=== PATIENT | female | born 1970 | race Caucasian/White ===

== ENCOUNTER → 2017-12-25 | Outpatient (CLI) | payer MEDICARE, OTHER ==
--- NOTE | 2017-12-26 08:34 | XR ---
EXAMINATION TYPE: XR cervical spine comp DATE OF EXAM: 12/25/2017 COMPARISON: 12/15/2009 HISTORY: Pain TECHNIQUE: 3 views are submitted. FINDINGS: The odontoid is intact. There are no compression deformities. The prevertebral soft tissue structur es are within normal limits. Postsurgical changes are noted. Degenerative disc disease at all levels . There is a kyphosis of the cervical spine which may be secondary to surgery. Alignment is demonstra swati inferior margin of C7. IMPRESSION: 1. Postsurgical changes.
--- NOTE | 2017-12-26 09:18 | XR ---
EXAMINATION TYPE: XR shoulder complete LT DATE OF EXAM: 12/25/2017 COMPARISON: NONE HISTORY: Pain TECHNIQUE: Three views are submitted. FINDINGS: The osseous structures are intact. There is no acute fracture or dislocation. Diffuse osteopenia. A rthropathy of the AC joint. IMPRESSION: 1. No acute process.
== END | disposition home or self-care (01) ==
LOC: RADXRMAIN 16:01
PROVIDERS: ATTEND Nurse Practitioner Family
DX: M54.2 Cervicalgia (principal); G82.50 Quadriplegia, unspecified; Z98.890 Other specified postprocedural states
CPT/HCPCS: 72050

== ENCOUNTER 2019-01-13 18:42 | Inpatient (IN) | payer MEDICARE, OTHER ==
[~2019-01-13 18:42] MED LIST: CHLORHEXIDINE GLUCONATE 15 ML CUP MUCOUS MEM ONE; MIDAZOLAM 1 MG/ML 5 ML VIAL ONE; PROPOFOL 10 MG/ML 20 ML VIAL IV ONE; ROCURONIUM BROMIDE 10 MG/ML 10 ML VIAL IV ONE
[2019-01-13] MEDS ORDERED: ACETAMINOPHEN TAB 500 MG TAB PO STA (19:13)
[2019-01-13] MEDS ORDERED: AZITHROMYCIN 500 MG in SODIUM CHLORIDE 0.9% 250 ML IVPB STA (19:15)
[2019-01-13] MEDS ORDERED: VANCOMYCIN IV PER PHARMACY 1 EACH MISC MISCELLANE PRN (19:26)
[2019-01-13] MEDS ORDERED: CEFEPIME 2 GM in SODIUM CHLORIDE 0.9% 100 ML IVPB STA (19:26)
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
[2019-01-13 19:30] LABS: Basophils % (A) 0 %; Eosinophils % (A) 0 %; HCT 30.8 % (34.0-46.0); HGB 10.1 gm/dL (11.4-16.0); Lymphocytes # (A) 0.7 k/uL (1.0-4.8); Lymphocytes % (A) 5 %; MCH 28.2 pg (25.0-35.0); MCHC 32.8 g/dL (31.0-37.0); Mean Platelet Volume 7.4; Monocytes # (A) 0.8 k/uL (0-1.0); Monocytes % (A) 7 %; Neutrophils % (A) 85 %; Platelet Count 458 k/uL (150-450); RBC 3.58 m/uL (3.80-5.40); RDW 14.9 % (11.5-15.5); WBC 12.9 k/uL (3.8-10.6)
[2019-01-13 19:32] LABS: ABG Base Excess 0.5 mmol/L; ABG HCO3 25 mmol/L (21-25); ABG Oxygen Saturation 86.9 % (94-97); ABG PCO2 39 mmHg (35-45); ABG PH 7.42 (7.35-7.45); ABG TCO2 26 mmol/L (19-24); Allen Test Performed? Yes
[2019-01-13] MEDS: SODIUM CHLORIDE 0.9% 500 ML 500 ML IV SCH ×2 (19:36→20:20)
--- NOTE | 2019-01-13 19:38 | XR ---
EXAMINATION TYPE: XR chest 1V portable DATE OF EXAM: 01/13/2019 COMPARISON: 05/21/2013 HISTORY: Fever TECHNIQUE: Single frontal view of the chest is obtained. FINDINGS: There is extensive airspace consolidation in the left mid and lower lung conti. Heart and mediastinum are shifted slightly to the left side. There is some mild atelectasis right lateral lung base. There is no heart failure. There are chest leads. IMPRESSION: New bilateral abnormality as above. Left lower lobe pneumonia and atelectasis is new com pared to old exam. There is new mild atelectasis lateral right lung base compared to old exam. Follow -up recommended. No gross heart failure.
[2019-01-13 19:39] LABS: ALT 14 U/L (9-52); AST 24 U/L (14-36); African American GFR (CKD) >90 (>60 ml/min/1.73 sqM); Albumin 3.4 g/dL (3.5-5.0); Alkaline Phosphatase 133 U/L (38-126); Anion Gap 13 mmol/L; Blood Urea Nitrogen 12 mg/dL (7-17); Calcium 8.6 mg/dL (8.4-10.2); Carbon Dioxide 23 mmol/L (22-30); Chloride 98 mmol/L (98-107); Glucose 120 mg/dL (74-99); Sodium 134 mmol/L (137-145); Total Bilirubin 0.8 mg/dL (0.2-1.3); Total Protein 7.3 g/dL (6.3-8.2)
[2019-01-13] MEDS ORDERED: VANCOMYCIN 1,000 MG in SODIUM CHLORIDE 0.9% 250 ML IVPB STA (19:39)
[2019-01-13 19:40] LABS: Partial Thromboplastin Time 31.7 sec (22.0-30.0); Potassium 3.5 mmol/L (3.5-5.1); Prothrombin Time 10.7 sec (9.0-12.0)
[2019-01-13 20:08] LABS: ABG PO2 52 mmHg (83-108)
[2019-01-13] MEDS ORDERED: RX INFO: IV CONTRAST WAS GIVEN 1 EACH MISC MISCELLANE PRN (20:12)
--- NOTE | 2019-01-13 20:56 | CT ---
EXAMINATION TYPE: CT chest wo/w con DATE OF EXAM: 01/13/2019 COMPARISON: None HISTORY: RACHEL, low 02 stats. Pt Q5 quadraplegic, not able to move arms. CT DLP: 443 mGycm Automated exposure control for dose reduction was used. CONTRAST: CT scan of the chest is performed with IV Contrast, patient injected with 100 mL of Isovue 300. Multiple axial sections were also obtained of the chest without contrast. FINDINGS: There is left lower lobe airspace consolidation. There is also infiltrate extending into the left upp er lobe. There is left pleural effusion. There is airspace infiltrate in the posterior right lower lo be. There is no mediastinal adenopathy. Heart size is normal. There is no pericardial effusion. Thora cic aorta is intact. There is no aneurysm or dissection. The thoracic spine is intact. Sternum appear s normal. There is no evidence of rib fracture. I see no filling defects in the pulmonary arteries. There is multiple areas of cortical thinning in the visualized right kidney. There is 4.5 cm hypodens e area posterior right lobe of the liver consistent with hemangioma unchanged compared to 10/31/2012 CT scan. IMPRESSION: Extensive airspace consolidation in the left lower lobe and to a lesser extent the left upper lobe. Left pleural effusion. There is less severe airspace consolidation and atelectasis medial posterior right lower lobe. No niurka dence of pulmonary embolism. Changes in the right kidney consistent with scarring and chronic pyelonephritis. This appears unchang ed compared to CT scan of 10/31/2012.
[2019-01-13] MEDS ORDERED: NALOXONE 0.4 MG/ML 1 ML VIAL IV PRN (21:47)
[2019-01-13] MEDS ORDERED: ACETAMINOPHEN TAB 325 MG TAB PO PRN (21:47)
--- NOTE | 2019-01-13 22:18 | XR ---
EXAM: XR Abdomen, 2 Views CLINICAL HISTORY: ITS.REASON XR Reason: Pain TECHNIQUE: Frontal view of the abdomen/pelvis with upright view of the abdomen. COMPARISON: No relevant prior studies available. FINDINGS: Intraperitoneal space: Evaluation for free air limited by supine patient positioning. Gastrointestinal tract: Retained stool is seen within the left colon. No dilation. Organs: Contrast material is seen within the bilateral renal collecting systems as well as the urinary bladder. Bones/joints: Unremarkable. IMPRESSION: No definite acute findings.
[2019-01-13 22:51] LABS: Glucose,Whole Blood 116 mg/dL (75-99)
[2019-01-13 23:06] LABS: Mucus,Urine Rare /hpf; RBC,Urine 3 /hpf (0-5); WBC,Urine 32 /hpf (0-5)
[2019-01-13 23:11] LABS: Appearance,Urine Clear (Clear); Bilirubin,Urine Negative (Negative); Blood,Urine Negative (Negative); Color,Urine Colorless; Glucose,Urine (UA) Negative (Negative); Ketones,Urine Negative (Negative); Leukocyte Esterase,Urine Large (Negative); Nitrite,Urine Negative (Negative); PH, Urine 5.5 (5.0-8.0); Protein,Urine Negative (Negative); Specific Gravity,Urine 1.017 (1.001-1.035); Urobilinogen,Urine <2.0 mg/dL (<2.0)
[2019-01-14] MEDS: SODIUM CHLORIDE 0.9% 1,000 ML IV SCH ×3 (00:13→19:06)
[2019-01-14] MEDS ORDERED: VANCOMYCIN IV PER PHARMACY 1 EACH MISC MISCELLANE PRN (01:24)
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
[2019-01-14 05:14] LABS: HCT 28.9 % (34.0-46.0); Hypochromasia Moderate; MCH 27.9 pg (25.0-35.0); MCHC 31.3 g/dL (31.0-37.0); MCV 89.2 fL (80.0-100.0); Mean Platelet Volume 7.2; Platelet Count 349 k/uL (150-450); RBC 3.24 m/uL (3.80-5.40); RDW 14.5 % (11.5-15.5); WBC 13.7 k/uL (3.8-10.6)
[2019-01-14 05:25] LABS: African American GFR (CKD) >90 (>60 ml/min/1.73 sqM); Anion Gap 9 mmol/L; Blood Urea Nitrogen 12 mg/dL (7-17); Calcium 7.8 mg/dL (8.4-10.2); Carbon Dioxide 21 mmol/L (22-30); Chloride 106 mmol/L (98-107); Glucose 109 mg/dL (74-99); Potassium 3.5 mmol/L (3.5-5.1); Sodium 136 mmol/L (137-145)
[2019-01-14] MEDS ORDERED: Potassium Replacement Protocol 1 EACH MISC MISCELLANE PRN (06:43)
[2019-01-14] MEDS ORDERED: HEPARIN SODIUM,PORCINE 5,000 UNIT/ML 1 ML VIAL SQ SCH (08:00)
--- NOTE | 2019-01-14 08:05 | XR ---
EXAMINATION TYPE: XR chest 1V portable DATE OF EXAM: 01/14/2019 COMPARISON: Prior chest x-ray 01/13/2019 HISTORY: Difficulty breathing, pneumonia TECHNIQUE: Single frontal view of the chest is obtained. FINDINGS: There is some interval improvement in visualization of the left heart border. There is obs cured right hemidiaphragm that is developed in the interval. Bibasilar densities present, airspace di sease persists on the left. Heart size likely stable. No pneumothorax. There are overlying cardiac le ads. IMPRESSION: Possible interval right lower lobe atelectasis versus pneumonia. Findings compatible wit h patient's history of pneumonia, there is associated left pleural effusion, additional follow-up rec ommended.
[2019-01-14] MEDS ORDERED: VANCOMYCIN 1,000 MG in SODIUM CHLORIDE 0.9% 250 ML IVPB SCH (09:00)
[2019-01-14] MEDS ORDERED: OXYBUTYNIN 10 MG TAB.ER.24 PO SCH (09:00)
[2019-01-14] MEDS: POTASSIUM CHLORIDE ER 20 MEQ TAB.ER PO SCH ×2 (09:02→11:09)
[2019-01-14] MEDS: BACLOFEN 10 MG TAB PO SCH ×2 (09:03→22:50)
[2019-01-14] MEDS: PANTOPRAZOLE 40 MG/10 ML VIAL IV SCH (09:03)
[2019-01-14] MEDS: CEFEPIME 2 GM in SODIUM CHLORIDE 0.9% 100 ML IVPB SCH ×2 (09:03→15:30)
[2019-01-14] MEDS: ENOXAPARIN 40 MG/0.4 ML SYRINGE SQ SCH (11:09)
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
[2019-01-14] MEDS: VANCOMYCIN 1,000 MG in SODIUM CHLORIDE 0.9% 250 ML IVPB SCH (18:50)
[2019-01-14] MEDS: NORTRIPTYLINE 25 MG CAP PO SCH (22:51)
[2019-01-14] MEDS: DETROL PO SCH (22:51)
[2019-01-14] MEDS: OXYBUTYNIN 10 MG TAB.ER.24 PO SCH (22:56)
[2019-01-15] MEDS: CEFEPIME 2 GM in SODIUM CHLORIDE 0.9% 100 ML IVPB SCH ×3 (00:30→15:34)
[2019-01-15] MEDS: VANCOMYCIN 1,000 MG in SODIUM CHLORIDE 0.9% 250 ML IVPB SCH ×3 (02:10→17:16)
[2019-01-15] MEDS: SODIUM CHLORIDE 0.9% 1,000 ML IV SCH ×2 (04:03→15:34)
[2019-01-15 05:15] LABS: African American GFR (CKD) >90 (>60 ml/min/1.73 sqM)
[2019-01-15 07:06] LABS: HGB 8.2 gm/dL (11.4-16.0); Hypochromasia Marked; MCH 28.5 pg (25.0-35.0); MCHC 31.3 g/dL (31.0-37.0); MCV 90.8 fL (80.0-100.0); Mean Platelet Volume 8.1; Platelet Count 338 k/uL (150-450); RBC 2.87 m/uL (3.80-5.40); RDW 14.7 % (11.5-15.5); WBC 17.4 k/uL (3.8-10.6)
[2019-01-15 07:19] LABS: ALT 24 U/L (9-52); AST 27 U/L (14-36); Albumin 2.5 g/dL (3.5-5.0); Alkaline Phosphatase 106 U/L (38-126); Anion Gap 9 mmol/L; Blood Urea Nitrogen 11 mg/dL (7-17); Calcium 7.3 mg/dL (8.4-10.2); Carbon Dioxide 18 mmol/L (22-30); Chloride 112 mmol/L (98-107); Glucose 96 mg/dL (74-99); Potassium 4.1 mmol/L (3.5-5.1); Sodium 139 mmol/L (137-145); Total Bilirubin 0.3 mg/dL (0.2-1.3); Total Protein 5.5 g/dL (6.3-8.2)
--- NOTE | 2019-01-15 08:16 | XR ---
EXAMINATION TYPE: XR chest 1V portable DATE OF EXAM: 01/15/2019 COMPARISON: Prior chest x-ray 01/14/2019 HISTORY: Shortness of breath and pneumonia TECHNIQUE: Single frontal view of the chest is obtained. FINDINGS: Interval improved visualization of the right hemidiaphragm. Persistent bibasilar increased density is noted. There is no pneumothorax. Heart size is stable. There are overlying cardiac leads, patient is rotated. IMPRESSION: Findings compatible with patient's history of pneumonia.
[2019-01-15] MEDS: ENOXAPARIN 40 MG/0.4 ML SYRINGE SQ SCH (08:48)
[2019-01-15] MEDS: OXYBUTYNIN 10 MG TAB.ER.24 PO SCH ×2 (08:48→21:12)
[2019-01-15] MEDS: BACLOFEN 10 MG TAB PO SCH ×2 (08:48→21:11)
[2019-01-15] MEDS: PANTOPRAZOLE 40 MG/10 ML VIAL IV SCH (08:48)
[2019-01-15] MEDS ORDERED: VANCOMYCIN TROUGH DUE 1 EACH MISC MISCELLANE ONE (09:00)
--- NOTE | 2019-01-15 11:28 | P.PN ---
Subjective Progress Note Date: 01/15/19 Principal diagnosis: SOB and hypoxia According to nursing patient required BiPAP last night. It is currently off, now requiring 10 L of nasal cannula. Patient denying any shortness of breath or chest pain. No fevers or chills. Objective - Vital Signs Vital signs: Vital Signs Temp 97.9 F 01/15/19 08:00 Pulse 101 H 01/15/19 11:00 Resp 19 01/15/19 11:00 BP 121/84 01/15/19 11:00 Pulse Ox 99 01/15/19 10:00 Intake & Output 01/14/19 01/15/19 01/15/19 18:59 06:59 18:59 Intake Total 1650 1300 450 Output Total 365 520 300 Balance 1285 780 150 Weight 59.6 kg 57.7 kg Intake: IV 1200 1300 450 Cefepime 2 gm In Sodium 100 Chloride 0.9% 100 ml @ 200 mls/hr IVPB Q8HR [facility] Rx#:[id number] Sodium Chloride 0.9% 1, 1200 1300 100 000 ml @ 100 mls/hr IV . Q10H [facility] Rx#:[id number] Vancomycin 1,000 mg In 250 Sodium Chloride 0.9% 250 ml @ 125 mls/hr IVPB Q12HR [facility]ITOR Rx#:[id number] Intake, IV Titration 450 Amount Cefepime 2 gm In Sodium 200 Chloride 0.9% 100 ml @ 200 mls/hr IVPB Q8HR [facility]ITOR Rx#:[id number] Vancomycin 1,000 mg In 250 Sodium Chloride 0.9% 250 ml @ 125 mls/hr IVPB Q8H [facility]ITOR Rx#:[id number] Output: Urine 365 520 300 Other: Voiding Method Indwelling Catheter Indwelling Catheter Indwelling Catheter - Exam General: No acute distress, comfortable Derm: Left ankle 2 cm x 2 cm ulcer with dressing, no unusual ecchymoses, warm, dry Head: atraumatic, normocephalic, symmetric Eyes: EOMI, no lid lag, anicteric sclera, pupils equal round reactive to light ENT: Nose and ears atraumatic, no thrush, no pharyngeal erythema Neck: No thyromegaly, no cervical lymphadenopathy, trachea midline, supple Mouth: no lip lesion, mucus membranes moist Cardiovascular: S1S2 reg, no murmur, positive posterior tibial pulse bilateral, no edema, capillary refill less than 2 seconds Lungs: Good lung sounds and scattered rhonchi over left lung conti, no rales , no accessory muscle use Abdominal: soft, nontender to palpation, no guarding, no appreciable organomegaly, normal bowel sounds Ext: Thin extremities, +muscle wasting, muscle strength 2 out of 5 in all 4 extremities grossly, no contractures Neuro: CN II-XI grossly intact Psych: Alert, oriented, appropriate affect - Labs CBC & Chem 7: 01/15/19 04:35 01/15/19 04:35 Labs: Abnormal Lab Results - Last 24 Hours (Table) 01/15/19 01/15/19 Range/Units 04:35 04:35 WBC 17.4 H (3.8-10.6) k/uL RBC 2.87 L (3.80-5.40) m/uL Hgb 8.2 L (11.4-16.0) gm/dL Hct 26.0 L (34.0-46.0) % Chloride 112 H (98-107) mmol/L Carbon Dioxide 18 L (22-30) mmol/L Creatinine 0.39 L (0.52-1.04) mg/dL Calcium 7.3 L (8.4-10.2) mg/dL Total Protein 5.5 L (6.3-8.2) g/dL Albumin 2.5 L (3.5-5.0) g/dL Microbiology - Last 24 Hours (Table) 01/13/19 19:15 Blood Culture - Preliminary Blood No Growth after 24 hours 01/13/19 22:52 Urine Culture - Preliminary Urine,Catheterized Assessment and Plan Plan: Sepsis secondary to multifocal pneumonia -Continue with vancomycin and cefepime -Follow up cultures -Pulmonary to consider bronchoscopy Normocytic anemia -No prior values available -Monitor for now Quadriplegia -Assist with feedings Abnormal UA -Patient w/ history of multiple UTIs and colonization -C/w Cefepime for now DVT prophylaxis -Lovenox Discussed with: Patient, Family Anticipated discharge date: 01/16/[address]: Home
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
--- NOTE | 2019-01-15 19:21 | XR ---
EXAMINATION: XR chest 1V portable DATE AND TIME: 01/15/2019 7:08 PM CLINICAL INDICATION: PHH; Tube placement TECHNIQUE: AP portable supine COMPARISON: AP portable semiupright chest radiograph 01/15/2019 at 5:43 AM FINDINGS: ET tube tip superimposed over the mid trachea. NG tube present, coursing over the expected course of the thoracic esophagus and over the stomach. There is new bilateral moderate-marked silhouetting of the pulmonary vasculature bilaterally by a fin e reticular pattern of increased attenuation, along with areas of coalescent ill-defined added opacit y - and with elevation of the right hemidiaphragm consistent with partial volume loss. These changes are consistent with new pulmonary edema and new right-sided atelectasis. Concurrent bronchopneumonia can be clinically considered. No visualized pneumothorax or other abnormal gas collection. Evidence of bilateral relatively-small pleural effusions. Cardiomediastinal silhouette and bones and soft tissues are unremarkable. Note: Supine radiography cannot exclude abnormal gas collections. IMPRESSION: POST INTUBATION CHEST RADIOGRAPH WITH PROMINENT INTERVAL WORSENING IN THE OVERALL LUNG INFLATION.
[2019-01-15] MEDS: PROPOFOL 1,000 MG in EMPTY BAG 1 BAG IV SCH (19:24)
[2019-01-15 19:28] LABS: ABG Base Excess -7.8 mmol/L; ABG HCO3 19 mmol/L (21-25); ABG Oxygen Saturation 92.5 % (94-97); ABG PCO2 37 mmHg (35-45); ABG PO2 66 mmHg (83-108); ABG TCO2 20 mmol/L (19-24); Allen Test Performed? Yes
[2019-01-15] MEDS: CHLORHEXIDINE GLUCONATE 15 ML CUP MUCOUS MEM SCH (21:11)
[2019-01-15] MEDS: DETROL PO SCH (21:12)
[2019-01-15] MEDS: NORTRIPTYLINE 25 MG CAP PO SCH (21:12)
[2019-01-16] MEDS: CEFEPIME 2 GM in SODIUM CHLORIDE 0.9% 100 ML IVPB SCH (00:48)
[2019-01-16] MEDS: methylPREDNISolone SOD SUCCI 125 MG/2 ML VIAL IV SCH ×5 (00:48→23:59)
[2019-01-16] MEDS: SODIUM CHLORIDE 0.9% 1,000 ML IV SCH ×2 (02:06→08:31)
[2019-01-16] MEDS: VANCOMYCIN 1,000 MG in SODIUM CHLORIDE 0.9% 250 ML IVPB SCH ×3 (02:06→17:11)
[2019-01-16 07:21] LABS: ABG Base Excess -8.9 mmol/L; ABG HCO3 17 mmol/L (21-25); ABG Oxygen Saturation 99.8 % (94-97); ABG PCO2 29 mmHg (35-45); ABG PH 7.36 (7.35-7.45); ABG PO2 227 mmHg (83-108); ABG TCO2 17 mmol/L (19-24)
[2019-01-16 07:23] LABS: Allen Test Performed? no
[2019-01-16 07:35] LABS: HCT 26.6 % (34.0-46.0); HGB 8.2 gm/dL (11.4-16.0); Hypochromasia Moderate; MCHC 30.8 g/dL (31.0-37.0); MCV 90.7 fL (80.0-100.0); Mean Platelet Volume 8.2; Platelet Count 419 k/uL (150-450); RBC 2.93 m/uL (3.80-5.40); RDW 15.1 % (11.5-15.5); WBC 20.2 k/uL (3.8-10.6)
[2019-01-16 07:44] LABS: African American GFR (CKD) >90 (>60 ml/min/1.73 sqM); Anion Gap 11 mmol/L; Blood Urea Nitrogen 7 mg/dL (7-17); Calcium 7.2 mg/dL (8.4-10.2); Carbon Dioxide 18 mmol/L (22-30); Chloride 111 mmol/L (98-107); Glucose 110 mg/dL (74-99); Potassium 3.3 mmol/L (3.5-5.1); Sodium 140 mmol/L (137-145)
[2019-01-16] MEDS: IPRATROPIUM-ALBUTEROL 3 ML NEB INHALATION SCH ×4 (07:56→19:28)
--- NOTE | 2019-01-16 08:16 | XR ---
EXAMINATION TYPE: XR chest 1V portable DATE OF EXAM: 01/16/2019 COMPARISON: Prior chest 01/15/2019 HISTORY: Intubated TECHNIQUE: frontal view of the chest is obtained on 2 images. FINDINGS: Endotracheal tube, NG tube, overlying cardiac leads again noted. Some improvement in aerat ion is present in the right upper lobe. Diffuse airspace disease present on the left and within the r ight lower lobe. There is blunting of the costophrenic angles. Postop change noted in the cervical sp ine. Heart size is stable. IMPRESSION: Findings compatible with pneumonia. Some interval improved aeration. There may be lower lobe atelectasis, associated effusions.
[2019-01-16] MEDS: PIPERACILLIN-TAZOBACTAM 3.375 GM in SODIUM CHLORIDE 0.9% 100 ML IVPB SCH ×3 (08:31→23:59)
[2019-01-16] MEDS: BACLOFEN 10 MG TAB PO SCH ×2 (08:32→19:49)
[2019-01-16] MEDS: ENOXAPARIN 40 MG/0.4 ML SYRINGE SQ SCH (08:32)
[2019-01-16] MEDS: CHLORHEXIDINE GLUCONATE 15 ML CUP MUCOUS MEM SCH ×2 (08:32→19:50)
[2019-01-16] MEDS: PANTOPRAZOLE 40 MG/10 ML VIAL IV SCH (08:33)
[2019-01-16] MEDS: POTASSIUM CHLORIDE 20 MEQ in WATER FOR INJECTION 1 100ML.BAG IVPB SCH ×3 (08:44→13:07)
--- NOTE | 2019-01-16 09:23 | P.PN ---
Subjective Progress Note Date: 01/16/19 Principal diagnosis: SOB and hypoxia Patient was off BiPAP for about 4 hours yesterday on 01/15. After that she started struggling with shortness of breath, she was hypoxic as well. Because of that she was intubated and placed on mechanical ventilation. Currently doing well. Objective - Vital Signs Vital signs: Vital Signs Temp 98.3 F 01/16/19 04:00 Pulse 68 01/16/19 08:13 Resp 20 01/16/19 07:00 BP 155/107 01/16/19 07:00 Pulse Ox 100 01/16/19 07:00 Intake & Output 01/15/19 01/16/19 01/16/19 18:59 06:59 18:59 Intake Total 1250 1123.138 100 Output Total 800 785 75 Balance 450 338.138 25 Weight 58.3 kg Intake: IV 1250 1100 100 Cefepime 2 gm In Sodium 200 100 Chloride 0.9% 100 ml @ 200 mls/hr IVPB Q8HR [facility] Rx#:[id number] Sodium Chloride 0.9% 1, 550 1000 100 000 ml @ 100 mls/hr IV . Q10H [facility] Rx#:[id number] Vancomycin 1,000 mg In 250 Sodium Chloride 0.9% 250 ml @ 125 mls/hr IVPB Q12HR [facility] Rx#:[id number] Vancomycin 1,000 mg In 250 Sodium Chloride 0.9% 250 ml @ 125 mls/hr IVPB Q8H [facility] Rx#:[id number] Intake, IV Titration 23.138 Amount Propofol 1,000 mg In 23.138 Empty Bag 1 bag @ Titrate IV .Q0M [facility] Rx#: [id number] Output: Urine 800 785 75 Other: Voiding Method Indwelling Catheter Indwelling Catheter ABP, PAP, CO, CI - Last Documented Arterial Blood Pressure 171/97 - Exam General: intubated, sedated Derm: Left ankle 2 cm x 2 cm ulcer with dressing, no unusual ecchymoses, warm, dry Head: atraumatic, normocephalic, symmetric Eyes: EOMI, no lid lag, anicteric sclera, pupils equal round reactive to light ENT: Nose and ears atraumatic, no thrush, no pharyngeal erythema Neck: No thyromegaly, no cervical lymphadenopathy, trachea midline, supple Mouth: no lip lesion, mucus membranes moist Cardiovascular: S1S2 reg, no murmur, positive posterior tibial pulse bilateral, no edema, capillary refill less than 2 seconds Lungs: Good lung sounds and scattered rhonchi over left lung conti, no rales , no accessory muscle use Abdominal: soft, nontender to palpation, no guarding, no appreciable organomegaly, normal bowel sounds Ext: Thin extremities, +muscle wasting, no contractures Neuro: Paraplegic - Labs CBC & Chem 7: 01/16/19 07:00 01/16/19 07:00 Labs: Abnormal Lab Results - Last 24 Hours (Table) 01/15/19 01/16/19 01/16/19 Range/Units 19:26 07:00 07:00 WBC 20.2 H (3.8-10.6) k/uL RBC 2.93 L (3.80-5.40) m/uL Hgb 8.2 L (11.4-16.0) gm/dL Hct 26.6 L (34.0-46.0) % MCHC 30.8 L (31.0-37.0) g/dL ABG pH 7.30 L (7.35-7.45) ABG pCO2 (35-45) mmHg ABG pO2 66 L (83-108) mmHg ABG HCO3 19 L (21-25) mmol/L ABG Total CO2 (19-24) mmol/L ABG O2 Saturation 92.5 L (94-97) % Potassium 3.3 L (3.5-5.1) mmol/L Chloride 111 H (98-107) mmol/L Carbon Dioxide 18 L (22-30) mmol/L Creatinine 0.37 L (0.52-1.04) mg/dL Glucose 110 H (74-99) mg/dL Calcium 7.2 L (8.4-10.2) mg/dL 01/16/19 Range/Units 07:18 WBC (3.8-10.6) k/uL RBC (3.80-5.40) m/uL Hgb (11.4-16.0) gm/dL Hct (34.0-46.0) % MCHC (31.0-37.0) g/dL ABG pH (7.35-7.45) ABG pCO2 29 L (35-45) mmHg ABG pO2 227 H (83-108) mmHg ABG HCO3 17 L (21-25) mmol/L ABG Total CO2 17 L (19-24) mmol/L ABG O2 Saturation 99.8 H (94-97) % Potassium (3.5-5.1) mmol/L Chloride (98-107) mmol/L Carbon Dioxide (22-30) mmol/L Creatinine (0.52-1.04) mg/dL Glucose (74-99) mg/dL Calcium (8.4-10.2) mg/dL Microbiology - Last 24 Hours (Table) 01/13/19 19:15 Blood Culture - Preliminary Blood No Growth after 48 hours 01/13/19 22:52 Urine Culture - Final Urine,Catheterized Assessment and Plan Plan: Sepsis secondary to multifocal pneumonia -Continue with vancomycin, d/c cefepime and start zosyn to cover anaerobes -Follow up cultures -Pulmonary to consider bronchoscopy Acute hypoxic respiratory failure: Now requiring mechanical ventilation Management per ICU team On abx as above. Steroids added IV Normocytic anemia -No prior values available -Monitor for now Hypokalemia Replace Quadriplegia -Assist with feedings Abnormal UA -Patient w/ history of multiple UTIs and colonization -On zosyn DVT prophylaxis -Lovenox Discussed with: Patient, Family Anticipated discharge date: 01/19/[address]: Home
[2019-01-16] MEDS: PROPOFOL 1,000 MG in EMPTY BAG 1 BAG IV SCH ×4 (10:53→22:30)
--- NOTE | 2019-01-16 11:47 | P.PN ---
Subjective Progress Note Date: 01/16/19 Principal diagnosis: Acute bilateral pneumonia, could be community-acquired or could be aspiration pneumonia. This is a 48-year-old female, quadriplegia, history of C-spine injury in 1995, patient presented to the ER with shortness of breath, fever, and low O2 saturation. According to her uncle, his symptoms started out yesterday were and the patient was noted to have shortness of breath, and a temp as high as 101. Her condition gradually worsened, and when her O2 saturation was checked, it was noted to be 69% on room air. Upon arrival to the ER, patient was noted to have abnormal chest x-ray with bilateral airspace disease involving most of the left lung, and the right lower lobe. Patient denies any symptoms of aspiration, she has no difficulty swallowing, she was initially placed on a nonrebreather mask, and was later switched to BiPAP. Presently on BiPAP, IPAP is 14 EPAP of 7 and FiO2 is 45%. Chest x-ray and CT of the chest were both reviewed, clearly there is evidence of significant airspace disease involving the left lung and the right lower lobe. Patient was already placed on vancomycin and cefepime. Cultures are pending. Patient is hemodynamically stable, and feeling much better compared to how she felt upon presentation. Chest x-ray is showing slight improvement but that's mostly because she is on BiPAP. And there seems to be better aeration of the left lower lobe and right lower lobe. CBC showed evidence of leukocytosis. Her ABG showed a pO2 of 52 pCO2 of 39 pH of 7.42. Urinalysis is suggestive of urinary tract infection with positive leukocyte esterase, and there is pyuria in the urine. However she had negative nitrites. Reevaluated today on 01/15/2019, patient remains in the ICU, she was switched from BiPAP to a high flow nasal cannula at 10 L. Feeling better compared to yesterday. Patient continues to have a weak cough. Her chest x-ray continues to show significant airspace disease in the left lower lobe, some improvement noted in the right lower lobe. Swallow evaluation is pending, in the meantime the patient is showing clinical improvement and she seems to be oxygenating better compared to yesterday. Chest x-ray again showed slight improvement. CBC continues to show leukocytosis with WBC count of 17.4. Electrodes are normal renal profile is normal. Blood cultures are negative so far. Urine culture is negative so far. No sputum has been sent as the patient is having difficulty coughing and any significant secretions Patient was reevaluated today on 01/16/2019, she was doing well off BiPAP at high flow nasal cannula until late afternoon yesterday, condition deteriorated, patient could not clear any secretions, her O2 saturation To dropping down his bite of going back on BiPAP, hence I recommended intubating the patient. Patient was placed on mechanical ventilation, she is presently on assist control rate of 16 tidal volume of 400, FiO2 45%, PEEP is at 5. Yesterday she was for quite some time on high FiO2 100%, and PEEP of 8. However her oxygenation and ABG seems to be improving today, continues to have significantly abnormal chest x-ray with significant airspace disease involving both lungs especially left lower lobe and right lower lobe. No adequate sputum sample was obtained after intubation, hence I plan to bronchoscope the patient today, and lavage her right lower lobe and possibly lavage the left lower lobe. Patient clearly needed to be intubated because her Restoril status was getting worse by late afternoon. Chest x-ray continues to show significant airspace disease. Her labs were reviewed, ABG this morning showed a pO2 of 227 pCO2 of 29 pH of 7.36. Her bicarb is 18. Profile is normal potassium is 3.3. Electrolytes are otherwise normal. She has clearly leukocytosis with WBC count of 20.2 hemoglobin is 8.2. Antibiotics now are Zosyn and vancomycin. Blood cultures so far are negative. Patient is on propofol at 55 mcg/kg/m, not requiring any pressors. Objective - Vital Signs Vital signs: Vital Signs Temp 97.7 F 01/16/19 08:00 Pulse 89 01/16/19 11:00 Resp 16 01/16/19 11:00 BP 140/97 01/16/19 11:00 Pulse Ox 98 01/16/19 11:00 Intake & Output 01/15/19 01/16/19 01/16/19 18:59 06:59 18:59 Intake Total 1250 1123.138 826.862 Output Total 800 785 650 Balance 450 338.138 176.862 Weight 58.3 kg 58.3 kg Intake: IV 1250 1100 650 Cefepime 2 gm In Sodium 200 100 Chloride 0.9% 100 ml @ 200 mls/hr IVPB Q8HR [facility] Rx#:[id number] Piperacillin-Tazobactam 3 100 .375 gm In Sodium Chloride 0.9% 100 ml @ 25 mls/hr IVPB Q8HR [facility] Rx# :[id number] Potassium Chloride 20 meq 200 In Water For Injection 1 100ml.bag @ 50 mls/hr IVPB Q2H [facility] Rx#: [id number] Sodium Chloride 0.9% 1, 550 1000 100 000 ml @ 100 mls/hr IV . Q10H [facility] Rx#:[id number] Vancomycin 1,000 mg In 250 Sodium Chloride 0.9% 250 ml @ 125 mls/hr IVPB Q12HR [facility] Rx#:[id number] Vancomycin 1,000 mg In 250 250 Sodium Chloride 0.9% 250 ml @ 125 mls/hr IVPB Q8H [facility] Rx#:[id number] Intake, IV Titration 23.138 76.862 Amount Propofol 1,000 mg In 23.138 76.862 Empty Bag 1 bag @ Titrate IV .Q0M [facility] Rx#: [id number] Other 100 Output: Urine 800 785 650 Other: Voiding Method Indwelling Catheter Indwelling Catheter Indwelling Catheter ABP, PAP, CO, CI - Last Documented Arterial Blood Pressure 148/86 - Exam General: Revealed a 48-year-old female, sedated, on mechanical ventilation, on propofol. Head: atraumatic, normocephalic, endotracheal tube and orogastric tube are intact. Eyes: EOMI, PERRLA, EOMI, no icterus. ENT: Nose and ears moist mucous membranes, throat is clear. Neck: No neck masses no JVD. Mouth: Moist mucous membranes otherwise unremarkable. Cardiovascular: Normal S1 and S2, no S3 gallop. Lungs: Diffuse crackles and rhonchi noted bilaterally especially at the bases posteriorly. Symmetrical chest expansion. Abdominal: Soft nontender no megaly no rebound. Ext: Significant contractures noted in the upper extremities. There is flexion contractures noted. And 1+ bipedal edema noted in the lower extremities. Pressure ulcer noted on the left ankle area. Neuro: Paraplegic, sedated, mental status was not assessed. However according to the nurses even on 50 mcg/kg of propofol, she was following instructions earlier.. Psych: Cannot be assessed, sedated. Derm: Left ankle ulcer stage II noted 2.0 cm in size. Seems to be a pressure ulcer. - Labs CBC & Chem 7: 01/16/19 07:00 01/16/19 07:00 Labs: Abnormal Lab Results - Last 24 Hours (Table) 01/15/19 01/16/19 01/16/19 Range/Units 19:26 07:00 07:00 WBC 20.2 H (3.8-10.6) k/uL RBC 2.93 L (3.80-5.40) m/uL Hgb 8.2 L (11.4-16.0) gm/dL Hct 26.6 L (34.0-46.0) % MCHC 30.8 L (31.0-37.0) g/dL ABG pH 7.30 L (7.35-7.45) ABG pCO2 (35-45) mmHg ABG pO2 66 L (83-108) mmHg ABG HCO3 19 L (21-25) mmol/L ABG Total CO2 (19-24) mmol/L ABG O2 Saturation 92.5 L (94-97) % Potassium 3.3 L (3.5-5.1) mmol/L Chloride 111 H (98-107) mmol/L Carbon Dioxide 18 L (22-30) mmol/L Creatinine 0.37 L (0.52-1.04) mg/dL Glucose 110 H (74-99) mg/dL Calcium 7.2 L (8.4-10.2) mg/dL 01/16/19 Range/Units 07:18 WBC (3.8-10.6) k/uL RBC (3.80-5.40) m/uL Hgb (11.4-16.0) gm/dL Hct (34.0-46.0) % MCHC (31.0-37.0) g/dL ABG pH (7.35-7.45) ABG pCO2 29 L (35-45) mmHg ABG pO2 227 H (83-108) mmHg ABG HCO3 17 L (21-25) mmol/L ABG Total CO2 17 L (19-24) mmol/L ABG O2 Saturation 99.8 H (94-97) % Potassium (3.5-5.1) mmol/L Chloride (98-107) mmol/L Carbon Dioxide (22-30) mmol/L Creatinine (0.52-1.04) mg/dL Glucose (74-99) mg/dL Calcium (8.4-10.2) mg/dL Microbiology - Last 24 Hours (Table) 01/16/19 03:23 Gram Stain - Preliminary Sputum Sputum Culture - Preliminary 01/13/19 19:15 Blood Culture - Preliminary Blood No Growth after 48 hours 01/13/19 22:52 Urine Culture - Final Urine,Catheterized Assessment and Plan Assessment: Impression: 1 acute hypoxic respiratory failure secondary to bilateral pneumonia felt to be aspiration related, failed BiPAP, presently on mechanical ventilation. 2 community-acquired pneumonia, is not entirely ruled out. 3 acute sepsis secondary to pneumonia 4 quadriplegia secondary to previous C-spine injury 5 recurrent history of urinary tract infections and colonization 6 previous history of tracheostomy and reversal, Recommendation: Continue ventilatory support. Continue nutritional support patient will be started on enteral feeding. Continue antibiotics.Plan to perform bronchoscopy on this patient and lavage of the right lower lobe and left lower lobe, and antibiotics will be addressed according to the final culture. Continue bronchodilators Continue to monitor in the we will arrange for bronchoscopy today. Continue GI and DVT prophylaxis. Prognosis remains relatively poor and guarded. We'll continue to follow. We will update her family at her condition later today once they are available. Critical care time is 35 minutes, not including time on procedures. Time with Patient: Greater than 30
[2019-01-16] MEDS ORDERED: HYDROmorphone 1 MG/ML 1 ML SYRINGE IVP STA (13:14)
--- NOTE | 2019-01-16 14:23 | XR ---
EXAMINATION TYPE: XR chest 1V portable DATE OF EXAM: 01/16/2019 COMPARISON: Prior chest x-ray same dated earlier time and chest CT 01/13/2019 HISTORY: Status post bronchoscopy TECHNIQUE: Single frontal view of the chest is obtained. FINDINGS: Endotracheal tube, orogastric tube are overlying appropriate positions. There is some impr ovement in aeration at the right lung base. Some flake-like increased attenuation is present at the l sally bases, correlate for possible aspiration. Air bronchograms persist at the left lung base. No evid ent pneumothorax. IMPRESSION: Some interval improvement in aeration as compared to prior exam. Suggestion of metallic foreign bodies within the posterior lung bases, possible calcification
[2019-01-16 15:29] LABS: ABG Base Excess -10.9 mmol/L; ABG HCO3 16 mmol/L (21-25); ABG Oxygen Saturation 97.6 % (94-97); ABG PCO2 34 mmHg (35-45); ABG PH 7.28 (7.35-7.45); ABG PO2 101 mmHg (83-108); ABG TCO2 17 mmol/L (19-24); Allen Test Performed? Yes
[2019-01-16] MEDS: DEXTROSE 5% IN WATER 1,000 ML with SODIUM BICARB (1 MEQ/ML) 150 ML IV SCH (17:11)
--- NOTE | 2019-01-16 18:54 | OP ---
OPERATIVE REPORT OPERATION: Placement of right femoral triple-lumen catheter. PREOPERATIVE DIAGNOSIS: Acute respiratory failure and pneumonia. POSTOPERATIVE DIAGNOSIS: Acute respiratory failure and pneumonia. ANESTHESIA USED: Lidocaine 1%, 2 mL. PROCEDURE DESCRIPTION: The patient was placed in supine position. The area of the right groin was prepared in a sterile fashion and drapes were applied. The right groin was locally anesthetized with lidocaine. Then the right femoral vein was cannulated easily with 1 poke, and a guidewire was placed. The area around the guidewire was dilated with a dilator. Then a triple-lumen catheter was inserted over the guidewire and the guidewire was removed. Good blood flow was noted in the 3 different ports. Line was secured using 3.0 silk sutures. No evidence of any immediate complications. MMODL / IJN: [id number] /
--- NOTE | 2019-01-16 18:54 | OP ---
OPERATIVE REPORT OPERATION: Bronchoscopy and bronchoalveolar lavage of both lungs. The lavage was basically therapeutic. PREOPERATIVE DIAGNOSIS: Acute respiratory failure and bilateral pneumonia, difficulty clearing secretions. POSTOPERATIVE DIAGNOSIS: Respiratory failure, bilateral pneumonia and thick purulent secretions occluding the airways. ANESTHESIA USED: The patient was already on propofol drip. She was given a 50 mg bolus of propofol and 1 mg of Dilaudid IV push prior to the procedure. DESCRIPTION OF THE PROCEDURE: The patient was placed in a supine position. She was already on mechanical ventilation. An adapter was applied to the endotracheal tube and was connected to mechanical ventilation. FiO2 was raised up to 100%. We monitored her oxygen saturation continuously. Blood pressure was continuously monitored via arterial line and cardiac rhythm was continuously monitored. After adequate sedation, the bronchoscope was advanced through the adapter of the endotracheal tube. As we entered the trachea, the distal end of the endotracheal tube showed a significant amount of thick purulent secretions occluding mostly the right mainstem bronchus, also occluding the left mainstem bronchus, and a saddle shape over the ger. Suctioning was done aggressively. I had to go back and forth about 15 times getting the endobronchial mucous plugs, in an almost piecemeal type of fashion. Then I was able to eventually go down and lavage the right lower lobe, which was also completely occluded. The left lower lobe was also occluded. All the thick purulent secretions were suctioned aggressively from the right lower lobe, right middle lobe and right upper lobe. The same was done in the left lower lobe lingula and left upper lobe. We kept clearing secretions until all the airways became completely clear and no further thick secretions were noted. Fluid was sent for different diagnostic studies. Procedure was well tolerated. No evidence of any immediate complications. MMODL / IJN: [id number] /
[2019-01-16] MEDS: NORTRIPTYLINE 25 MG CAP PO SCH (19:48)
[2019-01-16] MEDS: OXYBUTYNIN CHLORIDE 5 MG TAB PO SCH (19:48)
[2019-01-16] MEDS: DETROL PO SCH (19:49)
[2019-01-16 20:42] LABS: Appearance,BF Cloudy; Color,BF Colorless; Nucleated Cells, Body Fluid 15050 /uL; RBC, Body Fluid 600 /uL
[2019-01-16 20:50] LABS: Mononuclear WBC,Body Fluid 2 %; Polynuclear WBC,Body Fluid 98 %; Total Cells Counted,Body Fluid 100
[2019-01-17 00:12] LABS: Glucose,Whole Blood 259 mg/dL (75-99)
[2019-01-17] MEDS: INSULIN ASPART (NovoLOG) 100 UNIT/ML VIAL SQ SCH ×4 (00:32→17:47)
[2019-01-17] MEDS: SODIUM CHLORIDE 0.9% 1,000 ML IV SCH ×3 (00:32→16:09)
[2019-01-17] MEDS: PROPOFOL 1,000 MG in EMPTY BAG 1 BAG IV SCH ×6 (01:15→22:10)
[2019-01-17] MEDS: VANCOMYCIN 1,000 MG in SODIUM CHLORIDE 0.9% 250 ML IVPB SCH (02:01)
[2019-01-17 05:14] LABS: HCT 24.2 % (34.0-46.0); HGB 7.7 gm/dL (11.4-16.0); Hypochromasia Moderate; MCH 28.1 pg (25.0-35.0); MCHC 31.7 g/dL (31.0-37.0); MCV 88.9 fL (80.0-100.0); Mean Platelet Volume 7.8; Platelet Count 390 k/uL (150-450); RBC 2.72 m/uL (3.80-5.40); RDW 14.9 % (11.5-15.5); WBC 11.4 k/uL (3.8-10.6)
[2019-01-17] MEDS: methylPREDNISolone SOD SUCCI 125 MG/2 ML VIAL IV SCH ×4 (05:15→23:19)
[2019-01-17 05:24] LABS: Glucose,Whole Blood 265 mg/dL (75-99)
[2019-01-17 05:48] LABS: African American GFR (CKD) >90 (>60 ml/min/1.73 sqM); Anion Gap 6 mmol/L; Blood Urea Nitrogen 9 mg/dL (7-17); Calcium 6.9 mg/dL (8.4-10.2); Carbon Dioxide 21 mmol/L (22-30); Chloride 110 mmol/L (98-107); Glucose 243 mg/dL (74-99); Magnesium 2.1 mg/dL (1.6-2.3); Potassium 3.1 mmol/L (3.5-5.1); Sodium 137 mmol/L (137-145)
[2019-01-17] MEDS: POTASSIUM BICARBONATE/CIT AC 20 MEQ TABLET.EFF NG-TUBE SCH ×4 (06:27→17:47)
[2019-01-17] MEDS: IPRATROPIUM-ALBUTEROL 3 ML NEB INHALATION SCH ×4 (07:08→19:01)
[2019-01-17 08:05] LABS: ABG Base Excess -1.1 mmol/L; ABG HCO3 23 mmol/L (21-25); ABG Oxygen Saturation 99.2 % (94-97); ABG PCO2 34 mmHg (35-45); ABG PH 7.44 (7.35-7.45); ABG PO2 125 mmHg (83-108); ABG TCO2 24 mmol/L (19-24); Allen Test Performed? Yes
[2019-01-17] MEDS: CHLORHEXIDINE GLUCONATE 15 ML CUP MUCOUS MEM SCH ×2 (08:15→20:44)
[2019-01-17] MEDS: BACLOFEN 10 MG TAB PO SCH ×2 (08:15→20:37)
[2019-01-17] MEDS: PANTOPRAZOLE 40 MG/10 ML VIAL IV SCH (08:16)
[2019-01-17] MEDS: OXYBUTYNIN CHLORIDE 5 MG TAB PO SCH ×2 (08:16→20:38)
[2019-01-17] MEDS: ENOXAPARIN 40 MG/0.4 ML SYRINGE SQ SCH (08:18)
[2019-01-17] MEDS: PIPERACILLIN-TAZOBACTAM 3.375 GM in SODIUM CHLORIDE 0.9% 100 ML IVPB SCH ×3 (08:18→23:19)
--- NOTE | 2019-01-17 08:50 | XR ---
EXAMINATION TYPE: XR chest 1V portable DATE OF EXAM: 01/17/2019 COMPARISON: Prior chest x-ray 01/16/2019 HISTORY: Intubated TECHNIQUE: Single frontal view of the chest is obtained. FINDINGS: Findings are similar to prior exam. The hemidiaphragms are secured, there is bibasilar den sity. Endotracheal tube and orogastric tube are overlying appropriate positions. There is no evident pneumothorax. Heart size is stable. There are overlying cardiac leads. Postop changes in the neck aga in seen. Metallic basilar densities again noted on the right. IMPRESSION: Bilateral pneumonia and associated effusions. Indeterminate increased attenuation at the lung bases.
[2019-01-17] MEDS ORDERED: VANCOMYCIN TROUGH DUE 1 EACH MISC MISCELLANE ONE (09:00)
--- NOTE | 2019-01-17 09:13 | P.PN ---
Subjective Progress Note Date: 01/17/19 Principal diagnosis: SOB and hypoxia Patient had a bronchoscopy yesterday, copious amount of thick secretions were suctioned. Currently doing well; still on mechanical ventilation. Planning to wean off sedation shortly. Objective - Vital Signs Vital signs: Vital Signs Temp 98.5 F 01/17/19 08:00 Pulse 86 01/17/19 08:00 Resp 16 01/17/19 08:00 BP 97/61 01/17/19 08:00 Pulse Ox 98 01/17/19 08:00 Intake & Output 01/16/19 01/17/19 01/17/19 18:59 06:59 18:59 Intake Total 2485.721 3144.201 608 Output Total 1005 890 300 Balance 9950.928 6504.201 308 Weight 58.3 kg 62.1 kg Intake: IV 1875 2200 500 Dextrose 5% in Water 1, 100 600 150 000 ml @ 50 mls/hr IV . Q23H [facility] with Sodium Bicarb (1 Meq/ml) 150 ml Rx#:[id number] Piperacillin-Tazobactam 3 175 150 50 .375 gm In Sodium Chloride 0.9% 100 ml @ 25 mls/hr IVPB Q8HR [facility] Rx# :[id number] Potassium Chloride 20 meq 300 In Water For Injection 1 100ml.bag @ 50 mls/hr IVPB Q2H [facility] Rx#: [id number] Sodium Chloride 0.9% 1, 800 1200 300 000 ml @ 100 mls/hr IV . Q10H [facility] Rx#:[id number] Vancomycin 1,000 mg In 500 250 Sodium Chloride 0.9% 250 ml @ 125 mls/hr IVPB Q8H [facility] Rx#:[id number] Intake, IV Titration 264.721 278.201 Amount Propofol 1,000 mg In 264.721 278.201 Empty Bag 1 bag @ Titrate IV .Q0M [facility] Rx#: [id number] Tube Feeding 216 576 108 Other 130 90 Output: Urine 1005 890 300 Other: Voiding Method Indwelling Catheter Indwelling Catheter Indwelling Catheter ABP, PAP, CO, CI - Last Documented Arterial Blood Pressure 131/69 - Exam General: intubated, sedated Derm: Left ankle 2 cm x 2 cm ulcer with dressing, no unusual ecchymoses, warm, dry Head: atraumatic, normocephalic, symmetric Eyes: EOMI, no lid lag, anicteric sclera, pupils equal round reactive to light ENT: Nose and ears atraumatic, no thrush, no pharyngeal erythema Neck: No thyromegaly, no cervical lymphadenopathy, trachea midline, supple Mouth: no lip lesion, mucus membranes moist Cardiovascular: S1S2 reg, no murmur, positive posterior tibial pulse bilateral, no edema, capillary refill less than 2 seconds Lungs: Good lung sounds and scattered rhonchi over left lung conti, no rales , no accessory muscle use Abdominal: soft, nontender to palpation, no guarding, no appreciable organomegaly, normal bowel sounds Ext: Thin extremities, +muscle wasting, no contractures Neuro: Paraplegic - Labs CBC & Chem 7: 01/17/19 04:25 01/17/19 04:25 Labs: Abnormal Lab Results - Last 24 Hours (Table) 01/16/19 01/17/19 01/17/19 Range/Units 15:25 00:11 04:25 WBC 11.4 H (3.8-10.6) k/uL RBC 2.72 L (3.80-5.40) m/uL Hgb 7.7 L (11.4-16.0) gm/dL Hct 24.2 L (34.0-46.0) % ABG pH 7.28 L (7.35-7.45) ABG pCO2 34 L (35-45) mmHg ABG pO2 (83-108) mmHg ABG HCO3 16 L (21-25) mmol/L ABG Total CO2 17 L (19-24) mmol/L ABG O2 Saturation 97.6 H (94-97) % Potassium (3.5-5.1) mmol/L Chloride (98-107) mmol/L Carbon Dioxide (22-30) mmol/L Creatinine (0.52-1.04) mg/dL Glucose (74-99) mg/dL POC Glucose (mg/dL) 259 H (75-99) mg/dL Calcium (8.4-10.2) mg/dL 01/17/19 01/17/19 01/17/19 Range/Units 04:25 05:21 08:04 WBC (3.8-10.6) k/uL RBC (3.80-5.40) m/uL Hgb (11.4-16.0) gm/dL Hct (34.0-46.0) % ABG pH (7.35-7.45) ABG pCO2 34 L (35-45) mmHg ABG pO2 125 H (83-108) mmHg ABG HCO3 (21-25) mmol/L ABG Total CO2 (19-24) mmol/L ABG O2 Saturation 99.2 H (94-97) % Potassium 3.1 L (3.5-5.1) mmol/L Chloride 110 H (98-107) mmol/L Carbon Dioxide 21 L (22-30) mmol/L Creatinine 0.34 L (0.52-1.04) mg/dL Glucose 243 H (74-99) mg/dL POC Glucose (mg/dL) 265 H (75-99) mg/dL Calcium 6.9 L (8.4-10.2) mg/dL Microbiology - Last 24 Hours (Table) 01/16/19 13:25 Fungal Culture - Preliminary Bronchoalviolar Lavage - Right 01/16/19 13:25 Bronchial Washings Culture - Preliminary Bronchoalviolar Lavage - Right 01/16/19 13:25 Acid Fast Bacilli Culture - Preliminary Bronchoalviolar Lavage - Right 01/13/19 19:15 Blood Culture - Preliminary Blood No Growth after 72 hours 01/16/19 03:23 Gram Stain - Preliminary Sputum Sputum Culture - Preliminary Assessment and Plan Plan: Sepsis secondary to multifocal pneumonia likely sec to recurrent aspiration -Continue with vancomycin, zosyn -Follow up cultures -S/P bronchoscopy 01/16 Acute hypoxic respiratory failure: Management per ICU team On abx as above. Steroids added IV Normocytic anemia -No prior values available -Monitor for now Hypokalemia Replace Quadriplegia -Assist with feedings Abnormal UA -Patient w/ history of multiple UTIs and colonization -On zosyn DVT prophylaxis -Lovenox Discussed with: Patient, Family Anticipated discharge date: 01/19/[address]: Home
[2019-01-17] MEDS ORDERED: HYDROmorphone 1 MG/ML 1 ML SYRINGE IVP STA (09:44)
[2019-01-17 12:30] LABS: Glucose,Whole Blood 202 mg/dL (75-99)
[2019-01-17] MEDS: VANCOMYCIN 750 MG in SODIUM CHLORIDE 0.9% 250 ML IVPB SCH ×2 (12:33→20:35)
--- NOTE | 2019-01-17 13:02 | P.PN ---
Subjective Progress Note Date: 01/17/19 Principal diagnosis: Acute bilateral pneumonia, could be community-acquired or could be aspiration pneumonia. This is a 48-year-old female, quadriplegia, history of C-spine injury in 1995, patient presented to the ER with shortness of breath, fever, and low O2 saturation. According to her uncle, his symptoms started out yesterday were and the patient was noted to have shortness of breath, and a temp as high as 101. Her condition gradually worsened, and when her O2 saturation was checked, it was noted to be 69% on room air. Upon arrival to the ER, patient was noted to have abnormal chest x-ray with bilateral airspace disease involving most of the left lung, and the right lower lobe. Patient denies any symptoms of aspiration, she has no difficulty swallowing, she was initially placed on a nonrebreather mask, and was later switched to BiPAP. Presently on BiPAP, IPAP is 14 EPAP of 7 and FiO2 is 45%. Chest x-ray and CT of the chest were both reviewed, clearly there is evidence of significant airspace disease involving the left lung and the right lower lobe. Patient was already placed on vancomycin and cefepime. Cultures are pending. Patient is hemodynamically stable, and feeling much better compared to how she felt upon presentation. Chest x-ray is showing slight improvement but that's mostly because she is on BiPAP. And there seems to be better aeration of the left lower lobe and right lower lobe. CBC showed evidence of leukocytosis. Her ABG showed a pO2 of 52 pCO2 of 39 pH of 7.42. Urinalysis is suggestive of urinary tract infection with positive leukocyte esterase, and there is pyuria in the urine. However she had negative nitrites. Reevaluated today on 01/15/2019, patient remains in the ICU, she was switched from BiPAP to a high flow nasal cannula at 10 L. Feeling better compared to yesterday. Patient continues to have a weak cough. Her chest x-ray continues to show significant airspace disease in the left lower lobe, some improvement noted in the right lower lobe. Swallow evaluation is pending, in the meantime the patient is showing clinical improvement and she seems to be oxygenating better compared to yesterday. Chest x-ray again showed slight improvement. CBC continues to show leukocytosis with WBC count of 17.4. Electrodes are normal renal profile is normal. Blood cultures are negative so far. Urine culture is negative so far. No sputum has been sent as the patient is having difficulty coughing and any significant secretions Patient was reevaluated today on 01/16/2019, she was doing well off BiPAP at high flow nasal cannula until late afternoon yesterday, condition deteriorated, patient could not clear any secretions, her O2 saturation To dropping down his bite of going back on BiPAP, hence I recommended intubating the patient. Patient was placed on mechanical ventilation, she is presently on assist control rate of 16 tidal volume of 400, FiO2 45%, PEEP is at 5. Yesterday she was for quite some time on high FiO2 100%, and PEEP of 8. However her oxygenation and ABG seems to be improving today, continues to have significantly abnormal chest x-ray with significant airspace disease involving both lungs especially left lower lobe and right lower lobe. No adequate sputum sample was obtained after intubation, hence I plan to bronchoscope the patient today, and lavage her right lower lobe and possibly lavage the left lower lobe. Patient clearly needed to be intubated because her Restoril status was getting worse by late afternoon. Chest x-ray continues to show significant airspace disease. Her labs were reviewed, ABG this morning showed a pO2 of 227 pCO2 of 29 pH of 7.36. Her bicarb is 18. Profile is normal potassium is 3.3. Electrolytes are otherwise normal. She has clearly leukocytosis with WBC count of 20.2 hemoglobin is 8.2. Antibiotics now are Zosyn and vancomycin. Blood cultures so far are negative. Patient is on propofol at 55 mcg/kg/m, not requiring any pressors. Patient was reevaluated today on 01/17/2019, remains on mechanical ventilation, same ventilator settings however her FiO2 is down to 35%. Chest x-ray showing worsening infiltrates compared to yesterday after bronchoscopy, hence I went ahead and recommended bronchoscopy again, more. Secretions were removed mostly from the left side this time. Patient tolerated the procedure well. And so far microbiology is nondiagnostic. Patient remains on broad-spectrum antibiotics, bronchodilators, and steroids. ABG this morning on 45% showed a pO2 of 125 pCO2 of 34 pH of 7.44 hence sodium bicarb was discontinued. Hemoglobin is 7.7 WBC count is 11.4 potassium is a bit low being corrected as per protocol. Renal functioning is normal. Patient remains on nutritional support via enteral feeding, remains on antibiotics and bronchodilators. And clearly she is not ready for any form of weaning at this point. She is not requiring any pressors. She is maintaining mostly on propofol. Objective - Vital Signs Vital signs: Vital Signs Temp 96.8 F L 01/17/19 12:00 Pulse 70 01/17/19 12:00 Resp 16 01/17/19 12:00 BP 97/61 01/17/19 09:00 Pulse Ox 94 L 01/17/19 12:00 Intake & Output 01/16/19 01/17/19 01/17/19 18:59 06:59 18:59 Intake Total 2485.721 3144.201 1087.945 Output Total 1005 890 490 Balance 5476.886 4008.201 597.945 Weight 58.3 kg 62.1 kg Intake: IV 1875 2200 850 Dextrose 5% in Water 1, 100 600 150 000 ml @ 50 mls/hr IV . Q23H [facility] with Sodium Bicarb (1 Meq/ml) 150 ml Rx#:[id number] Piperacillin-Tazobactam 3 175 150 100 .375 gm In Sodium Chloride 0.9% 100 ml @ 25 mls/hr IVPB Q8HR [facility] Rx# :[id number] Potassium Chloride 20 meq 300 In Water For Injection 1 100ml.bag @ 50 mls/hr IVPB Q2H [facility] Rx#: [id number] Sodium Chloride 0.9% 1, 800 1200 600 000 ml @ 100 mls/hr IV . Q10H [facility] Rx#:[id number] Vancomycin 1,000 mg In 500 250 Sodium Chloride 0.9% 250 ml @ 125 mls/hr IVPB Q8H [facility] Rx#:[id number] Intake, IV Titration 264.721 278.201 93.945 Amount Propofol 1,000 mg In 264.721 278.201 93.945 Empty Bag 1 bag @ Titrate IV .Q0M [facility] Rx#: [id number] Tube Feeding 216 576 144 Other 130 90 Output: Urine 1005 890 490 Other: Voiding Method Indwelling Catheter Indwelling Catheter Indwelling Catheter ABP, PAP, CO, CI - Last Documented Arterial Blood Pressure 107/60 - Exam General: Revealed a 48-year-old female, sedated, remains on propofol, mechanically ventilated Head: atraumatic, normocephalic, endotracheal tube and orogastric tube are intact. Eyes: EOMI, PERRLA, EOMI, no icterus. ENT: Nose and ears moist mucous membranes, throat is clear. Neck: No neck masses no JVD. Mouth: Moist mucous membranes otherwise unremarkable. Cardiovascular: Normal S1 and S2, no S3 gallop. Lungs: Diffuse crackles and rhonchi noted bilaterally especially at the bases posteriorly. Symmetrical chest expansion. Abdominal: Soft nontender no megaly no rebound. Ext: Significant contractures noted in the upper extremities. There is flexion contractures noted. And 1+ bipedal edema noted in the lower extremities. Pressure ulcer noted on the left ankle area. Neuro: Paraplegic, sedated, mental status was not assessed. However according to the nurses even on 50 mcg/kg of propofol, she was following instructions earlier.. Psych: Cannot be assessed, sedated. Derm: Left ankle ulcer stage II noted 2.0 cm in size. Seems to be a pressure ulcer. - Labs CBC & Chem 7: 01/17/19 04:25 01/17/19 12:25 Labs: Abnormal Lab Results - Last 24 Hours (Table) 01/16/19 01/17/19 01/17/19 Range/Units 15:25 00:11 04:25 WBC 11.4 H (3.8-10.6) k/uL RBC 2.72 L (3.80-5.40) m/uL Hgb 7.7 L (11.4-16.0) gm/dL Hct 24.2 L (34.0-46.0) % ABG pH 7.28 L (7.35-7.45) ABG pCO2 34 L (35-45) mmHg ABG pO2 (83-108) mmHg ABG HCO3 16 L (21-25) mmol/L ABG Total CO2 17 L (19-24) mmol/L ABG O2 Saturation 97.6 H (94-97) % Potassium (3.5-5.1) mmol/L Chloride (98-107) mmol/L Carbon Dioxide (22-30) mmol/L Creatinine (0.52-1.04) mg/dL Glucose (74-99) mg/dL POC Glucose (mg/dL) 259 H (75-99) mg/dL Calcium (8.4-10.2) mg/dL 01/17/19 01/17/19 01/17/19 Range/Units 04:25 05:21 08:04 WBC (3.8-10.6) k/uL RBC (3.80-5.40) m/uL Hgb (11.4-16.0) gm/dL Hct (34.0-46.0) % ABG pH (7.35-7.45) ABG pCO2 34 L (35-45) mmHg ABG pO2 125 H (83-108) mmHg ABG HCO3 (21-25) mmol/L ABG Total CO2 (19-24) mmol/L ABG O2 Saturation 99.2 H (94-97) % Potassium 3.1 L (3.5-5.1) mmol/L Chloride 110 H (98-107) mmol/L Carbon Dioxide 21 L (22-30) mmol/L Creatinine 0.34 L (0.52-1.04) mg/dL Glucose 243 H (74-99) mg/dL POC Glucose (mg/dL) 265 H (75-99) mg/dL Calcium 6.9 L (8.4-10.2) mg/dL 01/17/19 Range/Units 12:27 WBC (3.8-10.6) k/uL RBC (3.80-5.40) m/uL Hgb (11.4-16.0) gm/dL Hct (34.0-46.0) % ABG pH (7.35-7.45) ABG pCO2 (35-45) mmHg ABG pO2 (83-108) mmHg ABG HCO3 (21-25) mmol/L ABG Total CO2 (19-24) mmol/L ABG O2 Saturation (94-97) % Potassium (3.5-5.1) mmol/L Chloride (98-107) mmol/L Carbon Dioxide (22-30) mmol/L Creatinine (0.52-1.04) mg/dL Glucose (74-99) mg/dL POC Glucose (mg/dL) 202 H (75-99) mg/dL Calcium (8.4-10.2) mg/dL Microbiology - Last 24 Hours (Table) 01/16/19 13:25 Gram Stain - Preliminary Bronchoalviolar Lavage - Right Bronchial Washings Culture - Preliminary 01/16/19 13:25 Fungal Culture - Preliminary Bronchoalviolar Lavage - Right 01/16/19 13:25 Acid Fast Bacilli Culture - Preliminary Bronchoalviolar Lavage - Right 01/13/19 19:15 Blood Culture - Preliminary Blood No Growth after 72 hours 01/16/19 03:23 Gram Stain - Preliminary Sputum Sputum Culture - Preliminary Assessment and Plan Assessment: Impression: 1 acute hypoxic respiratory failure secondary to bilateral pneumonia felt to be aspiration related, failed BiPAP, has been on mechanical ventilation for the last 2 days. 2 community-acquired pneumonia, is not entirely ruled out. 3 acute sepsis secondary to pneumonia 4 quadriplegia secondary to previous C-spine injury 5 recurrent history of urinary tract infections and colonization 6 previous history of tracheostomy and reversal, Recommendation: Continue ventilatory support. Continue nutritional support /enteral feeding Continue antibiotics.status post bronchoscopy 2 yesterday and today. Continue bronchodilators Continue GI and DVT prophylaxis. Prognosis remains relatively poor and guarded. We'll continue to follow. Discu ssed her condition with her family member/uncle today. And updated on her overall status. And yesterday I discussed her condition with her sister. Patient remains quite ill, critical care time is 34 minutes not including the time spent on procedures. Time with Patient: Greater than 30
[2019-01-17] MEDS: DEXTROSE 5% IN WATER 1,000 ML with SODIUM BICARB (1 MEQ/ML) 150 ML IV SCH (16:02)
[2019-01-17 17:45] LABS: Glucose,Whole Blood 176 mg/dL (75-99)
[2019-01-17] MEDS: DETROL PO SCH (20:38)
[2019-01-17] MEDS: NORTRIPTYLINE 25 MG CAP PO SCH (20:38)
--- NOTE | 2019-01-17 23:43 | OP ---
OPERATIVE REPORT OPERATIVE PROCEDURE: Bronchoscopy and bronchoalveolar lavage of the left lower lobe and extraction of mucus plugs. PREOPERATIVE DIAGNOSIS: Recurrent pneumonia and mucus plugs involving lower lobes. POSTOPERATIVE DIAGNOSIS: Mucus plugs in the left mainstem bronchus and left lower lobe. ANESTHESIA USED: Patient was already on propofol drip, and she was given just prior to the procedure 50 mg of propofol bolus and 1 mg of Dilaudid. PROCEDURE DESCRIPTION: Patient was placed in the supine position. Her endotracheal tube was already connected to mechanical ventilation via adapter. We monitored her oxygen saturation continuously via pulse oximetry. We will also monitored her blood pressure continuously. The patient an arterial line already, and we monitored her cardiac rhythm continuously. After adequate sedation, the bronchoscope was advanced through the endotracheal tube down to the area of the ger. Ger was noted to be sharp. Examination of the right upper lobe, right middle lobe, right lower lobe was done; no evidence of any endobronchial tumors or secretions in the right side. However, as I entered the left mainstem bronchus, there were obviously thick mucus plugs noted, and these were suctioned. More plugs were noted in the left lower lobe. These were lavaged and suctioned. Procedure was well tolerated. No evidence of any immediate complications. MMODL / IJN: [id number] /
[2019-01-18 00:13] LABS: Glucose,Whole Blood 181 mg/dL (75-99)
[2019-01-18] MEDS: INSULIN ASPART (NovoLOG) 100 UNIT/ML VIAL SQ SCH ×4 (00:18→17:28)
[2019-01-18] MEDS: PROPOFOL 1,000 MG in EMPTY BAG 1 BAG IV SCH ×5 (01:21→17:10)
[2019-01-18] MEDS: SODIUM CHLORIDE 0.9% 1,000 ML IV SCH ×2 (01:21→12:20)
[2019-01-18] MEDS: VANCOMYCIN 750 MG in SODIUM CHLORIDE 0.9% 250 ML IVPB SCH ×3 (04:56→20:56)
[2019-01-18 05:05] LABS: Glucose,Whole Blood 180 mg/dL (75-99)
[2019-01-18] MEDS: methylPREDNISolone SOD SUCCI 125 MG/2 ML VIAL IV SCH ×3 (05:08→17:00)
[2019-01-18 05:16] LABS: HCT 24.7 % (34.0-46.0); HGB 7.7 gm/dL (11.4-16.0); Hypochromasia Slight; MCH 27.6 pg (25.0-35.0); MCHC 31.2 g/dL (31.0-37.0); MCV 88.4 fL (80.0-100.0); Mean Platelet Volume 8.5; Platelet Count 416 k/uL (150-450); RDW 15.2 % (11.5-15.5); WBC 16.7 k/uL (3.8-10.6)
[2019-01-18 05:25] LABS: African American GFR (CKD) >90 (>60 ml/min/1.73 sqM); Anion Gap 4 mmol/L; Blood Urea Nitrogen 14 mg/dL (7-17); Calcium 7.1 mg/dL (8.4-10.2); Carbon Dioxide 26 mmol/L (22-30); Chloride 110 mmol/L (98-107); Glucose 175 mg/dL (74-99); Potassium 3.9 mmol/L (3.5-5.1); Sodium 140 mmol/L (137-145)
[2019-01-18] MEDS ORDERED: POTASSIUM BICARBONATE/CIT AC 20 MEQ TABLET.EFF NG-TUBE SCH (06:00)
[2019-01-18] MEDS: IPRATROPIUM-ALBUTEROL 3 ML NEB INHALATION SCH ×4 (07:23→19:58)
[2019-01-18] MEDS: PIPERACILLIN-TAZOBACTAM 3.375 GM in SODIUM CHLORIDE 0.9% 100 ML IVPB SCH ×2 (07:40→16:59)
[2019-01-18] MEDS: CHLORHEXIDINE GLUCONATE 15 ML CUP MUCOUS MEM SCH ×2 (07:40→20:57)
[2019-01-18] MEDS: ENOXAPARIN 40 MG/0.4 ML SYRINGE SQ SCH (07:40)
[2019-01-18] MEDS: BACLOFEN 10 MG TAB PO SCH ×2 (07:40→20:56)
[2019-01-18] MEDS: PANTOPRAZOLE 40 MG/10 ML VIAL IV SCH (07:41)
[2019-01-18] MEDS: OXYBUTYNIN CHLORIDE 5 MG TAB PO SCH ×2 (07:41→20:56)
--- NOTE | 2019-01-18 07:51 | XR ---
EXAMINATION TYPE: XR chest 1V portable DATE OF EXAM: 01/18/2019 COMPARISON: Prior chest x-ray 01/17/2019 HISTORY: Intubated TECHNIQUE: Single frontal view of the chest is obtained. FINDINGS: Endotracheal tube, NG tube are overlying appropriate positions. Postop changes again noted in the cervical spine. Bibasilar increased density is thought to have progressed, there is increased blunting of the costophrenic angles. Heart is obscured. No pneumothorax. There are overlying cardiac leads. IMPRESSION: Worsening pleural effusions and associated pneumonia, atelectasis.
[2019-01-18 07:55] LABS: ABG Base Excess 3.1 mmol/L; ABG HCO3 27 mmol/L (21-25); ABG Oxygen Saturation 93.3 % (94-97); ABG PCO2 36 mmHg (35-45); ABG PH 7.48 (7.35-7.45); ABG TCO2 28 mmol/L (19-24); Allen Test Performed? Yes
[2019-01-18 07:59] LABS: ABG PO2 59 mmHg (83-108)
[2019-01-18] MEDS: FUROSEMIDE 10 MG/ML 4 ML VIAL IV SCH ×2 (09:33→17:00)
--- NOTE | 2019-01-18 09:36 | P.PN ---
Subjective Progress Note Date: 01/18/19 Principal diagnosis: SOB and hypoxia Patient has a second bronchoscopy yesterday 01/17. Currently she is on minimal vent settings. Doing well. No significant issues overnight. Objective - Vital Signs Vital signs: Vital Signs Temp 96.8 F L 01/18/19 08:00 Pulse 68 01/18/19 08:00 Resp 16 01/18/19 08:00 BP 138/87 01/18/19 08:00 Pulse Ox 92 L 01/18/19 08:00 Intake & Output 01/17/19 01/18/19 01/18/19 18:59 06:59 18:59 Intake Total 2011.287 2802.336 361.051 Output Total 750 358 73 Balance 5163.162 2835.336 288.051 Weight 63.5 kg Intake: IV 1575 1375 200 Dextrose 5% in Water 1, 150 000 ml @ 50 mls/hr IV . Q23H [facility] with Sodium Bicarb (1 Meq/ml) 150 ml Rx#:[id number] Piperacillin-Tazobactam 3 225 175 .375 gm In Sodium Chloride 0.9% 100 ml @ 25 mls/hr IVPB Q8HR [facility] Rx# :[id number] Sodium Chloride 0.9% 1, 1200 1200 200 000 ml @ 100 mls/hr IV . Q10H [facility] Rx#:[id number] Intake, IV Titration 220.287 761.336 89.051 Amount Propofol 1,000 mg In 220.287 261.336 89.051 Empty Bag 1 bag @ Titrate IV .Q0M [facility] Rx#: [id number] Vancomycin 750 mg In 500 Sodium Chloride 0.9% 250 ml @ 125 mls/hr IVPB Q8H [facility] Rx#:[id number] Tube Feeding 216 576 72 Other 90 Output: Urine 750 358 73 Other: Voiding Method Indwelling Catheter Indwelling Catheter Indwelling Catheter ABP, PAP, CO, CI - Last Documented Arterial Blood Pressure 126/69 - Exam General: intubated, sedated Derm: Left ankle 2 cm x 2 cm ulcer with dressing, no unusual ecchymoses, warm, dry Head: atraumatic, normocephalic, symmetric Eyes: EOMI, no lid lag, anicteric sclera, pupils equal round reactive to light ENT: Nose and ears atraumatic, no thrush, no pharyngeal erythema Neck: No thyromegaly, no cervical lymphadenopathy, trachea midline, supple Mouth: no lip lesion, mucus membranes moist Cardiovascular: S1S2 reg, no murmur, positive posterior tibial pulse bilateral, no edema, capillary refill less than 2 seconds Lungs: Good lung sounds and scattered rhonchi over left lung conti, no rales , no accessory muscle use Abdominal: soft, nontender to palpation, no guarding, no appreciable org anomegaly, normal bowel sounds Ext: Thin extremities, +muscle wasting, no contractures Neuro: Paraplegic - Labs CBC & Chem 7: 01/18/19 05:00 01/18/19 05:00 Labs: Abnormal Lab Results - Last 24 Hours (Table) 01/17/19 01/17/19 01/18/19 Range/Units 12:27 17:43 00:12 WBC (3.8-10.6) k/uL RBC (3.80-5.40) m/uL Hgb (11.4-16.0) gm/dL Hct (34.0-46.0) % ABG pH (7.35-7.45) ABG pO2 (83-108) mmHg ABG HCO3 (21-25) mmol/L ABG Total CO2 (19-24) mmol/L ABG O2 Saturation (94-97) % Chloride (98-107) mmol/L Creatinine (0.52-1.04) mg/dL Glucose (74-99) mg/dL POC Glucose (mg/dL) 202 H 176 H 181 H (75-99) mg/dL Calcium (8.4-10.2) mg/dL 01/18/19 01/18/19 01/18/19 Range/Units 05:00 05:00 05:01 WBC 16.7 H (3.8-10.6) k/uL RBC 2.80 L (3.80-5.40) m/uL Hgb 7.7 L (11.4-16.0) gm/dL Hct 24.7 L (34.0-46.0) % ABG pH (7.35-7.45) ABG pO2 (83-108) mmHg ABG HCO3 (21-25) mmol/L ABG Total CO2 (19-24) mmol/L ABG O2 Saturation (94-97) % Chloride 110 H (98-107) mmol/L Creatinine 0.32 L (0.52-1.04) mg/dL Glucose 175 H (74-99) mg/dL POC Glucose (mg/dL) 180 H (75-99) mg/dL Calcium 7.1 L (8.4-10.2) mg/dL 01/18/19 Range/Units 07:53 WBC (3.8-10.6) k/uL RBC (3.80-5.40) m/uL Hgb (11.4-16.0) gm/dL Hct (34.0-46.0) % ABG pH 7.48 H (7.35-7.45) ABG pO2 59 L* (83-108) mmHg ABG HCO3 27 H (21-25) mmol/L ABG Total CO2 28 H (19-24) mmol/L ABG O2 Saturation 93.3 L (94-97) % Chloride (98-107) mmol/L Creatinine (0.52-1.04) mg/dL Glucose (74-99) mg/dL POC Glucose (mg/dL) (75-99) mg/dL Calcium (8.4-10.2) mg/dL Microbiology - Last 24 Hours (Table) 01/16/19 13:25 Gram Stain - Preliminary Bronchoalviolar Lavage - Right Bronchial Washings Culture - Preliminary Presumptive Staph aureus 01/16/19 03:23 Gram Stain - Final Sputum Sputum Culture - Final Methicillin resist S. aureus 01/13/19 19:15 Blood Culture - Preliminary Blood No Growth after 96 hours 01/16/19 13:25 Acid Fast Bacilli Smear - Final Bronchoalviolar Lavage - Right Acid Fast Bacilli Culture - Preliminary Assessment and Plan Plan: Sepsis secondary to multifocal pneumonia likely sec to recurrent aspiration -Growing MRSA in the sputum -Contact isolation -Continue with vancomycin, zosyn -S/P bronchoscopy 01/16 and on 01/17 Acute hypoxic respiratory failure: Management per ICU team On abx as above. Steroids Normocytic anemia -No prior values available -Monitor for now Hypokalemia Replace Quadriplegia -Assist with feedings Abnormal UA -Patient w/ history of multiple UTIs and colonization -On zosyn DVT prophylaxis -Lovenox Discussed with: Patient, Family Anticipated discharge date: 01/21/[address]: Home
--- NOTE | 2019-01-18 11:12 | P.PN ---
Subjective Progress Note Date: 01/18/19 Principal diagnosis: Acute bilateral pneumonia, could be community-acquired or could be aspiration pneumonia. This is a 48-year-old female, quadriplegia, history of C-spine injury in 1995, patient presented to the ER with shortness of breath, fever, and low O2 saturation. According to her uncle, his symptoms started out yesterday were and the patient was noted to have shortness of breath, and a temp as high as 101. Her condition gradually worsened, and when her O2 saturation was checked, it was noted to be 69% on room air. Upon arrival to the ER, patient was noted to have abnormal chest x-ray with bilateral airspace disease involving most of the left lung, and the right lower lobe. Patient denies any symptoms of aspiration, she has no difficulty swallowing, she was initially placed on a nonrebreather mask, and was later switched to BiPAP. Presently on BiPAP, IPAP is 14 EPAP of 7 and FiO2 is 45%. Chest x-ray and CT of the chest were both reviewed, clearly there is evidence of significant airspace disease involving the left lung and the right lower lobe. Patient was already placed on vancomycin and cefepime. Cultures are pending. Patient is hemodynamically stable, and feeling much better compared to how she felt upon presentation. Chest x-ray is showing slight improvement but that's mostly because she is on BiPAP. And there seems to be better aeration of the left lower lobe and right lower lobe. CBC showed evidence of leukocytosis. Her ABG showed a pO2 of 52 pCO2 of 39 pH of 7.42. Urinalysis is suggestive of urinary tract infection with positive leukocyte esterase, and there is pyuria in the urine. However she had negative nitrites. Reevaluated today on 01/15/2019, patient remains in the ICU, she was switched from BiPAP to a high flow nasal cannula at 10 L. Feeling better compared to yesterday. Patient continues to have a weak cough. Her chest x-ray continues to show significant airspace disease in the left lower lobe, some improvement noted in the right lower lobe. Swallow evaluation is pending, in the meantime the patient is showing clinical improvement and she seems to be oxygenating better compared to yesterday. Chest x-ray again showed slight improvement. CBC continues to show leukocytosis with WBC count of 17.4. Electrodes are normal renal profile is normal. Blood cultures are negative so far. Urine culture is negative so far. No sputum has been sent as the patient is having difficulty coughing and any significant secretions Patient was reevaluated today on 01/16/2019, she was doing well off BiPAP at high flow nasal cannula until late afternoon yesterday, condition deteriorated, patient could not clear any secretions, her O2 saturation To dropping down his bite of going back on BiPAP, hence I recommended intubating the patient. Patient was placed on mechanical ventilation, she is presently on assist control rate of 16 tidal volume of 400, FiO2 45%, PEEP is at 5. Yesterday she was for quite some time on high FiO2 100%, and PEEP of 8. However her oxygenation and ABG seems to be improving today, continues to have significantly abnormal chest x-ray with significant airspace disease involving both lungs especially left lower lobe and right lower lobe. No adequate sputum sample was obtained after intubation, hence I plan to bronchoscope the patient today, and lavage her right lower lobe and possibly lavage the left lower lobe. Patient clearly needed to be intubated because her Restoril status was getting worse by late afternoon. Chest x-ray continues to show significant airspace disease. Her labs were reviewed, ABG this morning showed a pO2 of 227 pCO2 of 29 pH of 7.36. Her bicarb is 18. Profile is normal potassium is 3.3. Electrolytes are otherwise normal. She has clearly leukocytosis with WBC count of 20.2 hemoglobin is 8.2. Antibiotics now are Zosyn and vancomycin. Blood cultures so far are negative. Patient is on propofol at 55 mcg/kg/m, not requiring any pressors. Patient was reevaluated today on 01/17/2019, remains on mechanical ventilation, same ventilator settings however her FiO2 is down to 35%. Chest x-ray showing worsening infiltrates compared to yesterday after bronchoscopy, hence I went ahead and recommended bronchoscopy again, more. Secretions were removed mostly from the left side this time. Patient tolerated the procedure well. And so far microbiology is nondiagnostic. Patient remains on broad-spectrum antibiotics, bronchodilators, and steroids. ABG this morning on 45% showed a pO2 of 125 pCO2 of 34 pH of 7.44 hence sodium bicarb was discontinued. Hemoglobin is 7.7 WBC count is 11.4 potassium is a bit low being corrected as per protocol. Renal functioning is normal. Patient remains on nutritional support via enteral feeding, remains on antibiotics and bronchodilators. And clearly she is not ready for any form of weaning at this point. She is not requiring any pressors. She is maintaining mostly on propofol. Reevaluated today on 01/18/2019, patient remains in the ICU, on mechanical ventilation, same ventilator settings tidal volume of 400 assist control rate of 16 FiO2 is up to 50% this morning, he is 5. Patient is hemodynamically stable, not requiring any pressors, on propofol at 60 mcg/kg/m. ABG seems to be a bit worse today, and her chest x-ray is a bit worse. Her pO2 is 59 pCO2 of 36 pH of 7.48. Chest x-ray showed evidence of significant airspace disease involving lower lobes, and bilateral pleural effusions, I suspect the patient may have some component of fluid overload. Hence I cut down her IV fluids, and I have started the patient on Lasix. Her CBC continues to show leukocytosis with WBC count of 16.7 hemoglobin is 7.7. Her BAL cultures from the bronchoscopy are positive for MRSA. Patient has been all along on vancomycin and Zosyn. And she will remain on both medications for the time being. Her electrolytes are normal renal profile is normal Objective - Vital Signs Vital signs: Vital Signs Temp 96.8 F L 01/18/19 08:00 Pulse 78 01/18/19 10:00 Resp 19 01/18/19 10:00 BP 138/87 01/18/19 08:00 Pulse Ox 90 L 01/18/19 10:00 Intake & Output 01/17/19 01/18/19 01/18/19 18:59 06:59 18:59 Intake Total 2011.287 2802.336 649.051 Output Total 750 358 273 Balance 2532.519 9069.336 376.051 Weight 63.5 kg Intake: IV 1575 1375 350 Dextrose 5% in Water 1, 150 000 ml @ 50 mls/hr IV . Q23H VITOR with Sodium Bicarb (1 Meq/ml) 150 ml Rx#:[id number] Piperacillin-Tazobactam 3 225 175 50 .375 gm In Sodium Chloride 0.9% 100 ml @ 25 mls/hr IVPB Q8HR VITOR Rx# :[id number] Sodium Chloride 0.9% 1, 1200 1200 300 000 ml @ 50 mls/hr IV . Q20H VITOR Rx#:[id number] Intake, IV Titration 220.287 761.336 89.051 Amount Propofol 1,000 mg In 220.287 261.336 89.051 Empty Bag 1 bag @ Titrate IV .Q0M VITOR Rx#: [id number] Vancomycin 750 mg In 500 Sodium Chloride 0.9% 250 ml @ 125 mls/hr IVPB Q8H VITOR Rx#:[id number] Tube Feeding 216 576 180 Other 90 30 Output: Urine 750 358 273 Other: Voiding Method Indwelling Catheter Indwelling Catheter Indwelling Catheter ABP, PAP, CO, CI - Last Documented Arterial Blood Pressure 111/57 - Exam General: Revealed a 48-year-old female, sedated, remains on propofol, mechanically ventilated, intermittently the patient is biting on endotracheal tube Head: atraumatic, normocephalic, endotracheal tube and orogastric tube are intact. Eyes: EOMI, PERRLA, EOMI, no icterus. ENT: Nose and ears moist mucous membranes, throat is clear. Neck: No neck masses no JVD. Mouth: Moist mucous membranes otherwise unremarkable. Cardiovascular: Normal S1 and S2, no S3 gallop. Lungs: Bilateral crackles and rhonchi noted. Symmetrical chest expansion.. Abdominal: Soft nontender no megaly no rebound. Ext: Significant contractures noted in the upper extremities. There is flexion contractures noted. And 1+ bipedal edema noted in the lower extremities. Pressure ulcer noted on the left ankle area. Neuro: Paraplegic, sedated, mental status was not assessed. Psych: Cannot be assessed, sedated. Derm: Left ankle ulcer stage II noted 2.0 cm in size. Seems to be a pressure ulcer. - Labs CBC & Chem 7: 01/18/19 05:00 01/18/19 05:00 Labs: Abnormal Lab Results - Last 24 Hours (Table) 01/17/19 01/17/19 01/18/19 Range/Units 12:27 17:43 00:12 WBC (3.8-10.6) k/uL RBC (3.80-5.40) m/uL Hgb (11.4-16.0) gm/dL Hct (34.0-46.0) % ABG pH (7.35-7.45) ABG pO2 (83-108) mmHg ABG HCO3 (21-25) mmol/L ABG Total CO2 (19-24) mmol/L ABG O2 Saturation (94-97) % Chloride (98-107) mmol/L Creatinine (0.52-1.04) mg/dL Glucose (74-99) mg/dL POC Glucose (mg/dL) 202 H 176 H 181 H (75-99) mg/dL Calcium (8.4-10.2) mg/dL 01/18/19 01/18/19 01/18/19 Range/Units 05:00 05:00 05:01 WBC 16.7 H (3.8-10.6) k/uL RBC 2.80 L (3.80-5.40) m/uL Hgb 7.7 L (11.4-16.0) gm/dL Hct 24.7 L (34.0-46.0) % ABG pH (7.35-7.45) ABG pO2 (83-108) mmHg ABG HCO3 (21-25) mmol/L ABG Total CO2 (19-24) mmol/L ABG O2 Saturation (94-97) % Chloride 110 H (98-107) mmol/L Creatinine 0.32 L (0.52-1.04) mg/dL Glucose 175 H (74-99) mg/dL POC Glucose (mg/dL) 180 H (75-99) mg/dL Calcium 7.1 L (8.4-10.2) mg/dL 01/18/19 Range/Units 07:53 WBC (3.8-10.6) k/uL RBC (3.80-5.40) m/uL Hgb (11.4-16.0) gm/dL Hct (34.0-46.0) % ABG pH 7.48 H (7.35-7.45) ABG pO2 59 L* (83-108) mmHg ABG HCO3 27 H (21-25) mmol/L ABG Total CO2 28 H (19-24) mmol/L ABG O2 Saturation 93.3 L (94-97) % Chloride (98-107) mmol/L Creatinine (0.52-1.04) mg/dL Glucose (74-99) mg/dL POC Glucose (mg/dL) (75-99) mg/dL Calcium (8.4-10.2) mg/dL Microbiology - Last 24 Hours (Table) 01/16/19 13:25 Gram Stain - Preliminary Bronchoalviolar Lavage - Right Bronchial Washings Culture - Preliminary Presumptive Staph aureus 01/16/19 03:23 Gram Stain - Final Sputum Sputum Culture - Final Methicillin resist S. aureus 01/13/19 19:15 Blood Culture - Preliminary Blood No Growth after 96 hours 01/16/19 13:25 Acid Fast Bacilli Smear - Final Bronchoalviolar Lavage - Right Acid Fast Bacilli Culture - Preliminary Assessment and Plan Assessment: Impression: 1 acute hypoxic respiratory failure secondary to bilateral pneumonia secondary to MRSA. 2 acute sepsis secondary to pneumonia 3 quadriplegia secondary to previous C-spine injury 4 recurrent history of urinary tract infections and colonization 5 previous history of tracheostomy and reversal, 6 status post bronchoscopy and bronchoalveolar lavage 2 since admission. Recommendation: Continue ventilatory support. Continue nutritional support /enteral feeding Continue antibiotics.status post bronchoscopy 2 yesterday and today. Continue bronchodilators Continue GI and DVT prophylaxis. Cut down her IV fluids, and start the patient on diuretics. Prognosis remains relatively poor and guarded. Discussed and updated the family on her condition, no plans to wean and extubate at this point, considering the overall picture, I would not be surprised when bitten the patient and said eventually requiring tracheostomy again. This will be decided upon sometime in mid next week. Patient is not ready for any form of weaning at this point. And she remains critically ill. Critical care time is 40 minutes Time with Patient: Greater than 30
[2019-01-18 12:18] LABS: Glucose,Whole Blood 194 mg/dL (75-99)
[2019-01-18] MEDS: fentaNYL (PF) 1,000 MCG in SODIUM CHLORIDE 0.9% 80 ML IV SCH (13:41)
[2019-01-18 17:18] LABS: Glucose,Whole Blood 152 mg/dL (75-99)
[2019-01-18] MEDS: POTASSIUM BICARBONATE/CIT AC 20 MEQ TABLET.EFF NG-TUBE SCH (20:56)
[2019-01-18] MEDS: NORTRIPTYLINE 25 MG CAP PO SCH (20:57)
[2019-01-18] MEDS: DETROL PO SCH (20:57)
[2019-01-18 23:54] LABS: Glucose,Whole Blood 144 mg/dL (75-99)
[2019-01-19] MEDS: INSULIN ASPART (NovoLOG) 100 UNIT/ML VIAL SQ SCH ×5 (00:10→23:51)
[2019-01-19] MEDS: PROPOFOL 1,000 MG in EMPTY BAG 1 BAG IV SCH ×6 (00:30→21:54)
[2019-01-19] MEDS: POTASSIUM BICARBONATE/CIT AC 20 MEQ TABLET.EFF NG-TUBE SCH (00:59)
[2019-01-19] MEDS: methylPREDNISolone SOD SUCCI 125 MG/2 ML VIAL IV SCH ×5 (01:00→23:43)
[2019-01-19] MEDS: FUROSEMIDE 10 MG/ML 4 ML VIAL IV SCH ×2 (01:00→08:33)
[2019-01-19] MEDS: PIPERACILLIN-TAZOBACTAM 3.375 GM in SODIUM CHLORIDE 0.9% 100 ML IVPB SCH ×4 (01:01→23:43)
[2019-01-19] MEDS: VANCOMYCIN 750 MG in SODIUM CHLORIDE 0.9% 250 ML IVPB SCH ×2 (05:03→11:18)
[2019-01-19 05:54] LABS: Basophils # (A) 0.1 k/uL (0-0.2); Basophils % (A) 0 %; Eosinophils % (A) 0 %; HCT 27.3 % (34.0-46.0); HGB 8.6 gm/dL (11.4-16.0); Hypochromasia Slight; Lymphocytes % (A) 5 %; MCH 27.5 pg (25.0-35.0); MCHC 31.5 g/dL (31.0-37.0); MCV 87.3 fL (80.0-100.0); Mean Platelet Volume 7.3; Monocytes % (A) 5 %; Neutrophils % (A) 89 %; Platelet Count 630 k/uL (150-450); RBC 3.13 m/uL (3.80-5.40); RDW 15.3 % (11.5-15.5); WBC 20.4 k/uL (3.8-10.6)
[2019-01-19 06:37] LABS: ALT 31 U/L (9-52); AST 37 U/L (14-36); African American GFR (CKD) >90 (>60 ml/min/1.73 sqM); Albumin 2.4 g/dL (3.5-5.0); Alkaline Phosphatase 123 U/L (38-126); Anion Gap 7 mmol/L; Blood Urea Nitrogen 22 mg/dL (7-17); Calcium 7.2 mg/dL (8.4-10.2); Carbon Dioxide 32 mmol/L (22-30); Chloride 102 mmol/L (98-107); Glucose 140 mg/dL (74-99); Sodium 141 mmol/L (137-145); Total Bilirubin 0.2 mg/dL (0.2-1.3); Total Protein 5.2 g/dL (6.3-8.2)
[2019-01-19 06:59] LABS: Glucose,Whole Blood 158 mg/dL (75-99)
[2019-01-19 07:15] LABS: ABG Base Excess 11.3 mmol/L; ABG HCO3 34 mmol/L (21-25); ABG PCO2 40 mmHg (35-45); ABG PH 7.54 (7.35-7.45); ABG PO2 71 mmHg (83-108); ABG TCO2 35 mmol/L (19-24); Allen Test Performed? Yes
[2019-01-19] MEDS: IPRATROPIUM-ALBUTEROL 3 ML NEB INHALATION SCH ×4 (07:21→19:30)
[2019-01-19] MEDS: SODIUM CHLORIDE 0.9% 1,000 ML IV SCH (08:34)
[2019-01-19] MEDS: BACLOFEN 10 MG TAB PO SCH ×2 (08:36→21:00)
[2019-01-19] MEDS: ENOXAPARIN 40 MG/0.4 ML SYRINGE SQ SCH (08:36)
[2019-01-19] MEDS: PANTOPRAZOLE 40 MG/10 ML VIAL IV SCH (08:36)
[2019-01-19] MEDS: CHLORHEXIDINE GLUCONATE 15 ML CUP MUCOUS MEM SCH ×2 (08:36→20:58)
--- NOTE | 2019-01-19 09:18 | P.PN ---
Subjective Progress Note Date: 01/19/19 Principal diagnosis: SOB and hypoxia Patient is still on mechanical ventilation, FiO2 is currently 60%. No overnight issues. Objective - Vital Signs Vital signs: Vital Signs Temp 99.2 F 01/19/19 08:00 Pulse 84 01/19/19 09:00 Resp 16 01/19/19 09:00 BP 106/66 01/19/19 09:00 Pulse Ox 94 L 01/19/19 09:00 Intake & Output 01/18/19 01/19/19 01/19/19 18:59 06:59 18:59 Intake Total 8396.350 8168.954 372.05 Output Total 3163 2740 285 Balance -1462.917 -1290.046 87.05 Weight 63.5 kg 65 kg Intake: IV 825 750 150 Piperacillin-Tazobactam 3 125 150 .375 gm In Sodium Chloride 0.9% 100 ml @ 25 mls/hr IVPB Q8HR VITOR Rx# :[id number] Sodium Chloride 0.9% 1, 700 600 150 000 ml @ 50 mls/hr IV . Q20H VITOR Rx#:[id number] Intake, IV Titration 281.083 237.954 150.05 Amount Piperacillin-Tazobactam 3 100 .375 gm In Sodium Chloride 0.9% 100 ml @ 25 mls/hr IVPB Q8HR VITOR Rx# :[id number] Propofol 1,000 mg In 281.083 223.603 50.05 Empty Bag 1 bag @ Titrate IV .Q0M VITOR Rx#: [id number] fentaNYL (PF) 1,000 mcg 14.351 In Sodium Chloride 0.9% 80 ml @ 0.4 MCG/KG/HR 2. 54 mls/hr IV .Q24H VITOR Rx #:[id number] Tube Feeding 504 462 72 Other 90 Output: Urine 3163 2740 285 Other: Voiding Method Indwelling Catheter Indwelling Catheter ABP, PAP, CO, CI - Last Documented Arterial Blood Pressure 126/59 - Exam General: intubated, sedated Derm: Left ankle 2 cm x 2 cm ulcer with dressing, no unusual ecchymoses, warm, dry Head: atraumatic, normocephalic, symmetric Eyes: EOMI, no lid lag, anicteric sclera, pupils equal round reactive to light ENT: Nose and ears atraumatic, no thrush, no pharyngeal erythema Neck: No thyromegaly, no cervical lymphadenopathy, trachea midline, supple Mouth: no lip lesion, mucus membranes moist Cardiovascular: S1S2 reg, no murmur, positive posterior tibial pulse bilateral, no edema, capillary refill less than 2 seconds Lungs: Good lung sounds and scattered rhonchi over left lung conti, no rales , no accessory muscle use Abdominal: soft, nontender to palpation, no guarding, no appreciable organomegaly, normal bowel sounds Ext: Thin extremities, +muscle wasting, no contractures Neuro: Paraplegic - Labs CBC & Chem 7: 01/19/19 05:00 01/19/19 05:00 Labs: Abnormal Lab Results - Last 24 Hours (Table) 01/18/19 01/18/19 01/18/19 Range/Units 12:16 17:16 23:51 WBC (3.8-10.6) k/uL RBC (3.80-5.40) m/uL Hgb (11.4-16.0) gm/dL Hct (34.0-46.0) % Plt Count (150-450) k/uL Neutrophils # (1.3-7.7) k/uL ABG pH (7.35-7.45) ABG pO2 (83-108) mmHg ABG HCO3 (21-25) mmol/L ABG Total CO2 (19-24) mmol/L Carbon Dioxide (22-30) mmol/L BUN (7-17) mg/dL Glucose (74-99) mg/dL POC Glucose (mg/dL) 194 H 152 H 144 H (75-99) mg/dL Calcium (8.4-10.2) mg/dL AST (14-36) U/L Total Protein (6.3-8.2) g/dL Albumin (3.5-5.0) g/dL 01/19/19 01/19/19 01/19/19 Range/Units 05:00 05:00 06:58 WBC 20.4 H (3.8-10.6) k/uL RBC 3.13 L (3.80-5.40) m/uL Hgb 8.6 L (11.4-16.0) gm/dL Hct 27.3 L (34.0-46.0) % Plt Count 630 H (150-450) k/uL Neutrophils # 18.0 H (1.3-7.7) k/uL ABG pH (7.35-7.45) ABG pO2 (83-108) mmHg ABG HCO3 (21-25) mmol/L ABG Total CO2 (19-24) mmol/L Carbon Dioxide 32 H (22-30) mmol/L BUN 22 H (7-17) mg/dL Glucose 140 H (74-99) mg/dL POC Glucose (mg/dL) 158 H (75-99) mg/dL Calcium 7.2 L (8.4-10.2) mg/dL AST 37 H (14-36) U/L Total Protein 5.2 L (6.3-8.2) g/dL Albumin 2.4 L (3.5-5.0) g/dL 01/19/19 Range/Units 07:10 WBC (3.8-10.6) k/uL RBC (3.80-5.40) m/uL Hgb (11.4-16.0) gm/dL Hct (34.0-46.0) % Plt Count (150-450) k/uL Neutrophils # (1.3-7.7) k/uL ABG pH 7.54 H (7.35-7.45) ABG pO2 71 L (83-108) mmHg ABG HCO3 34 H (21-25) mmol/L ABG Total CO2 35 H (19-24) mmol/L Carbon Dioxide (22-30) mmol/L BUN (7-17) mg/dL Glucose (74-99) mg/dL POC Glucose (mg/dL) (75-99) mg/dL Calcium (8.4-10.2) mg/dL AST (14-36) U/L Total Protein (6.3-8.2) g/dL Albumin (3.5-5.0) g/dL Microbiology - Last 24 Hours (Table) 01/16/19 13:25 Gram Stain - Preliminary Bronchoalviolar Lavage - Right Bronchial Washings Culture - Preliminary Methicillin resist S. aureus Gram Neg Bacilli 01/13/19 19:15 Blood Culture - Preliminary Blood No Growth after 120 hours 01/16/19 03:23 Gram Stain - Final Sputum Sputum Culture - Final Methicillin resist S. aureus Assessment and Plan Plan: Sepsis secondary to multifocal MRSA pneumonia likely sec to recurrent aspiration -Growing MRSA in the sputum -Contact isolation -Continue with vancomycin, zosyn -S/P bronchoscopy 01/16 and on 01/17 Acute hypoxic respiratory failure: Management per ICU team On abx as above. Lasix, steroids and nebs Normocytic anemia -No prior values available -Monitor for now Quadriplegia -Assist with feedings Abnormal UA -Patient w/ history of multiple UTIs and colonization -On zosyn DVT prophylaxis -Lovenox Discussed with: Patient, Family Anticipated discharge date: 01/23/[address]: Home
--- NOTE | 2019-01-19 10:40 | XR ---
EXAMINATION TYPE: XR chest 1V portable DATE OF EXAM: 01/19/2019 COMPARISON: 01/18/2019 INDICATION: Tube placement TECHNIQUE: Single frontal view of the chest is obtained. FINDINGS: The heart size is normal. The pulmonary vasculature is normal. There is a left lower lobe infiltrate. Mild right lower lobe infiltrate is present. Small right pleur al effusion is present. A small to moderate left pleural effusion is present. Endotracheal tube tip is above the ger. Nasogastric tube transverses the thorax. IMPRESSION: 1. Bibasilar infiltrates with small pleural effusions larger on the left. Findings are stable from co mparison. 2. Lines and catheters discussed above.
[2019-01-19] MEDS ORDERED: CISATRACURIUM 2 MG/ML 5 ML VIAL IV ONE (10:56)
[2019-01-19] MEDS ORDERED: VANCOMYCIN TROUGH DUE 1 EACH MISC MISCELLANE ONE (11:00)
[2019-01-19] MEDS: OXYBUTYNIN CHLORIDE 5 MG TAB PO SCH ×2 (11:11→20:59)
[2019-01-19 11:51] LABS: Glucose,Whole Blood 163 mg/dL (75-99)
--- NOTE | 2019-01-19 12:41 | P.PN ---
Subjective Progress Note Date: 01/19/19 Principal diagnosis: Acute bilateral pneumonia, secondary to MRSA. This is a 48-year-old female, quadriplegia, history of C-spine injury in 1995, patient presented to the ER with shortness of breath, fever, and low O2 saturation. According to her uncle, his symptoms started out yesterday were and the patient was noted to have shortness of breath, and a temp as high as 101. H er condition gradually worsened, and when her O2 saturation was checked, it was noted to be 69% on room air. Upon arrival to the ER, patient was noted to have abnormal chest x-ray with bilateral airspace disease involving most of the left lung, and the right lower lobe. Patient denies any symptoms of aspiration, she has no difficulty swallowing, she was initially placed on a nonrebreather mask, and was later switched to BiPAP. Presently on BiPAP, IPAP is 14 EPAP of 7 and FiO2 is 45%. Chest x-ray and CT of the chest were both reviewed, clearly there is evidence of significant airspace disease involving the left lung and the right lower lobe. Patient was already placed on vancomycin and cefepime. Cultures are pending. Patient is hemodynamically stable, and feeling much better compared to how she felt upon presentation. Chest x-ray is showing slight improvement but that's mostly because she is on BiPAP. And there seems to be better aeration of the left lower lobe and right lower lobe. CBC showed evidence of leukocytosis. Her ABG showed a pO2 of 52 pCO2 of 39 pH of 7.42. Urinalysis is suggestive of urinary tract infection with positive leukocyte esterase, and there is pyuria in the urine. However she had negative nitrites. Reevaluated today on 01/15/2019, patient remains in the ICU, she was switched from BiPAP to a high flow nasal cannula at 10 L. Feeling better compared to yesterday. Patient continues to have a weak cough. Her chest x-ray continues to show significant airspace disease in the left lower lobe, some improvement noted in the right lower lobe. Swallow evaluation is pending, in the meantime the patient is showing clinical improvement and she seems to be oxygenating better compared to yesterday. Chest x-ray again showed slight improvement. CBC continues to show leukocytosis with WBC count of 17.4. Electrodes are normal renal profile is normal. Blood cultures are negative so far. Urine culture is negative so far. No sputum has been sent as the patient is having difficulty coughing and any significant secretions Patient was reevaluated today on 01/16/2019, she was doing well off BiPAP at high flow nasal cannula until late afternoon yesterday, condition deteriorated, patient could not clear any secretions, her O2 saturation To dropping down his bite of going back on BiPAP, hence I recommended intubating the patient. Patient was placed on mechanical ventilation, she is presently on assist control rate of 16 tidal volume of 400, FiO2 45%, PEEP is at 5. Yesterday she was for quite some time on high FiO2 100%, and PEEP of 8. However her oxygenation and ABG seems to be improving today, continues to have significantly abnormal chest x-ray with significant airspace disease involving both lungs especially left lower lobe and right lower lobe. No adequate sputum sample was obtained after intubation, hence I plan to bronchoscope the patient today, and lavage her right lower lobe and possibly lavage the left lower lobe. Patient clearly needed to be intubated because her Restoril status was getting worse by late afternoon. Chest x-ray continues to show significant airspace disease. Her labs were reviewed, ABG this morning showed a pO2 of 227 pCO2 of 29 pH of 7.36. Her bicarb is 18. Profile is normal potassium is 3.3. Electrolytes are otherwise normal. She has clearly leukocytosis with WBC count of 20.2 hemoglobin is 8.2. Antibiotics now are Zosyn and vancomycin. Blood cultures so far are negative. Patient is on propofol at 55 mcg/kg/m, not requiring any pressors. Patient was reevaluated today on 01/17/2019, remains on mechanical ventilation, same ventilator settings however her FiO2 is down to 35%. Chest x-ray showing worsening infiltrates compared to yesterday after bronchoscopy, hence I went ahead and recommended bronchoscopy again, more. Secretions were removed mostly from the left side this time. Patient tolerated the procedure well. And so far microbiology is nondiagnostic. Patient remains on broad-spectrum antibiotics, bronchodilators, and steroids. ABG this morning on 45% showed a pO2 of 125 pCO2 of 34 pH of 7.44 hence sodium bicarb was discontinued. Hemoglobin is 7.7 WBC count is 11.4 potassium is a bit low being corrected as per protocol. Renal functioning is normal. Patient remains on nutritional support via enteral feeding, remains on antibiotics and bronchodilators. And clearly she is not ready for any form of weaning at this point. She is not requiring any pressors. She is maintaining mostly on propofol. Reevaluated today on 01/18/2019, patient remains in the ICU, on mechanical ventilation, same ventilator settings tidal volume of 400 assist control rate of 16 FiO2 is up to 50% this morning, he is 5. Patient is hemodynamically stable, not requiring any pressors, on propofol at 60 mcg/kg/m. ABG seems to be a bit worse today, and her chest x-ray is a bit worse. Her pO2 is 59 pCO2 of 36 pH of 7.48. Chest x-ray showed evidence of significant airspace disease involving lower lobes, and bilateral pleural effusions, I suspect the patient may have some component of fluid overload. Hence I cut down her IV fluids, and I have started the patient on Lasix. Her CBC continues to show leukocytosis with WBC count of 16.7 hemoglobin is 7.7. Her BAL cultures from the bronchoscopy are positive for MRSA. Patient has been all along on vancomycin and Zosyn. And she will remain on both medications for the time being. Her electrolytes are normal renal profile is normal Patient was reevaluated today on 01/15/2019, remains in the ICU, on mechanical ventilation, remains on assist control rate of 16, tidal volume of 400, FiO2 of 60%, and PEEP of 5. Patient is hemodynamically stable, not requiring any pressors or inotropes. Remains on propofol and fentanyl. Chest x-ray showed worsening compared to the last 2 days, hence I went ahead and performed bronc hoscopy and lavage of the left lower lobe. The findings are not as bad as they wear on the previous 2 bronchoscopy. Nonetheless lavage of the left lower lobe was done, and pure it secretions were suctioned. Patient continues to have the pleural effusion on the left side, however in spite of diuresis, not much improvement noted, and now she has what looks like a contraction alkalosis, I will go ahead and cut down on her diuretics. Patient remains on antibiotics, she is clearly not ready for any form of weaning at this point. Her ABG is marginal she is presently on 60% FiO2. All her meds, chest x-ray, all her cultures were reviewed since admission. Objective - Vital Signs Vital signs: Vital Signs Temp 99.2 F 01/19/19 08:00 Pulse 74 01/19/19 11:00 Resp 16 01/19/19 11:00 BP 98/54 01/19/19 11:00 Pulse Ox 94 L 01/19/19 11:00 Intake & Output 01/18/19 01/19/19 01/19/19 18:59 06:59 18:59 Intake Total 7531.535 8005.954 574.05 Output Total 3163 2740 515 Balance -1462.917 -1290.046 59.05 Weight 63.5 kg 65 kg Intake: IV 825 750 250 Piperacillin-Tazobactam 3 125 150 .375 gm In Sodium Chloride 0.9% 100 ml @ 25 mls/hr IVPB Q8HR [facility] Rx# :[id number] Sodium Chloride 0.9% 1, 700 600 250 000 ml @ 50 mls/hr IV . Q20H [facility] Rx#:[id number] Intake, IV Titration 281.083 237.954 150.05 Amount Piperacillin-Tazobactam 3 100 .375 gm In Sodium Chloride 0.9% 100 ml @ 25 mls/hr IVPB Q8HR [facility] Rx# :[id number] Propofol 1,000 mg In 281.083 223.603 50.05 Empty Bag 1 bag @ Titrate IV .Q0M [facility] Rx#: [id number] fentaNYL (PF) 1,000 mcg 14.351 In Sodium Chloride 0.9% 80 ml @ 0.4 MCG/KG/HR 2. 54 mls/hr IV .Q24H [facility] Rx #:[id number] Tube Feeding 504 462 144 Other 90 30 Output: Urine 3163 2740 515 Other: Voiding Method Indwelling Catheter Indwelling Catheter Indwelling Catheter ABP, PAP, CO, CI - Last Documented Arterial Blood Pressure 115/53 - Exam General: Revealed a 48-year-old female, sedated, on fentanyl and Head: atraumatic, normocephalic, endotracheal tube and orogastric tube are intact. Intermittently biting on the endotracheal tube. Eyes: EOMI, PERRLA, EOMI, no icterus. ENT: Nose and ears moist mucous membranes, throat is clear. Neck: No neck masses no JVD. Mouth: Moist mucous membranes otherwise unremarkable. Cardiovascular: Normal S1 and S2, no S3 gallop. Lungs: Bilateral crackles and rhonchi noted. Symmetrical chest expansion.. Abdominal: Soft nontender no megaly no rebound. Ext: Significant contractures noted in the upper extremities. There is flexion contractures noted. And 1+ bipedal edema noted in the lower extremities. Pressure ulcer noted on the left ankle area. Neuro: Paraplegic, sedated, mental status was not assessed. Psych: Cannot be assessed, sedated. Derm: Left ankle ulcer stage II noted 2.0 cm in size. Seems to be a pressure ulcer. - Labs CBC & Chem 7: 01/19/19 05:00 01/19/19 05:00 Labs: Abnormal Lab Results - Last 24 Hours (Table) 01/18/19 01/18/19 01/19/19 Range/Units 17:16 23:51 05:00 WBC 20.4 H (3.8-10.6) k/uL RBC 3.13 L (3.80-5.40) m/uL Hgb 8.6 L (11.4-16.0) gm/dL Hct 27.3 L (34.0-46.0) % Plt Count 630 H (150-450) k/uL Neutrophils # 18.0 H (1.3-7.7) k/uL ABG pH (7.35-7.45) ABG pO2 (83-108) mmHg ABG HCO3 (21-25) mmol/L ABG Total CO2 (19-24) mmol/L Carbon Dioxide (22-30) mmol/L BUN (7-17) mg/dL Glucose (74-99) mg/dL POC Glucose (mg/dL) 152 H 144 H (75-99) mg/dL Calcium (8.4-10.2) mg/dL AST (14-36) U/L Total Protein (6.3-8.2) g/dL Albumin (3.5-5.0) g/dL 01/19/19 01/19/19 01/19/19 Range/Units 05:00 06:58 07:10 WBC (3.8-10.6) k/uL RBC (3.80-5.40) m/uL Hgb (11.4-16.0) gm/dL Hct (34.0-46.0) % Plt Count (150-450) k/uL Neutrophils # (1.3-7.7) k/uL ABG pH 7.54 H (7.35-7.45) ABG pO2 71 L (83-108) mmHg ABG HCO3 34 H (21-25) mmol/L ABG Total CO2 35 H (19-24) mmol/L Carbon Dioxide 32 H (22-30) mmol/L BUN 22 H (7-17) mg/dL Glucose 140 H (74-99) mg/dL POC Glucose (mg/dL) 158 H (75-99) mg/dL Calcium 7.2 L (8.4-10.2) mg/dL AST 37 H (14-36) U/L Total Protein 5.2 L (6.3-8.2) g/dL Albumin 2.4 L (3.5-5.0) g/dL 01/19/19 Range/Units 11:48 WBC (3.8-10.6) k/uL RBC (3.80-5.40) m/uL Hgb (11.4-16.0) gm/dL Hct (34.0-46.0) % Plt Count (150-450) k/uL Neutrophils # (1.3-7.7) k/uL ABG pH (7.35-7.45) ABG pO2 (83-108) mmHg ABG HCO3 (21-25) mmol/L ABG Total CO2 (19-24) mmol/L Carbon Dioxide (22-30) mmol/L BUN (7-17) mg/dL Glucose (74-99) mg/dL POC Glucose (mg/dL) 163 H (75-99) mg/dL Calcium (8.4-10.2) mg/dL AST (14-36) U/L Total Protein (6.3-8.2) g/dL Albumin (3.5-5.0) g/dL Microbiology - Last 24 Hours (Table) 01/16/19 13:25 Gram Stain - Preliminary Bronchoalviolar Lavage - Right Bronchial Washings Culture - Preliminary Methicillin resist S. aureus Gram Neg Bacilli 01/13/19 19:15 Blood Culture - Preliminary Blood No Growth after 120 hours Assessment and Plan Assessment: Impression: 1 acute hypoxic respiratory failure secondary to bilateral pneumonia secondary to MRSA. 2 acute sepsis secondary to pneumonia 3 quadriplegia secondary to previous C-spine injury 4 recurrent history of urinary tract infections and colonization 5 previous history of tracheostomy and reversal, 6 status post bronchoscopy and bronchoalveolar lavage 3 since admission. 7 recurrent development of mucous plugs and. Secretions requiring bronchoscopy, patient has been bronchoscoped 3 times since admission. Recommendation: Continue ventilatory support. Continue nutritional support /enteral feeding Continue antibiotics.status post bronchoscopy 3 Continue bronchodilators Continue GI and DVT prophylaxis. Increase IV fluid and cut down on diuretics. Prognosis remains relatively poor and guarded. Family was updated on her condition, again I still believe that the patient will eventually require tracheostomy. This is yet to be decided upon over the next 5 days. Critical care time is 35 minutes not including the time spent on bronchoscopy. Time with Patient: Greater than 30
[2019-01-19 18:25] LABS: Glucose,Whole Blood 198 mg/dL (75-99)
[2019-01-19] MEDS: DETROL PO SCH (20:58)
[2019-01-19] MEDS: NORTRIPTYLINE 25 MG CAP PO SCH (20:59)
[2019-01-19 23:50] LABS: Glucose,Whole Blood 202 mg/dL (75-99)
--- NOTE | 2019-01-19 23:55 | PCN ---
PROCEDURE NOTE PROCEDURE PERFORMED: Bronchoscopy and bronchoalveolar lavage of the left lower lobe. PREOPERATIVE DIAGNOSIS: Left lower lobe pneumonia and recurrent mucus plugs. POSTOP DIAGNOSIS: Left lower lobe pneumonia and recurrent mucus plugs. ANESTHESIA: Used the patient was already on propofol drip. She was also on fentanyl drip, and she was given 1 dose of Nimbex 10 mg IV push prior to the procedure. DESCRIPTION OF PROCEDURE: Patient was placed in the supine position, her endotracheal tube was connected to an an adapter and in turn was connected to mechanical ventilation. After adequate sedation and after Nimbex was given, we monitored her O2 saturation continuously, blood pressure was continuously monitored, and cardiac rhythm was continuously monitored. Then the bronchoscope was advanced through the adapter, down to the endotracheal tube, and at the distal end of the endotracheal tube, there was some purulent secretions noted and these were suctioned. Thorough examination was done of the ger, right upper lobe, right middle lobe, right lower lobe, and these were noted to be fairly unremarkable. Then as the left upper lobe was noted to be unremarkable, lingula was unremarkable. However, some purulent secretions were noted in the left lower lobe, and these were lavaged and suctioned. The procedure was well tolerated, no evidence of any immediate complications. MMODL / IJN: [id number] /
[2019-01-20] MEDS: PROPOFOL 1,000 MG in EMPTY BAG 1 BAG IV SCH ×5 (02:09→18:42)
[2019-01-20] MEDS: VANCOMYCIN 750 MG in SODIUM CHLORIDE 0.9% 250 ML IVPB SCH ×2 (03:18→14:26)
[2019-01-20] MEDS: SODIUM CHLORIDE 0.9% 1,000 ML IV SCH (04:00)
[2019-01-20 05:39] LABS: Basophils % (A) 0 %; Eosinophils % (A) 0 %; HCT 25.6 % (34.0-46.0); HGB 7.8 gm/dL (11.4-16.0); Lymphocytes # (A) 0.9 k/uL (1.0-4.8); Lymphocytes % (A) 5 %; MCHC 30.5 g/dL (31.0-37.0); MCV 85.2 fL (80.0-100.0); Mean Platelet Volume 7.5; Monocytes # (A) 1.1 k/uL (0-1.0); Monocytes % (A) 6 %; Neutrophils # (A) 15.1 k/uL (1.3-7.7); Neutrophils % (A) 87 %; Platelet Count 461 k/uL (150-450); RBC 3.01 m/uL (3.80-5.40); RDW 15.2 % (11.5-15.5); WBC 17.4 k/uL (3.8-10.6)
[2019-01-20 05:49] LABS: ALT 36 U/L (9-52); AST 28 U/L (14-36); African American GFR (CKD) >90 (>60 ml/min/1.73 sqM); Albumin 2.3 g/dL (3.5-5.0); Alkaline Phosphatase 96 U/L (38-126); Anion Gap 5 mmol/L; Blood Urea Nitrogen 25 mg/dL (7-17); Calcium 7.4 mg/dL (8.4-10.2); Carbon Dioxide 32 mmol/L (22-30); Chloride 101 mmol/L (98-107); Glucose 173 mg/dL (74-99); Potassium 3.5 mmol/L (3.5-5.1); Sodium 138 mmol/L (137-145); Total Bilirubin 0.1 mg/dL (0.2-1.3)
[2019-01-20] MEDS: POTASSIUM CHLORIDE 20 MEQ in WATER FOR INJECTION 1 100ML.BAG IVPB SCH ×2 (06:18→08:37)
[2019-01-20] MEDS: methylPREDNISolone SOD SUCCI 125 MG/2 ML VIAL IV SCH ×4 (06:19→23:45)
[2019-01-20] MEDS: fentaNYL (PF) 1,000 MCG in SODIUM CHLORIDE 0.9% 80 ML IV SCH (06:37)
[2019-01-20 06:49] LABS: Glucose,Whole Blood 195 mg/dL (75-99)
--- NOTE | 2019-01-20 06:49 | XR ---
EXAMINATION TYPE: XR chest 1V portable DATE OF EXAM: 01/20/2019 CLINICAL HISTORY: Difficulty breathing progress study. TECHNIQUE: Single AP portable semi-upright view of the chest is obtained. COMPARISON: Chest x-ray from one day earlier and older studies. FINDINGS: Endotracheal tube and orogastric tube are stable in appearance. There is persistent bibasi lar opacities and mild central vascular congestion. Upper lungs are clear without pneumothorax. Cardi ac silhouette size appears stable and within normal limits. Slight scoliotic curvature to be spine re mike present. IMPRESSION: Overall stable findings, small to moderate size bilateral pleural effusions with associ ated bibasilar atelectasis and/or infiltrate and mild central vascular congestion are all redemonstra swati.
[2019-01-20] MEDS: INSULIN ASPART (NovoLOG) 100 UNIT/ML VIAL SQ SCH ×4 (06:50→23:44)
[2019-01-20 07:50] LABS: ABG Base Excess 9.5 mmol/L; ABG HCO3 33 mmol/L (21-25); ABG Oxygen Saturation 97.8 % (94-97); ABG PCO2 42 mmHg (35-45); ABG PO2 93 mmHg (83-108); ABG TCO2 34 mmol/L (19-24); Allen Test Performed? Yes
[2019-01-20] MEDS: IPRATROPIUM-ALBUTEROL 3 ML NEB INHALATION SCH ×4 (07:58→18:32)
[2019-01-20] MEDS: PIPERACILLIN-TAZOBACTAM 3.375 GM in SODIUM CHLORIDE 0.9% 100 ML IVPB SCH ×3 (08:36→23:44)
[2019-01-20] MEDS: BACLOFEN 10 MG TAB PO SCH ×2 (08:37→21:17)
[2019-01-20] MEDS: ENOXAPARIN 40 MG/0.4 ML SYRINGE SQ SCH (08:37)
[2019-01-20] MEDS: OXYBUTYNIN CHLORIDE 5 MG TAB PO SCH ×2 (08:37→21:17)
[2019-01-20] MEDS: PANTOPRAZOLE 40 MG/10 ML VIAL IV SCH (08:38)
[2019-01-20] MEDS: CHLORHEXIDINE GLUCONATE 15 ML CUP MUCOUS MEM SCH ×2 (08:38→21:18)
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
[2019-01-20 12:30] LABS: Glucose,Whole Blood 153 mg/dL (75-99)
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
[2019-01-20 18:05] LABS: Glucose,Whole Blood 177 mg/dL (75-99)
[2019-01-20] MEDS: NORTRIPTYLINE 25 MG CAP PO SCH (21:17)
[2019-01-20] MEDS: DETROL PO SCH (21:18)
[2019-01-20 23:32] LABS: Glucose,Whole Blood 176 mg/dL (75-99)
[2019-01-21] MEDS ORDERED: VANCOMYCIN TROUGH DUE 1 EACH MISC MISCELLANE ONE (02:00)
[2019-01-21] MEDS: SODIUM CHLORIDE 0.9% 1,000 ML IV SCH ×2 (03:00→21:33)
[2019-01-21 04:17] LABS: ABG Base Excess 6.7 mmol/L; ABG HCO3 30 mmol/L (21-25); ABG Oxygen Saturation 97.2 % (94-97); ABG PCO2 37 mmHg (35-45); ABG PH 7.52 (7.35-7.45); ABG PO2 82 mmHg (83-108); ABG TCO2 31 mmol/L (19-24); Allen Test Performed? Yes
[2019-01-21] MEDS: VANCOMYCIN 750 MG in SODIUM CHLORIDE 0.9% 250 ML IVPB SCH (05:07)
[2019-01-21 06:13] LABS: Basophils % (A) 0 %; Eosinophils % (A) 0 %; HCT 27.9 % (34.0-46.0); HGB 8.9 gm/dL (11.4-16.0); Hypochromasia Slight; Lymphocytes # (A) 0.9 k/uL (1.0-4.8); Lymphocytes % (A) 5 %; MCH 27.9 pg (25.0-35.0); MCV 87.1 fL (80.0-100.0); Mean Platelet Volume 7.2; Monocytes # (A) 0.7 k/uL (0-1.0); Monocytes % (A) 4 %; Neutrophils # (A) 17.6 k/uL (1.3-7.7); Neutrophils % (A) 90 %; Platelet Count 503 k/uL (150-450); RBC 3.21 m/uL (3.80-5.40); RDW 15.6 % (11.5-15.5); WBC 19.5 k/uL (3.8-10.6)
[2019-01-21 06:14] LABS: Glucose,Whole Blood 188 mg/dL (75-99)
[2019-01-21 06:18] LABS: ALT 44 U/L (9-52); AST 26 U/L (14-36); African American GFR (CKD) >90 (>60 ml/min/1.73 sqM); Albumin 2.2 g/dL (3.5-5.0); Alkaline Phosphatase 85 U/L (38-126); Anion Gap 3 mmol/L; Blood Urea Nitrogen 24 mg/dL (7-17); Calcium 7.9 mg/dL (8.4-10.2); Carbon Dioxide 29 mmol/L (22-30); Chloride 105 mmol/L (98-107); Glucose 178 mg/dL (74-99); Sodium 137 mmol/L (137-145); Total Bilirubin <0.1 mg/dL (0.2-1.3); Total Protein 4.9 g/dL (6.3-8.2)
[2019-01-21] MEDS: methylPREDNISolone SOD SUCCI 125 MG/2 ML VIAL IV SCH (06:18)
[2019-01-21] MEDS: INSULIN ASPART (NovoLOG) 100 UNIT/ML VIAL SQ SCH ×3 (06:18→18:03)
[2019-01-21] MEDS: PROPOFOL 1,000 MG in EMPTY BAG 1 BAG IV SCH (06:18)
[2019-01-21] MEDS: IPRATROPIUM-ALBUTEROL 3 ML NEB INHALATION SCH ×4 (07:14→20:08)
[2019-01-21] MEDS ORDERED: FUROSEMIDE 10 MG/ML 10 ML VIAL IV STA (08:09)
--- NOTE | 2019-01-21 08:43 | XR ---
EXAMINATION TYPE: XR chest 1V portable DATE OF EXAM: 01/21/2019 COMPARISON: 01/20/2019 HISTORY: Tube placement TECHNIQUE: Single frontal view of the chest is obtained. FINDINGS: 18 NG tube stable in position. Bilateral infiltrate and pleural effusion. No pneumothorax. Heart size stable. Osseous structures stable. IMPRESSION: Bilateral infiltrate and pleural effusion stable. Underlying venous congestion not exclu ded.
[2019-01-21] MEDS: PANTOPRAZOLE 40 MG/10 ML VIAL IV SCH (09:24)
[2019-01-21] MEDS: PIPERACILLIN-TAZOBACTAM 3.375 GM in SODIUM CHLORIDE 0.9% 100 ML IVPB SCH ×2 (09:26→17:31)
[2019-01-21] MEDS: FUROSEMIDE 10 MG/ML 4 ML VIAL ONE ×2 (09:27)
[2019-01-21] MEDS: CHLORHEXIDINE GLUCONATE 15 ML CUP MUCOUS MEM SCH (09:28)
[2019-01-21] MEDS: fentaNYL (PF) 1,000 MCG in SODIUM CHLORIDE 0.9% 80 ML IV SCH ×2 (09:28→17:25)
[2019-01-21] MEDS: BACLOFEN 10 MG TAB PO SCH ×2 (09:29→21:33)
[2019-01-21] MEDS: ENOXAPARIN 40 MG/0.4 ML SYRINGE SQ SCH (09:29)
[2019-01-21] MEDS: OXYBUTYNIN CHLORIDE 5 MG TAB PO SCH ×2 (09:29→21:33)
[2019-01-21 10:07] LABS: ABG Base Excess 8.5 mmol/L; ABG HCO3 32 mmol/L (21-25); ABG Oxygen Saturation 96.4 % (94-97); ABG PCO2 41 mmHg (35-45); ABG PO2 80 mmHg (83-108); ABG TCO2 33 mmol/L (19-24)
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
[2019-01-21 11:53] LABS: Glucose,Whole Blood 139 mg/dL (75-99)
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
[2019-01-21 18:02] LABS: Glucose,Whole Blood 99 mg/dL (75-99)
[2019-01-21] MEDS: VANCOMYCIN 1,000 MG in SODIUM CHLORIDE 0.9% 250 ML IVPB SCH (19:34)
[2019-01-21] MEDS: NORTRIPTYLINE 25 MG CAP PO SCH (21:33)
[2019-01-21] MEDS: DETROL PO SCH (21:33)
[2019-01-22 00:01] LABS: Glucose,Whole Blood 99 mg/dL (75-99)
[2019-01-22] MEDS: INSULIN ASPART (NovoLOG) 100 UNIT/ML VIAL SQ SCH ×5 (00:15→22:39)
[2019-01-22] MEDS: PIPERACILLIN-TAZOBACTAM 3.375 GM in SODIUM CHLORIDE 0.9% 100 ML IVPB SCH ×3 (00:26→16:11)
[2019-01-22 05:16] LABS: Glucose,Whole Blood 100 mg/dL (75-99)
[2019-01-22 05:35] LABS: ALT 40 U/L (9-52); AST 23 U/L (14-36); African American GFR (CKD) >90 (>60 ml/min/1.73 sqM); Alkaline Phosphatase 67 U/L (38-126); Anion Gap 2 mmol/L; Blood Urea Nitrogen 20 mg/dL (7-17); Calcium 7.5 mg/dL (8.4-10.2); Carbon Dioxide 31 mmol/L (22-30); Chloride 105 mmol/L (98-107); Glucose 90 mg/dL (74-99); Potassium 3.3 mmol/L (3.5-5.1); Sodium 138 mmol/L (137-145); Total Bilirubin <0.1 mg/dL (0.2-1.3); Total Protein 4.5 g/dL (6.3-8.2)
[2019-01-22] MEDS: VANCOMYCIN 1,000 MG in SODIUM CHLORIDE 0.9% 250 ML IVPB SCH ×2 (06:03→18:53)
[2019-01-22 06:04] LABS: HCT 24.8 % (34.0-46.0); HGB 7.9 gm/dL (11.4-16.0); Hypochromasia Slight; MCH 27.8 pg (25.0-35.0); MCHC 31.9 g/dL (31.0-37.0); MCV 87.1 fL (80.0-100.0); Mean Platelet Volume 7.3; Platelet Count 479 k/uL (150-450); RBC 2.84 m/uL (3.80-5.40); RDW 15.8 % (11.5-15.5); WBC 12.8 k/uL (3.8-10.6)
[2019-01-22] MEDS: IPRATROPIUM-ALBUTEROL 3 ML NEB INHALATION SCH ×4 (07:42→19:48)
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
[2019-01-22] MEDS: PANTOPRAZOLE 40 MG/10 ML VIAL IV SCH (08:50)
[2019-01-22] MEDS: ENOXAPARIN 40 MG/0.4 ML SYRINGE SQ SCH (08:51)
[2019-01-22] MEDS: POTASSIUM CHLORIDE ER 20 MEQ TAB.ER PO SCH ×2 (08:51→10:35)
[2019-01-22] MEDS: BACLOFEN 10 MG TAB PO SCH ×2 (08:51→20:09)
[2019-01-22] MEDS: OXYBUTYNIN CHLORIDE 5 MG TAB PO SCH ×2 (08:53→20:10)
[2019-01-22 12:00] LABS: Glucose,Whole Blood 91 mg/dL (75-99)
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
[2019-01-22] MEDS: SODIUM CHLORIDE 0.9% 1,000 ML IV SCH (16:11)
[2019-01-22 16:44] LABS: Glucose,Whole Blood 110 mg/dL (75-99)
[2019-01-22 18:43] LABS: Iron Saturation 13.85 (12.00-45.00)
[2019-01-22] MEDS: NORTRIPTYLINE 25 MG CAP PO SCH (20:10)
[2019-01-22] MEDS: DETROL PO SCH (20:10)
[2019-01-22 22:19] LABS: Glucose,Whole Blood 113 mg/dL (75-99)
[2019-01-23] MEDS ORDERED: VANCOMYCIN TROUGH DUE 1 EACH MISC MISCELLANE ONE (05:00)
[2019-01-23] MEDS: INSULIN ASPART (NovoLOG) 100 UNIT/ML VIAL SQ SCH ×4 (06:34→20:45)
[2019-01-23 06:35] LABS: Glucose,Whole Blood 99 mg/dL (75-99)
[2019-01-23] MEDS: PANTOPRAZOLE 40 MG TABLET PO SCH (06:36)
[2019-01-23] MEDS: VANCOMYCIN 1,000 MG in SODIUM CHLORIDE 0.9% 250 ML IVPB SCH ×2 (06:43→18:58)
[2019-01-23 06:50] LABS: HCT 26.9 % (34.0-46.0); HGB 8.2 gm/dL (11.4-16.0); Hypochromasia Slight; MCH 27.2 pg (25.0-35.0); MCHC 30.3 g/dL (31.0-37.0); MCV 89.7 fL (80.0-100.0); Mean Platelet Volume 7.1; Platelet Count 452 k/uL (150-450); WBC 13.8 k/uL (3.8-10.6)
[2019-01-23 07:00] LABS: ALT 50 U/L (9-52); AST 20 U/L (14-36); African American GFR (CKD) >90 (>60 ml/min/1.73 sqM); Albumin 2.2 g/dL (3.5-5.0); Alkaline Phosphatase 66 U/L (38-126); Anion Gap 3 mmol/L; Blood Urea Nitrogen 12 mg/dL (7-17); Calcium 7.5 mg/dL (8.4-10.2); Carbon Dioxide 29 mmol/L (22-30); Chloride 107 mmol/L (98-107); Glucose 93 mg/dL (74-99); Potassium 3.8 mmol/L (3.5-5.1); Sodium 139 mmol/L (137-145); Total Bilirubin 0.2 mg/dL (0.2-1.3); Total Protein 4.7 g/dL (6.3-8.2)
[2019-01-23] MEDS: IPRATROPIUM-ALBUTEROL 3 ML NEB INHALATION SCH ×4 (07:03→21:00)
--- NOTE | 2019-01-23 07:59 | XR ---
EXAMINATION TYPE: XR chest 1V portable DATE OF EXAM: 01/23/2019 COMPARISON: 01/21/2019 HISTORY: Tube placement TECHNIQUE: Single frontal view of the chest is obtained. FINDINGS: ET and NG tube is been removed. Postsurgical change overlying the cervical spine. Scolioti c curvature noted. Diffuse bilateral infiltrate and pleural effusion suspected. No pneumothorax. IMPRESSION: Diffuse bilateral infiltrate and pleural effusion stable correlate for CHF with pulmonar y edema versus diffuse pneumonia.
[2019-01-23] MEDS ORDERED: POTASSIUM CHLORIDE ER 20 MEQ TAB.ER PO SCH (08:00)
[2019-01-23] MEDS ORDERED: FUROSEMIDE 10 MG/ML 10 ML VIAL IV STA (08:07)
[2019-01-23] MEDS: ENOXAPARIN 40 MG/0.4 ML SYRINGE SQ SCH (08:22)
[2019-01-23] MEDS: BACLOFEN 10 MG TAB PO SCH ×2 (08:22→20:32)
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
[2019-01-23] MEDS: OXYBUTYNIN CHLORIDE 5 MG TAB PO SCH ×2 (10:09→20:33)
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
[2019-01-23 11:49] LABS: Glucose,Whole Blood 102 mg/dL (75-99)
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
[2019-01-23] MEDS: SODIUM CHLORIDE 0.9% 1,000 ML IV SCH (12:42)
[2019-01-23 17:02] LABS: Glucose,Whole Blood 91 mg/dL (75-99)
[2019-01-23] MEDS: NORTRIPTYLINE 25 MG CAP PO SCH (20:32)
[2019-01-23] MEDS: guaiFENesin 600 MG TABLET.ER PO SCH (20:32)
[2019-01-23] MEDS: DETROL PO SCH (20:34)
[2019-01-23 20:45] LABS: Glucose,Whole Blood 96 mg/dL (75-99)
--- NOTE | 2019-01-24 05:40 | PN ---
PROGRESS NOTE DATE OF SERVICE: 01/23/2019 REASON FOR FOLLOWUP: Pseudomonas and MRSA pneumonia. INTERVAL HISTORY: The patient is currently afebrile. The patient is breathing more comfortably. She denies having any chest pain. Occasional cough. No nausea, no vomiting. No abdominal pain, no diarrhea. PHYSICAL EXAMINATION: On examination, blood pressure 116/61 with a pulse of 105, temperature of 98. She is 97% on 2 L nasal cannula. General description is a middle aged female lying in bed in no distress. RESPIRATORY SYSTEM: Unlabored breathing, clear to auscultation anteriorly. HEART: S1, S2. Regular rate and rhythm. ABDOMEN: Soft, no tenderness. LABS: Hemoglobin 8.2, white count 13.8. BUN of 12, creatinine 0.46. DIAGNOSTIC IMPRESSION AND PLAN: Patient with MRSA and Pseudomonas pneumonia in this patient currently on Pamelor that will the use of oral Zyvox. Hence the patient will need the a PICC for outpatient IV antibiotic therapy on discharge. Continue with Fortaz and vancomycin at this point. Duration of antibiotic should be at least 2 weeks. Monitor clinical course closely. Family at the bedside. Questions were answered. MMODL / IJN: [id number] /
[2019-01-24 05:48] LABS: Anisocytosis Slight; HCT 24.2 % (34.0-46.0); HGB 7.7 gm/dL (11.4-16.0); Hypochromasia Slight; MCH 28.3 pg (25.0-35.0); MCHC 31.7 g/dL (31.0-37.0); MCV 89.3 fL (80.0-100.0); Mean Platelet Volume 7.2; Platelet Count 390 k/uL (150-450); RBC 2.71 m/uL (3.80-5.40); RDW 16.3 % (11.5-15.5); WBC 11.7 k/uL (3.8-10.6)
[2019-01-24] MEDS: VANCOMYCIN 1,000 MG in SODIUM CHLORIDE 0.9% 250 ML IVPB SCH ×3 (05:58→17:22)
[2019-01-24 06:06] LABS: ALT 44 U/L (9-52); AST 22 U/L (14-36); African American GFR (CKD) >90 (>60 ml/min/1.73 sqM); Albumin 2.3 g/dL (3.5-5.0); Alkaline Phosphatase 67 U/L (38-126); Anion Gap 2 mmol/L; Blood Urea Nitrogen 9 mg/dL (7-17); Calcium 7.6 mg/dL (8.4-10.2); Carbon Dioxide 28 mmol/L (22-30); Chloride 104 mmol/L (98-107); Glucose 82 mg/dL (74-99); Potassium 4.1 mmol/L (3.5-5.1); Sodium 134 mmol/L (137-145); Total Bilirubin 0.2 mg/dL (0.2-1.3); Total Protein 4.8 g/dL (6.3-8.2)
[2019-01-24] MEDS: OXYBUTYNIN 10 MG TAB.ER.24 PO SCH (07:07)
[2019-01-24 07:14] LABS: Glucose,Whole Blood 81 mg/dL (75-99)
--- NOTE | 2019-01-24 07:18 | XR ---
EXAMINATION TYPE: XR chest 1V portable DATE OF EXAM: 01/24/2019 COMPARISON: 01/23/2018 HISTORY: Shortness of breath TECHNIQUE: Single frontal view of the chest is obtained. FINDINGS: Postsurgical change overlying the cervical spine. Scoliotic curvature noted. Diffuse bilat eral infiltrate and pleural effusion suspected. No pneumothorax. IMPRESSION: Diffuse bilateral infiltrate and pleural effusion stable correlate for CHF with pulmonar y edema versus diffuse pneumonia.
[2019-01-24] MEDS: IPRATROPIUM-ALBUTEROL 3 ML NEB INHALATION SCH ×4 (07:47→20:32)
[2019-01-24] MEDS: OXYBUTYNIN CHLORIDE 5 MG TAB PO SCH ×2 (08:02→20:58)
[2019-01-24] MEDS: BACLOFEN 10 MG TAB PO SCH ×2 (08:02→20:54)
[2019-01-24] MEDS: INSULIN ASPART (NovoLOG) 100 UNIT/ML VIAL SQ SCH ×4 (08:02→20:55)
[2019-01-24] MEDS: PANTOPRAZOLE 40 MG TABLET PO SCH (08:02)
[2019-01-24] MEDS: ENOXAPARIN 40 MG/0.4 ML SYRINGE SQ SCH (08:03)
[2019-01-24] MEDS: guaiFENesin 600 MG TABLET.ER PO SCH ×2 (08:03→20:54)
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
[2019-01-24 12:36] LABS: Glucose,Whole Blood 127 mg/dL (75-99)
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
[2019-01-24 17:08] LABS: Glucose,Whole Blood 147 mg/dL (75-99)
[2019-01-24] MEDS ORDERED: ONDANSETRON 4 MG/2 ML VIAL IVP PRN (17:17)
[2019-01-24 20:48] LABS: Glucose,Whole Blood 156 mg/dL (75-99)
[2019-01-24] MEDS: DETROL PO SCH (21:13)
[2019-01-24] MEDS: NORTRIPTYLINE 25 MG CAP PO SCH (21:13)
[2019-01-25] MEDS: VANCOMYCIN 1,000 MG in SODIUM CHLORIDE 0.9% 250 ML IVPB SCH (05:03)
--- NOTE | 2019-01-25 05:47 | PN ---
PROGRESS NOTE DATE OF SERVICE: 01/24/2019. REASON FOR FOLLOWUP: Pneumonia. INTERVAL HISTORY: The patient is currently afebrile. The patient has been breathing more comfortably. The patient denies having any chest pain. She did have some cough. No nausea, no vomiting. No abdominal pain. No diarrhea. PHYSICAL EXAMINATION: On examination, blood pressure 122/79 with a pulse of 102, temperature 98. She is 95% on 2 L nasal cannula. General description is a middle aged female lying in bed in no distress. RESPIRATORY SYSTEM: Unlabored breathing, decreased breath sounds at the bases. No wheeze. HEART: S1, S2. Regular rate and rhythm. ABDOMEN: Soft, no tenderness. LABS: Hemoglobin 7.7, white count 11.7 with a BUN of 9 creatinine 0.35. DIAGNOSTIC IMPRESSION AND PLAN: Patient with methicillin-resistant Staphylococcus aureus and Pseudomonas aeruginosa pneumonia currently on Fortaz and vancomycin and Zyvox cannot be used because of drug interaction with her tricyclic antidepressant. She will get a PICC line and continue vancomycin pharmacy to dose for another 10 days. Fortaz will be switched to IV cefepime 2 grams q.12 for 10 days as well. Unfortunately, oral Cipro could not be used because of interaction with Pamelor. Continue supportive care. MMODL / IJN: [id number] /
[2019-01-25 07:18] LABS: Glucose,Whole Blood 101 mg/dL (75-99)
[2019-01-25] MEDS: INSULIN ASPART (NovoLOG) 100 UNIT/ML VIAL SQ SCH ×2 (07:21→12:19)
[2019-01-25 07:34] VITALS: BP 133/84; TEMP 98.3
[2019-01-25] MEDS: IPRATROPIUM-ALBUTEROL 3 ML NEB INHALATION SCH ×2 (07:53→11:16)
[2019-01-25 07:58] VITALS: RESP 18
[2019-01-25 08:07] VITALS: PULSE 109
[2019-01-25] MEDS: BACLOFEN 10 MG TAB PO SCH (08:22)
[2019-01-25] MEDS: guaiFENesin 600 MG TABLET.ER PO SCH (08:22)
[2019-01-25] MEDS: OXYBUTYNIN CHLORIDE 5 MG TAB PO SCH (08:22)
[2019-01-25] MEDS: PANTOPRAZOLE 40 MG TABLET PO SCH (08:22)
[2019-01-25] MEDS ORDERED: LIDOCAINE 1% INJ 10MG/ML (20 ML MDV) ONE (09:32)
[2019-01-25] MEDS ORDERED: LIDOCAINE 1% INJ 10MG/ML (20 ML MDV) SQ ONE (09:40)
[2019-01-25 11:08] VITALS: BMI 24.0
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
[2019-01-25 12:01] LABS: Glucose,Whole Blood 93 mg/dL (75-99)
[2019-01-25] MEDS ORDERED: CEFEPIME 2 GM in SODIUM CHLORIDE 0.9% 100 ML IVPB SCH (13:00)
--- NOTE | 2019-01-25 14:05 | PN ---
PROGRESS NOTE DATE OF SERVICE: 01/25/2019 REASON FOR FOLLOWUP: Pneumonia. INTERVAL HISTORY: The patient is currently afebrile. The patient has been breathing more comfortably. The patient did get a PICC line, is currently waiting for IV antibiotic arrangement. Denies having any chest pain. No shortness of breath. No cough. No diarrhea. PHYSICAL EXAMINATION: Blood pressure is 133/84 with a pulse of 100, temperature 98.2, she is 99% on 2 L nasal cannula. General description is a middle aged female, lying in bed in no distress. RESPIRATORY SYSTEM: Unlabored breathing, clear to auscultation anteriorly. HEART: S1, S2. Regular rate and rhythm. ABDOMEN: Soft, no tenderness. LABS: No new labs have been obtained today. DIAGNOSTIC IMPRESSION AND PLAN: Patient admitted to the hospital with sepsis. Source is pneumonia. This patient had both MRSA and Pseudomonas in the cultures with the patient being on interacting both with Cipro and Zyvox. Hence, oral antibiotic options are not available. He did get a PICC line. Will continue the vancomycin, pharmacy to dose, target of 15 along with cefepime 2 g q.12 for 10 days to finish a course of therapy. Family at the bedside, their questions were answered. MMODL / IJN: [id number] /
[2019-01-26] MEDS ORDERED: VANCOMYCIN TROUGH DUE 1 EACH MISC MISCELLANE ONE (05:00)
--- NOTE | 2019-01-29 09:13 | IR ---
PICC LINE PLACEMENT: HISTORY: Infection requiring long-term antibiotic therapy PROCEDURE: Ultrasound and fluoroscopic guidance of PICC line placement. COMPLICATIONS: None ANESTHESIA: 1. 1% Lidocaine locally. FINDINGS/TECHNIQUE: The procedure was explained to the patient. The risks, complications, benefits and alternatives were discussed and any questions were answered. Informed consent was obtained. The patient was placed supine on the fluoroscopic table and prepped and draped in the usual sterile fash ion. Utilizing a 21 gauge needle and sonographic and fluoroscopic guidance, access in the right bas ilic vein was achieved and there is placement of a 0.018 guidewire. The vein is patent. A 4-F sheat h was placed over the guidewire. The guidewire and dilator were removed and a 4-F. PICC line was jose roberto fidel through the sheath with the tip at the level of the SVC. The sheath was removed, the catheter wa s flushed and sutured into position. The patient was stable throughout the procedure and remained st able upon discharge from the Department of Radiology. The vein puncture was patent under ultrasound. A mata scale image was obtained to document patency of the vein punctured. All elements of the maximal barrier technique were utilized. FLUOROSCOPY TIME: 0.1 image and one image submitted IMPRESSION: Successful PICC line placement under ultrasound and fluoroscopic guidance.
== END 2019-01-25 15:36 | disposition home health service (06) | DRG 853 ==
LOC: EC 18:42 → 2SICU 21:49 → 4MS4W 01-24 07:20
PROVIDERS: ADMIT Internal Medicine; ATTEND Internal Medicine
PROC: 5A09457 Assistance with Respiratory Ventilation, 24-96 Consecutive Hours, Continuous Positive Airway Pressure (ICD-10-PCS; 2019-01-13)
PROC: 5A1955Z Respiratory Ventilation, Greater than 96 Consecutive Hours (ICD-10-PCS; 2019-01-15)
PROC: 0BH17EZ Insertion of Endotracheal Airway into Trachea, Via Natural or Artificial Opening (ICD-10-PCS; 2019-01-15)
PROC: 0B9M8ZZ Drainage of Bilateral Lungs, Via Natural or Artificial Opening Endoscopic (ICD-10-PCS; 2019-01-16)
PROC: 06HM33Z Insertion of Infusion Device into Right Femoral Vein, Percutaneous Approach (ICD-10-PCS; 2019-01-17)
PROC: 0BCJ8ZZ Extirpation of Matter from Left Lower Lung Lobe, Via Natural or Artificial Opening Endoscopic (ICD-10-PCS; principal; 2019-01-17 09:42)
PROC: 0B9J8ZX Drainage of Left Lower Lung Lobe, Via Natural or Artificial Opening Endoscopic, Diagnostic (ICD-10-PCS; principal; 2019-01-17 09:42)
PROC: 0BC78ZZ Extirpation of Matter from Left Main Bronchus, Via Natural or Artificial Opening Endoscopic (ICD-10-PCS; principal; 2019-01-17 09:42)
PROC: B5181ZA Fluoroscopy of Superior Vena Cava using Low Osmolar Contrast, Guidance (ICD-10-PCS; 2019-01-25)
PROC: 02HV33Z Insertion of Infusion Device into Superior Vena Cava, Percutaneous Approach (ICD-10-PCS; 2019-01-25)
DX: A41.9 Sepsis, unspecified organism (principal); J96.01 Acute respiratory failure with hypoxia; G82.50 Quadriplegia, unspecified; J15.212 Pneumonia due to Methicillin resistant Staphylococcus aureus; J15.1 Pneumonia due to Pseudomonas; T17.890A Other foreign object in other parts of respiratory tract causing asphyxiation, initial encounter; T17.590A Other foreign object in bronchus causing asphyxiation, initial encounter; J98.11 Atelectasis; E87.3 Alkalosis; J90 Pleural effusion, not elsewhere classified; Z99.11 Dependence on respirator [ventilator] status; R65.20 Severe sepsis without septic shock; E87.6 Hypokalemia; D50.9 Iron deficiency anemia, unspecified; F17.200 Nicotine dependence, unspecified, uncomplicated; F17.210 Nicotine dependence, cigarettes, uncomplicated; Z87.442 Personal history of urinary calculi; Z87.440 Personal history of urinary (tract) infections; Z86.73 Personal history of transient ischemic attack (TIA), and cerebral infarction without residual deficits; V89.2XXS Person injured in unspecified motor-vehicle accident, traffic, sequela; Y92.410 Unspecified street and highway as the place of occurrence of the external cause; Z79.2 Long term (current) use of antibiotics; Z87.01 Personal history of pneumonia (recurrent); Z91.048 Other nonmedicinal substance allergy status; Z91.09 Other allergy status, other than to drugs and biological substances
CPT/HCPCS: 31624; 31645; 36415; 36573; 36600; 51702; 71045; 71270; 74018; 80048; 80053; 80202; 81001; 82728; 82805; 83540; 83550; 83605; 83735; 84132; 85025; 85027; 85610; 85730; 87040; 87070; 87077; 87086; 87102; 87116; 87186; 87205; 87206; 87252; 87496; 87498; 87502; 87529; 87634; 87798; 89050; 93005; 94002; 94003; 94640; 94660; 94664; 94667; 94668; 94760; 96361; 96365; 99291

== ENCOUNTER → 2019-08-12 | Outpatient (CLI) | payer OTHER, MEDICARE | END | disposition home or self-care (01) | CPT/HCPCS: 72141; 72146 ==

== ENCOUNTER 2020-07-21 17:28 | Emergency (ER) | payer OTHER, MEDICARE ==
[2020-07-21 17:34] VITALS: RESP 18
[2020-07-21] MEDS ORDERED: ONDANSETRON 4 MG/2 ML VIAL IVP STA (18:03)
[2020-07-21] MEDS ORDERED: SODIUM CHLORIDE 0.9% 1,000 ML IV STA (18:04)
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
[2020-07-21 18:58] LABS: Basophils % (A) 1 %; Eosinophils # (A) 0.2 k/uL (0-0.7); Eosinophils % (A) 3 %; HCT 38.9 % (34.0-46.0); HGB 12.7 gm/dL (11.4-16.0); Lymphocytes # (A) 1.2 k/uL (1.0-4.8); Lymphocytes % (A) 18 %; MCHC 32.5 g/dL (31.0-37.0); MCV 92.1 fL (80.0-100.0); Mean Platelet Volume 7.4; Monocytes # (A) 0.4 k/uL (0-1.0); Monocytes % (A) 7 %; Neutrophils # (A) 4.6 k/uL (1.3-7.7); Neutrophils % (A) 69 %; Platelet Count 389 k/uL (150-450); RBC 4.23 m/uL (3.80-5.40); RDW 15.5 % (11.5-15.5); WBC 6.7 k/uL (3.8-10.6)
[2020-07-21 19:10] LABS: ALT 18 U/L (4-34); AST 28 U/L (14-36); African American GFR (CKD) >90 (>60 ml/min/1.73 sqM); Albumin 4.1 g/dL (3.5-5.0); Alkaline Phosphatase 69 U/L (38-126); Amylase 72 U/L (30-110); Anion Gap 9 mmol/L; Blood Urea Nitrogen 8 mg/dL (7-17); Calcium 9.1 mg/dL (8.4-10.2); Carbon Dioxide 22 mmol/L (22-30); Chloride 104 mmol/L (98-107); Glucose 91 mg/dL (74-99); Lipase 46 U/L (23-300); Non-African American GFR(CKD) >90 (>60 ml/min/1.73 sqM); Potassium 4.7 mmol/L (3.5-5.1); Sodium 135 mmol/L (137-145); Total Bilirubin 0.4 mg/dL (0.2-1.3); Total Protein 7.4 g/dL (6.3-8.2)
[2020-07-21 19:51] LABS: Appearance,Urine Cloudy (Clear); Bacteria,Urine Many /hpf; Bilirubin,Urine Negative (Negative); Blood,Urine Trace (Negative); Color,Urine Light Yellow; Glucose,Urine (UA) Negative (Negative); Ketones,Urine Negative (Negative); Leukocyte Esterase,Urine Large (Negative); Mucus,Urine Rare /hpf; Nitrite,Urine Positive (Negative); Protein,Urine Negative (Negative); RBC,Urine 14 /hpf (0-5); Specific Gravity,Urine 1.011 (1.001-1.035); Urobilinogen,Urine <2.0 mg/dL (<2.0); WBC,Urine >182 /hpf (0-5)
--- NOTE | 2020-07-21 20:02 | CT ---
EXAMINATION TYPE: CT abdomen pelvis w con DATE OF EXAM: 07/21/2020 COMPARISON: Chest CT 01/13/2019. CT urogram 10/31/2012. HISTORY: Abdominal pain and constipation. CT DLP: 677.7 mGycm Automated exposure control for dose reduction was used. TECHNIQUE: Helical acquisition of images was performed from the lung bases through the pelvis. CONTRAST: Performed without Oral Contrast and with IV Contrast, patient injected with 100ml mL of Isovue 300. FINDINGS: LUNG BASES: Mild left basilar scarring. LIVER/GB: No acute abnormality is appreciated. Decreased 3.6 cm isoattenuating right hepatic lesion w ith discontinuous peripheral enhancement, most consistent with hemangioma (previously measured 6.4 cm ). PANCREAS: No significant abnormality is seen. SPLEEN: No significant abnormality is seen. ADRENALS: No significant abnormality is seen. KIDNEYS: Right renal atrophy with pelvic ectasia and 3 mm lower pole calculus. No left hydronephrosis or nephrolithiasis. FREE AIR: No free air is visualized. RETROPERITONEAL ADENOPATHY: None visualized REPRODUCTIVE ORGANS: No significant abnormality is seen URINARY BLADDER: No significant abnormality is seen. PELVIC ADENOPATHY: 4.2 cm simple appearing left adnexal cyst. OSSEOUS STRUCTURES: No significant abnormality is seen. BOWEL: Borderline to mildly dilated of single distal small bowel loop in the right lower quadrant. R emaining visualized bowel loops are unremarkable. No significant free fluid or air. No acute appendic itis. OTHER: None IMPRESSION: NONSPECIFIC BORDERLINE TO MILDLY DILATED SINGLE DISTAL SMALL BOWEL LOOP, MAY RELATE TO FOCAL ILEUS VE RSUS LESS FAVORED LOW-GRADE PARTIAL BOWEL OBSTRUCTION. Redemonstrated hepatic hemangioma, decreased in size compared to 2013 CT. Redemonstrated right renal atrophy with pelvic ectasia and small nonobstructing calculus. Incidental 4.2 cm left ovarian cyst. Ultrasound correlation may be obtained as clinically indicated.
[2020-07-21] MEDS ORDERED: METOCLOPRAMIDE 5 MG/ML 2 ML VIAL IVP STA (21:02)
[2020-07-21 21:07] VITALS: BP 141/90; PULSE 80
[2020-07-21 22:07] VITALS: TEMP 98.3
== END 2020-07-21 22:06 | disposition home or self-care (01) ==
LOC: EC 17:28
DX: N39.0 Urinary tract infection, site not specified (principal); K56.7 Ileus, unspecified; Z86.14 Personal history of Methicillin resistant Staphylococcus aureus infection; Z91.048 Other nonmedicinal substance allergy status
CPT/HCPCS: 36415; 80053; 82150; 83690; 85025; 81001; 87086; 74177; 99284; 96365; 96375 ×2; 96361 ×2; J2765; J2405; J0696; Q9967

== ENCOUNTER → 2020-11-18 | Outpatient (CLI) | payer OTHER, MEDICARE ==
[2020-11-18 15:18] LABS: HCT 33.4 % (34.0-46.0); HGB 11.3 gm/dL (11.4-16.0); MCH 31.5 pg (25.0-35.0); MCHC 33.9 g/dL (31.0-37.0); MCV 93.1 fL (80.0-100.0); Mean Platelet Volume 7.6; Platelet Count 330 k/uL (150-450); RBC 3.59 m/uL (3.80-5.40); RDW 13.2 % (11.5-15.5); WBC 6.5 k/uL (3.8-10.6)
[2020-11-18 15:26] LABS: ALT 22 U/L (4-34); AST 33 U/L (14-36); African American GFR (CKD) >90 (>60 ml/min/1.73 sqM); Albumin 3.8 g/dL (3.5-5.0); Alkaline Phosphatase 65 U/L (38-126); Anion Gap 7 mmol/L; Blood Urea Nitrogen 9 mg/dL (7-17); Calcium 9.5 mg/dL (8.4-10.2); Carbon Dioxide 25 mmol/L (22-30); Chloride 107 mmol/L (98-107); Glucose 87 mg/dL (74-99); Non-African American GFR(CKD) >90 (>60 ml/min/1.73 sqM); Potassium 4.4 mmol/L (3.5-5.1); Sodium 139 mmol/L (137-145); Total Bilirubin 0.2 mg/dL (0.2-1.3); Total Protein 6.8 g/dL (6.3-8.2)
--- NOTE | 2020-11-19 14:42 | MR ---
EXAMINATION TYPE: MR elvis/suni wo/w con DATE OF EXAM: 11/18/2020 COMPARISON: 08/12/2019 HISTORY: Syringomyelia/tetraplegia CONTRAST: Performed utilizing 5.5 mL intravenous Gadavist gadolinium contrast. TECHNIQUE: Multiplanar multiecho imaging on a 3.0 Shelia magnet is performed through the cervical spin e. FINDINGS: The craniovertebral junction is normal. Vertebral body alignment has slight kyphosis cente red at approximately C5. There is cord expansion with hypointense T1 and hyperintense T2 signal posterior to the C4-C6 levels. This is thickest at the C5 level and is slightly heterogenous and expansile. Very little normal spin al cord tissue is evident. Post contrast imaging there is a 0.4 - 0.6 cm enhancing nodule. Findings were present previously and stable. Motion artifact limits the cervical spine. The C2-3 disc herniation is less well-visualized on the cu rrent exam. In the axial plane there are some sections which are nearly nondiagnostic. Vertebral body heights are preserved. Disc heights appear preserved. Disc desiccation is noted at C2- 3 C5-6 C6-7. No additional abnormal signal is evident. IMPRESSIONS: 1. Abnormal cord signal C4-C7 stable from comparison. The enhancing nodule remains present within the spinal cord posterior to the C5-6 disc level. EXAMINATION TYPE: MR elvis/suni wo/w con DATE OF EXAM: 11/18/2020 COMPARISON: 08/12/2019 HISTORY: Syringomyelia/tetraplegia CONTRAST: Performed utilizing 5.5 mL intravenous Gadavist gadolinium contrast. TECHNIQUE: Multiplanar, multiecho imaging on a 3.0 Shelia magnet is performed through the thoracic spi ne. Spinal cord maintains normal signal through its visualized thoracic course. Vertebral body alignment is normal. Vertebral body heights are preserved. Disc heights are preserved. Disc hydration levels are preserved. No spinal canal stenosis is evident. IMPRESSIONS: 1. Thoracic spine appears unremarkable
== END | disposition home or self-care (01) ==
LOC: RADMRIMAIN 11:59
PROVIDERS: ATTEND Physical Medicine & Rehabilitation Spinal Cord Injury Medicine
DX: G95.0 Syringomyelia and syringobulbia (principal); G82.50 Quadriplegia, unspecified
CPT/HCPCS: 80053; 85027; 82306; 72156; 72157; A9585

== ENCOUNTER 2020-11-30 20:44 | Emergency (ER) | payer OTHER, MEDICARE ==
[2020-11-30 21:01] VITALS: TEMP 98.1
[2020-11-30] MEDS ORDERED: ORPHENADRINE 30 MG/ML 2 ML VIAL IM STA (21:18)
[2020-11-30] MEDS ORDERED: Acetaminophen-Codeine 300-30mg TAB PO STA (21:18)
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
--- NOTE | 2020-11-30 22:01 | XR ---
EXAMINATION TYPE: XR chest 2V DATE OF EXAM: 11/30/2020 COMPARISON: 01/24/2019 HISTORY: Short of breath chest pain TECHNIQUE: 3 views FINDINGS: Heart and mediastinum are normal. There is some linear density behind the heart in the left lower lobe. The other lung conti are clear. There are no hilar masses. IMPRESSION: There is some minimal scarring or atelectasis in the left lower lobe. There is clearing o f the pulmonary edema and pleural fluid compared to old exam. Normal heart.
[2020-11-30] MEDS ORDERED: ACET/COD 300 MG/30 MG STARTER PACK 6 TAB BTL PO STA (22:17)
[2020-11-30 22:29] VITALS: BP 88/62; PULSE 89; RESP 20
== END 2020-11-30 22:29 | disposition home or self-care (01) ==
LOC: EC 20:44
DX: S46.911A Strain of unspecified muscle, fascia and tendon at shoulder and upper arm level, right arm, initial encounter (principal); Z79.899 Other long term (current) drug therapy; X58.XXXA Exposure to other specified factors, initial encounter
CPT/HCPCS: 71046; 96372; 99283; J2360

== ENCOUNTER 2021-09-02 18:11 | Inpatient (IN) | payer MEDICARE, OTHER ==
[2021-09-02] MEDS ORDERED: IBUPROFEN 600 MG TAB PO STA (19:17)
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
[2021-09-02 19:56] LABS: Appearance,Urine Cloudy (Clear); Bacteria,Urine Rare /hpf; Bilirubin,Urine 1+ (Negative); Blood,Urine Negative (Negative); Color,Urine Yellow; Glucose,Urine (UA) Negative (Negative); Hyaline Casts,Urine 20 /lpf (0-2); Ketones,Urine Negative (Negative); Leukocyte Esterase,Urine Trace (Negative); Mucus,Urine Few /hpf; Nitrite,Urine Negative (Negative); PH, Urine 5.5 (5.0-8.0); Protein,Urine Trace (Negative); RBC,Urine 1 /hpf (0-5); Specific Gravity,Urine 1.026 (1.001-1.035); Squamous Epithelial Cell,Urine 2 /hpf (0-4); WBC,Urine 5 /hpf (0-5)
[2021-09-02] MEDS: SODIUM CHLORIDE 0.9% 500 ML 500 ML IV SCH ×2 (20:29→22:03)
[2021-09-02] MEDS: SODIUM CHLORIDE 0.9% 1,000 ML IV SCH (20:29)
[2021-09-02 20:50] LABS: ALT 20 U/L (4-34); AST 63 U/L (14-36); African American GFR (CKD) >90 (>60 ml/min/1.73 sqM); Albumin 3.4 g/dL (3.5-5.0); Alkaline Phosphatase 67 U/L (38-126); Anion Gap 8 mmol/L; Blood Urea Nitrogen 22 mg/dL (7-17); Calcium 7.8 mg/dL (8.4-10.2); Carbon Dioxide 18 mmol/L (22-30); Chloride 97 mmol/L (98-107); Glucose 120 mg/dL (74-99); Non-African American GFR(CKD) >90 (>60 ml/min/1.73 sqM); Sodium 123 mmol/L (137-145); Total Bilirubin 1.6 mg/dL (0.2-1.3)
[2021-09-02 20:52] LABS: Potassium 5.9 mmol/L (3.5-5.1)
[2021-09-02 21:26] LABS: Basophils # (A) 0.1 k/uL (0-0.2); Basophils % (A) 1 %; Eosinophils % (A) 0 %; HGB 13.2 gm/dL (11.4-16.0); Lymphocytes # (A) 1.6 k/uL (1.0-4.8); Lymphocytes % (A) 7 %; MCH 30.5 pg (25.0-35.0); MCV 92.7 fL (80.0-100.0); Mean Platelet Volume 8.3; Monocytes # (A) 4.2 k/uL (0-1.0); Monocytes % (A) 19 %; Neutrophils # (A) 15.1 k/uL (1.3-7.7); Neutrophils % (A) 69 %; Platelet Count 292 k/uL (150-450); RBC 4.32 m/uL (3.80-5.40); RDW 13.4 % (11.5-15.5); WBC 21.9 k/uL (3.8-10.6)
--- NOTE | 2021-09-02 21:49 | XR ---
EXAMINATION: XR chest 2V DATE AND TIME: 09/02/2021 8:52 PM CLINICAL INDICATION: Fever TECHNIQUE: AP and lateral COMPARISON: 12/01/2019 FINDINGS: The left hemidiaphragm is elevated, new since the prior study of 11/30/2020, etiology unclear. The visualized lungs are well-expanded and clear. The pleural spaces are negative. The cardiac silhouette is not enlarged. The remainder of the mediastinal silhouette is unremarkable. The skeletal structures and soft tissues are negative for acute findings. IMPRESSION: New left hemidiaphragm elevation.
[2021-09-02 22:06] LABS: Toxic Granulation Present
[2021-09-02 22:08] LABS: Toxic Vacuolation Present
--- NOTE | 2021-09-02 22:17 | CT ---
EXAMINATION TYPE: CT abdomen pelvis wo con DATE OF EXAM: 09/02/2021 HISTORY: abd distention, vomiting CT DLP: 498.6 mGycm. Automated Exposure Control for Dose Reduction was Utilized. TECHNIQUE: CT scan of the abdomen and pelvis is performed without oral or IV contrast. COMPARISON: 07/21/20 FINDINGS: Within the limitations of a non-contrast study, the following observations are made. LUNG BASES: No significant abnormality is appreciated. LIVER/GB: No significant abnormality is appreciated. Redemonstrated right hepatic cavernous hemangiom a noted. PANCREAS: No significant abnormality is seen. SPLEEN: No significant abnormality is seen. ADRENALS: No significant abnormality is seen. KIDNEYS: No significant abnormality is seen. BOWEL: There is massive volume of stool throughout the colon, distending the entire colon. Small mayda l unremarkable. GENITAL ORGANS: No gross abnormality seen. LYMPH NODES: No greater than 1cm abdominal or pelvic lymph nodes are appreciated. OSSEOUS STRUCTURES: No significant abnormality is seen. OTHER: Small volume of peritoneal fluid noted throughout the pelvis. IMPRESSION: Pancolonic distension consistent with stool-impaction.
[2021-09-02] MEDS ORDERED: PIPERACILLIN-TAZOBACTAM 3.375 GM in SODIUM CHLORIDE 0.9% 100 ML IVPB STA (22:58)
[2021-09-02] MEDS ORDERED: IBUPROFEN 400 MG TAB PO PRN (23:06)
[2021-09-02] MEDS ORDERED: ACETAMINOPHEN TAB 325 MG TAB PO PRN (23:06)
[2021-09-02] MEDS ORDERED: NALOXONE 0.4 MG/ML 1 ML VIAL IV PRN (23:06)
[2021-09-03] MEDS: SODIUM CHLORIDE 0.9% 1,000 ML IV SCH ×3 (00:02→14:47)
[2021-09-03] MEDS ORDERED: bisacodyL 5 MG TABLET.DR PO PRN (02:31)
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
[2021-09-03] MEDS: LORATADINE 10 MG TAB PO SCH (07:21)
[2021-09-03] MEDS: BACLOFEN 10 MG TAB PO SCH ×2 (07:21→20:49)
[2021-09-03] MEDS: HEPARIN SODIUM,PORCINE/PF 5,000 UNIT/0.5 ML SYRINGE SQ SCH ×2 (07:21→15:50)
[2021-09-03] MEDS: OXYBUTYNIN 10 MG TAB.ER.24 PO SCH ×2 (07:22→20:49)
[2021-09-03] MEDS: PSYLLIUM HUSK 100% 6 GM PACKET PO SCH (07:22)
[2021-09-03 07:37] LABS: HCT 31.5 % (34.0-46.0); MCH 29.8 pg (25.0-35.0); MCHC 31.7 g/dL (31.0-37.0); MCV 94.2 fL (80.0-100.0); Platelet Count 267 k/uL (150-450); RBC 3.34 m/uL (3.80-5.40); RDW 13.7 % (11.5-15.5); WBC 12.4 k/uL (3.8-10.6)
[2021-09-03] MEDS ORDERED: PIPERACILLIN-TAZOBACTAM 3.375 GM in SODIUM CHLORIDE 0.9% 100 ML IVPB SCH (08:30)
[2021-09-03 10:05] LABS: Band Neutrophils % 2 %; Eosinophils # (M) 0.25 k/uL (0-0.7); Lymphocytes # (M) 0.74 k/uL (1.0-4.8); Monocytes # (M) 1.74 k/uL (0-1.0); Neutrophils % (M) 76 %; Nucleated Red Blood Cells 0 /100 WBC (0-0); Total Cells Counted 100
[2021-09-03 10:06] LABS: RBC Morphology Normal; Toxic Granulation Present
[2021-09-03 10:31] LABS: African American GFR (CKD) >90 (>60 ml/min/1.73 sqM); Anion Gap 8 mmol/L; Blood Urea Nitrogen 15 mg/dL (7-17); Calcium 6.7 mg/dL (8.4-10.2); Carbon Dioxide 18 mmol/L (22-30); Chloride 107 mmol/L (98-107); Glucose 108 mg/dL (74-99); Non-African American GFR(CKD) >90 (>60 ml/min/1.73 sqM); Potassium 3.3 mmol/L (3.5-5.1); Sodium 133 mmol/L (137-145)
[2021-09-03 10:47] LABS: T4, Free (Free Thyroxine) 1.53 ng/dL (0.78-2.19)
[2021-09-03] MEDS ORDERED: POTASSIUM CHLORIDE ER 20 MEQ TAB.ER PO STA (14:34)
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
[2021-09-03] MEDS: NORTRIPTYLINE 25 MG CAP PO SCH (20:49)
[2021-09-03] MEDS ORDERED: OXYBUTYNIN 10 MG TAB.ER.24 PO SCH (21:00)
[2021-09-04] MEDS: HEPARIN SODIUM,PORCINE/PF 5,000 UNIT/0.5 ML SYRINGE SQ SCH ×3 (01:13→15:42)
[2021-09-04] MEDS: MELATONIN 3 MG TABLET PO PRN (03:58)
[2021-09-04] MEDS ORDERED: diphenhydrAMINE 25 MG CAP PO STA (04:20)
[2021-09-04] MEDS: OXYBUTYNIN 10 MG TAB.ER.24 PO SCH ×2 (07:13→21:33)
[2021-09-04] MEDS: LORATADINE 10 MG TAB PO SCH (07:13)
[2021-09-04] MEDS: BACLOFEN 10 MG TAB PO SCH ×2 (07:14→21:33)
[2021-09-04] MEDS: PSYLLIUM HUSK 100% 6 GM PACKET PO SCH (07:14)
[2021-09-04] MEDS ORDERED: PEG 3350-NA SULF,BICARB,CL/KCL 4,000 ML BOTTLE PO ONE (09:00)
--- NOTE | 2021-09-04 09:08 | P.PN ---
Subjective Progress Note Date: 09/04/21 Principal diagnosis: Constipation Patient says she had a good size bowel movement yesterday. She is now drinking GoLYTELY and tolerating it thus far. No vomiting. Denies pain. T-max 100, mild tachycardia Objective - Vital Signs Vital signs: Vital Signs Temp 99.9 F H 09/04/21 07:33 Pulse 106 H 09/04/21 07:33 Resp 14 09/04/21 07:33 BP 125/84 09/04/21 07:33 Pulse Ox 92 L 09/04/21 07:33 Intake & Output 09/03/21 09/04/21 09/04/21 18:59 06:59 18:59 Output Total 1000 Balance -1000 Output: Urine 1000 - Exam Abdomen: Soft, nontender, nondistended - Labs CBC & Chem 7: 09/03/21 06:34 09/03/21 06:34 Labs: Abnormal Lab Results - Last 24 Hours (Table) 09/03/21 09/03/21 09/03/21 Range/Units 06:34 06:34 06:34 Neutrophils # (Manual) 9.60 H (1.3-7.7) k/uL Lymphocytes # (Manual) 0.74 L (1.0-4.8) k/uL Monocytes # (Manual) 1.74 H (0-1.0) k/uL Sodium 133 L (137-145) mmol/L Potassium 3.3 L (3.5-5.1) mmol/L Carbon Dioxide 18 L (22-30) mmol/L Glucose 108 H (74-99) mg/dL Osmolality (280-301) mosm/kg Calcium 6.7 L (8.4-10.2) mg/dL Procalcitonin 1.48 H (0.02-0.09) ng/mL Ur Random Sodium (40-220) mmol/L 09/03/21 09/03/21 Range/Units 06:34 14:51 Neutrophils # (Manual) (1.3-7.7) k/uL Lymphocytes # (Manual) (1.0-4.8) k/uL Monocytes # (Manual) (0-1.0) k/uL Sodium (137-145) mmol/L Potassium (3.5-5.1) mmol/L Carbon Dioxide (22-30) mmol/L Glucose (74-99) mg/dL Osmolality 277 L (280-301) mosm/kg Calcium (8.4-10.2) mg/dL Procalcitonin (0.02-0.09) ng/mL Ur Random Sodium 26 L (40-220) mmol/L Microbiology - Last 24 Hours (Table) 09/02/21 19:42 Blood Culture - Preliminary Blood No Growth after 24 hours 09/02/21 19:14 Blood Culture - Preliminary Blood No Growth after 24 hours 09/02/21 23:14 Urine Culture - Preliminary Urine,Catheterized Assessment and Plan (1) Constipation Narrative/Plan: Continue stool softeners for now. Colonoscopy tentatively planned for Monday. Continue liquid diet. Current Visit: Yes Status: Acute Code(s): K59.00 - CONSTIPATION, UNSPECIFIED SNOMED Code(s): 30551270
[2021-09-04] MEDS: SODIUM CHLORIDE 0.9% 1,000 ML IV SCH (10:59)
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
[2021-09-04 14:50] LABS: Basophils % (A) 0 %; Eosinophils # (A) 0.2 k/uL (0-0.7); Eosinophils % (A) 3 %; HCT 32.4 % (34.0-46.0); HGB 10.3 gm/dL (11.4-16.0); Lymphocytes # (A) 1.1 k/uL (1.0-4.8); Lymphocytes % (A) 13 %; MCH 29.8 pg (25.0-35.0); MCHC 31.9 g/dL (31.0-37.0); MCV 93.5 fL (80.0-100.0); Monocytes # (A) 0.4 k/uL (0-1.0); Monocytes % (A) 5 %; Neutrophils # (A) 6.7 k/uL (1.3-7.7); Neutrophils % (A) 76 %; Platelet Count 302 k/uL (150-450); RBC 3.46 m/uL (3.80-5.40); RDW 13.5 % (11.5-15.5); WBC 8.8 k/uL (3.8-10.6)
[2021-09-04 15:00] LABS: African American GFR (CKD) >90 (>60 ml/min/1.73 sqM); Anion Gap 4 mmol/L; Blood Urea Nitrogen 5 mg/dL (7-17); Calcium 6.9 mg/dL (8.4-10.2); Carbon Dioxide 23 mmol/L (22-30); Chloride 109 mmol/L (98-107); Glucose 92 mg/dL (74-99); Non-African American GFR(CKD) >90 (>60 ml/min/1.73 sqM); Potassium 3.4 mmol/L (3.5-5.1); Sodium 136 mmol/L (137-145)
[2021-09-04] MEDS: PIPERACILLIN-TAZOBACTAM 3.375 GM in SODIUM CHLORIDE 0.9% 100 ML IVPB SCH (15:42)
[2021-09-04] MEDS: NORTRIPTYLINE 25 MG CAP PO SCH (21:33)
[2021-09-05] MEDS: PIPERACILLIN-TAZOBACTAM 3.375 GM in SODIUM CHLORIDE 0.9% 100 ML IVPB SCH ×3 (00:03→16:51)
[2021-09-05] MEDS: HEPARIN SODIUM,PORCINE/PF 5,000 UNIT/0.5 ML SYRINGE SQ SCH ×3 (00:04→16:51)
[2021-09-05] MEDS: SODIUM CHLORIDE 0.9% 1,000 ML IV SCH ×2 (06:53→11:23)
[2021-09-05] MEDS: BACLOFEN 10 MG TAB PO SCH ×2 (07:21→21:51)
[2021-09-05] MEDS: LORATADINE 10 MG TAB PO SCH (07:21)
[2021-09-05] MEDS: OXYBUTYNIN 10 MG TAB.ER.24 PO SCH ×2 (07:21→21:52)
[2021-09-05] MEDS: PSYLLIUM HUSK 100% 6 GM PACKET PO SCH (07:22)
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
[2021-09-05 09:08] LABS: Basophils # (A) 0.06 X 10*3/uL (0.00-0.10); Basophils % (A) 0.6 %; Eosinophils # (A) 0.17 X 10*3/uL (0.04-0.35); Eosinophils % (A) 1.7 %; HCT 29.6 % (37.2-46.3); HGB 9.5 g/dL (12.0-15.0); Immature Grans, Automated 0.9 %; Lymphocytes # (A) 1.23 X 10*3/uL (0.90-5.00); MCH 29.1 pg (27.0-32.0); MCHC 32.1 g/dL (32.0-37.0); MCV 90.8 fL (80.0-97.0); Mean Platelet Volume 10.9 fL (9.5-12.2); Monocytes # (A) 0.87 X 10*3/uL (0.20-1.00); Monocytes % (A) 8.5 %; NRBC Per 100 WBC 0 /100 WBCS (0.0-0.0); Neutrophils # (A) 7.83 X 10*3/uL (1.80-7.70); Neutrophils % (A) 76.3 %; Platelet Count 351 X 10*3/uL (140-440); RBC 3.26 X 10*6/uL (4.10-5.20); RDW 14.1 % (11.5-14.5); WBC 10.25 X 10*3/uL (4.50-10.00)
--- NOTE | 2021-09-05 09:17 | P.PN ---
Subjective Progress Note Date: 09/05/21 Principal diagnosis: Constipation Patient had multiple loose stools last night. Stools are not clear. In fact patient and family state the stools look black in color at this time. Describes mild bloating. No vomiting. She drank about 90% of her GoLYTELY last night. Objective - Vital Signs Vital signs: Vital Signs Temp 98.4 F 09/05/21 08:00 Pulse 97 09/05/21 08:00 Resp 16 09/05/21 08:00 BP 129/80 09/05/21 08:00 Pulse Ox 95 09/05/21 08:00 Intake & Output 09/04/21 09/05/21 09/05/21 18:59 06:59 18:59 Output Total 2800 600 Balance -2800 -600 Output: Urine 2800 600 Other: Voiding Method Indwelling Catheter # Bowel Movements 2 3 - Exam Abdomen: Soft, nontender, nondistended - Labs CBC & Chem 7: 09/05/21 05:53 09/04/21 14:25 Labs: Abnormal Lab Results - Last 24 Hours (Table) 09/04/21 09/04/21 09/05/21 Range/Units 14:25 14:25 05:53 WBC 10.25 H (4.50-10.00) X 10*3/uL RBC 3.46 L 3.26 L (3.80-5.40) m/uL Hgb 10.3 L 9.5 L (11.4-16.0) gm/dL Hct 32.4 L 29.6 L (34.0-46.0) % Immature Gran # 0.09 H (0.00-0.04) X 10*3/uL Neutrophils # 7.83 H (1.80-7.70) X 10*3/uL Sodium 136 L (137-145) mmol/L Potassium 3.4 L (3.5-5.1) mmol/L Chloride 109 H (98-107) mmol/L BUN 5 L (7-17) mg/dL Creatinine 0.44 L (0.52-1.04) mg/dL Calcium 6.9 L (8.4-10.2) mg/dL Microbiology - Last 24 Hours (Table) 09/02/21 19:42 Blood Culture - Preliminary Blood No Growth after 48 hours 09/02/21 19:14 Blood Culture - Preliminary Blood No Growth after 48 hours 09/02/21 23:14 Urine Culture - Final Urine,Catheterized Assessment and Plan (1) Constipation Narrative/Plan: Patient doing well. Continue bowel prep today for colonoscopy tomorrow. Given the fact the patient is described black colored stools will add EGD to the colonoscopy for tomorrow. Current Visit: Yes Status: Acute Code(s): K59.00 - CONSTIPATION, UNSPECIFIED SNOMED Code(s): 54841552
[2021-09-05 09:39] LABS: African American GFR (CKD) 142.3 (60.0-200.0); Albumin 2.7 g/dL (3.8-4.9); Albumin/Globulin Ratio 1.28 (1.60-3.17); Anion Gap 12.6 mmol/L (10.00-18.00); BUN/Creat Ratio 15.42 Ratio (12.00-20.00); Blood Urea Nitrogen 6.1 mg/dL (9.0-27.0); C Reactive Protein 14.4 mg/dL (0.00-0.80); Calcium 6.9 mg/dL (8.7-10.3); Globulin 2.1 g/dL (1.6-3.3); Magnesium 1.9 mg/dL (1.5-2.4); Non-African American GFR(CKD) 122.8 (60.0-200.0); Potassium 3.2 mmol/L (3.5-5.5); Total Bilirubin 0.2 mg/dL (0.30-1.20); Total Protein 4.7 g/dL (6.2-8.2)
[2021-09-05] MEDS ORDERED: MAGNESIUM CITRATE 296 ML BOTTLE PO ONE ×2 (10:00→16:28)
[2021-09-05] MEDS ORDERED: POTASSIUM CHLORIDE ER 20 MEQ TAB.ER PO STA (11:48)
[2021-09-05] MEDS ORDERED: ADENOSINE 3 MG/ML 2 ML VIAL IVP ONE ×2 (14:09→14:10)
[2021-09-05 14:20] LABS: Glucose,Whole Blood 82 mg/dL (75-99)
[2021-09-05] MEDS ORDERED: SODIUM CHLORIDE 0.9% 500 ML 1,000 ML IV ONE (14:20)
--- NOTE | 2021-09-05 14:39 | P.PCN ---
Date of Procedure: 09/05/21 Preoperative Diagnosis: Failed IV access Postoperative Diagnosis: Failed IV axis Procedure(s) Performed: Central line insertion Anesthesia: local Surgeon: Pipe Thompson Estimated Blood Loss (ml): 0 Condition: critical Disposition: ICU Operative Findings: Central line Indication: Hemodynamic monitoring/Intravenous access. A time-out was completed verifying correct patient, procedure, site, positioning, and implant(s) or special equipment if applicable. The patient was placed in a dependent position appropriate for central line placement based on the vein to be cannulated. The patient right groin was prepped and draped in sterile fashion. 1% Lidocaine was used to anesthetize the surrounding skin area. A triple lumen 9F Cordis catheter was introduced into the right femoral vein using Seldinger technique. The catheter was threaded smoothly over the guide wire and appropriate blood return was obtained. Each lumen of the catheter was evacuated of air and flushed with sterile saline. The catheter was then sutured in place to the skin and a sterile dressing applied. Perfusion to the extremity distal to the point of catheter insertion was checked and found to be adequate. The patient tolerated the procedure well and there were no complications.
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
[2021-09-05 14:55] LABS: Basophils % (A) 0 %; Eosinophils # (A) 0.3 k/uL (0-0.7); Eosinophils % (A) 3 %; HCT 32.5 % (34.0-46.0); HGB 10.5 gm/dL (11.4-16.0); Lymphocytes % (A) 11 %; MCH 29.9 pg (25.0-35.0); MCHC 32.3 g/dL (31.0-37.0); MCV 92.3 fL (80.0-100.0); Mean Platelet Volume 8.1; Monocytes # (A) 0.5 k/uL (0-1.0); Monocytes % (A) 6 %; Neutrophils % (A) 77 %; Platelet Count 305 k/uL (150-450); RBC 3.52 m/uL (3.80-5.40); RDW 13.6 % (11.5-15.5); WBC 9.2 k/uL (3.8-10.6)
[2021-09-05 15:03] LABS: African American GFR (CKD) >90 (>60 ml/min/1.73 sqM); Anion Gap 10 mmol/L; Blood Urea Nitrogen 4 mg/dL (7-17); Carbon Dioxide 20 mmol/L (22-30); Chloride 105 mmol/L (98-107); Glucose 82 mg/dL (74-99); Magnesium 1.8 mg/dL (1.6-2.3); Non-African American GFR(CKD) >90 (>60 ml/min/1.73 sqM); Potassium 3.3 mmol/L (3.5-5.1); Sodium 135 mmol/L (137-145)
[2021-09-05 15:20] LABS: Calcium 6.3 mg/dL (8.4-10.2)
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
[2021-09-05] MEDS: NORTRIPTYLINE 25 MG CAP PO SCH (21:51)
[2021-09-05] MEDS: METOPROLOL TARTRATE 12.5 MG TAB PO SCH (21:51)
[2021-09-05] MEDS: MELATONIN 3 MG TABLET PO PRN (21:59)
--- NOTE | 2021-09-05 22:55 | P.PN ---
Subjective Progress Note Date: 09/05/21 Principal diagnosis: Fever Patient is a 51 year old female with a past medical history significant for C5 quadriplegia presented to the hospital with body aches and constipation did have 2 episodes of vomiting patient did have a CT of abdominal pelvis which did shows and colonic distention with stool impaction. On today's evaluation that is 09/05/2021 the patient overall fever pattern has improved did have a low-grade fever of 99.8 this morning afebrile since then manas benitez is breathing comfortably at home and denies any chest pain shortness of breath or cough and did have multiple bowel movements Objective - Vital Signs Vital signs: Vital Signs Temp 98.4 F 09/05/21 08:00 Pulse 160 H 09/05/21 13:49 Resp 16 09/05/21 08:00 BP 88/60 09/05/21 13:49 Pulse Ox 95 09/05/21 08:00 Intake & Output 09/04/21 09/05/21 09/05/21 18:59 06:59 18:59 Output Total 2800 600 Balance -2800 -600 Output: Urine 2800 600 Other: Voiding Method Indwelling Catheter # Bowel Movements 2 3 - Exam GENERAL DESCRIPTION: Middle-aged female lying in bed in no distress RESPIRATORY SYSTEM: Unlabored breathing , decreased breath sounds at bases HEART: S1 S2 regular rate and rhythm , ABDOMEN: Soft , no tenderness EXTREMITIES: No edema feet - Labs CBC & Chem 7: 09/05/21 14:30 09/05/21 14:30 Labs: Abnormal Lab Results - Last 24 Hours (Table) 09/04/21 09/04/21 09/05/21 Range/Units 14:25 14:25 05:53 WBC 10.25 H (4.50-10.00) X 10*3/uL RBC 3.46 L 3.26 L (3.80-5.40) m/uL Hgb 10.3 L 9.5 L (11.4-16.0) gm/dL Hct 32.4 L 29.6 L (34.0-46.0) % Immature Gran # 0.09 H (0.00-0.04) X 10*3/uL Neutrophils # 7.83 H (1.80-7.70) X 10*3/uL Sodium 136 L (137-145) mmol/L Potassium 3.4 L (3.5-5.1) mmol/L Chloride 109 H (98-107) mmol/L BUN 5 L (7-17) mg/dL Creatinine 0.44 L (0.52-1.04) mg/dL Calcium 6.9 L (8.4-10.2) mg/dL Total Bilirubin (0.30-1.20) mg/dL C-Reactive Protein (0.00-0.80) mg/dL Total Protein (6.2-8.2) g/dL Albumin (3.8-4.9) g/dL Albumin/Globulin Ratio (1.60-3.17) g/dL 09/05/21 Range/Units 05:53 WBC (4.50-10.00) X 10*3/uL RBC (3.80-5.40) m/uL Hgb (11.4-16.0) gm/dL Hct (34.0-46.0) % Immature Gran # (0.00-0.04) X 10*3/uL Neutrophils # (1.80-7.70) X 10*3/uL Sodium (137-145) mmol/L Potassium 3.2 L (3.5-5.1) mmol/L Chloride (98-107) mmol/L BUN 6.1 L (7-17) mg/dL Creatinine 0.4 L (0.52-1.04) mg/dL Calcium 6.9 L (8.4-10.2) mg/dL Total Bilirubin 0.20 L (0.30-1.20) mg/dL C-Reactive Protein 14.40 H (0.00-0.80) mg/dL Total Protein 4.7 L (6.2-8.2) g/dL Albumin 2.7 L (3.8-4.9) g/dL Albumin/Globulin Ratio 1.28 L (1.60-3.17) g/dL Microbiology - Last 24 Hours (Table) 09/02/21 19:42 Blood Culture - Preliminary Blood No Growth after 48 hours 09/02/21 19:14 Blood Culture - Preliminary Blood No Growth after 48 hours 09/02/21 23:14 Urine Culture - Final Urine,Catheterized Assessment and Plan (1) Fever Current Visit: Yes Status: Acute Code(s): R50.9 - FEVER, UNSPECIFIED SNOMED Code(s): 451847547 Plan: 1patient presented to hospital with fever in this patient who did have a C5 quadriplegia and did have a history of stool impaction presented hospital abdominal distention and vomiting more likely abdominal source CT abdominal pelvis unfortunately done without any contrast and discharged and colonic distention with stool burden, currently no other obvious focus of infection chest x-ray reported negative and no respiratory symptoms urine is not significantly positive no evidence of any cellulitis or joint swelling and the patient fever seem to responded to Zosyn. 2patient to continue with Zosyn 3.375 g every 8 hours in view of clinical resolution of the fever and evaluating for the consultation finalized Family the bedside questions were answered. Time with Patient: Less than 30
[2021-09-06] MEDS: HEPARIN SODIUM,PORCINE/PF 5,000 UNIT/0.5 ML SYRINGE SQ SCH ×4 (01:01→21:50)
[2021-09-06] MEDS: PIPERACILLIN-TAZOBACTAM 3.375 GM in SODIUM CHLORIDE 0.9% 100 ML IVPB SCH ×4 (01:01→21:51)
[2021-09-06] MEDS: ONDANSETRON 4 MG/2 ML VIAL IVP PRN (03:12)
[2021-09-06] MEDS: SODIUM CHLORIDE 0.9% 1,000 ML IV SCH ×2 (03:39→21:49)
[2021-09-06 06:47] LABS: Ionized Calcium 4.4 mg/dL (4.5-5.3)
[2021-09-06 07:13] LABS: ALT 23 U/L (4-34); AST 21 U/L (14-36); African American GFR (CKD) >90 (>60 ml/min/1.73 sqM); Albumin 2.2 g/dL (3.5-5.0); Alkaline Phosphatase 78 U/L (38-126); Anion Gap 6 mmol/L; Blood Urea Nitrogen 2 mg/dL (7-17); Carbon Dioxide 21 mmol/L (22-30); Chloride 107 mmol/L (98-107); Glucose 83 mg/dL (74-99); Magnesium 2.3 mg/dL (1.6-2.3); Non-African American GFR(CKD) >90 (>60 ml/min/1.73 sqM); Potassium 3.7 mmol/L (3.5-5.1); Sodium 134 mmol/L (137-145); Total Bilirubin 0.3 mg/dL (0.2-1.3); Total Protein 4.8 g/dL (6.3-8.2)
[2021-09-06 07:26] LABS: C Reactive Protein 13.2 mg/dL (<1.0); Calcium 6.3 mg/dL (8.4-10.2)
[2021-09-06 08:15] LABS: Basophils % (A) 1 %; Eosinophils % (A) 3 %; HCT 29.4 % (34.0-46.0); HGB 9.3 gm/dL (11.4-16.0); Lymphocytes % (A) 10 %; MCH 29.7 pg (25.0-35.0); MCHC 31.7 g/dL (31.0-37.0); MCV 93.5 fL (80.0-100.0); Mean Platelet Volume 8.4; Monocytes % (A) 7 %; Neutrophils # (A) 6.1 k/uL (1.3-7.7); Neutrophils % (A) 76 %; Platelet Count 330 k/uL (150-450); RBC 3.15 m/uL (3.80-5.40); RDW 13.7 % (11.5-15.5)
[2021-09-06 08:16] LABS: Basophils # (A) 0.1 k/uL (0-0.2); Eosinophils # (A) 0.2 k/uL (0-0.7); Lymphocytes # (A) 0.8 k/uL (1.0-4.8); Monocytes # (A) 0.6 k/uL (0-1.0)
[2021-09-06] MEDS ORDERED: CALCIUM GLUCONATE IN NACL 2 GM in SALINE 1 100ML.BAG IVPB ONE (08:30)
[2021-09-06] MEDS: METOPROLOL TARTRATE 12.5 MG TAB PO SCH ×2 (09:42→21:49)
[2021-09-06] MEDS: BACLOFEN 10 MG TAB PO SCH ×2 (09:42→21:49)
[2021-09-06] MEDS: LORATADINE 10 MG TAB PO SCH (09:42)
[2021-09-06] MEDS: PSYLLIUM HUSK 100% 6 GM PACKET PO SCH (09:43)
[2021-09-06] MEDS: OXYBUTYNIN 10 MG TAB.ER.24 PO SCH ×2 (10:09→21:49)
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
--- NOTE | 2021-09-06 11:01 | ECHOF ---
Referral Reason:SVT MEASUREMENTS -------- HEIGHT: 160.0 cm WEIGHT: 54.9 kg BP: 82/61 RVIDd: 2.1 cm (< 3.3) IVSd: 1.0 cm (0.6 - 1.1) LVIDd: 3.7 cm (3.9 - 5.3) LVPWd: 1.0 cm (0.6 - 1.1) IVSs: 1.5 cm LVIDs: 2.2 cm LVPWs: 1.1 cm LA Diam: 2.5 cm (2.7 - 3.8) Ao Diam: 2.7 cm (2.0 - 3.7) AV Cusp: 1.7 cm (1.5 - 2.6) MV EXCURSION: 15.098 mm (> 18.000) MV EF SLOPE: 118 mm/s (70 - 150) EPSS: 0.1 cm MV E [place]: 1.17 m/s MV DecT: 122 ms MV A [place]: 1.30 m/s MV E/A Ratio: 0.90 RAP: 5.00 mmHg RVSP: 36.98 mmHg FINDINGS -------- Sinus rhythm. This was a technically good study. The left ventricular size is normal. Left ventricular wall thickness is normal. The right ventricle is normal in size. The left atrium is normal in size. The right atrium is normal in size. Interatrial and interventricular septum intact. The aortic valve is trileaflet, and appears structurally normal. No aortic stenosis or regurgitation. There is trace to mild mitral regurgitation. Mild tricuspid regurgitation present. There is mild pulmonary hypertension. The right ventricular systolic pressure, as measured by Doppler, is 36.98mmHg. The pulmonic valve is normal. The aortic root size is normal. IVC Not well visulized. There is a trivial pericardial effusion present. CONCLUSIONS -------- 1. The left ventricular size is normal. 2. Left ventricular wall thickness is normal. 3. There is trace to mild mitral regurgitation. 4. Mild tricuspid regurgitation present. 5. There is mild pulmonary hypertension. 6. The right ventricular systolic pressure, as measured by Doppler, is 36.98mmHg. 7. There is a trivial pericardial effusion present. FORESTRY TECHNICAL OFFICER: Liliana Stephenson RDCS
[2021-09-06] MEDS ORDERED: PROPOFOL 10 MG/ML 20 ML VIAL IV ONE (13:24)
[2021-09-06] MEDS ORDERED: MIDAZOLAM 2 MG/2 ML VIAL ONE (13:24)
[2021-09-06] MEDS ORDERED: LIDOCAINE 2% INJ 20 MG/ML (2 ML VIAL) ONE (13:24)
[2021-09-06] MEDS ORDERED: IV FLUID CONTINUATION 1,000 ML IV ONE ×2 (13:28)
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
--- NOTE | 2021-09-06 14:42 | P.OP ---
Date of Procedure: 09/06/21 Preoperative Diagnosis: Colonic obstruction GI bleed Postoperative Diagnosis: Mild antral gastritis No evidence of upper GI bleed Tortuous colon with poor colonic prep Procedure(s) Performed: EGD Colonoscopy Anesthesia: MAC Surgeon: Isael Beverly Pathology: other (Antrum) Condition: stable Disposition: PACU Description of Procedure: The patient's placed on the endoscopy table in the lateral position she received IV sedation. The gastroscope placed oropharynx passed in the esophagus into the stomach. The scope was placed through the pylorus. The first and second portion of the duodenum appeared normal. Scope was then brought back the antrum this appeared inflamed. Biopsies performed. Scope was then retroflexed the remainder stomach appeared normal. The GE junction was at 40 cm. The distal esophagus appeared normal. The proximal esophagus appeared normal. Scope was withdrawn for patient. Next digital rectal exam was performed. The patient had a large amount of external hemorrhoids. The patient's anus was patulous. There is very poor sphincter tone. The flexible colonoscope was then placed patient anus and passed with colon. Scope was placed in the right colon. There was a large amount of liquid brown stool throughout the colon. There was even more liquid brown stool seen in the right colon. At this point scope withdrawn due to the poor prep. The transverse colon and descending and; appeared normal however the bowel was very tortuous. There were no polyps or tumors seen there is no significant source of bleeding seen. The scope brought back the rectum this appeared normal scope withdrawn for patient.
--- NOTE | 2021-09-06 21:26 | P.PN ---
Subjective Progress Note Date: 09/06/21 Principal diagnosis: Fever Patient is a 51 year old female with a past medical history significant for C5 quadriplegia presented to the hospital with body aches and constipation did have 2 episodes of vomiting patient did have a CT of abdominal pelvis which did shows and colonic distention with stool impaction. Patient did have elevations of sinus tachycardia requiring a short trip to the ICU on 09/05/2021 and is back on the floor on 09/06/2021 On today's evaluation that is 09/06/2021 the patient has been afebrile, the patient is breathing comfortably at home and denies any chest pain shortness of breath or cough and did have multiple bowel movements Objective - Vital Signs Vital signs: Vital Signs Temp 98.6 F 09/06/21 08:00 Pulse 94 09/06/21 08:00 Resp 22 09/06/21 01:00 BP 110/73 09/06/21 08:00 Pulse Ox 91 L 09/06/21 08:00 Intake & Output 09/05/21 09/06/21 09/06/21 18:59 06:59 18:59 Intake Total 650 780 Output Total 800 875 Balance -150 -95 Weight 55 kg Intake: IV 150 300 Piperacillin-Tazobactam 3 100 .375 gm In Sodium Chloride 0.9% 100 ml @ 25 mls/hr IVPB Q8HR [facility] Rx# :[id number] Sodium Chloride 0.9% 1, 150 200 000 ml @ 75 mls/hr IV . [id number] [facility] Rx#:[id number] Intake, IV Titration 500 Amount Piperacillin-Tazobactam 3 100 .375 gm In Sodium Chloride 0.9% 100 ml @ 25 mls/hr IVPB Q8HR [facility] Rx# :[id number] Sodium Chloride 0.9% 500 400 ml 1,000 ml @ 999 mls/hr IV .Q1H1M ONE Rx#: [id number] Oral 480 Output: Urine 800 875 Other: Voiding Method Indwelling Catheter Indwelling Catheter # Bowel Movements 2 1 - Exam GENERAL DESCRIPTION: Middle-aged female lying in bed in no distress RESPIRATORY SYSTEM: Unlabored breathing , decreased breath sounds at bases HEART: S1 S2 regular rate and rhythm , ABDOMEN: Soft , no tenderness EXTREMITIES: No edema feet - Labs CBC & Chem 7: 09/06/21 05:37 09/06/21 05:37 Labs: Abnormal Lab Results - Last 24 Hours (Table) 09/05/21 09/05/21 09/05/21 Range/Units 14:30 14:30 18:45 RBC 3.52 L (3.80-5.40) m/uL Hgb 10.5 L (11.4-16.0) gm/dL Hct 32.5 L (34.0-46.0) % Lymphocytes # (1.0-4.8) k/uL Sodium 135 L (137-145) mmol/L Potassium 3.3 L (3.5-5.1) mmol/L Carbon Dioxide 20 L (22-30) mmol/L BUN 4 L (7-17) mg/dL Creatinine 0.42 L (0.52-1.04) mg/dL Calcium 6.3 L* (8.4-10.2) mg/dL Ionized Calcium Devon 4.1 L (4.5-5.3) mg/dL C-Reactive Protein (<1.0) mg/dL Total Protein (6.3-8.2) g/dL Albumin (3.5-5.0) g/dL 09/06/21 09/06/21 Range/Units 05:37 05:37 RBC 3.15 L (3.80-5.40) m/uL Hgb 9.3 L (11.4-16.0) gm/dL Hct 29.4 L (34.0-46.0) % Lymphocytes # 0.8 L (1.0-4.8) k/uL Sodium 134 L (137-145) mmol/L Potassium (3.5-5.1) mmol/L Carbon Dioxide 21 L (22-30) mmol/L BUN 2 L (7-17) mg/dL Creatinine 0.40 L (0.52-1.04) mg/dL Calcium 6.3 L* (8.4-10.2) mg/dL Ionized Calcium Devon 4.4 L (4.5-5.3) mg/dL C-Reactive Protein 13.2 H (<1.0) mg/dL Total Protein 4.8 L (6.3-8.2) g/dL Albumin 2.2 L (3.5-5.0) g/dL Microbiology - Last 24 Hours (Table) 09/02/21 19:42 Blood Culture - Preliminary Blood No Growth after 72 hours 09/02/21 19:14 Blood Culture - Preliminary Blood No Growth after 72 hours Assessment and Plan (1) Fever Current Visit: Yes Status: Acute Code(s): R50.9 - FEVER, UNSPECIFIED SNOMED Code(s): 283601613 Plan: 1patient presented to hospital with fever in this patient who did have a C5 quadriplegia and did have a history of stool impaction presented hospital abdominal distention and vomiting more likely abdominal source CT abdominal pelvis unfortunately done without any contrast and discharged and colonic distention with stool burden, currently no other obvious focus of infection chest x-ray reported negative and no respiratory symptoms urine is not significantly positive no evidence of any cellulitis or joint swelling and the patient fever seem to responded to Zosyn. 2patient currently being treated with Zosyn 3.375 g every 8 hours in view of clinical resolution of the fever and hopefully finished therapy with the short course of oral Augmentin Time with Patient: Less than 30
[2021-09-06] MEDS: NORTRIPTYLINE 25 MG CAP PO SCH (21:49)
[2021-09-07] MEDS: SODIUM CHLORIDE 0.9% 1,000 ML IV SCH ×2 (02:00→15:21)
[2021-09-07] MEDS: ONDANSETRON 4 MG/2 ML VIAL IVP PRN (03:50)
[2021-09-07 09:26] LABS: ALT 23 U/L (8-44); AST 24 U/L (13-35); African American GFR (CKD) 131.7 (60.0-200.0); Albumin 2.8 g/dL (3.8-4.9); Albumin/Globulin Ratio 1.22 (1.60-3.17); Alkaline Phosphatase 80 U/L (41-126); Blood Urea Nitrogen 6.9 mg/dL (9.0-27.0); Calcium 7.3 mg/dL (8.7-10.3); Carbon Dioxide 20.8 mmol/L (20.0-27.5); Chloride 103 mmol/L (96-109); Globulin 2.3 g/dL (1.6-3.3); Glucose 91 mg/dL (70-110); Magnesium 2.1 mg/dL (1.5-2.4); Non-African American GFR(CKD) 113.6 (60.0-200.0); Potassium 4.1 mmol/L (3.5-5.5); Sodium 135 mmol/L (135-145); Total Bilirubin <0.15 mg/dL (0.30-1.20); Total Protein 5.1 g/dL (6.2-8.2)
[2021-09-07] MEDS: METOPROLOL TARTRATE 12.5 MG TAB PO SCH ×2 (09:34→20:27)
[2021-09-07] MEDS: PSYLLIUM HUSK 100% 6 GM PACKET PO SCH (09:34)
[2021-09-07] MEDS: BACLOFEN 10 MG TAB PO SCH ×2 (09:34→20:27)
[2021-09-07] MEDS: PIPERACILLIN-TAZOBACTAM 3.375 GM in SODIUM CHLORIDE 0.9% 100 ML IVPB SCH ×3 (09:34→23:30)
[2021-09-07] MEDS: LORATADINE 10 MG TAB PO SCH (09:34)
[2021-09-07] MEDS: OXYBUTYNIN 10 MG TAB.ER.24 PO SCH ×3 (09:34→20:29)
[2021-09-07] MEDS: HEPARIN SODIUM,PORCINE/PF 5,000 UNIT/0.5 ML SYRINGE SQ SCH ×3 (09:34→23:30)
--- NOTE | 2021-09-07 09:42 | XR ---
EXAMINATION TYPE: XR chest 1V portable DATE OF EXAM: 09/07/2021 COMPARISON: 09/02/2021 HISTORY: Cough TECHNIQUE: Single frontal view of the chest is obtained. FINDINGS: There is complete opacification left hemithorax with abrupt cut off of the left mainstem b ronchus. Right middle and lower lobe infiltrate and small right effusion. Postsurgical change overlyi ng the cervical spine. Scoliosis. No pneumothorax. IMPRESSION: 1. Complete opacification left hemithorax likely representing a combination of consolidation, pneumon ia and pleural effusion. Endobronchial lesion or mucous plug not excluded. Underlying neoplasm not ex cluded. 2. Right lower and middle lobe infiltrate with small right effusion correlate for pneumonia.
[2021-09-07] MEDS: ALBUTEROL NEBULIZED 2.5 MG/3 ML INHALATION SCH ×3 (11:32→19:37)
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
[2021-09-07 14:18] LABS: Glucose,Whole Blood 115 mg/dL (75-99)
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
[2021-09-07] MEDS: NORTRIPTYLINE 25 MG CAP PO SCH ×2 (20:28→20:29)
--- NOTE | 2021-09-07 21:04 | P.PN ---
Subjective Progress Note Date: 09/07/21 Principal diagnosis: Fever Patient is a 51 year old female with a past medical history significant for C5 quadriplegia presented to the hospital with body aches and constipation did have 2 episodes of vomiting patient did have a CT of abdominal pelvis which did shows and colonic distention with stool impaction. Patient did have elevations of sinus tachycardia requiring a short trip to the ICU on 09/05/2021 and is back on the floor on 09/06/2021 On today's evaluation that is 09/07/2021 the patient remains to be afebrile, the patient is complaining of some shortness of breath and has been started on the BiPAP, the patient denies having any chest pain or cough no abdominal pain no vomiting or diarrhea has been reported Objective - Vital Signs Vital signs: Vital Signs Temp 99.2 F 09/07/21 10:15 Pulse 88 09/07/21 11:33 Resp 18 09/07/21 10:15 BP 115/68 09/07/21 10:15 Pulse Ox 84 L 09/07/21 07:30 Intake & Output 09/06/21 09/07/21 09/07/21 18:59 06:59 18:59 Intake Total 700 Output Total 900 725 Balance 700 -900 -725 Intake: IV 700 Piperacillin-Tazobactam 3 100 .375 gm In Sodium Chloride 0.9% 100 ml @ 25 mls/hr IVPB Q8HR VITOR Rx# :[id number] Sodium Chloride 0.9% 1, 300 000 ml @ 75 mls/hr IV . [id number] VITOR Rx#:[id number] Output: Urine 900 725 Other: Voiding Method Indwelling Catheter Indwelling Catheter # Bowel Movements 1 - Exam GENERAL DESCRIPTION: Middle-aged female lying in bed in no distress RESPIRATORY SYSTEM: Unlabored breathing , decreased breath sounds on the right side HEART: S1 S2 regular rate and rhythm , ABDOMEN: Soft , mild distention but no tenderness EXTREMITIES: No edema feet - Labs CBC & Chem 7: 09/06/21 05:37 09/07/21 05:45 Labs: Abnormal Lab Results - Last 24 Hours (Table) 09/06/21 09/07/21 Range/Units 05:34 05:45 BUN 6.9 L (9.0-27.0) mg/dL Creatinine 0.5 L (0.6-1.5) mg/dL Calcium 7.3 L (8.7-10.3) mg/dL Total Bilirubin <0.15 L (0.30-1.20) mg/dL C-Reactive Protein 9.80 H (0.00-0.80) mg/dL Total Protein 5.1 L (6.2-8.2) g/dL Albumin 2.8 L (3.8-4.9) g/dL Albumin/Globulin Ratio 1.22 L (1.60-3.17) g/dL PTH Intact 125.0 H (14.0-72.0) pg/mL Microbiology - Last 24 Hours (Table) 09/02/21 19:14 Blood Culture - Preliminary Blood No Growth after 96 hours 09/02/21 19:42 Blood Culture - Preliminary Blood No Growth after 96 hours 09/05/21 14:59 Blood Culture - Preliminary Blood No Growth after 24 hours 09/05/21 14:30 Blood Culture - Preliminary Blood No Growth after 24 hours Assessment and Plan (1) Fever Current Visit: Yes Status: Acute Code(s): R50.9 - FEVER, UNSPECIFIED SNOMED Code(s): 729339972 Plan: 1patient presented to hospital with fever in this patient who did have a C5 quadriplegia and did have a history of stool impaction presented hospital abdominal distention and vomiting more likely abdominal source CT abdominal pelvis unfortunately done without any contrast and discharged and colonic distention with stool burden, currently no other obvious focus of infection chest x-ray reported negative and no respiratory symptoms urine is not significantly positive no evidence of any cellulitis or joint swelling and the patient fever seem to responded to Zosyn. 2patient did have evidence of complete opacification of the right hemithorax has been started on a BiPAP transferred to ICU with a plan for a bronchoscopy and possible deep culture, patient to continue with Zosyn will monitor clinical course closely Time with Patient: Less than 30
[2021-09-08 06:36] LABS: Basophils # (A) 0.1 k/uL (0-0.2); Basophils % (A) 0 %; Eosinophils % (A) 0 %; HCT 33.6 % (34.0-46.0); HGB 10.1 gm/dL (11.4-16.0); Hypochromasia Marked; Lymphocytes # (A) 0.5 k/uL (1.0-4.8); Lymphocytes % (A) 4 %; MCH 29.1 pg (25.0-35.0); MCHC 30.1 g/dL (31.0-37.0); MCV 96.8 fL (80.0-100.0); Mean Platelet Volume 7.8; Monocytes # (A) 0.8 k/uL (0-1.0); Monocytes % (A) 6 %; Neutrophils # (A) 11.3 k/uL (1.3-7.7); Neutrophils % (A) 86 %; Platelet Count 348 k/uL (150-450); RBC 3.47 m/uL (3.80-5.40); RDW 13.9 % (11.5-15.5); WBC 13.2 k/uL (3.8-10.6)
[2021-09-08 06:47] LABS: ALT 33 U/L (4-34); AST 45 U/L (14-36); African American GFR (CKD) >90 (>60 ml/min/1.73 sqM); Albumin 2.7 g/dL (3.5-5.0); Alkaline Phosphatase 96 U/L (38-126); Anion Gap 11 mmol/L; Blood Urea Nitrogen 2 mg/dL (7-17); Calcium 7.1 mg/dL (8.4-10.2); Carbon Dioxide 22 mmol/L (22-30); Chloride 104 mmol/L (98-107); Glucose 99 mg/dL (74-99); Non-African American GFR(CKD) >90 (>60 ml/min/1.73 sqM); Potassium 3.8 mmol/L (3.5-5.1); Sodium 137 mmol/L (137-145); Total Bilirubin 0.4 mg/dL (0.2-1.3); Total Protein 5.6 g/dL (6.3-8.2)
[2021-09-08] MEDS: ALBUTEROL NEBULIZED 2.5 MG/3 ML INHALATION SCH ×4 (07:33→20:24)
--- NOTE | 2021-09-08 08:32 | XR ---
EXAMINATION TYPE: XR chest 1V portable DATE OF EXAM: 09/08/2021 COMPARISON: NONE HISTORY: Shortness of breath TECHNIQUE: Single frontal view of the chest is obtained. FINDINGS: Bilateral infiltrate and pleural effusion improved the left relative to prior exam. Postsu rgical change of lines spine. No pneumothorax. Heart size stable. Diffuse osteopenia IMPRESSION: Bilateral infiltrate and pleural effusion which is demonstrate improvement on the left r elative to the prior exam.
[2021-09-08] MEDS: PIPERACILLIN-TAZOBACTAM 3.375 GM in SODIUM CHLORIDE 0.9% 100 ML IVPB SCH ×3 (08:33→16:17)
[2021-09-08] MEDS: LORATADINE 10 MG TAB PO SCH (08:33)
[2021-09-08] MEDS: HEPARIN SODIUM,PORCINE/PF 5,000 UNIT/0.5 ML SYRINGE SQ SCH ×2 (08:33→16:18)
[2021-09-08] MEDS: METOPROLOL TARTRATE 25 MG TAB PO SCH ×2 (08:33→20:46)
[2021-09-08] MEDS: BACLOFEN 10 MG TAB PO SCH ×2 (08:33→20:46)
[2021-09-08] MEDS: OXYBUTYNIN 10 MG TAB.ER.24 PO SCH ×2 (08:34→20:46)
[2021-09-08] MEDS ORDERED: POTASSIUM CHLORIDE 20 MEQ in WATER FOR INJECTION 1 100ML.BAG IVPB ONE (09:00)
--- NOTE | 2021-09-08 09:03 | PN ---
PROGRESS NOTE This lady has history of quadriparesis and UTI with sepsis. She also has had some hypoxia and there is a question of mucus plug and pneumonia as well. She had an episode of SVT and so we were involved in her care. Currently on metoprolol 12.5 mg b.i.d. she is doing well. I reviewed the rhythm strips from yesterday and most of the rhythm was sinus tachycardia. She is currently on a BiPAP and Dr. Gaines is planning on doing a bronchoscopy. From a cardiac standpoint, I would increase beta jac to 25 mg b.i.d. of metoprolol tartrate and make sure her electrolytes are in the normal range. No other intervention is necessary at this time. When she is more stable, we will consider how to deal with her PSVT. If there is a recurrent episode, she may be a candidate for EP studies and ablation. For now we will use beta blockers. Discussed my thoughts with the patient and her . Physical examination revealed a blood pressure of 118/70, pulse rate of about 108, irregular. JVD 1 cm. No carotid bruit. S1-S2 heard normally. No significant murmurs. Lungs reveal scattered rhonchi. Abdomen is soft. Rest of physical exam was not performed. We will continue to see the patient as needed. MMODL / IJN: [id number] /
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
[2021-09-08] MEDS ORDERED: PHENYLEPHRINE-0.9% NACL SYG 1,000 MCG/10 ML SYRINGE ONE (12:45)
[2021-09-08] MEDS ORDERED: MIDAZOLAM 2 MG/2 ML VIAL ONE (12:45)
[2021-09-08] MEDS ORDERED: PROPOFOL 10 MG/ML 20 ML VIAL IV ONE (12:45)
[2021-09-08] MEDS ORDERED: LIDOCAINE 2% INJ 20 MG/ML (2 ML VIAL) ONE (12:45)
[2021-09-08] MEDS ORDERED: SUCCINYLCHOLINE CHLORIDE 100 MG/5 ML SYR IV ONE (12:45)
[2021-09-08] MEDS ORDERED: LACTATED RINGERS 1,000 ML IV ONE (12:56)
[2021-09-08] MEDS ORDERED: IV FLUID CONTINUATION 1,000 ML IV ONE (12:56)
[2021-09-08 14:08] LABS: ABG Base Excess -5.6 mmol/L; ABG HCO3 21 mmol/L (21-25); ABG Oxygen Saturation 97.7 % (94-97); ABG PCO2 42 mmHg (35-45); ABG PH 7.31 (7.35-7.45); ABG PO2 103 mmHg (83-108); ABG TCO2 22 mmol/L (19-24); Allen Test Performed? Yes
[2021-09-08] MEDS: polyethylene glycoL 3350 17 GM POWD.PACK PO SCH (14:17)
[2021-09-08] MEDS: SODIUM CHLORIDE 0.9% 1,000 ML IV SCH ×3 (14:26→23:31)
[2021-09-08] MEDS: CHLORHEXIDINE GLUCONATE 15 ML CUP MUCOUS MEM SCH ×2 (14:26→20:52)
--- NOTE | 2021-09-08 14:36 | XR ---
EXAMINATION TYPE: XR chest 1V portable DATE OF EXAM: 09/08/2021 COMPARISON: 09/08/2021 HISTORY: ET tube placement TECHNIQUE: Single frontal view of the chest is obtained. FINDINGS: There continues to be bilateral airspace disease and pleural effusion similar to prior exa m. ET tube is now seen with the tip approximately 4.3 cm above ger. NG tube seen coursing left upp er quadrant appears in good position. Osseous structures stable. Borderline cardiomegaly stable. No s izable pneumothorax. IMPRESSION: 1. ET and NG tube appear in good position. 2. Bilateral infiltrates and pleural effusion are stable.
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
--- NOTE | 2021-09-08 19:53 | PCN ---
PROCEDURE NOTE OPERATIVE REPORT: Bronchoscopy, bronchoalveolar lavage of both lungs, mucus plug extraction from both right mainstem bronchus and left mainstem bronchus. ANESTHESIA: General anesthesia, please refer to WELT TREATER documentation. PROCEDURE DETAILS: The patient was brought into the bronchoscopy suite, she was placed in a supine position, we placed monitors including cardiac rhythm, pulse oximetry, and blood pressure was intermittently monitored. The patient was intubated by the WELT TREATER, and a size 7.0 endotracheal tube was connected to mechanical ventilation. Then an adapter was used, and I was able to go through the adapter down to the distal end of the endotracheal tube, and there was basically a significant amount of mucus plugs at the end of the endotracheal tube. Multiple attempts were made to suction these mucus plugs by lavaging, and using saline. Finally, I was successful to remove the mucus plugs at the distal end of the endotracheal tube. We tried to change to a bigger size bronchoscope, however it was not moving easily into the size 7 endotracheal tube. Then we went back to the smaller size bronchoscope. More lavage was done and as I entered into the right mainstem bronchus, there was a significant amount of mucus plugs, which were suctioned and lavaged. The same thing was done on the left side, then I was able to visualize the right middle lobe, right lower lobe, right upper lobe, and more lavages were done of the whole right lung, right upper lobe, right middle lobe and right lower lobe until completely cleared. Moved to the left side, the same was done, the left upper lobe lingula and left lower lobe were lavaged. Procedure was tolerated, no complications. However, considering the amount of thick purulent serous secretions and mucus plugging noted, I chose to keep the patient on mechanical ventilation today. She may require bronchoscopy again tomorrow. We will keep her on the ventilator tonight, admitted to the ICU, and orders were placed on the chart. In the meantime, we will continue antibiotics. MMODL / IJN: [id number] /
[2021-09-08] MEDS: NORTRIPTYLINE 25 MG CAP PO SCH (20:47)
[2021-09-08] MEDS ORDERED: CHLORHEXIDINE GLUCONATE 15 ML CUP MUCOUS MEM SCH (21:00)
[2021-09-09] MEDS: HEPARIN SODIUM,PORCINE/PF 5,000 UNIT/0.5 ML SYRINGE SQ SCH ×4 (00:02→23:11)
[2021-09-09] MEDS: PIPERACILLIN-TAZOBACTAM 3.375 GM in SODIUM CHLORIDE 0.9% 100 ML IVPB SCH ×4 (00:02→23:10)
[2021-09-09 04:38] LABS: Appearance,BF Cloudy
[2021-09-09 06:08] LABS: ABG Base Excess 2.1 mmol/L; ABG HCO3 26 mmol/L (21-25); ABG Oxygen Saturation 95.7 % (94-97); ABG PCO2 34 mmHg (35-45); ABG PH 7.48 (7.35-7.45); ABG PO2 78 mmHg (83-108); ABG TCO2 27 mmol/L (19-24); Allen Test Performed? Yes
--- NOTE | 2021-09-09 07:54 | XR ---
EXAMINATION TYPE: XR chest 1V portable DATE OF EXAM: 09/09/2021 COMPARISON: 09/08/2021 HISTORY: Placement TECHNIQUE: Single frontal view of the chest is obtained. FINDINGS: There continues to be bilateral airspace disease and pleural effusion similar to prior exa m. ET tube is now seen with the tip approximately 4.3 cm above ger. NG tube seen coursing left upp er quadrant appears in good position. Osseous structures stable. Borderline cardiomegaly stable. No s izable pneumothorax. IMPRESSION: 1. Persistent bilateral infiltrate and pleural effusion stable in appearance.
[2021-09-09 08:00] LABS: HCT 27.4 % (34.0-46.0); HGB 8.9 gm/dL (11.4-16.0); Hypochromasia Slight; MCH 30.5 pg (25.0-35.0); MCHC 32.3 g/dL (31.0-37.0); MCV 94.3 fL (80.0-100.0); Mean Platelet Volume 7.8; Platelet Count 379 k/uL (150-450); RBC 2.91 m/uL (3.80-5.40); RDW 14.4 % (11.5-15.5); WBC 6.3 k/uL (3.8-10.6)
[2021-09-09 08:04] LABS: ALT 30 U/L (4-34); AST 36 U/L (14-36); African American GFR (CKD) >90 (>60 ml/min/1.73 sqM); Albumin 2.1 g/dL (3.5-5.0); Alkaline Phosphatase 80 U/L (38-126); Anion Gap 5 mmol/L; Blood Urea Nitrogen 3 mg/dL (7-17); Calcium 7.5 mg/dL (8.4-10.2); Carbon Dioxide 23 mmol/L (22-30); Chloride 107 mmol/L (98-107); Glucose 91 mg/dL (74-99); Non-African American GFR(CKD) >90 (>60 ml/min/1.73 sqM); Potassium 3.4 mmol/L (3.5-5.1); Sodium 135 mmol/L (137-145); Total Bilirubin 0.2 mg/dL (0.2-1.3); Total Protein 4.5 g/dL (6.3-8.2)
[2021-09-09] MEDS: ALBUTEROL NEBULIZED 2.5 MG/3 ML INHALATION SCH ×4 (08:19→20:13)
[2021-09-09 08:21] LABS: Band Neutrophils % 3 %; Eosinophils # (M) 0.19 k/uL (0-0.7); Metamyelocytes # (M) 0.19 k/uL (0); Metamyelocytes % 3 %; Monocytes # (M) 0.63 k/uL (0-1.0); Myelocytes # (M) 0.06 k/uL (0); Myelocytes % 1 %; Neutrophils % (M) 64 %; Nucleated Red Blood Cells 0 /100 WBC (0-0); Total Cells Counted 200
[2021-09-09] MEDS: BACLOFEN 10 MG TAB PO SCH ×2 (09:00→21:08)
[2021-09-09] MEDS: LORATADINE 10 MG TAB PO SCH (09:00)
[2021-09-09] MEDS: CHLORHEXIDINE GLUCONATE 15 ML CUP MUCOUS MEM SCH ×2 (09:00→21:08)
[2021-09-09] MEDS: OXYBUTYNIN 10 MG TAB.ER.24 PO SCH ×2 (09:01→21:09)
[2021-09-09] MEDS: METOPROLOL TARTRATE 25 MG TAB PO SCH ×2 (09:01→21:08)
[2021-09-09] MEDS: polyethylene glycoL 3350 17 GM POWD.PACK PO SCH ×2 (09:01→11:55)
[2021-09-09] MEDS: SODIUM CHLORIDE 0.9% 1,000 ML IV SCH ×2 (11:41→21:10)
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
--- NOTE | 2021-09-09 17:53 | P.PN ---
Subjective Progress Note Date: 09/08/21 Principal diagnosis: Fever Patient is a 51 year old female with a past medical history significant for C5 quadriplegia presented to the hospital with body aches and constipation did have 2 episodes of vomiting patient did have a CT of abdominal pelvis which did shows and colonic distention with stool impaction. Patient did have elevations of sinus tachycardia requiring a short trip to the ICU on 09/05/2021 and is back on the floor on 09/06/2021 On today's evaluation that is 09/08/2021 the patient did have low-grade fever last night and this morning, the patient did have worsening of respiratory status requiring BiPAP and subsequently the patient has been intubated, the patient has been brought cultures are currently pending, hemodynamically stable and no other changes reported Objective - Vital Signs Vital signs: Vital Signs Temp 99.9 F H 09/08/21 08:00 Pulse 116 H 09/08/21 11:18 Resp 31 H 09/08/21 11:41 BP 129/88 09/08/21 11:00 Pulse Ox 96 09/08/21 11:41 Intake & Output 09/07/21 09/08/21 09/08/21 18:59 06:59 18:59 Intake Total 400 975 575 Output Total 1480 890 340 Balance -1080 85 235 Weight 62.7 kg Intake: IV 400 975 500 Piperacillin-Tazobactam 3 100 100 .375 gm In Sodium Chloride 0.9% 100 ml @ 25 mls/hr IVPB Q8HR [facility] Rx# :[id number] Sodium Chloride 0.9% 1, 300 975 300 000 ml @ 75 mls/hr IV . [id number] [facility] Rx#:[id number] Oral 75 Output: Urine 1480 890 340 Other: Voiding Method Indwelling Catheter Indwelling Catheter Indwelling Catheter - Exam GENERAL DESCRIPTION: Middle-aged female intubated on the vent RESPIRATORY SYSTEM: Unlabored breathing , decreased breath sounds at the bases HEART: S1 S2 regular rate and rhythm , ABDOMEN: Soft , mild distention but no tenderness EXTREMITIES: No edema feet - Labs CBC & Chem 7: 09/09/21 07:26 09/09/21 07:26 Labs: Abnormal Lab Results - Last 24 Hours (Table) 09/07/21 09/08/21 09/08/21 Range/Units 14:16 06:09 06:09 WBC 13.2 H (3.8-10.6) k/uL RBC 3.47 L (3.80-5.40) m/uL Hgb 10.1 L (11.4-16.0) gm/dL Hct 33.6 L (34.0-46.0) % MCHC 30.1 L (31.0-37.0) g/dL Neutrophils # 11.3 H (1.3-7.7) k/uL Lymphocytes # 0.5 L (1.0-4.8) k/uL BUN 2 L (7-17) mg/dL Creatinine 0.40 L (0.52-1.04) mg/dL POC Glucose (mg/dL) 115 H (75-99) mg/dL Calcium 7.1 L (8.4-10.2) mg/dL AST 45 H (14-36) U/L Total Protein 5.6 L (6.3-8.2) g/dL Albumin 2.7 L (3.5-5.0) g/dL Microbiology - Last 24 Hours (Table) 09/02/21 19:42 Blood Culture - Preliminary Blood No Growth after 120 hours 09/02/21 19:14 Blood Culture - Preliminary Blood No Growth after 120 hours 09/05/21 14:59 Blood Culture - Preliminary Blood No Growth after 48 hours 09/05/21 14:30 Blood Culture - Preliminary Blood No Growth after 48 hours Assessment and Plan (1) Fever Current Visit: Yes Status: Acute Code(s): R50.9 - FEVER, UNSPECIFIED SNOMED Code(s): 550966982 Plan: 1patient presented to hospital with fever in this patient who did have a C5 quadriplegia and did have a history of stool impaction presented hospital abdomi nal distention and vomiting more likely abdominal source CT abdominal pelvis unfortunately done without any contrast and discharged and colonic distention with stool burden, patient subsequently did have a stable respiratory status in this patient noticed to have opacification of the lung likely from mucus plugging patient has been intubated and did have bronchoscopy with bronchoalveolar lavage, those cultures are currently pending, patient to continue with the Zosyn and just anybody further on the basis of culture report Time with Patient: Less than 30
--- NOTE | 2021-09-09 17:55 | P.PN ---
Subjective Progress Note Date: 09/09/21 Principal diagnosis: Fever Patient is a 51 year old female with a past medical history significant for C5 quadriplegia presented to the hospital with body aches and constipation did have 2 episodes of vomiting patient did have a CT of abdominal pelvis which did shows and colonic distention with stool impaction. Patient did have elevations of sinus tachycardia requiring a short trip to the ICU on 09/05/2021 and is back on the floor on 09/06/2021 On today's evaluation that is 09/09/2021 the patient is afebrile today, the patient is a intubated on the vent, FiO2 started to 40%, no significant purulent secretions through the ET ,diarrhea or any the changes were reported Objective - Vital Signs Vital signs: Vital Signs Temp 97.4 F L 09/09/21 12:00 Pulse 66 09/09/21 12:36 Resp 20 09/09/21 12:36 BP 96/64 09/09/21 12:00 Pulse Ox 98 09/09/21 12:35 Intake & Output 09/08/21 09/09/21 09/09/21 18:59 06:59 18:59 Intake Total 1348.968 3721.186 425 Output Total 790 930 275 Balance 666.466 220.186 150 Weight 62.7 kg 66 kg 66 kg Intake: IV 1125 925 325 Piperacillin-Tazobactam 3 200 100 100 .375 gm In Sodium Chloride 0.9% 100 ml @ 25 mls/hr IVPB Q8HR VITOR Rx# :[id number] Sodium Chloride 0.9% 1, 525 825 225 000 ml @ 75 mls/hr IV . [id number] VITOR Rx#:[id number] Intake, IV Titration 106.466 225.186 100 Amount propofoL 1,000 mg In 106.466 225.186 100 Empty Bag 1 bag @ 15 MCG/ KG/MIN 5.643 mls/hr IV . [id number] VITOR Rx#:[id number] Oral 75 Other 150 Output: Gastric Drainage 50 Urine 740 930 275 Other: Voiding Method Indwelling Catheter Indwelling Catheter Indwelling Catheter # Voids 1 - Exam GENERAL DESCRIPTION: Middle-aged female intubated on the vent RESPIRATORY SYSTEM: Unlabored breathing , decreased breath sounds at the bases HEART: S1 S2 regular rate and rhythm , ABDOMEN: Soft , mild distention but no tenderness EXTREMITIES: No edema feet - Labs CBC & Chem 7: 09/09/21 07:26 09/09/21 07:26 Labs: Abnormal Lab Results - Last 24 Hours (Table) 09/08/21 09/09/21 09/09/21 Range/Units 14:06 06:05 07:26 RBC 2.91 L (3.80-5.40) m/uL Hgb 8.9 L (11.4-16.0) gm/dL Hct 27.4 L (34.0-46.0) % Metamyelocytes # (Man) 0.19 H (0) k/uL Myelocytes # (Manual) 0.06 H (0) k/uL ABG pH 7.31 L 7.48 H (7.35-7.45) ABG pCO2 34 L (35-45) mmHg ABG pO2 78 L (83-108) mmHg ABG HCO3 26 H (21-25) mmol/L ABG Total CO2 27 H (19-24) mmol/L ABG O2 Saturation 97.7 H (94-97) % Sodium (137-145) mmol/L Potassium (3.5-5.1) mmol/L BUN (7-17) mg/dL Creatinine (0.52-1.04) mg/dL Calcium (8.4-10.2) mg/dL Total Protein (6.3-8.2) g/dL Albumin (3.5-5.0) g/dL 09/09/21 Range/Units 07:26 RBC (3.80-5.40) m/uL Hgb (11.4-16.0) gm/dL Hct (34.0-46.0) % Metamyelocytes # (Man) (0) k/uL Myelocytes # (Manual) (0) k/uL ABG pH (7.35-7.45) ABG pCO2 (35-45) mmHg ABG pO2 (83-108) mmHg ABG HCO3 (21-25) mmol/L ABG Total CO2 (19-24) mmol/L ABG O2 Saturation (94-97) % Sodium 135 L (137-145) mmol/L Potassium 3.4 L (3.5-5.1) mmol/L BUN 3 L (7-17) mg/dL Creatinine 0.30 L (0.52-1.04) mg/dL Calcium 7.5 L (8.4-10.2) mg/dL Total Protein 4.5 L (6.3-8.2) g/dL Albumin 2.1 L (3.5-5.0) g/dL Microbiology - Last 24 Hours (Table) 09/08/21 12:58 Gram Stain - Preliminary Bronchoalviolar Lavage - Left Bronchial Washings Culture - Preliminary 09/08/21 12:58 Acid Fast Bacilli Culture - Preliminary Bronchial Washings - Random 09/08/21 12:58 Fungal Culture - Preliminary Bronchial Washings - Random 09/02/21 19:42 Blood Culture - Final Blood No Growth after 144 hours 09/02/21 19:14 Blood Culture - Final Blood No Growth after 144 hours 09/05/21 14:59 Blood Culture - Preliminary Blood No Growth after 72 hours 09/05/21 14:30 Blood Culture - Preliminary Blood No Growth after 72 hours Assessment and Plan (1) Fever Current Visit: Yes Status: Acute Code(s): R50.9 - FEVER, UNSPECIFIED SNOMED Code(s): 463885789 Plan: 1patient presented to hospital with fever in this patient who did have a C5 quadriplegia and did have a history of stool impaction presented hospital abdominal distention and vomiting more likely abdominal source CT abdominal pelvis unfortunately done without any contrast and discharged and colonic distention with stool burden, patient subsequently did have a stable respiratory status in this patient noticed to have opacification of the lung likely from mucus plugging patient has been intubated and did have bronchoscopy with bronchoalveolar lavage, the patient fever has resolved white count has normalized and cultures so far pending to continue Zosyn and monitor clinical course closely Time with Patient: Less than 30
[2021-09-09] MEDS ORDERED: Potassium Replacement Protocol 1 EACH MISC MISCELLANE PRN (19:37)
[2021-09-09] MEDS: POTASSIUM CHLORIDE 20 MEQ in WATER FOR INJECTION 1 100ML.BAG IVPB SCH ×2 (21:08→23:10)
[2021-09-09] MEDS: NORTRIPTYLINE 25 MG CAP PO SCH (21:09)
[2021-09-10 05:30] LABS: Glucose,Whole Blood 126 mg/dL (75-99)
[2021-09-10 05:43] LABS: ABG Base Excess 1.3 mmol/L; ABG HCO3 25 mmol/L (21-25); ABG Oxygen Saturation 96.6 % (94-97); ABG PCO2 32 mmHg (35-45); ABG PH 7.49 (7.35-7.45); ABG PO2 82 mmHg (83-108); ABG TCO2 26 mmol/L (19-24); Allen Test Performed? Yes
[2021-09-10 07:26] LABS: ALT 28 U/L (4-34); AST 29 U/L (14-36); African American GFR (CKD) >90 (>60 ml/min/1.73 sqM); Alkaline Phosphatase 101 U/L (38-126); Anion Gap 4 mmol/L; Blood Urea Nitrogen 3 mg/dL (7-17); Calcium 7.6 mg/dL (8.4-10.2); Carbon Dioxide 23 mmol/L (22-30); Chloride 111 mmol/L (98-107); Glucose 104 mg/dL (74-99); Non-African American GFR(CKD) >90 (>60 ml/min/1.73 sqM); Potassium 3.9 mmol/L (3.5-5.1); Sodium 138 mmol/L (137-145); Total Bilirubin 0.2 mg/dL (0.2-1.3); Total Protein 4.5 g/dL (6.3-8.2)
[2021-09-10 07:46] LABS: Basophils % (A) 1 %; Eosinophils # (A) 0.2 k/uL (0-0.7); Eosinophils % (A) 3 %; HGB 8.4 gm/dL (11.4-16.0); Hypochromasia Moderate; Lymphocytes # (A) 0.8 k/uL (1.0-4.8); Lymphocytes % (A) 13 %; MCH 29.2 pg (25.0-35.0); MCV 94.2 fL (80.0-100.0); Monocytes # (A) 0.6 k/uL (0-1.0); Monocytes % (A) 10 %; Neutrophils # (A) 4.2 k/uL (1.3-7.7); Neutrophils % (A) 69 %; Platelet Count 382 k/uL (150-450); RBC 2.87 m/uL (3.80-5.40); RDW 14.8 % (11.5-15.5)
--- NOTE | 2021-09-10 08:13 | XR ---
EXAMINATION TYPE: XR chest 1V portable DATE OF EXAM: 09/10/2021 COMPARISON: 09/09/2021 HISTORY: Tube placement TECHNIQUE: Single frontal view of the chest is obtained. FINDINGS: There continues to be bilateral airspace disease and pleural effusion similar to prior exa m. ET tube is now seen with the tip approximately 4.3 cm above ger. NG tube seen coursing left upp er quadrant appears in good position. Osseous structures stable. Borderline cardiomegaly stable. No s izable pneumothorax. IMPRESSION: Persistent bilateral infiltrate and pleural effusion stable in appearance.
[2021-09-10] MEDS: PIPERACILLIN-TAZOBACTAM 3.375 GM in SODIUM CHLORIDE 0.9% 100 ML IVPB SCH ×3 (08:29→23:50)
[2021-09-10] MEDS: polyethylene glycoL 3350 17 GM POWD.PACK PO SCH (08:29)
[2021-09-10] MEDS: CHLORHEXIDINE GLUCONATE 15 ML CUP MUCOUS MEM SCH ×2 (08:30→20:43)
[2021-09-10] MEDS: LORATADINE 10 MG TAB PO SCH (08:30)
[2021-09-10] MEDS: BACLOFEN 10 MG TAB PO SCH ×2 (08:30→20:43)
[2021-09-10] MEDS: METOPROLOL TARTRATE 25 MG TAB PO SCH ×2 (08:30→21:55)
[2021-09-10] MEDS: OXYBUTYNIN 10 MG TAB.ER.24 PO SCH ×2 (08:30→20:38)
[2021-09-10] MEDS: HEPARIN SODIUM,PORCINE/PF 5,000 UNIT/0.5 ML SYRINGE SQ SCH ×3 (08:30→23:50)
[2021-09-10] MEDS: ALBUTEROL NEBULIZED 2.5 MG/3 ML INHALATION SCH ×4 (08:42→20:32)
[2021-09-10] MEDS ORDERED: FUROSEMIDE 10 MG/ML 4 ML VIAL IV STA (10:20)
[2021-09-10] MEDS ORDERED: LIDOCAINE 1% INJ 10MG/ML (20 ML MDV) ONE (10:21)
[2021-09-10] MEDS: SODIUM CHLORIDE 0.9% 1,000 ML IV SCH (10:43)
[2021-09-10] MEDS ORDERED: LIDOCAINE 1% INJ 10MG/ML (20 ML MDV) SQ ONE (10:59)
--- NOTE | 2021-09-10 11:30 | XR ---
EXAMINATION TYPE: XR chest 1V portable DATE OF EXAM: 09/10/2021 COMPARISON: NONE HISTORY: PICC line TECHNIQUE: Single frontal view of the chest is obtained. FINDINGS: ET and NG tube noted. Left-sided PICC line seen. Bilateral infiltrate and pleural effusion . No pneumothorax. Postsurgical change overlying the cervical spine. IMPRESSION: Bilateral infiltrate and pleural effusion stable.
--- NOTE | 2021-09-10 11:36 | IR ---
PICC LINE PLACEMENT: HISTORY: Infection requiring long-term antibiotic therapy PROCEDURE: Ultrasound guidance of PICC line placement. STATUARY PAINTER: COMPLICATIONS: None ANESTHESIA: 1. 1% Lidocaine locally. FINDINGS/TECHNIQUE: The procedure was explained to the patient. The risks, complications, benefits and alternatives were discussed and any questions were answered. Informed consent was obtained. The patient was placed supine on the fluoroscopic table and prepped and draped in the usual sterile fash ion. Utilizing a 21 gauge needle and sonographic guidance, access in the left basilic vein was achi eved and there is placement of a 0.018 guidewire. The vein is patent. A 5-F. sheath was placed over the guidewire. The guidewire and dilator were removed and a 5-F. Double lumen PICC line was placed through the sheath with the chest x-ray confirming the tip at the level of the SVC. The sheath was r emoved, the catheter was flushed and sutured into position. The patient was stable throughout the pr ocedure and remained stable upon discharge from the Department of Radiology. The vein puncture was patent under ultrasound. A mata scale image was obtained to document patency of the vein punctured. All elements of the maximal barrier technique were utilized. IMPRESSION: 1. Successful PICC line placement under ultrasound performed bedside within the ICU.
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
[2021-09-10] MEDS ORDERED: HYDROmorphone 1 MG/ML 1 ML SYRINGE IVP STA (13:43)
[2021-09-10] MEDS ORDERED: MIDAZOLAM 1 MG/ML 5 ML VIAL IV STA (13:43)
--- NOTE | 2021-09-10 16:03 | P.PN ---
Subjective Progress Note Date: 09/10/21 Principal diagnosis: Fever Patient is a 51 year old female with a past medical history significant for C5 quadriplegia presented to the hospital with body aches and constipation did have 2 episodes of vomiting patient did have a CT of abdominal pelvis which did shows and colonic distention with stool impaction. Patient did have respiratory distress and complete white out of The Requiring Admission to the ICU and Getting Intubated and did have bronchoscopy which was repeated on 09/10/2021 On today's evaluation that is 09/10/2021 the patient did spike a fever of 101F this morning however the patient is afebrile since than, the patient FiO2 stable at 40%, no significant purulent secretion through the ET diarrhea or any other changes reported by the nursing staff Objective - Vital Signs Vital signs: Vital Signs Temp 98.7 F 09/10/21 12:00 Pulse 82 09/10/21 13:00 Resp 20 09/10/21 13:00 BP 126/82 09/10/21 13:00 Pulse Ox 96 09/10/21 13:00 Intake & Output 09/09/21 09/10/21 09/10/21 18:59 06:59 18:59 Intake Total 945 2210.00 1007 Output Total 179 575 8321 Balance 80 1745.00 -1343 Weight 66 kg 66.7 kg 66.7 kg Intake: IV 725 1200 405 Piperacillin-Tazobactam 3 200 100 100 .375 gm In Sodium Chloride 0.9% 100 ml @ 25 mls/hr IVPB Q8HR VITOR Rx# :[id number] Sodium Chloride 0.9% 1, 525 1100 305 000 ml @ 20 mls/hr IV . Q24H [facility]ITOR Rx#:[id number] Intake, IV Titration 100 400.00 100 Amount Potassium Chloride 20 meq 200 In Water For Injection 1 100ml.bag @ 50 mls/hr IVPB Q2H VITOR Rx#: [id number] propofoL 1,000 mg In 100 200.00 100 Empty Bag 1 bag @ 15 MCG/ KG/MIN 5.643 mls/hr IV . [id number] VITOR Rx#:[id number] Oral 150 Tube Feeding 120 370 222 Other 90 280 Output: Urine 366 622 7959 Other: Voiding Method Indwelling Catheter Indwelling Catheter Indwelling Catheter # Voids 1 - Exam GENERAL DESCRIPTION: Middle-aged female intubated on the vent RESPIRATORY SYSTEM: Unlabored breathing , decreased breath sounds at the bases HEART: S1 S2 regular rate and rhythm , ABDOMEN: Soft , mild distention but no tenderness EXTREMITIES: No edema feet - Labs CBC & Chem 7: 09/10/21 06:37 09/10/21 06:37 Labs: Abnormal Lab Results - Last 24 Hours (Table) 09/10/21 09/10/21 09/10/21 Range/Units 05:27 05:40 06:37 RBC 2.87 L (3.80-5.40) m/uL Hgb 8.4 L (11.4-16.0) gm/dL Hct 27.0 L (34.0-46.0) % Lymphocytes # 0.8 L (1.0-4.8) k/uL ABG pH 7.49 H (7.35-7.45) ABG pCO2 32 L (35-45) mmHg ABG pO2 82 L (83-108) mmHg ABG Total CO2 26 H (19-24) mmol/L Chloride (98-107) mmol/L BUN (7-17) mg/dL Creatinine (0.52-1.04) mg/dL Glucose (74-99) mg/dL POC Glucose (mg/dL) 126 H (75-99) mg/dL Calcium (8.4-10.2) mg/dL Total Protein (6.3-8.2) g/dL Albumin (3.5-5.0) g/dL 09/10/21 Range/Units 06:37 RBC (3.80-5.40) m/uL Hgb (11.4-16.0) gm/dL Hct (34.0-46.0) % Lymphocytes # (1.0-4.8) k/uL ABG pH (7.35-7.45) ABG pCO2 (35-45) mmHg ABG pO2 (83-108) mmHg ABG Total CO2 (19-24) mmol/L Chloride 111 H (98-107) mmol/L BUN 3 L (7-17) mg/dL Creatinine 0.36 L (0.52-1.04) mg/dL Glucose 104 H (74-99) mg/dL POC Glucose (mg/dL) (75-99) mg/dL Calcium 7.6 L (8.4-10.2) mg/dL Total Protein 4.5 L (6.3-8.2) g/dL Albumin 2.0 L (3.5-5.0) g/dL Microbiology - Last 24 Hours (Table) 09/08/21 12:58 Gram Stain - Preliminary Bronchoalviolar Lavage - Left Bronchial Washings Culture - Preliminary 09/08/21 12:58 Acid Fast Bacilli Smear - Final Bronchial Washings - Random Acid Fast Bacilli Culture - Preliminary 09/05/21 14:59 Blood Culture - Preliminary Blood No Growth after 96 hours 09/05/21 14:30 Blood Culture - Preliminary Blood No Growth after 96 hours Assessment and Plan (1) Fever Current Visit: Yes Status: Acute Code(s): R50.9 - FEVER, UNSPECIFIED SNOMED Code(s): 994267710 Plan: 1patient presented to hospital with fever in this patient who did have a C5 quadriplegia and did have a history of stool impaction presented hospital abdominal distention and vomiting more likely abdominal source CT abdominal pelvis unfortunately done without any contrast and discharged and colonic d istention with stool burden, patient subsequently did have a stable respiratory status in this patient noticed to have opacification of the lung likely from mucus plugging patient has been intubated and did have bronchoscopy with bronchoalveolar lavage which was repeated on 09/11/2019, the patient cultures are currently pending continue with the Zosyn antibiotic will be adjusted further on the basis of culture Time with Patient: Less than 30
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
--- NOTE | 2021-09-10 17:50 | OP ---
OPERATIVE REPORT OPERATIVE REPORT: Bronchoscopy and bronchoalveolar lavage of the right lower lobe and left lower lobe. PREOPERATIVE DIAGNOSIS: Bilateral pneumonia and intermittent mucus plugging involving the left lower lobe. POSTOPERATIVE DIAGNOSIS: Bilateral pneumonia and intermittent mucus plugging involving the left lower lobe. ANESTHESIA USED: Patient was already on propofol at 65 mcg/kg per minute. She received 5 mg of Versed and 1 mg of Dilaudid prior to the procedure. PROCEDURE DESCRIPTION: The patient was placed in supine position. She was already on mechanical ventilation. She was closely monitored with cardiac rhythm continuously monitored, blood pressure monitored, and O2 saturation monitored continuously. Then the endotracheal tube was connected to mechanical ventilation and an adapter. The bronchoscope was advanced through the adapter down to the distal end of the endotracheal tube, and a thorough examination was done of the ger, right upper lobe, right middle lobe, right lower lobe, left upper lobe, lingula and left lower lobe. Examination revealed mostly some whitish purulent secretions, mostly in the left lower lobe and to some extent in the right lower lobe. These were suctioned and lavaged until all the secretions were completely cleared. Procedure was well tolerated. No evidence of any complications. MMODL / IJN: [id number] /
[2021-09-10] MEDS: NORTRIPTYLINE 25 MG CAP PO SCH (20:43)
[2021-09-11] MEDS: SODIUM CHLORIDE 0.9% 1,000 ML IV SCH ×3 (04:00→16:12)
[2021-09-11 05:02] LABS: ABG Base Excess 6.2 mmol/L; ABG HCO3 29 mmol/L (21-25); ABG Oxygen Saturation 97.3 % (94-97); ABG PCO2 37 mmHg (35-45); ABG PH 7.51 (7.35-7.45); ABG PO2 92 mmHg (83-108); ABG TCO2 30 mmol/L (19-24); Allen Test Performed? Yes
[2021-09-11 06:07] LABS: HCT 26.1 % (34.0-46.0); HGB 8.6 gm/dL (11.4-16.0); Hypochromasia Slight; MCH 30.7 pg (25.0-35.0); MCHC 32.9 g/dL (31.0-37.0); MCV 93.3 fL (80.0-100.0); Mean Platelet Volume 7.8; Platelet Count 401 k/uL (150-450); RBC 2.79 m/uL (3.80-5.40); RDW 14.9 % (11.5-15.5); WBC 6.7 k/uL (3.8-10.6)
[2021-09-11 06:40] LABS: African American GFR (CKD) >90 (>60 ml/min/1.73 sqM); Anion Gap 7 mmol/L; Blood Urea Nitrogen 6 mg/dL (7-17); Calcium 7.8 mg/dL (8.4-10.2); Carbon Dioxide 25 mmol/L (22-30); Chloride 109 mmol/L (98-107); Glucose 98 mg/dL (74-99); Non-African American GFR(CKD) >90 (>60 ml/min/1.73 sqM); Potassium 3.3 mmol/L (3.5-5.1); Sodium 141 mmol/L (137-145)
--- NOTE | 2021-09-11 07:22 | XR ---
EXAMINATION TYPE: XR chest 1V portable DATE OF EXAM: 09/11/2021 COMPARISON: 09/10/2021 HISTORY: SOB, Follow Up FINDINGS: Indwelling tubes and catheters are unchanged. Persistent but improving right lower lobe infiltrate with pleural effusion. Left lower lobe infiltrat e and effusion persists slight improvement suggested as well. Stable appearance of the cardio-mediastinal structures at this time. Pleural effusion unchanged. IMPRESSION: 1. Persistent but improving right lower lobe infiltrate with pleural effusion. Left lower lobe infil trate and effusion persists slight improvement suggested as well.
[2021-09-11] MEDS ORDERED: Potassium Replacement Protocol 1 EACH MISC MISCELLANE PRN (07:30)
[2021-09-11] MEDS: ALBUTEROL NEBULIZED 2.5 MG/3 ML INHALATION SCH ×4 (08:01→20:39)
[2021-09-11] MEDS: polyethylene glycoL 3350 17 GM POWD.PACK PO SCH (08:13)
[2021-09-11] MEDS: LORATADINE 10 MG TAB PO SCH (08:13)
[2021-09-11] MEDS: CHLORHEXIDINE GLUCONATE 15 ML CUP MUCOUS MEM SCH (08:13)
[2021-09-11] MEDS: BACLOFEN 10 MG TAB PO SCH ×2 (08:13→23:23)
[2021-09-11] MEDS: OXYBUTYNIN 10 MG TAB.ER.24 PO SCH ×2 (08:13→23:23)
[2021-09-11] MEDS: POTASSIUM BICARBONATE/CIT AC 20 MEQ TABLET.EFF NG-TUBE SCH ×2 (08:13→09:38)
[2021-09-11] MEDS: METOPROLOL TARTRATE 25 MG TAB PO SCH ×2 (08:13→23:23)
[2021-09-11] MEDS: HEPARIN SODIUM,PORCINE/PF 5,000 UNIT/0.5 ML SYRINGE SQ SCH ×3 (08:13→23:24)
[2021-09-11] MEDS: PIPERACILLIN-TAZOBACTAM 3.375 GM in SODIUM CHLORIDE 0.9% 100 ML IVPB SCH ×3 (08:13→23:24)
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
[2021-09-11] MEDS: ONDANSETRON 4 MG/2 ML VIAL IVP PRN (17:18)
--- NOTE | 2021-09-11 17:34 | P.PN ---
Subjective Progress Note Date: 09/11/21 Principal diagnosis: Fever Patient is a 51 year old female with a past medical history significant for C5 quadriplegia presented to the hospital with body aches and constipation did have 2 episodes of vomiting patient did have a CT of abdominal pelvis which did shows and colonic distention with stool impaction. Patient did have respiratory distress and complete white out of The Requiring Admission to the ICU and Getting Intubated and did have bronchoscopy which was repeated on 09/10/2021 On today's evaluation that is 09/11/2021 the patient is afebrile today, the patient has been extubated and is breathing comfortably on nasal cannula oxygen, the patient denies having any chest pain did have some mild cough but not bringing up any sputum no abdominal pain and no vomiting or diarrhea reported Objective - Vital Signs Vital signs: Vital Signs Temp 98.1 F 09/11/21 12:00 Pulse 74 09/11/21 16:03 Resp 26 H 09/11/21 15:00 BP 120/99 09/11/21 15:00 Pulse Ox 96 09/11/21 15:00 Intake & Output 09/10/21 09/11/21 09/11/21 18:59 06:59 18:59 Intake Total 2976.888 4802.338 918.209 Output Total 3285 635 665 Balance -1779.381 465.338 253.209 Weight 66.7 kg 68.3 kg Intake: IV 565 160 100 Piperacillin-Tazobactam 3 200 100 100 .375 gm In Sodium Chloride 0.9% 100 ml @ 25 mls/hr IVPB Q8HR [facility] Rx# :[id number] Sodium Chloride 0.9% 1, 365 60 000 ml @ 20 mls/hr IV . Q24H [facility] Rx#:[id number] Intake, IV Titration 276.619 586.338 785.209 Amount Sodium Chloride 0.9% 1, 400 700 000 ml @ 100 mls/hr IV . Q10H [facility]OR Rx#:[id number] propofoL 1,000 mg In 276.619 186.338 85.209 Empty Bag 1 bag @ 15 MCG/ KG/MIN 5.643 mls/hr IV . [id number] [facility]ITOR Rx#:[id number] Tube Feeding 354 264 33 Other 310 90 Output: Urine 3285 635 665 Other: Voiding Method Indwelling Catheter Indwelling Catheter Indwelling Catheter - Exam GENERAL DESCRIPTION: Middle-aged female lying in bed in no distress RESPIRATORY SYSTEM: Unlabored breathing , decreased breath sounds at the bases HEART: S1 S2 regular rate and rhythm , ABDOMEN: Soft , mild distention but no tenderness EXTREMITIES: No edema feet - Labs CBC & Chem 7: 09/11/21 05:46 09/11/21 16:12 Labs: Abnormal Lab Results - Last 24 Hours (Table) 09/11/21 09/11/21 09/11/21 Range/Units 05:00 05:46 05:46 RBC 2.79 L (3.80-5.40) m/uL Hgb 8.6 L (11.4-16.0) gm/dL Hct 26.1 L (34.0-46.0) % ABG pH 7.51 H (7.35-7.45) ABG HCO3 29 H (21-25) mmol/L ABG Total CO2 30 H (19-24) mmol/L ABG O2 Saturation 97.3 H (94-97) % Potassium 3.3 L (3.5-5.1) mmol/L Chloride 109 H (98-107) mmol/L BUN 6 L (7-17) mg/dL Creatinine 0.36 L (0.52-1.04) mg/dL Calcium 7.8 L (8.4-10.2) mg/dL Microbiology - Last 24 Hours (Table) 09/05/21 14:59 Blood Culture - Final Blood No Growth after 144 hours 09/05/21 14:30 Blood Culture - Final Blood No Growth after 144 hours 09/08/21 12:58 Gram Stain - Final Bronchoalviolar Lavage - Left Bronchial Washings Culture - Final Assessment and Plan (1) Fever Current Visit: Yes Status: Acute Code(s): R50.9 - FEVER, UNSPECIFIED SNOMED Code(s): 784417925 Plan: 1patient presented to hospital with fever in this patient who did have a C5 quadriplegia and did have a history of stool impaction presented hospital abdominal distention and vomiting more likely abdominal source CT abdominal pelvis unfortunately done without any contrast and discharged and colonic distention with stool burden, patient subsequently did have a stable respiratory status in this patient noticed to have opacification of the lung likely from mucus plugging patient did have bronchoscopy with bronchoalveolar lavage which was repeated on 09/11/2019, the patient cultures are currently pending, patient seemed to the clinical improvement and x-ray done this morning did show improvement, patient to continue with the Zosyn antibiotic will be adjusted further on the basis of culture Time with Patient: Less than 30
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
[2021-09-11] MEDS ORDERED: bisacodyL 10 MG SUPP RECTAL PRN (20:52)
[2021-09-11] MEDS: METOPROLOL TARTRATE 5 MG/5 ML VIAL IVP PRN (21:39)
[2021-09-11] MEDS: NORTRIPTYLINE 25 MG CAP PO SCH (23:23)
[2021-09-12] MEDS: METOPROLOL TARTRATE 5 MG/5 ML VIAL IVP PRN ×2 (03:00→19:05)
[2021-09-12 06:06] LABS: Basophils % (A) 0 %; Eosinophils # (A) 0.2 k/uL (0-0.7); Eosinophils % (A) 2 %; HGB 9.9 gm/dL (11.4-16.0); Hypochromasia Slight; Lymphocytes # (A) 1.5 k/uL (1.0-4.8); Lymphocytes % (A) 16 %; MCHC 30.8 g/dL (31.0-37.0); MCV 93.9 fL (80.0-100.0); Mean Platelet Volume 7.5; Monocytes # (A) 0.6 k/uL (0-1.0); Monocytes % (A) 6 %; Neutrophils # (A) 6.9 k/uL (1.3-7.7); Neutrophils % (A) 73 %; Platelet Count 515 k/uL (150-450); RBC 3.41 m/uL (3.80-5.40); RDW 14.9 % (11.5-15.5); WBC 9.5 k/uL (3.8-10.6)
[2021-09-12 06:17] LABS: African American GFR (CKD) >90 (>60 ml/min/1.73 sqM); Anion Gap 8 mmol/L; Blood Urea Nitrogen 5 mg/dL (7-17); Calcium 7.7 mg/dL (8.4-10.2); Carbon Dioxide 26 mmol/L (22-30); Chloride 107 mmol/L (98-107); Glucose 90 mg/dL (74-99); Non-African American GFR(CKD) >90 (>60 ml/min/1.73 sqM); Potassium 3.8 mmol/L (3.5-5.1); Sodium 141 mmol/L (137-145)
--- NOTE | 2021-09-12 07:27 | XR ---
EXAMINATION TYPE: XR chest 1V portable DATE OF EXAM: 09/12/2021 COMPARISON: 09/11/2021 HISTORY: Chest pain TECHNIQUE: Single frontal view of the chest is obtained. FINDINGS: Endotracheal tube and NG tube have been removed. Left-sided PICC line is in place. Persistent basilar infiltrates with pleural effusions. Overall there may be slight improvement in the right perihilar r egion. The cardiac silhouette size is within normal limits. The osseous structures are intact. IMPRESSION: 1. Persistent basilar infiltrates with pleural effusions. Overall there may be slight improvement in the right perihilar region.
[2021-09-12] MEDS: ALBUTEROL NEBULIZED 2.5 MG/3 ML INHALATION SCH ×4 (07:56→20:01)
[2021-09-12] MEDS: PIPERACILLIN-TAZOBACTAM 3.375 GM in SODIUM CHLORIDE 0.9% 100 ML IVPB SCH ×2 (09:01→16:48)
[2021-09-12] MEDS: SODIUM CHLORIDE 0.9% 1,000 ML IV SCH ×3 (09:01→19:51)
[2021-09-12] MEDS: HEPARIN SODIUM,PORCINE/PF 5,000 UNIT/0.5 ML SYRINGE SQ SCH ×2 (09:21→16:48)
[2021-09-12] MEDS: METOPROLOL TARTRATE 25 MG TAB PO SCH ×2 (09:24→19:52)
[2021-09-12] MEDS: OXYBUTYNIN 10 MG TAB.ER.24 PO SCH ×2 (09:24→19:52)
[2021-09-12] MEDS: LORATADINE 10 MG TAB PO SCH (09:24)
[2021-09-12] MEDS: BACLOFEN 10 MG TAB PO SCH ×2 (09:25→19:52)
[2021-09-12] MEDS: polyethylene glycoL 3350 17 GM POWD.PACK PO SCH (09:25)
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
--- NOTE | 2021-09-12 17:28 | P.PN ---
Subjective Progress Note Date: 09/12/21 Principal diagnosis: Fever Patient is a 51 year old female with a past medical history significant for C5 quadriplegia presented to the hospital with body aches and constipation did have 2 episodes of vomiting patient did have a CT of abdominal pelvis which did shows and colonic distention with stool impaction. Patient did have respiratory distress and complete white out of The Requiring Admission to the ICU and Getting Intubated and did have bronchoscopy which was repeated on 09/10/2021 On today's evaluation that is 09/12/2021 the patient remains to be afebrile, the patient is breathing comfortably on nasal cannula oxygen, the patient denies having any chest pain did have some mild cough but not bringing up any sputum no abdominal pain and no vomiting or diarrhea reported Objective - Vital Signs Vital signs: Vital Signs Temp 98.3 F 09/12/21 12:00 Pulse 87 09/12/21 15:31 Resp 28 H 09/12/21 15:00 BP 139/91 09/12/21 15:00 Pulse Ox 95 09/12/21 15:00 Intake & Output 09/11/21 09/12/21 09/12/21 18:59 06:59 18:59 Intake Total 1418.526 605 0619 Output Total 1005 1650 1825 Balance 413.209 750 -825 Weight 68 kg Intake: IV 776 465 5822 Piperacillin-Tazobactam 3 200 100 100 .375 gm In Sodium Chloride 0.9% 100 ml @ 25 mls/hr IVPB Q8HR [facility] Rx# :[id number] Sodium Chloride 0.9% 1, 700 900 000 ml @ 100 mls/hr IV . Q10H [facility]OR Rx#:[id number] Intake, IV Titration 1185.209 100 Amount Sodium Chloride 0.9% 1, 1100 100 000 ml @ 100 mls/hr IV . Q10H VITOR Rx#:[id number] propofoL 1,000 mg In 85.209 Empty Bag 1 bag @ 15 MCG/ KG/MIN 5.643 mls/hr IV . [id number] VITOR Rx#:[id number] Tube Feeding 33 Output: Urine 1005 1650 1825 Other: Voiding Method Indwelling Catheter Indwelling Catheter Indwelling Catheter - Exam GENERAL DESCRIPTION: Middle-aged female lying in bed in no distress RESPIRATORY SYSTEM: Unlabored breathing , decreased breath sounds at the bases HEART: S1 S2 regular rate and rhythm , ABDOMEN: Soft , mild distention but no tenderness EXTREMITIES: No edema feet - Labs CBC & Chem 7: 09/12/21 05:43 09/12/21 05:43 Labs: Abnormal Lab Results - Last 24 Hours (Table) 09/12/21 09/12/21 Range/Units 05:43 05:43 RBC 3.41 L (3.80-5.40) m/uL Hgb 9.9 L (11.4-16.0) gm/dL Hct 32.0 L (34.0-46.0) % MCHC 30.8 L (31.0-37.0) g/dL Plt Count 515 H (150-450) k/uL BUN 5 L (7-17) mg/dL Creatinine 0.41 L (0.52-1.04) mg/dL Calcium 7.7 L (8.4-10.2) mg/dL Microbiology - Last 24 Hours (Table) 09/05/21 14:59 Blood Culture - Final Blood No Growth after 144 hours 09/05/21 14:30 Blood Culture - Final Blood No Growth after 144 hours Assessment and Plan (1) Fever Current Visit: Yes Status: Acute Code(s): R50.9 - FEVER, UNSPECIFIED SNOMED Code(s): 849617426 Plan: 1patient presented to hospital with fever in this patient who did have a C5 q uadriplegia and did have a history of stool impaction presented hospital abdominal distention and vomiting more likely abdominal source CT abdominal pelvis unfortunately done without any contrast and discharged and colonic distention with stool burden, patient subsequently did have a stable respiratory status in this patient noticed to have opacification of the lung likely from mucus plugging patient did have bronchoscopy with bronchoalveolar lavage which was repeated on 09/11/2019, the patient cultures are so far negative, patient did have clinical improvement and x-ray did show improvement, patient is currently being treated with the Zosyn, to continue monitoring her clinical course closely
[2021-09-12] MEDS: NORTRIPTYLINE 25 MG CAP PO SCH (19:52)
--- NOTE | 2021-09-12 21:15 | XR ---
EXAMINATION TYPE: XR chest 1V portable DATE OF EXAM: 09/12/2021 COMPARISON: Today HISTORY: Decreased lung sounds TECHNIQUE: Single view FINDINGS: There is left subclavian catheter with tip in the superior vena cava. There is blunting rig ht costophrenic angle. There is minimal infiltrate left lung base. No heart failure seen. There are c hest leads. IMPRESSION: There is right pleural effusion without change. There is improvement in the infiltrate le ft lung base compared to exam this morning. There is improved aeration right lower lobe compared to r ecent exam.
[2021-09-12] MEDS ORDERED: LORazepam 2 MG/ML INJ IV STA (21:17)
[2021-09-13] MEDS: PIPERACILLIN-TAZOBACTAM 3.375 GM in SODIUM CHLORIDE 0.9% 100 ML IVPB SCH ×3 (00:16→16:54)
[2021-09-13] MEDS: HEPARIN SODIUM,PORCINE/PF 5,000 UNIT/0.5 ML SYRINGE SQ SCH ×3 (00:16→16:54)
[2021-09-13 06:30] LABS: Basophils # (A) 0.1 k/uL (0-0.2); Basophils % (A) 0 %; Eosinophils # (A) 0.1 k/uL (0-0.7); Eosinophils % (A) 1 %; HCT 31.3 % (34.0-46.0); HGB 9.3 gm/dL (11.4-16.0); Hypochromasia Marked; Lymphocytes # (A) 1.2 k/uL (1.0-4.8); Lymphocytes % (A) 11 %; MCH 29.4 pg (25.0-35.0); MCHC 29.7 g/dL (31.0-37.0); Mean Platelet Volume 7.5; Monocytes # (A) 0.5 k/uL (0-1.0); Monocytes % (A) 5 %; Neutrophils # (A) 8.6 k/uL (1.3-7.7); Neutrophils % (A) 80 %; Platelet Count 424 k/uL (150-450); RBC 3.16 m/uL (3.80-5.40); RDW 14.4 % (11.5-15.5); WBC 10.7 k/uL (3.8-10.6)
[2021-09-13] MEDS: SODIUM CHLORIDE 0.9% 1,000 ML IV SCH ×2 (06:30→16:55)
[2021-09-13 06:46] LABS: African American GFR (CKD) >90 (>60 ml/min/1.73 sqM); Anion Gap 8 mmol/L; Blood Urea Nitrogen 6 mg/dL (7-17); Calcium 7.7 mg/dL (8.4-10.2); Carbon Dioxide 24 mmol/L (22-30); Chloride 107 mmol/L (98-107); Glucose 86 mg/dL (74-99); Magnesium 2.2 mg/dL (1.6-2.3); Non-African American GFR(CKD) >90 (>60 ml/min/1.73 sqM); Sodium 139 mmol/L (137-145)
[2021-09-13] MEDS: ALBUTEROL NEBULIZED 2.5 MG/3 ML INHALATION SCH ×4 (08:07→19:55)
[2021-09-13] MEDS: BACLOFEN 10 MG TAB PO SCH ×2 (08:26→19:20)
[2021-09-13] MEDS: METOPROLOL TARTRATE 25 MG TAB PO SCH ×2 (08:26→19:20)
[2021-09-13] MEDS: LORATADINE 10 MG TAB PO SCH (08:26)
[2021-09-13] MEDS: polyethylene glycoL 3350 17 GM POWD.PACK PO SCH (08:27)
[2021-09-13] MEDS: OXYBUTYNIN 10 MG TAB.ER.24 PO SCH ×2 (08:27→19:20)
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
--- NOTE | 2021-09-13 12:21 | XR ---
EXAMINATION TYPE: XR chest 1V portable DATE OF EXAM: 09/13/2021 COMPARISON: Chest x-ray 09/12/2021 HISTORY: Tube placement, abnormal chest x-ray TECHNIQUE: Single frontal view of the chest is obtained. FINDINGS: Left-sided PICC line remains in place. Abnormal attenuation is present at the lung bases, hemidiaphragms are obscured, this blunting of the costophrenic angles. Heart is stable. No evident pn eumothorax. There are overlying artifacts. IMPRESSION: Basilar atelectasis versus pneumonia and associated effusions.
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
[2021-09-13] MEDS: NORTRIPTYLINE 25 MG CAP PO SCH (19:20)
--- NOTE | 2021-09-13 20:53 | P.PN ---
Subjective Progress Note Date: 09/13/21 Principal diagnosis: Fever Patient is a 51 year old female with a past medical history significant for C5 quadriplegia presented to the hospital with body aches and constipation did have 2 episodes of vomiting patient did have a CT of abdominal pelvis which did shows and colonic distention with stool impaction. Patient did have respiratory distress and complete white out of The Requiring Admission to the ICU and Getting Intubated and did have bronchoscopy which was repeated on 09/10/2021 On today's evaluation that is 09/13/2021 the patient is afebrile, the patient is complaining of some shortness of breath and is requiring BiPAP to support her O2 sats, the patient denies having any chest pain did have some mild cough but no sputum no abdominal pain and no vomiting or diarrhea reported by the nursing staff Objective - Vital Signs Vital signs: Vital Signs Temp 97.8 F 09/13/21 12:00 Pulse 100 09/13/21 12:00 Resp 27 H 09/13/21 12:00 BP 125/85 09/13/21 12:00 Pulse Ox 96 09/13/21 12:00 Intake & Output 09/12/21 09/13/21 09/13/21 18:59 06:59 18:59 Intake Total 1500 1100 700 Output Total 2485 1160 465 Balance -985 -60 235 Weight 63 kg Intake: IV 1500 1100 700 Piperacillin-Tazobactam 3 200 100 .375 gm In Sodium Chloride 0.9% 100 ml @ 25 mls/hr IVPB Q8HR VITOR Rx# :[id number] Sodium Chloride 0.9% 1, 1300 1100 600 000 ml @ 100 mls/hr IV . Q10H VITOR Rx#:[id number] Output: Urine 2485 1160 465 Other: Voiding Method Indwelling Catheter Indwelling Catheter Indwelling Catheter # Bowel Movements 1 - Exam GENERAL DESCRIPTION: Middle-aged female lying in bed in no distress RESPIRATORY SYSTEM: Unlabored breathing , decreased breath sounds at the bases HEART: S1 S2 regular rate and rhythm , ABDOMEN: Soft , mild distention but no tenderness EXTREMITIES: No edema feet - Labs CBC & Chem 7: 09/13/21 06:09 09/13/21 06:09 Labs: Abnormal Lab Results - Last 24 Hours (Table) 09/13/21 09/13/21 Range/Units 06:09 06:09 WBC 10.7 H (3.8-10.6) k/uL RBC 3.16 L (3.80-5.40) m/uL Hgb 9.3 L (11.4-16.0) gm/dL Hct 31.3 L (34.0-46.0) % MCHC 29.7 L (31.0-37.0) g/dL Neutrophils # 8.6 H (1.3-7.7) k/uL BUN 6 L (7-17) mg/dL Creatinine 0.37 L (0.52-1.04) mg/dL Calcium 7.7 L (8.4-10.2) mg/dL Assessment and Plan (1) Fever Current Visit: Yes Status: Acute Code(s): R50.9 - FEVER, UNSPECIFIED SNOMED Code(s): 860512052 Plan: 1patient presented to hospital with fever in this patient who did have a C5 quadriplegia and did have a history of stool impaction presented hospital abdominal distention and vomiting more likely abdominal source CT abdominal pelvis unfortunately done without any contrast and discharged and colonic distention with stool burden, patient subsequently did have a stable respiratory status in this patient noticed to have opacification of the lung likely from mucus plugging patient did have bronchoscopy with bronchoalveolar lavage which was repeated on 09/11/2019, the patient cultures are so far negative, patient did have slight worsening of respiratory status today and will be monitored closely continue with the Zosyn while waiting for the cultures to finalize Time with Patient: Less than 30
[2021-09-14] MEDS: PIPERACILLIN-TAZOBACTAM 3.375 GM in SODIUM CHLORIDE 0.9% 100 ML IVPB SCH ×4 (00:05→23:57)
[2021-09-14] MEDS: HEPARIN SODIUM,PORCINE/PF 5,000 UNIT/0.5 ML SYRINGE SQ SCH ×4 (00:05→23:59)
[2021-09-14] MEDS: SODIUM CHLORIDE 0.9% 1,000 ML IV SCH ×3 (00:06→15:36)
[2021-09-14] MEDS: METOPROLOL TARTRATE 5 MG/5 ML VIAL IVP PRN ×3 (02:13→15:37)
[2021-09-14 06:17] LABS: Basophils % (A) 1 %; Eosinophils # (A) 0.2 k/uL (0-0.7); Eosinophils % (A) 2 %; HCT 30.9 % (34.0-46.0); HGB 9.3 gm/dL (11.4-16.0); Hypochromasia Marked; Lymphocytes % (A) 12 %; MCH 29.6 pg (25.0-35.0); MCHC 30.1 g/dL (31.0-37.0); MCV 98.2 fL (80.0-100.0); Mean Platelet Volume 7.8; Monocytes # (A) 0.4 k/uL (0-1.0); Monocytes % (A) 5 %; Neutrophils % (A) 79 %; Platelet Count 478 k/uL (150-450); RBC 3.15 m/uL (3.80-5.40); RDW 14.4 % (11.5-15.5); WBC 8.9 k/uL (3.8-10.6)
[2021-09-14 06:24] LABS: African American GFR (CKD) >90 (>60 ml/min/1.73 sqM); Anion Gap 12 mmol/L; Blood Urea Nitrogen 4 mg/dL (7-17); Calcium 7.7 mg/dL (8.4-10.2); Carbon Dioxide 18 mmol/L (22-30); Chloride 112 mmol/L (98-107); Glucose 70 mg/dL (74-99); Non-African American GFR(CKD) >90 (>60 ml/min/1.73 sqM); Potassium 3.9 mmol/L (3.5-5.1); Sodium 142 mmol/L (137-145)
[2021-09-14] MEDS ORDERED: DEXTROSE 50% SYRINGE 50 ML IVP ONE (06:35)
[2021-09-14] MEDS: ALBUTEROL NEBULIZED 2.5 MG/3 ML INHALATION SCH ×4 (07:45→19:35)
[2021-09-14] MEDS ORDERED: POTASSIUM CHLORIDE 20 MEQ in WATER FOR INJECTION 1 100ML.BAG IVPB ONE (08:00)
--- NOTE | 2021-09-14 08:24 | XR ---
EXAMINATION TYPE: XR chest 1V portable DATE OF EXAM: 09/14/2021 COMPARISON: 09/14/2019 HISTORY: Tube placement TECHNIQUE: Single frontal view of the chest is obtained. FINDINGS: A left-sided PICC line is stable. Heart is enlarged. There is elevation the right hemidiap hragm with bilateral infiltrate and pleural effusion stable. No pneumothorax. Skeletal structures are stable. IMPRESSION: Bilateral infiltrate and pleural effusion stable
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
[2021-09-14] MEDS: METOPROLOL TARTRATE 25 MG TAB PO SCH ×2 (10:11→20:08)
[2021-09-14] MEDS: LORATADINE 10 MG TAB PO SCH (10:11)
[2021-09-14] MEDS: BACLOFEN 10 MG TAB PO SCH ×2 (10:11→20:08)
[2021-09-14] MEDS: OXYBUTYNIN 10 MG TAB.ER.24 PO SCH ×2 (10:11→20:08)
[2021-09-14] MEDS: polyethylene glycoL 3350 17 GM POWD.PACK PO SCH (10:11)
[2021-09-14 12:25] LABS: Glucose,Whole Blood 84 mg/dL (75-99)
--- NOTE | 2021-09-14 13:15 | P.PN ---
Subjective No new events, denies any respiratory or GI complaints. Sister at bedside Objective - Vital Signs Vital signs: Vital Signs Temp 98.2 F 09/14/21 12:00 Pulse 107 H 09/14/21 12:00 Resp 25 H 09/14/21 12:00 BP 125/89 09/14/21 12:00 Pulse Ox 96 09/14/21 12:00 Intake & Output 09/13/21 09/14/21 09/14/21 18:59 06:59 18:59 Intake Total 1400 1300 600 Output Total 890 920 700 Balance 510 380 -100 Weight 63 kg 66 kg Intake: IV 1400 1300 600 Piperacillin-Tazobactam 3 200 100 .375 gm In Sodium Chloride 0.9% 100 ml @ 25 mls/hr IVPB Q8HR [facility] Rx# :[id number] Sodium Chloride 0.9% 1, 1200 1300 500 000 ml @ 100 mls/hr IV . Q10H [facility]OR Rx#:[id number] Output: Urine 890 920 700 Other: Voiding Method Indwelling Catheter Indwelling Catheter Indwelling Catheter # Bowel Movements 1 - Exam General awake and alert following commands participating in conversation appropriately Derm: warm, dry Head: atraumatic, normocephalic, symmetric Eyes: EOMI, no lid lag, anicteric sclera Mouth: no lip lesion, mucus membranes moist Cardiovascular: S1S2 reg, no murmur, positive posterior tibial pulse bilateral, Lungs: course bs bilateral, no rhonchi, no rales , no accessory muscle use, on vent Abdominal: soft, nontender to palpation, no guarding, no appreciable organomegaly Ext: + gross muscle atrophy, trace non pitting edema, + flexion contractures below left and right upper extremities and a flexion contraction of the bilatera l lower extremities - Labs CBC & Chem 7: 09/14/21 05:40 09/14/21 05:40 Labs: Abnormal Lab Results - Last 24 Hours (Table) 09/14/21 09/14/21 Range/Units 05:40 05:40 RBC 3.15 L (3.80-5.40) m/uL Hgb 9.3 L (11.4-16.0) gm/dL Hct 30.9 L (34.0-46.0) % MCHC 30.1 L (31.0-37.0) g/dL Plt Count 478 H (150-450) k/uL Chloride 112 H (98-107) mmol/L Carbon Dioxide 18 L (22-30) mmol/L BUN 4 L (7-17) mg/dL Creatinine 0.36 L (0.52-1.04) mg/dL Glucose 70 L (74-99) mg/dL Calcium 7.7 L (8.4-10.2) mg/dL Assessment and Plan Plan: #Acute hypoxic respiratory failure due to Aspiration pneumonia Complete opacification of the left hemithorax due to obstruction 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 - pulmonary recs. Anemia, likely acute blood loss -Follow CBC -No indication for transfusion at this time Episode of SVT September 05 -Converted to normal sinus rhythm with carotid massage - metoprolol -Cardiology recs appreciated - echo essentially normal - TSH normal Neurogenic bladder -rubin Colonic Obstruction due to fecal impaction - s/p sigmoidoscopy with stool - increaser bowel regiment. C5 quadriplegia -Turn every 2 hours -Provide safe and supportive care and assistance as needed. Hypokalemia, replace and recheck Hyponatremia, improved Stool impaction, resolved CODE STATUS: Full code DVT prophylaxis: Heparin
[2021-09-14] MEDS: NORTRIPTYLINE 25 MG CAP PO SCH (20:08)
--- NOTE | 2021-09-14 20:54 | P.PN ---
Subjective Progress Note Date: 09/14/21 Principal diagnosis: Fever Patient is a 51 year old female with a past medical history significant for C5 quadriplegia presented to the hospital with body aches and constipation did have 2 episodes of vomiting patient did have a CT of abdominal pelvis which did shows and colonic distention with stool impaction. Patient did have respiratory distress and complete white out of The Requiring Admission to the ICU and Getting Intubated and did have bronchoscopy which was repeated on 09/10/2021 On today's evaluation that is 09/14/2021 the patient remains to be afebrile, the patient is breathing comfortably on nasal oxygen, patient denies having any chest pain did have a cough but not begin any sputum no abdominal pain and no diarrhea reported by the nursing staff, patient scheduled for a swallow evaluation Objective - Vital Signs Vital signs: Vital Signs Temp 98.2 F 09/14/21 12:00 Pulse 106 H 09/14/21 13:00 Resp 24 09/14/21 13:00 BP 125/89 09/14/21 13:00 Pulse Ox 96 09/14/21 13:00 Intake & Output 09/13/21 09/14/21 09/14/21 18:59 06:59 18:59 Intake Total 1400 1300 700 Output Total 890 920 875 Balance 510 380 -175 Weight 63 kg 66 kg Intake: IV 1400 1300 700 Piperacillin-Tazobactam 3 200 100 .375 gm In Sodium Chloride 0.9% 100 ml @ 25 mls/hr IVPB Q8HR [facility] Rx# :[id number] Sodium Chloride 0.9% 1, 1200 1300 600 000 ml @ 100 mls/hr IV . Q10H [facility] Rx#:[id number] Output: Urine 890 920 875 Other: Voiding Method Indwelling Catheter Indwelling Catheter Indwelling Catheter # Bowel Movements 1 - Exam GENERAL DESCRIPTION: Middle-aged female lying in bed in no distress RESPIRATORY SYSTEM: Unlabored breathing , decreased breath sounds at the bases HEART: S1 S2 regular rate and rhythm , ABDOMEN: Soft , mild distention but no tenderness EXTREMITIES: No edema feet - Labs CBC & Chem 7: 09/14/21 05:40 09/14/21 05:40 Labs: Abnormal Lab Results - Last 24 Hours (Table) 09/14/21 09/14/21 Range/Units 05:40 05:40 RBC 3.15 L (3.80-5.40) m/uL Hgb 9.3 L (11.4-16.0) gm/dL Hct 30.9 L (34.0-46.0) % MCHC 30.1 L (31.0-37.0) g/dL Plt Count 478 H (150-450) k/uL Chloride 112 H (98-107) mmol/L Carbon Dioxide 18 L (22-30) mmol/L BUN 4 L (7-17) mg/dL Creatinine 0.36 L (0.52-1.04) mg/dL Glucose 70 L (74-99) mg/dL Calcium 7.7 L (8.4-10.2) mg/dL Assessment and Plan (1) Fever Current Visit: Yes Status: Acute Code(s): R50.9 - FEVER, UNSPECIFIED SNOMED Code(s): 565522481 Plan: 1patient presented to hospital with fever in this patient who did have a C5 quadriplegia and did have a history of stool impaction presented hospital [facility] distention and vomiting more likely abdominal source CT abdominal pelvis unfortunately done without any contrast and discharged and colonic distention with stool burden, patient subsequently did have a stable respiratory status in this patient noticed to have opacification of the lung likely from mucus plugging patient did have bronchoscopy with bronchoalveolar lavage which was repeated on 09/11/2019, the patient cultures are so far negative, patient repeat x-ray did not show any worsening, patient to continue Zosyn waiting for swallow evaluation and continue supportive care Time with Patient: Less than 30
[2021-09-14] MEDS: ZOLPIDEM 10 MG TAB PO PRN (20:55)
[2021-09-14 21:01] LABS: Glucose,Whole Blood 110 mg/dL (75-99)
[2021-09-15 00:34] LABS: Glucose,Whole Blood 97 mg/dL (75-99)
[2021-09-15 06:52] LABS: Glucose,Whole Blood 93 mg/dL (75-99)
--- NOTE | 2021-09-15 07:45 | FL ---
EXAMINATION TYPE: FL barium swallow w video DATE OF EXAM: 09/14/2021 COMPARISON: NONE HISTORY: Aspiration pneumonia TECHNIQUE: Fluoroscopy. FINDINGS: Fluoroscopic guidance was provided for the procedure performed in conjunction with the [facility] [place] pathology department. Please see complete report forthcoming from the Speech Pathology departmen t. Various consistencies from thin liquid to solids were administered. Thin, nectar thick, honey thi ck, and pudding consistency was utilized. Fluoroscopy time 1 minute 24 seconds. Number of images: 0. No aspiration or penetration was evident. No significant pooling was observed in the vallecula. There was normal propulsion of the bolus. IMPRESSION: 1. Normal modified barium swallow
[2021-09-15 07:47] LABS: Basophils % (A) 0 %; Eosinophils # (A) 0.2 k/uL (0-0.7); Eosinophils % (A) 2 %; HGB 9.1 gm/dL (11.4-16.0); Hypochromasia Marked; Lymphocytes # (A) 1.1 k/uL (1.0-4.8); Lymphocytes % (A) 13 %; MCH 29.4 pg (25.0-35.0); MCHC 30.3 g/dL (31.0-37.0); MCV 97.3 fL (80.0-100.0); Mean Platelet Volume 7.7; Monocytes # (A) 0.4 k/uL (0-1.0); Monocytes % (A) 5 %; Neutrophils # (A) 6.3 k/uL (1.3-7.7); Neutrophils % (A) 76 %; Platelet Count 499 k/uL (150-450); RBC 3.09 m/uL (3.80-5.40); RDW 14.7 % (11.5-15.5); WBC 8.3 k/uL (3.8-10.6)
[2021-09-15] MEDS ORDERED: FUROSEMIDE 10 MG/ML 2 ML VIAL IV ONE (07:55)
--- NOTE | 2021-09-15 08:16 | XR ---
EXAMINATION TYPE: XR chest 1V portable DATE OF EXAM: 09/15/2021 COMPARISON: Chest x-ray 09/14/2021 HISTORY: Shortness of breath TECHNIQUE: Single frontal view of the chest is obtained. FINDINGS: Left-sided PICC line shows the distal tip near the cavoatrial junction level. No evident p neumothorax. Bibasilar density persists, the hemidiaphragms are obscured. Heart size is stable. Patie nt is rotated, there may be underlying spinal curvature. Cardiac mediastinal silhouette is stable. Th ere are overlying artifacts. IMPRESSION: Basilar atelectasis versus pneumonia and associated effusion.
[2021-09-15 08:18] LABS: African American GFR (CKD) >90 (>60 ml/min/1.73 sqM); Anion Gap 4 mmol/L; Blood Urea Nitrogen <2 mg/dL (7-17); Calcium 7.6 mg/dL (8.4-10.2); Carbon Dioxide 23 mmol/L (22-30); Chloride 113 mmol/L (98-107); Glucose 83 mg/dL (74-99); Non-African American GFR(CKD) >90 (>60 ml/min/1.73 sqM); Potassium 3.2 mmol/L (3.5-5.1); Sodium 140 mmol/L (137-145)
[2021-09-15] MEDS: ALBUTEROL NEBULIZED 2.5 MG/3 ML INHALATION SCH ×4 (08:49→20:59)
[2021-09-15] MEDS: LORATADINE 10 MG TAB PO SCH (09:38)
[2021-09-15] MEDS: polyethylene glycoL 3350 17 GM POWD.PACK PO SCH (09:38)
[2021-09-15] MEDS: PIPERACILLIN-TAZOBACTAM 3.375 GM in SODIUM CHLORIDE 0.9% 100 ML IVPB SCH ×3 (09:38→23:16)
[2021-09-15] MEDS: HEPARIN SODIUM,PORCINE/PF 5,000 UNIT/0.5 ML SYRINGE SQ SCH ×3 (09:38→23:16)
[2021-09-15] MEDS: OXYBUTYNIN 10 MG TAB.ER.24 PO SCH ×2 (09:38→20:06)
[2021-09-15] MEDS: POTASSIUM CHLORIDE 20 MEQ in WATER FOR INJECTION 1 100ML.BAG IVPB SCH ×2 (09:38→12:28)
[2021-09-15] MEDS: BACLOFEN 10 MG TAB PO SCH ×2 (09:38→20:07)
[2021-09-15] MEDS: METOPROLOL TARTRATE 25 MG TAB PO SCH ×2 (09:38→20:07)
[2021-09-15] MEDS: SODIUM CHLORIDE 0.9% 1,000 ML IV SCH ×2 (09:39→17:18)
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
[2021-09-15] MEDS: METOPROLOL TARTRATE 5 MG/5 ML VIAL IVP PRN (12:32)
[2021-09-15] MEDS ORDERED: POTASSIUM CHLORIDE 20 MEQ in WATER FOR INJECTION 1 100ML.BAG IVPB STA (16:24)
--- NOTE | 2021-09-15 17:18 | P.PN ---
Progress Note - Text Patient is a 51-year-old female with C5 quadriplegia, traumatic brain injury, and prior tracheostomy who initially presented with complaints of nausea and vomiting. In the ED she was found to have leukocytosis, hyponatremia, hyperkalemia, and non anion gap metabolic acidosis. COVID, Flu, and RSV were negative. CXR showed left hemidiphragm elevation. Her CT abd and pelvis shoed pancolonic distension with stool impaction. She was ultimately found to have fecal impaction. She was seen by general surgery who recommended a 2 day prep for colonoscopy. She was seen by ID who felt that her fevers and leukocytosis were likely secondary to colonic origin. She had an episode of SVT and was transferred to the ICU. She was seen by cardiology. She converted to sinus mechanism with carotid massage. Echocardiogram was essentially unremarkable with a preserved ejection fraction. She required central line insertion 09/05. Patient underwent EGD and colonoscopy on 09/07 which showed mild antral gastritis with a tortuous colon and poor colonic prep. She subsequently developed worsening hypoxia and cough. Stat chest x-ray was ordered. This was reviewed and showed a complete opacification of the left hemithorax. She was transferred to the ICU for further monitoring. On the morning of 09/08 she was intubated and underwent bronch which showed large amounts of thick secretions. She was successfully extubated on 09/11 however overnight on 09/12-09/13 she again developed respiratory distress and required placement on the BiPap. Interval history: Patient seen and examined at bedside with family present. She is to liters nasal cannula Physical examination: General: non toxic, no distress, appears at stated age Derm: warm, dry Head: atraumatic, normocephalic, symmetric Eyes: EOMI, no lid lag, anicteric sclera Mouth: no lip lesion, mucus membranes moist Cardiovascular: S1S2 reg, no murmur, positive posterior tibial pulse bilateral, Lungs: course bs bilateral, no rhonchi, no rales , no accessory muscle use, on vent Abdominal: soft, nontender to palpation, no guarding, no appreciable organomegaly Ext: + gross muscle atrophy, trace non pitting edema, + flexion contractures below left and right upper extremities and a flexion contraction of the bilateral lower extremities Neuro: CN II-XII grossly intact, no tremor, no fasiculations Psych: lethargic, unable to understand her answer to questions Assessment/plan: Aspiration pneumonia Acute hypoxic respiratory failure Complete opacification of the left hemithorax due to obstruction 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 Infectious disease -ID recs appreciated - s/p bronch 09/08 and 09/10 with mucus plugging - Speech therapy evaluation, NPO until able to obtain. - pulmonary recs. Anemia, likely acute blood loss -Follow CBC -No indication for transfusion at this time Episode of SVT September 05 -Converted to normal sinus rhythm with carotid massage - metoprolol -Cardiology recs appreciated - echo essentially normal - TSH normal Hypocalcemia -Replaced - PTH elevated - possible hypoparathyroidism - outpatient follow-up Neurogenic bladder -rubin Colonic Obstruction due to fecal impaction - s/p sigmoidoscopy with stool - increaser bowel regiment. C5 quadriplegia -Turn every 2 hours -Provide safe and supportive care and assistance as needed. Hypokalemia, replace and recheck Hyponatremia, improved Stool impaction, resolved CODE STATUS: Full code DVT prophylaxis: Heparin Discussed with: Patient, nursing,
[2021-09-15] MEDS: guaiFENesin 600 MG TABLET.ER PO SCH (20:06)
[2021-09-15] MEDS: NORTRIPTYLINE 25 MG CAP PO SCH (20:06)
--- NOTE | 2021-09-15 21:20 | P.PN ---
Subjective Progress Note Date: 09/15/21 Principal diagnosis: Fever Patient is a 51 year old female with a past medical history significant for C5 quadriplegia presented to the hospital with body aches and constipation did have 2 episodes of vomiting patient did have a CT of abdominal pelvis which did shows and colonic distention with stool impaction. Patient did have respiratory distress and complete white out of The Requiring Admission to the ICU and Getting Intubated and did have bronchoscopy which was repeated on 09/10/2021 On today's evaluation that is 09/15/2021 the patient continues to be afebrile, the patient is breathing comfortably on nasal cannula oxygen, patient denies chest pain , the patient did have a cough but not bringing up any sputum no abdominal pain and no diarrhea reported by the nursing staff Objective - Vital Signs Vital signs: Vital Signs Temp 97.8 F 09/15/21 12:00 Pulse 96 09/15/21 12:00 Resp 21 09/15/21 12:00 BP 155/102 09/15/21 12:00 Pulse Ox 96 09/15/21 12:00 Intake & Output 09/14/21 09/15/21 09/15/21 18:59 06:59 18:59 Intake Total 1200 1300 350 Output Total 8452 630 8408 Balance -100 415 -1250 Weight 64.503 kg 64.503 kg Intake: IV 1200 1300 350 Piperacillin-Tazobactam 3 100 .375 gm In Sodium Chloride 0.9% 100 ml @ 25 mls/hr IVPB Q8HR [facility] Rx# :[id number] Sodium Chloride 0.9% 1, 1100 1300 350 000 ml @ 100 mls/hr IV . Q10H [facility] Rx#:[id number] Output: Urine 6340 149 1319 Other: Voiding Method Indwelling Catheter Indwelling Catheter Indwelling Catheter # Bowel Movements 1 1 - Exam GENERAL DESCRIPTION: Middle-aged female lying in bed in no distress RESPIRATORY SYSTEM: Unlabored breathing , decreased breath sounds at the bases HEART: S1 S2 regular rate and rhythm , ABDOMEN: Soft , mild distention but no tenderness EXTREMITIES: No edema feet - Labs CBC & Chem 7: 09/15/21 07:26 09/15/21 15:53 Labs: Abnormal Lab Results - Last 24 Hours (Table) 09/14/21 09/15/21 09/15/21 Range/Units 21:00 07:26 07:26 RBC 3.09 L (3.80-5.40) m/uL Hgb 9.1 L (11.4-16.0) gm/dL Hct 30.0 L (34.0-46.0) % MCHC 30.3 L (31.0-37.0) g/dL Plt Count 499 H (150-450) k/uL Potassium 3.2 L (3.5-5.1) mmol/L Chloride 113 H (98-107) mmol/L BUN <2 L (7-17) mg/dL Creatinine 0.31 L (0.52-1.04) mg/dL POC Glucose (mg/dL) 110 H (75-99) mg/dL Calcium 7.6 L (8.4-10.2) mg/dL Assessment and Plan (1) Fever Current Visit: Yes Status: Acute Code(s): R50.9 - FEVER, UNSPECIFIED SNOME D Code(s): 629285794 Plan: 1patient presented to hospital with fever in this patient who did have a C5 quadriplegia and did have a history of stool impaction presented hospital abdominal distention and vomiting more likely abdominal source CT abdominal pelv is unfortunately done without any contrast and discharged and colonic distention with stool burden, patient subsequently did have a stable respiratory status in this patient noticed to have opacification of the lung likely from mucus plugging patient did have bronchoscopy with bronchoalveolar lavage which was repeated on 09/11/2019, the patient cultures are so far negative, patient denies any did have slow clinical improvement , to continue Zosyn , with cultures negative for any resistant pathogen may transition to oral Augmentin once the oral intake improves Time with Patient: Less than 30
[2021-09-15] MEDS: ZOLPIDEM 10 MG TAB PO PRN (22:46)
[2021-09-16 07:28] LABS: Basophils % (A) 0 %; Eosinophils # (A) 0.3 k/uL (0-0.7); Eosinophils % (A) 3 %; HCT 30.1 % (34.0-46.0); HGB 9.2 gm/dL (11.4-16.0); Hypochromasia Slight; Lymphocytes # (A) 1.4 k/uL (1.0-4.8); Lymphocytes % (A) 14 %; MCHC 30.5 g/dL (31.0-37.0); Monocytes # (A) 0.6 k/uL (0-1.0); Monocytes % (A) 6 %; Neutrophils # (A) 7.3 k/uL (1.3-7.7); Neutrophils % (A) 75 %; Platelet Count 587 k/uL (150-450); RBC 3.17 m/uL (3.80-5.40); RDW 14.8 % (11.5-15.5); WBC 9.8 k/uL (3.8-10.6)
[2021-09-16 07:39] LABS: African American GFR (CKD) >90 (>60 ml/min/1.73 sqM); Anion Gap 4 mmol/L; Blood Urea Nitrogen 3 mg/dL (7-17); Calcium 7.8 mg/dL (8.4-10.2); Carbon Dioxide 27 mmol/L (22-30); Chloride 107 mmol/L (98-107); Glucose 89 mg/dL (74-99); Non-African American GFR(CKD) >90 (>60 ml/min/1.73 sqM); Potassium 3.8 mmol/L (3.5-5.1); Sodium 138 mmol/L (137-145)
[2021-09-16] MEDS: ALBUTEROL NEBULIZED 2.5 MG/3 ML INHALATION SCH ×3 (07:50→15:36)
[2021-09-16] MEDS: guaiFENesin 600 MG TABLET.ER PO SCH ×2 (08:58→21:16)
[2021-09-16] MEDS: LORATADINE 10 MG TAB PO SCH (08:58)
[2021-09-16] MEDS: METOPROLOL TARTRATE 25 MG TAB PO SCH ×2 (08:58→21:16)
[2021-09-16] MEDS: BACLOFEN 10 MG TAB PO SCH ×2 (08:58→21:16)
[2021-09-16] MEDS: PIPERACILLIN-TAZOBACTAM 3.375 GM in SODIUM CHLORIDE 0.9% 100 ML IVPB SCH ×2 (08:58→17:04)
[2021-09-16] MEDS: HEPARIN SODIUM,PORCINE/PF 5,000 UNIT/0.5 ML SYRINGE SQ SCH ×2 (08:59→17:04)
[2021-09-16] MEDS: polyethylene glycoL 3350 17 GM POWD.PACK PO SCH (09:00)
[2021-09-16] MEDS: OXYBUTYNIN 10 MG TAB.ER.24 PO SCH ×2 (09:00→21:17)
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
[2021-09-16] MEDS: SODIUM CHLORIDE 0.9% 1,000 ML IV SCH ×4 (16:58→17:03)
[2021-09-16] MEDS: NORTRIPTYLINE 25 MG CAP PO SCH (21:17)
--- NOTE | 2021-09-16 21:18 | P.PN ---
Subjective Progress Note Date: 09/16/21 Principal diagnosis: Fever Patient is a 51 year old female with a past medical history significant for C5 quadriplegia presented to the hospital with body aches and constipation did have 2 episodes of vomiting patient did have a CT of abdominal pelvis which did shows and colonic distention with stool impaction. Patient did have respiratory distress and complete white out of The Requiring Admission to the ICU and Getting Intubated and did have bronchoscopy which was repeated on 09/10/2021 On today's evaluation that is 09/16/2021 the patient is afebrile, the patient is breathing comfortably on room air, patient denies chest pain , the patient did have mild cough and bring up any sputum, patient denies any abdominal pain no vomiting or diarrhea Objective - Vital Signs Vital signs: Vital Signs Temp 98.0 F 09/16/21 20:41 Pulse 110 H 09/16/21 20:41 Resp 15 09/16/21 20:41 BP 153/95 09/16/21 20:41 Pulse Ox 94 L 09/16/21 20:41 Intake & Output 09/16/21 09/16/21 09/17/21 06:59 18:59 06:59 Intake Total 650 500 Output Total 635 1300 Balance 15 -800 Weight 61 kg Intake: IV 650 450 Piperacillin-Tazobactam 3 100 .375 gm In Sodium Chloride 0.9% 100 ml @ 25 mls/hr IVPB Q8HR VITOR Rx# :[id number] Sodium Chloride 0.9% 1, 550 450 000 ml @ 100 mls/hr IV . Q10H [facility]ITOR Rx#:[id number] Oral 50 Output: Urine 635 1300 Other: Voiding Method Indwelling Catheter Indwelling Catheter # Voids 1 - Exam GENERAL DESCRIPTION: Middle-aged female lying in bed in no distress RESPIRATORY SYSTEM: Unlabored breathing , decreased breath sounds at the bases HEART: S1 S2 regular rate and rhythm , ABDOMEN: Soft , mild distention but no tenderness EXTREMITIES: No edema feet - Labs CBC & Chem 7: 09/16/21 07:04 09/16/21 07:04 Labs: Abnormal Lab Results - Last 24 Hours (Table) 09/16/21 09/16/21 Range/Units 07:04 07:04 RBC 3.17 L (3.80-5.40) m/uL Hgb 9.2 L (11.4-16.0) gm/dL Hct 30.1 L (34.0-46.0) % MCHC 30.5 L (31.0-37.0) g/dL Plt Count 587 H (150-450) k/uL BUN 3 L (7-17) mg/dL Creatinine 0.32 L (0.52-1.04) mg/dL Calcium 7.8 L (8.4-10.2) mg/dL Assessment and Plan (1) Fever Current Visit: Yes Status: Acute Code(s): R50.9 - FEVER, UNSPECIFIED SNOMED Code(s): 376505049 Plan: 1patient presented to hospital with fever in this patient who did have a C5 quadriplegia and did have a history of stool impaction presented hospital abdominal distention and vomiting more likely abdominal source CT abdominal pelvis unfortunately done without any contrast and discharged and colonic distention with stool burden, patient subsequently did have a stable respiratory status in this patient noticed to have opacification of the lung likely from mucus plugging patient did have bronchoscopy with bronchoalveolar lavage which was repeated on 09/11/2019, the patient cultures are so far negative, patient has shown overall clinical improvement white count is normal and the patient is not requiring any supplemental oxygen we will switch her over to short course of oral Augmentin Time with Patient: Less than 30
[2021-09-16] MEDS: ZOLPIDEM 10 MG TAB PO PRN (23:57)
[2021-09-17] MEDS: HEPARIN SODIUM,PORCINE/PF 5,000 UNIT/0.5 ML SYRINGE SQ SCH ×2 (00:06→08:13)
[2021-09-17] MEDS: ALBUTEROL NEBULIZED 2.5 MG/3 ML INHALATION SCH ×3 (01:09→11:55)
[2021-09-17 02:31] VITALS: BP 114/76; RESP 14; TEMP 97.4
[2021-09-17] MEDS: BACLOFEN 10 MG TAB PO SCH (08:12)
[2021-09-17] MEDS: METOPROLOL TARTRATE 25 MG TAB PO SCH (08:12)
[2021-09-17] MEDS: LORATADINE 10 MG TAB PO SCH (08:12)
[2021-09-17] MEDS: guaiFENesin 600 MG TABLET.ER PO SCH (08:12)
[2021-09-17] MEDS: polyethylene glycoL 3350 17 GM POWD.PACK PO SCH (08:13)
[2021-09-17] MEDS: OXYBUTYNIN 10 MG TAB.ER.24 PO SCH (08:14)
[2021-09-17] MEDS ORDERED: AMOXIC-POT CLAV 875-125MG 1 EACH TAB PO SCH (09:00)
[2021-09-17 09:15] LABS: Basophils # (A) 0.08 X 10*3/uL (0.00-0.10); Basophils % (A) 0.8 %; Eosinophils # (A) 0.07 X 10*3/uL (0.04-0.35); Eosinophils % (A) 0.7 %; HCT 27.5 % (37.2-46.3); HGB 8.5 g/dL (12.0-15.0); Immature Grans, Automated 2.2 %; Lymphocytes # (A) 1.58 X 10*3/uL (0.90-5.00); Lymphocytes % (A) 16.3 %; MCH 28.7 pg (27.0-32.0); MCHC 30.9 g/dL (32.0-37.0); MCV 92.9 fL (80.0-97.0); Mean Platelet Volume 10.7 fL (9.5-12.2); Monocytes # (A) 1.04 X 10*3/uL (0.20-1.00); Monocytes % (A) 10.7 %; NRBC Per 100 WBC 0 /100 WBCS (0.0-0.0); Neutrophils # (A) 6.71 X 10*3/uL (1.80-7.70); Neutrophils % (A) 69.3 %; Platelet Count 666 X 10*3/uL (140-440); RBC 2.96 X 10*6/uL (4.10-5.20); RDW 16.1 % (11.5-14.5); WBC 9.69 X 10*3/uL (4.50-10.00)
[2021-09-17 09:25] LABS: African American GFR (CKD) 155.8 (60.0-200.0); Anion Gap 7.1 mmol/L (10.00-18.00); BUN/Creat Ratio 11.67 Ratio (12.00-20.00); Blood Urea Nitrogen 3.5 mg/dL (9.0-27.0); Calcium 8.2 mg/dL (8.7-10.3); Carbon Dioxide 24.9 mmol/L (20.0-27.5); Magnesium 2.2 mg/dL (1.5-2.4); Non-African American GFR(CKD) 134.4 (60.0-200.0); Potassium 3.5 mmol/L (3.5-5.5)
[2021-09-17 11:57] VITALS: BMI 25.0
[2021-09-17 11:58] VITALS: PULSE 92
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
[2021-09-17] MEDS ORDERED: METOPROLOL TARTRATE 25 MG TAB PO SCH (16:00)
--- NOTE | 2021-09-17 21:51 | P.PN ---
Subjective Progress Note Date: 09/17/21 Principal diagnosis: Fever Patient is a 51 year old female with a past medical history significant for C5 quadriplegia presented to the hospital with body aches and constipation did have 2 episodes of vomiting patient did have a CT of abdominal pelvis which did shows and colonic distention with stool impaction. Patient did have respiratory distress and complete white out of The Requiring Admission to the ICU and Getting Intubated and did have bronchoscopy which was repeated on 09/10/2021 On today's evaluation that is 09/17/2021 the patient remains to be afebrile, the patient is breathing comfortably on room air, patient denies chest pain , the patient denies any cough or sputum production, no abdominal pain no diarrhea Objective - Vital Signs Vital signs: Vital Signs Temp 97.4 F L 09/17/21 02:30 Pulse 92 09/17/21 12:05 Resp 14 09/17/21 02:30 BP 114/76 09/17/21 02:30 Pulse Ox 93 L 09/17/21 02:30 Intake & Output 09/16/21 09/17/21 09/17/21 18:59 06:59 18:59 Intake Total 500 Output Total 1300 850 Balance -800 -850 Weight 64 kg 64 kg Intake: IV 450 Sodium Chloride 0.9% 1, 450 000 ml @ 100 mls/hr IV . Q10H [facility] Rx#:[id number] Oral 50 Output: Urine 1300 850 Other: Voiding Method Indwelling Catheter Indwelling Catheter # Voids 1 - Exam GENERAL DESCRIPTION: Middle-aged female lying in bed in no distress RESPIRATORY SYSTEM: Unlabored breathing , decreased breath sounds at the bases HEART: S1 S2 regular rate and rhythm , ABDOMEN: Soft , mild distention but no tenderness EXTREMITIES: No edema feet - Labs CBC & Chem 7: 09/17/21 06:49 09/17/21 06:49 Labs: Abnormal Lab Results - Last 24 Hours (Table) 09/17/21 09/17/21 Range/Units 06:49 06:49 RBC 2.96 L (4.10-5.20) X 10*6/uL Hgb 8.5 L (12.0-15.0) g/dL Hct 27.5 L (37.2-46.3) % MCHC 30.9 L (32.0-37.0) g/dL RDW 16.1 H (11.5-14.5) % Plt Count 666 H (140-440) X 10*3/uL Immature Gran # 0.21 H (0.00-0.04) X 10*3/uL Monocytes # 1.04 H (0.20-1.00) X 10*3/uL Anion Gap 7.10 L (10.00-18.00) mmol/L BUN 3.5 L (9.0-27.0) mg/dL Creatinine 0.3 L (0.6-1.5) mg/dL BUN/Creatinine Ratio 11.67 L (12.00-20.00) Ratio Calcium 8.2 L (8.7-10.3) mg/dL Microbiology - Last 24 Hours (Table) 09/08/21 12:58 Fungal Culture - Preliminary Bronchial Washings - Random Assessment and Plan (1) Fever Status: Acute Code(s): R50.9 - FEVER, UNSPECIFIED SNOMED Code(s): 205589799 Plan: 1patient presented to hospital with fever in this patient who did have a C5 quadriplegia and did have a history of stool impaction presented hospital abdominal distention and vomiting more likely abdominal source CT abdominal pelvis unfortunately done without any contrast and discharged and colonic distention with stool burden, patient subsequently did have a stable respiratory status in this patient noticed to have opacification of the lung likely from mucus plugging patient did have bronchoscopy with bronchoalveolar lavage which was repeated on 09/11/2019, the patient cultures are so far negative, patient has shown overall clinical improvement white count is normal, patient will be able to finish therapy with oral Augmentin 5 days discussed with the admitting physician Time with Patient: Less than 30
== END 2021-09-17 14:37 | disposition home health service (06) | DRG 871 ==
LOC: EC 18:11 → 4SSUR 23:06 → 2SICU 09-05 14:37 → 4SSUR 09-06 02:37 → 2SICU 09-07 14:17 → 4SSUR 09-16 16:57
PROVIDERS: ADMIT Internal Medicine; ATTEND Internal Medicine
PROC: 02HV33Z Insertion of Infusion Device into Superior Vena Cava, Percutaneous Approach (ICD-10-PCS; 2021-09-05)
PROC: 0DJ08ZZ Inspection of Upper Intestinal Tract, Via Natural or Artificial Opening Endoscopic (ICD-10-PCS; 2021-09-06)
PROC: 0DJD8ZZ Inspection of Lower Intestinal Tract, Via Natural or Artificial Opening Endoscopic (ICD-10-PCS; 2021-09-06)
PROC: 5A09457 Assistance with Respiratory Ventilation, 24-96 Consecutive Hours, Continuous Positive Airway Pressure (ICD-10-PCS; 2021-09-07)
PROC: 0B9M8ZX Drainage of Bilateral Lungs, Via Natural or Artificial Opening Endoscopic, Diagnostic (ICD-10-PCS; 2021-09-08)
PROC: 0BC38ZZ Extirpation of Matter from Right Main Bronchus, Via Natural or Artificial Opening Endoscopic (ICD-10-PCS; 2021-09-08)
PROC: 0BD78ZX Extraction of Left Main Bronchus, Via Natural or Artificial Opening Endoscopic, Diagnostic (ICD-10-PCS; 2021-09-08)
PROC: 0BC78ZZ Extirpation of Matter from Left Main Bronchus, Via Natural or Artificial Opening Endoscopic (ICD-10-PCS; 2021-09-08)
PROC: 0BD38ZX Extraction of Right Main Bronchus, Via Natural or Artificial Opening Endoscopic, Diagnostic (ICD-10-PCS; 2021-09-08)
PROC: 0BH17EZ Insertion of Endotracheal Airway into Trachea, Via Natural or Artificial Opening (ICD-10-PCS; principal; 2021-09-08 07:30)
PROC: 5A1945Z Respiratory Ventilation, 24-96 Consecutive Hours (ICD-10-PCS; principal; 2021-09-08 07:30)
PROC: 0B9F8ZX Drainage of Right Lower Lung Lobe, Via Natural or Artificial Opening Endoscopic, Diagnostic (ICD-10-PCS; 2021-09-10)
PROC: 0B9J8ZZ Drainage of Left Lower Lung Lobe, Via Natural or Artificial Opening Endoscopic (ICD-10-PCS; 2021-09-10)
DX: A41.9 Sepsis, unspecified organism (principal); G82.50 Quadriplegia, unspecified; J69.0 Pneumonitis due to inhalation of food and vomit; J96.01 Acute respiratory failure with hypoxia; D62 Acute posthemorrhagic anemia; E87.1 Hypo-osmolality and hyponatremia; E87.2 Acidosis; I47.1 Supraventricular tachycardia; J90 Pleural effusion, not elsewhere classified; J94.2 Hemothorax; J98.11 Atelectasis; T17.590A Other foreign object in bronchus causing asphyxiation, initial encounter; J98.19 Other pulmonary collapse; E83.51 Hypocalcemia; E87.5 Hyperkalemia; E87.6 Hypokalemia; E87.8 Other disorders of electrolyte and fluid balance, not elsewhere classified; L89.529 Pressure ulcer of left ankle, unspecified stage; V49.9XXS Car occupant (driver) (passenger) injured in unspecified traffic accident, sequela; S14.105S Unspecified injury at C5 level of cervical spinal cord, sequela; Z20.822 Contact with and (suspected) exposure to COVID-19; Z28.310 Unvaccinated for COVID-19; J98.6 Disorders of diaphragm; I95.9 Hypotension, unspecified; K29.70 Gastritis, unspecified, without bleeding; K56.41 Fecal impaction; K64.4 Residual hemorrhoidal skin tags; N31.9 Neuromuscular dysfunction of bladder, unspecified; M62.461 Contracture of muscle, right lower leg; M62.422 Contracture of muscle, left upper arm; M62.421 Contracture of muscle, right upper arm; M62.50 Muscle wasting and atrophy, not elsewhere classified, unspecified site; Z87.820 Personal history of traumatic brain injury; Z74.01 Bed confinement status; Z87.01 Personal history of pneumonia (recurrent); Z87.440 Personal history of urinary (tract) infections; Z87.442 Personal history of urinary calculi; Z98.890 Other specified postprocedural states; Z87.828 Personal history of other (healed) physical injury and trauma; Z87.09 Personal history of other diseases of the respiratory system; Z91.048 Other nonmedicinal substance allergy status
CPT/HCPCS: 31624; 31645; 36415; 36573; 36600; 43235; 45378; 71045; 71046; 74176; 74230; 80048; 80053; 81001; 81025; 82306; 82330; 82805; 83605; 83735; 83930; 83935; 83970; 84132; 84145; 84300; 84439; 84443; 84484; 84550; 85025; 85027; 86140; 87040; 87070; 87075; 87086; 87102; 87116; 87205; 87206; 87252; 87496; 87498; 87502; 87529; 87634; 87636; 87798; 88108; 88305; 89050; 93005; 93306; 94002; 94003; 94640; 94660; 94667; 94760

== ENCOUNTER 2021-09-21 14:22 | Inpatient (IN) | payer MEDICARE, OTHER ==
[2021-09-21] MEDS ORDERED: IPRATROPIUM-ALBUTEROL 3 ML NEB INHALATION STA (14:43)
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
--- NOTE | 2021-09-21 15:13 | XR ---
EXAMINATION TYPE: XR chest 2V DATE OF EXAM: 09/21/2021 COMPARISON: Chest x-ray 6 days ago HISTORY: Dyspnea. TECHNIQUE: Frontal and lateral views of the chest are obtained. FINDINGS: Interval removal of left-sided PICC line. The cardiac silhouette size remains within seferino l limits. Persistent bibasilar opacities more prominent on the left on current study. Increasing cent ral markings left lung. Underlying scoliosis redemonstrated. IMPRESSION: Mild central vascular congestion with small to moderate-sized bilateral pleural effusion s on current study. Correlate for fluid overload state. Findings more prominent from prior.
[2021-09-21 16:16] LABS: Basophils # (A) 0.1 k/uL (0-0.2); Basophils % (A) 1 %; Eosinophils # (A) 0.5 k/uL (0-0.7); Eosinophils % (A) 4 %; HCT 35.3 % (34.0-46.0); Hypochromasia Slight; Lymphocytes # (A) 1.2 k/uL (1.0-4.8); Lymphocytes % (A) 10 %; MCH 29.3 pg (25.0-35.0); MCV 94.5 fL (80.0-100.0); Mean Platelet Volume 7.8; Monocytes # (A) 0.8 k/uL (0-1.0); Monocytes % (A) 6 %; Neutrophils # (A) 9.5 k/uL (1.3-7.7); Neutrophils % (A) 77 %; Platelet Count 834 k/uL (150-450); RBC 3.74 m/uL (3.80-5.40); RDW 15.5 % (11.5-15.5); WBC 12.5 k/uL (3.8-10.6)
[2021-09-21 16:19] LABS: ALT 26 U/L (4-34); AST 29 U/L (14-36); African American GFR (CKD) >90 (>60 ml/min/1.73 sqM); Albumin 3.3 g/dL (3.5-5.0); Alkaline Phosphatase 91 U/L (38-126); Anion Gap 7 mmol/L; Blood Urea Nitrogen 6 mg/dL (7-17); Calcium 8.6 mg/dL (8.4-10.2); Carbon Dioxide 28 mmol/L (22-30); Chloride 104 mmol/L (98-107); Glucose 94 mg/dL (74-99); Non-African American GFR(CKD) >90 (>60 ml/min/1.73 sqM); Potassium 3.6 mmol/L (3.5-5.1); Sodium 139 mmol/L (137-145); Total Bilirubin 0.5 mg/dL (0.2-1.3); Total Protein 6.6 g/dL (6.3-8.2)
[2021-09-21 16:26] LABS: INR 1.2 (<1.2); Partial Thromboplastin Time 25.7 sec (22.0-30.0); Prothrombin Time 12.5 sec (9.0-12.0)
[2021-09-21] MEDS ORDERED: ACETAMINOPHEN TAB 325 MG TAB PO PRN (16:46)
[2021-09-21] MEDS ORDERED: NALOXONE 0.4 MG/ML 1 ML VIAL IV PRN (16:46)
--- NOTE | 2021-09-21 17:28 | CT ---
EXAMINATION TYPE: CT chest wo con DATE OF EXAM: 09/21/2021 COMPARISON: 01/13/2019 HISTORY: h/o SOB CT DLP: 241.4 mGycm Automated exposure control for dose reduction was used. Images obtained from the thoracic inlet to the diaphragm with no contrast. There is moderate size bilateral pleural effusions. There is pulmonary calcification at the lung base s. There is consolidation and atelectasis at both lung bases. There is no mediastinal adenopathy. The re are no hilar masses. Heart size is within normal limits. Thoracic vertebra appear intact. No compression fracture. Sternum is intact. The upper abdominal soft tissues are intact. IMPRESSION: Bilateral pleural effusions with lower lobe pulmonary consolidation and calcification and atelectasis which is progressed compared to last exam. Significant progression of disease on the right side and minimal change on the left side.
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
[2021-09-21] MEDS ORDERED: NON FORMULARY DRUG (Tolterodine Er 4 MG Cap.Er.24h) PO SCH (21:00)
[2021-09-21] MEDS: METOPROLOL TARTRATE 25 MG TAB PO SCH (22:13)
[2021-09-21] MEDS: AMOXIC-POT CLAV 875-125MG 1 EACH TAB PO SCH (22:14)
[2021-09-21] MEDS: BACLOFEN 10 MG TAB PO SCH (22:14)
[2021-09-21] MEDS: NORTRIPTYLINE 25 MG CAP PO SCH (22:14)
[2021-09-21] MEDS: OXYBUTYNIN 10 MG TAB.ER.24 PO SCH (22:14)
[2021-09-21] MEDS: MELATONIN 3 MG TABLET PO PRN (22:48)
[2021-09-22] MEDS ORDERED: HEPARIN SODIUM,PORCINE/PF 5,000 UNIT/0.5 ML SYRINGE SQ SCH
[2021-09-22 07:31] LABS: African American GFR (CKD) >90 (>60 ml/min/1.73 sqM); Anion Gap 5 mmol/L; Blood Urea Nitrogen 9 mg/dL (7-17); Calcium 8.5 mg/dL (8.4-10.2); Carbon Dioxide 28 mmol/L (22-30); Chloride 107 mmol/L (98-107); Glucose 86 mg/dL (74-99); Magnesium 2.1 mg/dL (1.6-2.3); Non-African American GFR(CKD) >90 (>60 ml/min/1.73 sqM); Potassium 3.7 mmol/L (3.5-5.1); Sodium 140 mmol/L (137-145)
[2021-09-22 07:32] LABS: Basophils # (A) 0.1 k/uL (0-0.2); Basophils % (A) 1 %; Eosinophils # (A) 0.5 k/uL (0-0.7); Eosinophils % (A) 6 %; HCT 33.5 % (34.0-46.0); HGB 10.7 gm/dL (11.4-16.0); Hypochromasia Slight; Lymphocytes % (A) 22 %; MCH 30.1 pg (25.0-35.0); MCHC 31.9 g/dL (31.0-37.0); MCV 94.4 fL (80.0-100.0); Mean Platelet Volume 8.5; Monocytes # (A) 0.9 k/uL (0-1.0); Monocytes % (A) 10 %; Neutrophils # (A) 5.1 k/uL (1.3-7.7); Neutrophils % (A) 58 %; Platelet Count 759 k/uL (150-450); RBC 3.55 m/uL (3.80-5.40); RDW 15.6 % (11.5-15.5); WBC 8.8 k/uL (3.8-10.6)
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
[2021-09-22] MEDS: polyethylene glycoL 3350 17 GM POWD.PACK PO SCH (09:43)
[2021-09-22] MEDS: OXYBUTYNIN 10 MG TAB.ER.24 PO SCH ×2 (09:44→21:38)
[2021-09-22] MEDS: BACLOFEN 10 MG TAB PO SCH ×2 (09:44→21:39)
[2021-09-22] MEDS: LORATADINE 10 MG TAB PO SCH (09:44)
[2021-09-22] MEDS: AMOXIC-POT CLAV 875-125MG 1 EACH TAB PO SCH ×2 (09:44→21:39)
[2021-09-22] MEDS: METOPROLOL TARTRATE 25 MG TAB PO SCH ×2 (09:44→21:39)
--- NOTE | 2021-09-22 11:31 | XR ---
EXAMINATION TYPE: XR chest 1V DATE OF EXAM: 09/22/2021 COMPARISON: Chest x-ray 09/21/2021 HISTORY: Status post thoracentesis TECHNIQUE: Single frontal view of the chest is obtained. FINDINGS: There is no evident pneumothorax. Abnormal attenuation present at the lung bases, there is improved visualization of the right hemidiaphragm as compared to prior exam. Heart is obscured. IMPRESSION: No evident complication status post right thoracentesis
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
--- NOTE | 2021-09-22 14:12 | P.PN ---
Subjective Progress Note Date: 09/22/21 Pt is doing well today s/p thoracentesis in which 650cc of cloudy yellow fluid was removed. Gen: awake, alert HEENT: normocephalic, atraumatic, good hearing acuity, moist mucous membranes Resp: good air exchange, breathing comfortably with no accessory muscle use CVS: good distal perfusion x 4, GI: soft, NTTP, ND : no SPT, no CVAT, rubin catheter Not present MSK: no pitting edema, no clubbing Neuro: quadriplegia, at baseline Psych: cooperative, euthymic mood Labs and imaging were reviewed as above Assessment/plan: Acute Hypoxemic Respiratory Failure Bilateral Pleural Effusions Leukocytosis Thrombocytosis -Admit to observation, telemetry -Pulmonary consult -oxygen PRN -hold off on lasix since CBC looks hemoconcentrated, and pt appears euvolemic on exam -encourage IS -CM to help set up home oxygen and BIPAP machine -continue augmentin for 2 more days Quadriplegia HTN Urinary Retention -Home medications reviewed and reconciled Pt is a Full Code DVT PPx with enoxaparin Objective - Vital Signs Vital signs: Vital Signs Temp 97.6 F 09/22/21 06:55 Pulse 75 09/22/21 11:15 Resp 20 09/22/21 11:15 BP 132/85 09/22/21 11:15 Pulse Ox 93 L 09/22/21 11:15 Intake & Output 09/21/21 09/22/21 09/22/21 18:59 06:59 18:59 Output Total 325 Balance -325 Weight 58.967 kg 58.967 kg Output: Urine 325 Other: Voiding Method Indwelling Catheter Indwelling Catheter - Labs CBC & Chem 7: 09/22/21 06:44 09/22/21 06:44 Labs: Abnormal Lab Results - Last 24 Hours (Table) 09/21/21 09/21/21 09/21/21 Range/Units 15:19 15:19 15:19 WBC 12.5 H (3.8-10.6) k/uL RBC 3.74 L (3.80-5.40) m/uL Hgb 11.0 L (11.4-16.0) gm/dL Hct (34.0-46.0) % RDW (11.5-15.5) % Plt Count 834 H (150-450) k/uL Neutrophils # 9.5 H (1.3-7.7) k/uL PT 12.5 H (9.0-12.0) sec INR 1.2 H (<1.2) BUN 6 L (7-17) mg/dL Creatinine 0.40 L (0.52-1.04) mg/dL Albumin 3.3 L (3.5-5.0) g/dL 09/22/21 09/22/21 Range/Units 06:44 06:44 WBC (3.8-10.6) k/uL RBC 3.55 L (3.80-5.40) m/uL Hgb 10.7 L (11.4-16.0) gm/dL Hct 33.5 L (34.0-46.0) % RDW 15.6 H (11.5-15.5) % Plt Count 759 H (150-450) k/uL Neutrophils # (1.3-7.7) k/uL PT (9.0-12.0) sec INR (<1.2) BUN (7-17) mg/dL Creatinine 0.40 L (0.52-1.04) mg/dL Albumin (3.5-5.0) g/dL
--- NOTE | 2021-09-22 14:56 | P.PCN ---
Date of Procedure: 09/22/21 Operative Findings: Date of Procedure: 09/22/21 Preoperative Diagnosis: Right-sided pleural effusion Postoperative Diagnosis: Right-sided pleural effusion Procedure(s) Performed: Right-sided thoracentesis Anesthesia: local Surgeon: Pipe Thompson Estimated Blood Loss (ml): 0 Pathology: other Condition: stable Disposition: floor Operative Findings: A time out was performed and the chest x-ray was reviewed, the appropriate side was confirmed and marked. My hands were washed immediately prior to the procedure. I wore a surgical cap, mask with protective eyewear, sterile gown and sterile gloves throughout the procedure. The patient was prepped and draped in a sterile manner using chlorhexidine scrub after the appropriate level was percussed and confirmed by ultrasound. 1% lidocaine was used to anesthesize the skin, subcutaneous tissue, superior aspect of the rib periosteum and parietal pleura. A finder needle was then introduced over the superior aspect of the rib to locate the pleural fluid; 2colored fluid was aspirated at a depth of approximately 2 cm. A 10-blade scalpel was used to jordan the skin at the insertion site. The Fhoe-s-Nebhuxvs needle was then introduced through the skin incision into the pleural space using negative aspiration pressure and the red colometric indicator to confirm appropriate positioning of the needle. The thoracentesis catheter was then threaded without difficulty. 650 ml of turbid colored fluid was removed without difficulty. The catheter was then removed. No immediate complications were noted during the procedure. A post-procedure chest x-ray is pending at the time of this note. The fluid will be sent for studies. Estimated blood loss is 0cc
[2021-09-22] MEDS: LACTATED RINGERS 500 ML IV SCH ×2 (15:09→15:45)
[2021-09-22 19:36] LABS: Appearance,BF Clear
[2021-09-22] MEDS: NORTRIPTYLINE 25 MG CAP PO SCH (21:39)
[2021-09-22] MEDS: MELATONIN 3 MG TABLET PO PRN (22:03)
[2021-09-23] MEDS: IPRATROPIUM-ALBUTEROL 3 ML NEB INHALATION PRN ×3 (00:07→20:26)
[2021-09-23 00:55] LABS: ABG Base Excess 5.6 mmol/L; ABG HCO3 29 mmol/L (21-25); ABG Oxygen Saturation 96.1 % (94-97); ABG PCO2 40 mmHg (35-45); ABG PH 7.47 (7.35-7.45); ABG PO2 78 mmHg (83-108); ABG TCO2 30 mmol/L (19-24); Allen Test Performed? Yes
[2021-09-23 01:07] LABS: Cholesterol,BF Source Pleural Fluid; Cholesterol,Body Fluid 38 mg/dL; Glucose, BF Source Pleural Fluid; Glucose, Body Fluid 93 mg/dL; LDH, Body Fluid Source Pleural Fluid
--- NOTE | 2021-09-23 01:46 | XR ---
EXAMINATION TYPE: XR chest 1V portable DATE OF EXAM: 09/23/2021 COMPARISON: 09/22/2021 HISTORY: Short of breath TECHNIQUE: Single view FINDINGS: Heart and mediastinum are shifted to the left side. There is almost complete opacification left hemithorax. There is no heart failure. There is evidence of right pleural effusion. IMPRESSION: Left pleural effusion and left pulmonary atelectasis. Atelectasis has significantly progr essed compared to yesterday. Heart shifted to the left side. There are smaller right pleural effusion .
[2021-09-23 09:06] LABS: Glucose,Whole Blood 87 mg/dL (75-99)
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
[2021-09-23] MEDS: polyethylene glycoL 3350 17 GM POWD.PACK PO SCH (09:22)
[2021-09-23] MEDS ORDERED: propofoL 100 ML IV ONE (09:55)
[2021-09-23] MEDS ORDERED: PROPOFOL 10 MG/ML 20 ML VIAL IV ONE (10:00)
[2021-09-23 10:02] LABS: HCT 35.2 % (34.0-46.0); HGB 10.5 gm/dL (11.4-16.0); Hypochromasia Moderate; MCH 28.8 pg (25.0-35.0); MCHC 29.8 g/dL (31.0-37.0); MCV 96.6 fL (80.0-100.0); Mean Platelet Volume 7.7; Platelet Count 789 k/uL (150-450); RBC 3.65 m/uL (3.80-5.40); RDW 15.4 % (11.5-15.5)
[2021-09-23] MEDS ORDERED: SUCCINYLCHOLINE CHLORIDE VIAL 200 MG/10 ML VIAL IV ONE (10:03)
[2021-09-23 10:10] LABS: ALT 18 U/L (4-34); AST 24 U/L (14-36); African American GFR (CKD) >90 (>60 ml/min/1.73 sqM); Albumin 2.8 g/dL (3.5-5.0); Alkaline Phosphatase 74 U/L (38-126); Anion Gap 3 mmol/L; Blood Urea Nitrogen 7 mg/dL (7-17); Calcium 8.4 mg/dL (8.4-10.2); Carbon Dioxide 29 mmol/L (22-30); Chloride 106 mmol/L (98-107); Glucose 92 mg/dL (74-99); Non-African American GFR(CKD) >90 (>60 ml/min/1.73 sqM); Potassium 3.8 mmol/L (3.5-5.1); Sodium 138 mmol/L (137-145); Total Bilirubin 0.5 mg/dL (0.2-1.3); Total Protein 5.9 g/dL (6.3-8.2)
[2021-09-23] MEDS ORDERED: CISATRACURIUM 2 MG/ML 5 ML VIAL IV ONE (10:15)
[2021-09-23 11:37] LABS: Glucose,Whole Blood 91 mg/dL (75-99)
--- NOTE | 2021-09-23 12:01 | XR ---
EXAMINATION TYPE: XR chest 1V portable DATE OF EXAM: 09/23/2021 CLINICAL HISTORY: Difficulty breathing had to be intubated. TECHNIQUE: Single AP portable semiupright view of the chest is obtained. COMPARISON: Chest x-ray from earlier today and older studies FINDINGS: New Orogastric tube projects below diaphragm. There is new endotracheal tube terminating j ust above ger advise retracting 4 cm to be in more ideal position. Bibasilar opacities on current study with marked improvement in the left lung. Cardiac silhouette siz e within normal limits. Surgical change to the cervical spine is noted. IMPRESSION: 1. Low-lying endotracheal tube advise pulling back 4 cm. Satisfactory positioning of new orogastric t ube. 2. Bibasilar acute infiltrate and/or atelectasis and likely small bilateral pleural effusions. Marked improvement in the left lung suggests resolved mucous plugging.
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
[2021-09-23] MEDS: METOPROLOL TARTRATE 25 MG TAB PO SCH (12:08)
[2021-09-23] MEDS: OXYBUTYNIN 10 MG TAB.ER.24 PO SCH ×2 (12:08→21:16)
[2021-09-23] MEDS: BACLOFEN 10 MG TAB PO SCH ×2 (12:08→21:16)
[2021-09-23] MEDS: LORATADINE 10 MG TAB PO SCH (12:08)
--- NOTE | 2021-09-23 12:09 | P.PCN ---
Date of Procedure: 09/23/21 Preoperative Diagnosis: Acute hypoxic respiratory failure Postoperative Diagnosis: Complete left lung collapse secondary to copious mucous plugs, acute hypoxic respiratory failure Procedure(s) Performed: Flexible bronchoscopy, therapeutic airway suctioning and removal of mucous plugs, bronchioloalveolar lavage of the left upper lobe Intubation Central line insertion, femoral Anesthesia: local Surgeon: Pipe Thompson Estimated Blood Loss (ml): 0 Pathology: other (On 1111) Condition: critical Disposition: ICU Operative Findings: Intubation Indication: Respiratory compromise. Left lung collapse, acute hypoxic respiratory failure A time-out was completed verifying correct patient, procedure, site, positioning, and implant(s) or special equipment if applicable. The patient was positioned appropriately and a #8 endotracheal tube was placed under direct laryngoscopy. The tube was anchored at 22 cm at the teeth. Correct placement was confirmed by presence of bilateral breath sounds without air sounds in the abdomen on auscultation. An end-tidal CO2 monitor was also used to confirm tracheal placement of the ET tube. A chest x-ray was ordered to assess for pneumothorax and verify endotracheal tube placement. The patient tolerated the procedure well and there were no complications. Central line insertion Indication: Hemodynamic monitoring/Intravenous access. A time-out was completed verifying correct patient, procedure, site, positioning, and implant(s) or special equipment if applicable. The patient was placed in a dependent position appropriate for central line placement based on the vein to be cannulated. The patients right groin was prepped and draped in sterile fashion. 1% Lidocaine was used to anesthetize the surrounding skin area. A triple lumen 9F Cordis catheter was introduced into the right common femoral vein using Seldinger technique. The catheter was threaded smoothly over the guide wire and appropriate blood return was obtained. Each lumen of the catheter was evacuated of air and flushed with sterile saline. The catheter was then sutured in place to the skin and a sterile dressing applied. Perfusion to the extremity distal to the point of catheter insertion was checked and found to be adequate. The patient tolerated the procedure well and there were no complications. Bronchoscopy, bronchial lavage of the lingula, therapeutic airway suctioning This procedure was done in the intensive care unit. The patient's was first intubated and placed on mechanical ventilator. Following that, adequate sedation was achieved and the procedure was done while the patient was sedated on propofol, intubated on a mechanical ventilator where adequate oxidation ventilation was being performed. An adapter was attached with orotracheal tube and following that the flexible bronchoscope was easily passed through the orotracheal tube and was advanced into the lower trachea. The tip of the ET tube was around 2 cm of water ger. Distal trachea and the main ger were within normal limits. A large mucous plug completely obstructing the right mainstem bronchus was identified and this was suctioned out. Examination of the right-sided included the right mainstem bronchus, right upper lobe bronchus, bronchus intermedius, right middle lobe and right lower lobe bronchus and the various 10 segments on the right side of the lung were patent after therapeutic airway suctioning. Following that, bronchoscope was moved to the left and a large mucous plug was seen completed occluding left mainstem bronchus extending to the left lower lobe bronchus. Therapeutic airway suctioning was done. The mucous plug was removed. Airway patency was achieved. Subsequent examination revealed the left main stem bronchus, left upper lobe bronchus, lingular bronchus, and left lower lobe bronchus and the various 8 segments of the left all being patent and within normal limits At that point, the bronchoscope was moved to the lingular segment, superior segment and the bronchioloalveolar lavage was done. A total of 60 mL of saline was infused and 20 mL was aspirated without any major difficulties. The procedure was completed and the bronchoscope was removed. The samples will be sent for microbial analysis. The patient will be kept on a mechanical ventilator for the next few hours. A repeat chest x-ray showed significant reexpansion of the left lung. The patient On IV Rocephin for now.
[2021-09-23 17:52] LABS: Glucose,Whole Blood 74 mg/dL (75-99)
--- NOTE | 2021-09-23 20:03 | XR ---
EXAMINATION: XR chest 1V portable DATE AND TIME: 09/23/2021 7:35 PM CLINICAL INDICATION: short of breath TECHNIQUE: AP portable upright COMPARISON: AP semierect upright portable radiograph 09/15/2021 at 11:25 AM FINDINGS: The left pleural effusion appears to have increased since the prior study earlier today. There is res ultant less inflation of the left lung parenchyma, with only the upper third of the left lung parench yma inflated at this time. Some of this change may be secondary to the semiupright patient positionin g earlier today. On the right, the lung appears two thirds inflated, with airlessness at the right lung base redemonst rated, similar to the prior study. No pneumothorax or other abnormal gas collection. The skeletal structures and soft tissues are negative for acute findings. IMPRESSION: Interval worsening in the overall lung inflation pattern on the left.
[2021-09-23] MEDS: CHLORHEXIDINE GLUCONATE 15 ML CUP MUCOUS MEM SCH (20:23)
[2021-09-23 21:07] LABS: Glucose,Whole Blood 75 mg/dL (75-99)
[2021-09-23] MEDS: NORTRIPTYLINE 25 MG CAP PO SCH (21:16)
[2021-09-23] MEDS: MELATONIN 3 MG TABLET PO PRN (21:16)
[2021-09-24 00:10] LABS: Glucose,Whole Blood 75 mg/dL (75-99)
[2021-09-24] MEDS: IPRATROPIUM-ALBUTEROL 3 ML NEB INHALATION PRN ×3 (02:35→11:13)
[2021-09-24] MEDS: METOPROLOL TARTRATE 25 MG TAB PO SCH ×3 (02:39→22:21)
[2021-09-24 04:56] LABS: Glucose,Whole Blood 92 mg/dL (75-99)
[2021-09-24 05:05] LABS: HCT 32.8 % (34.0-46.0); Hypochromasia Marked; MCH 29.4 pg (25.0-35.0); MCHC 30.6 g/dL (31.0-37.0); MCV 96.2 fL (80.0-100.0); Mean Platelet Volume 7.6; Platelet Count 794 k/uL (150-450); RBC 3.41 m/uL (3.80-5.40); RDW 15.5 % (11.5-15.5); WBC 18.7 k/uL (3.8-10.6)
[2021-09-24 05:18] LABS: ALT 16 U/L (4-34); AST 20 U/L (14-36); African American GFR (CKD) >90 (>60 ml/min/1.73 sqM); Albumin 2.7 g/dL (3.5-5.0); Alkaline Phosphatase 81 U/L (38-126); Anion Gap 3 mmol/L; Blood Urea Nitrogen 5 mg/dL (7-17); Calcium 8.1 mg/dL (8.4-10.2); Carbon Dioxide 28 mmol/L (22-30); Chloride 110 mmol/L (98-107); Glucose 96 mg/dL (74-99); Non-African American GFR(CKD) >90 (>60 ml/min/1.73 sqM); Potassium 3.1 mmol/L (3.5-5.1); Sodium 141 mmol/L (137-145); Total Bilirubin 0.5 mg/dL (0.2-1.3); Total Protein 5.7 g/dL (6.3-8.2)
[2021-09-24] MEDS ORDERED: propofoL 100 ML IV ONE (05:22)
[2021-09-24] MEDS ORDERED: FUROSEMIDE 10 MG/ML 4 ML VIAL IV STA (05:22)
[2021-09-24] MEDS ORDERED: Potassium Replacement Protocol 1 EACH MISC MISCELLANE PRN (05:29)
[2021-09-24] MEDS ORDERED: NOREPINEPHRIN 4 MG-0.9% NS PMX 4 MG/250 ML ML IV ONE (05:47)
[2021-09-24] MEDS: POTASSIUM BICARBONATE/CIT AC 20 MEQ TABLET.EFF NG-TUBE SCH ×2 (06:18→06:56)
[2021-09-24] MEDS: NOREPINEPHRINE 8 MG in SODIUM CHLORIDE 0.9% 250 ML IV SCH (06:20)
[2021-09-24 06:29] LABS: ABG Base Excess -0.5 mmol/L; ABG HCO3 25 mmol/L (21-25); ABG Oxygen Saturation 98.5 % (94-97); ABG PCO2 46 mmHg (35-45); ABG PH 7.35 (7.35-7.45); ABG PO2 217 mmHg (83-108); ABG TCO2 27 mmol/L (19-24); Allen Test Performed? Yes
--- NOTE | 2021-09-24 07:36 | XR ---
EXAMINATION TYPE: XR chest 1V portable DATE OF EXAM: 09/24/2021 COMPARISON: NONE HISTORY: Abnormal chest x-ray, shortness of breath TECHNIQUE: Single frontal view of the chest is obtained. FINDINGS: There is been interval development of apical increased density in the right. Postop change s in the cervical spine. There is airspace disease in the right lower lobe, retrocardiac density pers ists, there is improvement in aeration at the left lung base. No evident pneumothorax. Cardiac silhou ette likely stable. There are overlying leads. IMPRESSION: Indeterminate abnormal density over the right lung apex. Correlate for pneumonia, diffic ult to exclude effusion.
[2021-09-24] MEDS ORDERED: FUROSEMIDE 10 MG/ML 2 ML VIAL IV ONE (09:00)
[2021-09-24] MEDS: LORATADINE 10 MG TAB PO SCH (09:05)
[2021-09-24] MEDS: BACLOFEN 10 MG TAB PO SCH ×2 (09:05→20:29)
[2021-09-24] MEDS: CHLORHEXIDINE GLUCONATE 15 ML CUP MUCOUS MEM SCH ×2 (09:05→20:29)
[2021-09-24] MEDS: OXYBUTYNIN 10 MG TAB.ER.24 PO SCH ×2 (09:13→20:37)
[2021-09-24] MEDS: polyethylene glycoL 3350 17 GM POWD.PACK PO SCH (09:13)
[2021-09-24] MEDS ORDERED: METOPROLOL TARTRATE 25 MG TAB PO STA (09:35)
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
--- NOTE | 2021-09-24 12:27 | P.PCN ---
Date of Procedure: 09/24/21 Preoperative Diagnosis: Bilateral mucous plugs, hypoxic respiratory failure, recurrent Postoperative Diagnosis: Same Procedure(s) Performed: Bronchoscopy, , therapeutic airway suctioning Anesthesia: GEORGESA Surgeon: Pipe Thompson Estimated Blood Loss (ml): 0 Pathology: none sent Condition: critical Disposition: ICU Operative Findings: This procedure was done in the intensive care unit. The patient's was first intubated and placed on mechanical ventilator. Following that, adequate sedation was achieved and the procedure was done while the patient was sedated on propofol, intubated on a mechanical ventilator where adequate oxidation ventilation was being performed. An adapter was attached with orotracheal tube and following that the flexible bronchoscope was easily passed through the orotracheal tube and was advanced into the lower trachea. The tip of the ET tube was around 2 cm of water ger. Airway inspection was done and there was some looseness of the secretions in the bilateral mainstem bronchi and in the distal trachea. This was easily suctioned out with other major difficulties. The airway in general was patent and the patient a patent distal trachea, bilateral mainstem bronchi, right upper right middle right lower lobe, left upper and left lower lobe bronchi and the various segments were also patent. As such, no other interventions were done. The residual mucous plugs identified in the bilateral mainstem bronchi were easily suctioned out. The procedure was terminated. Bronchoscope was removed. The patient will likely get extubated again today she is able to demonstrate adequate weaning parameters.
--- NOTE | 2021-09-24 14:41 | XR ---
EXAMINATION TYPE: XR chest 1V portable DATE OF EXAM: 09/24/2021 CLINICAL HISTORY: Difficulty breathing catheter to be intubated. TECHNIQUE: Single AP portable semiupright view of the chest is obtained. COMPARISON: Chest x-ray from earlier today and older studies FINDINGS: New Endotracheal tube terminates at mid clavicular level approximately 4 cm above the jenae na. There is new orogastric tube projecting below diaphragm. New left upper half airspace opacity. Consider large mucous plug of the left upper lung bronchus. New left-sided volume loss with juxtaphrenic peaking of the left hemidiaphragm. Peripheral increased [place] right lower lung redemonstrated. Cardiac silhouette size remains normal limits. Surgical change to the cervical spine is redemonstrated. Marked improvement in the right apical curvilinear pleural d ensity. New increased interstitial markings in the left hilar region. IMPRESSION: 1. New endotracheal and orogastric tubes satisfactory in position. 2. Probable large left upper lung mucous plug new from most recent prior. New central left hilar nellie a and/or developing infiltrates. Stable peripheral right lower lung atypical infiltrates.
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
[2021-09-24 17:55] LABS: Glucose,Whole Blood 91 mg/dL (75-99)
[2021-09-24] MEDS ORDERED: SODIUM CHLORIDE 0.9% 500 ML 500 ML IV ONE (19:12)
[2021-09-24] MEDS: NORTRIPTYLINE 25 MG CAP PO SCH (20:37)
[2021-09-24] MEDS: MELATONIN 3 MG TABLET PO PRN (22:21)
[2021-09-25 02:36] LABS: Glucose,Whole Blood 89 mg/dL (75-99)
[2021-09-25 05:06] LABS: Glucose,Whole Blood 89 mg/dL (75-99)
[2021-09-25] MEDS: IPRATROPIUM-ALBUTEROL 3 ML NEB INHALATION PRN ×2 (07:38→15:10)
[2021-09-25 08:07] LABS: HGB 9.3 gm/dL (11.4-16.0); Hypochromasia Marked; MCHC 29.8 g/dL (31.0-37.0); MCV 97.3 fL (80.0-100.0); Mean Platelet Volume 7.6; Platelet Count 557 k/uL (150-450); RBC 3.19 m/uL (3.80-5.40); RDW 15.6 % (11.5-15.5); WBC 11.8 k/uL (3.8-10.6)
[2021-09-25 08:25] LABS: African American GFR (CKD) >90 (>60 ml/min/1.73 sqM); Anion Gap 5 mmol/L; Blood Urea Nitrogen 10 mg/dL (7-17); Carbon Dioxide 27 mmol/L (22-30); Chloride 107 mmol/L (98-107); Glucose 114 mg/dL (74-99); Non-African American GFR(CKD) >90 (>60 ml/min/1.73 sqM); Potassium 3.3 mmol/L (3.5-5.1); Sodium 139 mmol/L (137-145)
[2021-09-25] MEDS: OXYBUTYNIN 10 MG TAB.ER.24 PO SCH (08:34)
[2021-09-25] MEDS: BACLOFEN 10 MG TAB PO SCH ×2 (08:34→20:27)
[2021-09-25] MEDS: LORATADINE 10 MG TAB PO SCH (08:34)
[2021-09-25] MEDS: polyethylene glycoL 3350 17 GM POWD.PACK PO SCH (08:34)
[2021-09-25] MEDS: POTASSIUM CHLORIDE ER 20 MEQ TAB.ER PO SCH ×2 (08:36→10:36)
[2021-09-25] MEDS: METOPROLOL TARTRATE 25 MG TAB PO SCH ×2 (09:14→20:27)
--- NOTE | 2021-09-25 09:29 | XR ---
EXAMINATION TYPE: XR chest 1V portable DATE OF EXAM: 09/25/2021 COMPARISON: 09/24/2021 INDICATION: Difficulty breathing TECHNIQUE: Single frontal view of the chest is obtained. FINDINGS: The heart size is normal. The pulmonary vasculature is normal. Bibasilar infiltrates are present. Endotracheal tube and nasogastric tube is been removed. IMPRESSION: 1. Bibasilar infiltrates. Continued follow-up is recommended.
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
--- NOTE | 2021-09-25 10:48 | US ---
EXAMINATION TYPE: US chest DATE OF EXAM: 09/25/2021 COMPARISON: NONE CLINICAL HISTORY: Markings for thoracentesis by pulmonary staff. TECHNIQUE: Targeted ultrasound of the posterior lower bilateral hemithoraces EXAM MEASUREMENTS: Left Pleural Effusion pocket size: 5.4 cm Debris within fluid. Left skin surface to fluid distance: 1.2 cm Left side marked for possible thoracentesis outside the dept. Pulmonologists are able to review the images in the patient?s EMR. IMPRESSIONS: 1. Left complex pleural effusion
[2021-09-25 11:24] LABS: Glucose,Whole Blood 89 mg/dL (75-99)
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
[2021-09-25] MEDS: NOREPINEPHRINE 8 MG in SODIUM CHLORIDE 0.9% 250 ML IV SCH (14:25)
[2021-09-25] MEDS ORDERED: ZYRTEC 10 MG PO SCH (15:00)
[2021-09-25 16:43] LABS: Glucose,Whole Blood 116 mg/dL (75-99)
[2021-09-25] MEDS ORDERED: POTASSIUM CHLORIDE ER 20 MEQ TAB.ER PO SCH (17:00)
[2021-09-25] MEDS ORDERED: bisacodyL 10 MG SUPP RECTAL STA (20:09)
[2021-09-25] MEDS ORDERED: diphenhydrAMINE 50 MG CAP PO PRN (20:10)
[2021-09-25] MEDS: MELATONIN 3 MG TABLET PO PRN (20:27)
[2021-09-25] MEDS: NORTRIPTYLINE 25 MG CAP PO SCH (20:30)
[2021-09-26 04:23] LABS: Basophils % (A) 0 %; Eosinophils # (A) 0.5 k/uL (0-0.7); Eosinophils % (A) 5 %; HCT 29.8 % (34.0-46.0); HGB 8.9 gm/dL (11.4-16.0); Hypochromasia Marked; Lymphocytes # (A) 1.9 k/uL (1.0-4.8); Lymphocytes % (A) 19 %; MCHC 29.8 g/dL (31.0-37.0); MCV 97.2 fL (80.0-100.0); Mean Platelet Volume 7.7; Monocytes # (A) 0.6 k/uL (0-1.0); Monocytes % (A) 6 %; Neutrophils # (A) 6.8 k/uL (1.3-7.7); Neutrophils % (A) 67 %; Platelet Count 618 k/uL (150-450); RBC 3.07 m/uL (3.80-5.40); RDW 15.5 % (11.5-15.5); WBC 10.1 k/uL (3.8-10.6)
[2021-09-26 04:31] LABS: African American GFR (CKD) >90 (>60 ml/min/1.73 sqM); Anion Gap 5 mmol/L; Blood Urea Nitrogen 9 mg/dL (7-17); Calcium 8.3 mg/dL (8.4-10.2); Carbon Dioxide 26 mmol/L (22-30); Chloride 108 mmol/L (98-107); Glucose 84 mg/dL (74-99); Non-African American GFR(CKD) >90 (>60 ml/min/1.73 sqM); Potassium 4.1 mmol/L (3.5-5.1); Sodium 139 mmol/L (137-145)
--- NOTE | 2021-09-26 08:19 | XR ---
EXAMINATION TYPE: XR chest 1V portable DATE OF EXAM: 09/26/2021 COMPARISON: 09/25/2021 INDICATION: Tube placement, previous abnormal chest TECHNIQUE: Single frontal view of the chest is obtained. FINDINGS: The heart size is mildly prominent. The pulmonary vasculature is normal. Lateral lung base infiltrates are present may be increased. Small effusions are not excluded. IMPRESSION: 1. Bibasilar infiltrates and/or pleural effusions. Findings appear progressive from comparison.
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
[2021-09-26 09:45] LABS: % Iron Saturation 28.23 (12.00-45.00); Iron 42 ug/dL (50-170); Total Iron Binding Capacity 148 ug/dL (228-460)
[2021-09-26] MEDS: NOREPINEPHRINE 8 MG in SODIUM CHLORIDE 0.9% 250 ML IV SCH (09:51)
[2021-09-26] MEDS: METOPROLOL TARTRATE 25 MG TAB PO SCH ×2 (09:52→20:39)
[2021-09-26] MEDS: BACLOFEN 10 MG TAB PO SCH ×2 (09:52→20:39)
[2021-09-26] MEDS: ZYRTEC 10 MG PO SCH (09:52)
[2021-09-26] MEDS: polyethylene glycoL 3350 17 GM POWD.PACK PO SCH (09:55)
[2021-09-26] MEDS: IPRATROPIUM-ALBUTEROL 3 ML NEB INHALATION PRN ×3 (10:35→19:48)
--- NOTE | 2021-09-26 11:39 | XR ---
EXAMINATION TYPE: XR chest 1V portable DATE OF EXAM: 09/26/2021 COMPARISON: 09/26/2021 earlier exam INDICATION: Worsening shortness of breath TECHNIQUE: Single frontal view of the chest is obtained. FINDINGS: The heart size is normal. The pulmonary vasculature is normal. There is increased right pleural fluid and/or atelectasis. Left lower lung field appears somewhat imp roved from comparison. IMPRESSION: 1. Increasing right subpulmonic effusion and/or atelectasis. 2. There may be some improvement of the left lower lobe infiltrate.
[2021-09-26] MEDS ORDERED: COSYNTROPIN 0.25 MG VIAL IVP ONE (17:15)
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
[2021-09-26] MEDS: NORTRIPTYLINE 25 MG CAP PO SCH (20:39)
[2021-09-26] MEDS: MELATONIN 3 MG TABLET PO PRN (22:06)
[2021-09-26] MEDS ORDERED: VANCOMYCIN IV PER PHARMACY 1 EACH MISC MISCELLANE PRN (23:28)
[2021-09-27] MEDS ORDERED: VANCOMYCIN 1,250 MG in SODIUM CHLORIDE 0.9% 250 ML IVPB ONE (01:00)
[2021-09-27 04:58] LABS: HCT 31.3 % (34.0-46.0); HGB 9.5 gm/dL (11.4-16.0); Hypochromasia Marked; MCH 29.6 pg (25.0-35.0); MCHC 30.4 g/dL (31.0-37.0); MCV 97.2 fL (80.0-100.0); Mean Platelet Volume 7.8; Platelet Count 589 k/uL (150-450); RBC 3.22 m/uL (3.80-5.40); RDW 15.4 % (11.5-15.5)
[2021-09-27 05:15] LABS: Anion Gap 6 mmol/L; Blood Urea Nitrogen 8 mg/dL (7-17); Carbon Dioxide 26 mmol/L (22-30); Chloride 106 mmol/L (98-107); Glucose 90 mg/dL (74-99); Potassium 4.2 mmol/L (3.5-5.1); Sodium 138 mmol/L (137-145)
[2021-09-27 05:16] LABS: ALT 12 U/L (4-34); AST 18 U/L (14-36); African American GFR (CKD) >90 (>60 ml/min/1.73 sqM); Albumin 2.7 g/dL (3.5-5.0); Alkaline Phosphatase 75 U/L (38-126); Calcium 8.5 mg/dL (8.4-10.2); Magnesium 1.9 mg/dL (1.6-2.3); Non-African American GFR(CKD) >90 (>60 ml/min/1.73 sqM); Total Bilirubin 0.4 mg/dL (0.2-1.3); Total Protein 5.6 g/dL (6.3-8.2)
[2021-09-27] MEDS: NOREPINEPHRINE 8 MG in SODIUM CHLORIDE 0.9% 250 ML IV SCH (06:35)
[2021-09-27] MEDS: IPRATROPIUM-ALBUTEROL 3 ML NEB INHALATION PRN ×5 (07:23→23:04)
--- NOTE | 2021-09-27 07:38 | XR ---
EXAMINATION TYPE: XR chest 1V portable DATE OF EXAM: 09/27/2021 COMPARISON: Of 09/26/2021 HISTORY: Shortness of breath TECHNIQUE: Single frontal view of the chest is obtained. FINDINGS: Heart size stable with persistent bilateral lower lobe infiltrate and small effusion. No s izable pneumothorax. No overt failure. IMPRESSION: Stable bilateral lower lobe infiltrate and pleural effusion.
[2021-09-27] MEDS: VANCOMYCIN 1,000 MG in SODIUM CHLORIDE 0.9% 250 ML IVPB SCH ×2 (07:47→16:13)
[2021-09-27] MEDS: PIPERACILLIN-TAZOBACTAM 3.375 GM in SODIUM CHLORIDE 0.9% 100 ML IVPB SCH ×2 (08:35→16:13)
--- NOTE | 2021-09-27 08:56 | XR ---
EXAMINATION TYPE: XR chest 1V portable DATE OF EXAM: 09/27/2021 COMPARISON: Chest x-ray 09/27/2021 at earlier time HISTORY: Oxygen desaturation, abnormal chest x-ray TECHNIQUE: Single frontal view of the chest is obtained. FINDINGS: Abnormal density consistent with effusion present in the right hemithorax, there is likely associated atelectasis versus edema or pneumonia. Left pleural effusion with blunting the costophren ic angles also again noted. Heart is likely stable, patient is rotated. Postop changes are noted to t he cervical spine. IMPRESSION: Rotated exam, bilateral pleural effusions, correlate for pneumonia versus atelectasis.
[2021-09-27] MEDS: METOPROLOL TARTRATE 25 MG TAB PO SCH ×2 (09:09→21:30)
[2021-09-27] MEDS ORDERED: SODIUM CHLORIDE 0.9% 500 ML 500 ML IV ONE (09:18)
--- NOTE | 2021-09-27 09:48 | US ---
EXAMINATION TYPE: US chest DATE OF EXAM: 09/27/2021 COMPARISON: NONE CLINICAL HISTORY: bilat pleural effusion. bilateral pleural effusion TECHNIQUE: Targeted ultrasound of the posterior lower bilateral hemithoraces EXAM MEASUREMENTS: Right Pleural Effusion pocket size: 4.0 cm Right skin surface to fluid distance: 2.0 cm Left Pleural Effusion pocket size: 7.3 cm Left skin surface to fluid distance: 1.9 cm Right side marked for possible thoracentesis outside the dept. Left side marked for possible thoracentesis outside the dept. Pulmonologists are able to review the images in the patient?s EMR. IMPRESSIONS: Limited scan.Bilateral pleural effusions
[2021-09-27] MEDS: BACLOFEN 10 MG TAB PO SCH ×2 (10:09→21:30)
[2021-09-27] MEDS: polyethylene glycoL 3350 17 GM POWD.PACK PO SCH (10:09)
[2021-09-27] MEDS: ZYRTEC 10 MG PO SCH (10:10)
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
[2021-09-27] MEDS ORDERED: ENOXAPARIN 40 MG/0.4 ML SYRINGE SQ SCH (12:15)
[2021-09-27] MEDS: PANTOPRAZOLE 40 MG/10 ML VIAL IVP SCH (14:39)
[2021-09-27] MEDS: ENOXAPARIN 40 MG/0.4 ML SYRINGE SQ SCH (14:39)
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
[2021-09-27] MEDS: NORTRIPTYLINE 25 MG CAP PO SCH (21:30)
[2021-09-27] MEDS: MELATONIN 3 MG TABLET PO PRN (21:30)
[2021-09-27] MEDS ORDERED: LORazepam 2 MG/ML INJ IV STA (22:39)
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
--- NOTE | 2021-09-27 23:44 | XR ---
EXAMINATION TYPE: XR chest 1V portable DATE OF EXAM: 09/27/2021 COMPARISON: Today HISTORY: Short of breath TECHNIQUE: 2 views AP FINDINGS: There is a moderate right pleural effusion. There is small left pleural effusion. No heart failure seen. There are chest leads. Heart size is fairly normal. There is infiltrate in both lower l obes. IMPRESSION: Bilateral pleural effusions and lower lobe infiltrates which appear improved on the right side and unchanged on the left side compared to exam earlier today.
[2021-09-28] MEDS: VANCOMYCIN 1,000 MG in SODIUM CHLORIDE 0.9% 250 ML IVPB SCH ×3 (00:03→23:04)
[2021-09-28] MEDS: PIPERACILLIN-TAZOBACTAM 3.375 GM in SODIUM CHLORIDE 0.9% 100 ML IVPB SCH ×2 (00:04→08:06)
[2021-09-28] MEDS: DEXMEDETOMIDINE/0.9% NACL(PMX) 400 MCG in EMPTY BAG 1 BAG IV SCH ×2 (02:00→09:00)
[2021-09-28 06:48] LABS: Basophils % (A) 0 %; Eosinophils % (A) 0 %; HCT 32.1 % (34.0-46.0); HGB 9.3 gm/dL (11.4-16.0); Hypochromasia Marked; Lymphocytes # (A) 0.4 k/uL (1.0-4.8); Lymphocytes % (A) 4 %; MCH 29.1 pg (25.0-35.0); MCHC 29.1 g/dL (31.0-37.0); MCV 100.1 fL (80.0-100.0); Macrocytosis Slight; Mean Platelet Volume 8.1; Monocytes # (A) 0.3 k/uL (0-1.0); Monocytes % (A) 3 %; Neutrophils # (A) 11.8 k/uL (1.3-7.7); Neutrophils % (A) 92 %; Platelet Count 448 k/uL (150-450); RDW 14.8 % (11.5-15.5); WBC 12.7 k/uL (3.8-10.6)
[2021-09-28] MEDS: NOREPINEPHRINE 8 MG in SODIUM CHLORIDE 0.9% 250 ML IV SCH (06:48)
[2021-09-28 07:09] LABS: African American GFR (CKD) >90 (>60 ml/min/1.73 sqM); Anion Gap 9 mmol/L; Blood Urea Nitrogen 11 mg/dL (7-17); Calcium 8.8 mg/dL (8.4-10.2); Carbon Dioxide 22 mmol/L (22-30); Chloride 109 mmol/L (98-107); Glucose 153 mg/dL (74-99); Non-African American GFR(CKD) >90 (>60 ml/min/1.73 sqM); Potassium 4.8 mmol/L (3.5-5.1); Sodium 140 mmol/L (137-145)
[2021-09-28] MEDS: IPRATROPIUM-ALBUTEROL 3 ML NEB INHALATION PRN ×2 (08:09→10:54)
--- NOTE | 2021-09-28 08:09 | XR ---
EXAMINATION TYPE: XR chest 1V portable DATE OF EXAM: 09/28/2021 COMPARISON: Chest x-ray 09/27/2021 HISTORY: Abnormal chest x-ray, tube placement TECHNIQUE: Single frontal view of the chest is obtained. FINDINGS: There are overlying artifacts. Patchy basilar density persists, the hemidiaphragms are lar antoine obscured. No evident pneumothorax. Cardiac mediastinal sweat is stable, patient is rotated. IMPRESSION: Probable basilar atelectasis versus pneumonia and associated effusions, correlate to exc lude edema
[2021-09-28] MEDS: ENOXAPARIN 40 MG/0.4 ML SYRINGE SQ SCH (09:29)
[2021-09-28] MEDS: PANTOPRAZOLE 40 MG/10 ML VIAL IVP SCH (09:29)
[2021-09-28] MEDS: polyethylene glycoL 3350 17 GM POWD.PACK PO SCH (10:45)
[2021-09-28] MEDS: METOPROLOL TARTRATE 25 MG TAB PO SCH ×2 (10:45→20:00)
[2021-09-28] MEDS: BACLOFEN 10 MG TAB PO SCH ×2 (10:45→20:00)
[2021-09-28] MEDS: ZYRTEC 10 MG PO SCH (10:45)
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
[2021-09-28] MEDS: MELATONIN 3 MG TABLET PO PRN (20:00)
[2021-09-28] MEDS: NORTRIPTYLINE 25 MG CAP PO SCH (20:00)
[2021-09-29] MEDS: NOREPINEPHRINE 8 MG in SODIUM CHLORIDE 0.9% 250 ML IV SCH ×2 (06:15→21:03)
[2021-09-29] MEDS: PANTOPRAZOLE 40 MG TABLET PO SCH ×2 (06:15→08:48)
[2021-09-29 06:48] LABS: HCT 29.7 % (34.0-46.0); HGB 8.9 gm/dL (11.4-16.0); Hypochromasia Marked; MCH 29.6 pg (25.0-35.0); MCHC 29.9 g/dL (31.0-37.0); Macrocytosis Slight; Mean Platelet Volume 7.6; Platelet Count 393 k/uL (150-450); RDW 14.9 % (11.5-15.5); WBC 11.4 k/uL (3.8-10.6)
[2021-09-29 07:09] LABS: Calcium 9.2 mg/dL (8.4-10.2); Potassium 4.1 mmol/L (3.5-5.1)
[2021-09-29] MEDS: IPRATROPIUM-ALBUTEROL 3 ML NEB INHALATION PRN ×4 (07:26→19:26)
[2021-09-29] MEDS: ENOXAPARIN 40 MG/0.4 ML SYRINGE SQ SCH (08:46)
[2021-09-29] MEDS: polyethylene glycoL 3350 17 GM POWD.PACK PO SCH (08:46)
[2021-09-29] MEDS: ZYRTEC 10 MG PO SCH (08:48)
[2021-09-29] MEDS: BACLOFEN 10 MG TAB PO SCH ×2 (08:48→20:01)
[2021-09-29] MEDS: METOPROLOL TARTRATE 25 MG TAB PO SCH ×2 (08:48→20:01)
--- NOTE | 2021-09-29 08:58 | XR ---
EXAMINATION TYPE: XR chest 1V portable DATE OF EXAM: 09/29/2021 COMPARISON: 09/28/2021 HISTORY: Tube placement TECHNIQUE: Single frontal view of the chest is obtained. FINDINGS: Bilateral lower lobe infiltrate and small effusion. Heart size prominent. No pneumothorax. No interstitial edema. IMPRESSION: Bilateral lower lobe infiltrate and small pleural effusion.
[2021-09-29] MEDS: SODIUM CHLORIDE 0.9% 1,000 ML IV SCH (09:37)
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
[2021-09-29] MEDS: DEXMEDETOMIDINE/0.9% NACL(PMX) 400 MCG in EMPTY BAG 1 BAG IV SCH (13:00)
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
[2021-09-29] MEDS: VANCOMYCIN 1,000 MG in SODIUM CHLORIDE 0.9% 250 ML IVPB SCH (17:43)
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
[2021-09-29] MEDS: NORTRIPTYLINE 25 MG CAP PO SCH (20:01)
[2021-09-29] MEDS ORDERED: propofoL 100 ML IV ONE (20:21)
--- NOTE | 2021-09-29 20:44 | XR ---
EXAMINATION TYPE: XR chest 1V portable DATE OF EXAM: 09/29/2021 COMPARISON: 09/29/2021 INDICATION: Difficulty breathing, line placement TECHNIQUE: Single frontal view of the chest is obtained. FINDINGS: The heart size is normal. The pulmonary vasculature is somewhat prominent. There is diffuse increased lung markings through the right lower lobe. Correlate for pleural effusion or atelectasis The endotracheal tube tip appears to be 2.1 cm above the ger. Nasogastric tube transverses the tho rax. IMPRESSION: 1. Worsening right lower lobe infiltrate or pleural effusion. 2. Placement of endotracheal tube and nasogastric tube discussed above
[2021-09-29] MEDS ORDERED: CISATRACURIUM 2 MG/ML 5 ML VIAL IV ONE (20:59)
[2021-09-29 21:11] LABS: ABG Base Excess -1.3 mmol/L; ABG HCO3 23 mmol/L (21-25); ABG Oxygen Saturation 99.5 % (94-97); ABG PCO2 38 mmHg (35-45); ABG PO2 192 mmHg (83-108); ABG TCO2 25 mmol/L (19-24); Allen Test Performed? Yes
[2021-09-30] MEDS: SODIUM CHLORIDE 0.9% 1,000 ML IV SCH ×3 (01:19→17:53)
[2021-09-30] MEDS: CHLORHEXIDINE GLUCONATE 15 ML CUP MUCOUS MEM SCH ×3 (01:21→21:02)
[2021-09-30 05:55] LABS: ABG Base Excess -0.5 mmol/L; ABG HCO3 22 mmol/L (21-25); ABG Oxygen Saturation 97.7 % (94-97); ABG PCO2 25 mmHg (35-45); ABG PH 7.55 (7.35-7.45); ABG PO2 101 mmHg (83-108); ABG TCO2 23 mmol/L (19-24); Allen Test Performed? Yes
[2021-09-30] MEDS: NOREPINEPHRINE 8 MG in SODIUM CHLORIDE 0.9% 250 ML IV SCH (06:57)
[2021-09-30] MEDS: IPRATROPIUM-ALBUTEROL 3 ML NEB INHALATION PRN ×3 (07:48→19:01)
[2021-09-30 08:14] LABS: Basophils % (A) 0 %; Eosinophils # (A) 0.3 k/uL (0-0.7); Eosinophils % (A) 3 %; HCT 27.4 % (34.0-46.0); HGB 8.4 gm/dL (11.4-16.0); Hypochromasia Marked; Lymphocytes # (A) 0.8 k/uL (1.0-4.8); Lymphocytes % (A) 8 %; MCH 30.1 pg (25.0-35.0); MCHC 30.7 g/dL (31.0-37.0); Mean Platelet Volume 8.3; Monocytes # (A) 0.6 k/uL (0-1.0); Monocytes % (A) 7 %; Neutrophils # (A) 7.6 k/uL (1.3-7.7); Neutrophils % (A) 80 %; Platelet Count 365 k/uL (150-450); RDW 15.1 % (11.5-15.5); WBC 9.6 k/uL (3.8-10.6)
[2021-09-30 08:32] LABS: Calcium 8.8 mg/dL (8.4-10.2)
[2021-09-30] MEDS: ENOXAPARIN 40 MG/0.4 ML SYRINGE SQ SCH (08:51)
[2021-09-30] MEDS: PANTOPRAZOLE 40 MG/10 ML VIAL IVP SCH (08:51)
[2021-09-30] MEDS: BACLOFEN 10 MG TAB PO SCH ×2 (08:51→21:02)
[2021-09-30] MEDS: polyethylene glycoL 3350 17 GM POWD.PACK PO SCH (08:52)
[2021-09-30] MEDS: ZYRTEC 10 MG PO SCH (08:52)
[2021-09-30] MEDS ORDERED: SODIUM CHLORIDE 0.9% 1,000 ML IV ONE (09:08)
[2021-09-30] MEDS: POTASSIUM CHLORIDE 20 MEQ in WATER FOR INJECTION 1 100ML.BAG IVPB SCH ×2 (09:10→11:56)
[2021-09-30] MEDS: METOPROLOL TARTRATE 25 MG TAB PO SCH ×2 (09:10→21:02)
--- NOTE | 2021-09-30 09:22 | XR ---
EXAMINATION TYPE: XR chest 1V portable DATE OF EXAM: 09/30/2021 COMPARISON: 09/29/2021 HISTORY: SOB, Follow Up FINDINGS: Indwelling tubes and catheters are unchanged. Improvement in right upper lobe and right basilar infiltrates. Persistent basilar infiltrates noted. Stable appearance of the cardio-mediastinal structures at this time. Pleural effusion unchanged. IMPRESSION: 1. Interval improvement. Clinical correlation and follow up until resolution is recommended.
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
[2021-09-30] MEDS ORDERED: VANCOMYCIN TROUGH DUE 1 EACH MISC MISCELLANE ONE (11:00)
[2021-09-30] MEDS: VANCOMYCIN 1,000 MG in SODIUM CHLORIDE 0.9% 250 ML IVPB SCH (12:22)
[2021-09-30] MEDS ORDERED: VANCOMYCIN IV PER PHARMACY 1 EACH MISC MISCELLANE PRN (12:24)
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
[2021-09-30] MEDS: HYDROmorphone 1 MG/ML 1 ML SYRINGE IVP PRN (17:10)
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
--- NOTE | 2021-09-30 18:16 | OP ---
OPERATIVE REPORT OPERATIVE REPORT: Placement of right femoral arterial line. PREOPERATIVE DIAGNOSIS: Acute hypoxic respiratory failure. POSTOPERATIVE DIAGNOSIS: Acute hypoxic respiratory failure. ANESTHESIA USED: Two mL of 1% lidocaine. PROCEDURE DESCRIPTION: The patient was placed in supine position. The area of the right groin was prepared in a sterile fashion and drapes were applied. The left femoral artery was palpated and localized by Doppler. Then the artery was cannulated easily, and a guidewire was placed. A femoral arterial catheter was placed over the guidewire, and the guidewire was removed. Good blood flow, good waveform noted. No complications. Line was secured using 3.0 silk sutures. MMODL / IJN: [id number] /
[2021-09-30] MEDS: NORTRIPTYLINE 25 MG CAP PO SCH (21:03)
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
[2021-10-01] MEDS: SODIUM CHLORIDE 0.9% 1,000 ML IV SCH ×3 (02:38→20:41)
[2021-10-01 05:31] LABS: Glucose,Whole Blood 93 mg/dL (75-99)
[2021-10-01 05:50] LABS: ABG Base Excess -4.6 mmol/L; ABG HCO3 20 mmol/L (21-25); ABG Oxygen Saturation 98.8 % (94-97); ABG PCO2 29 mmHg (35-45); ABG PH 7.43 (7.35-7.45); ABG PO2 110 mmHg (83-108); ABG TCO2 21 mmol/L (19-24)
[2021-10-01 05:58] LABS: Allen Test Performed? No
[2021-10-01 06:04] LABS: Anisocytosis Slight; Basophils % (A) 0 %; Eosinophils # (A) 0.5 k/uL (0-0.7); Eosinophils % (A) 6 %; HCT 26.4 % (34.0-46.0); HGB 8.1 gm/dL (11.4-16.0); Hypochromasia Marked; Lymphocytes % (A) 12 %; MCH 29.1 pg (25.0-35.0); MCHC 30.6 g/dL (31.0-37.0); MCV 94.9 fL (80.0-100.0); Mean Platelet Volume 8.6; Monocytes # (A) 0.4 k/uL (0-1.0); Monocytes % (A) 5 %; Neutrophils # (A) 6.7 k/uL (1.3-7.7); Neutrophils % (A) 75 %; Platelet Count 370 k/uL (150-450); RBC 2.78 m/uL (3.80-5.40); WBC 8.9 k/uL (3.8-10.6)
[2021-10-01 06:19] LABS: Potassium 3.1 mmol/L (3.5-5.1)
[2021-10-01] MEDS: IPRATROPIUM-ALBUTEROL 3 ML NEB INHALATION PRN ×3 (07:29→15:11)
[2021-10-01] MEDS: ENOXAPARIN 40 MG/0.4 ML SYRINGE SQ SCH (07:31)
[2021-10-01] MEDS: NOREPINEPHRINE 8 MG in SODIUM CHLORIDE 0.9% 250 ML IV SCH (07:33)
[2021-10-01] MEDS ORDERED: POTASSIUM BICARBONATE/CIT AC 20 MEQ TABLET.EFF PO ONE (08:00)
--- NOTE | 2021-10-01 08:01 | XR ---
EXAMINATION TYPE: XR chest 1V portable DATE OF EXAM: 10/01/2021 COMPARISON: Prior chest x-ray dated 09/30/2021 HISTORY: Intubated TECHNIQUE: Single frontal view of the chest is obtained. FINDINGS: Endotracheal tube and NG tube are overlying appropriate positions. Patient is rotated, the re are overlying artifacts. No evident pneumothorax. Interval improved visualization of left hemidiap hragm, bibasilar density persists. Cardiac mediastinal silhouette is likely stable. IMPRESSION: Possible basilar atelectasis versus pneumonia and associated effusion.
[2021-10-01] MEDS: POTASSIUM BICARBONATE/CIT AC 20 MEQ TABLET.EFF NG-TUBE SCH ×2 (08:20→09:26)
[2021-10-01] MEDS: BACLOFEN 10 MG TAB PO SCH ×2 (08:20→20:40)
[2021-10-01] MEDS: CHLORHEXIDINE GLUCONATE 15 ML CUP MUCOUS MEM SCH ×2 (08:20→20:40)
[2021-10-01] MEDS: PANTOPRAZOLE 40 MG/10 ML VIAL IVP SCH (08:21)
[2021-10-01] MEDS: ZYRTEC 10 MG PO SCH (08:21)
[2021-10-01] MEDS: polyethylene glycoL 3350 17 GM POWD.PACK PO SCH (08:21)
[2021-10-01] MEDS ORDERED: Magnesium Replacement Protocol 1 EACH MISC MISCELLANE PRN (09:12)
[2021-10-01] MEDS ORDERED: SODIUM CHLORIDE 0.9% 1,000 ML IV ONE (09:25)
[2021-10-01] MEDS: MAGNESIUM SULFATE-D5W PMX 1 GM in DEXTROSE/WATER 1 100ML.BAG IVPB SCH ×2 (09:26→12:01)
[2021-10-01] MEDS: METOPROLOL TARTRATE 25 MG TAB PO SCH ×3 (09:40→20:40)
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
[2021-10-01] MEDS ORDERED: CISATRACURIUM 2 MG/ML 5 ML VIAL IV ONE (11:44)
[2021-10-01] MEDS ORDERED: LIDOCAINE 1% PF 10 MG/ML (5 ML AMP) SQ ONE (13:32)
[2021-10-01] MEDS ORDERED: PROPOFOL 10 MG/ML 20 ML VIAL IV ONE (14:00)
[2021-10-01] MEDS ORDERED: fentaNYL (PF) 50 MCG/ML 2 ML AMP ONE (14:00)
[2021-10-01] MEDS ORDERED: LACTATED RINGERS 1,000 ML IV ONE (14:00)
[2021-10-01] MEDS ORDERED: MIDAZOLAM 2 MG/2 ML VIAL ONE (14:00)
[2021-10-01] MEDS ORDERED: ROCURONIUM 10 MG/ML (5 ML VIAL) IV ONE (14:00)
--- NOTE | 2021-10-01 14:52 | XR ---
EXAMINATION TYPE: XR chest 1V portable DATE OF EXAM: 10/01/2021 COMPARISON: Chest x-ray same dated earlier time HISTORY: PICC line placement TECHNIQUE: Single frontal view of the chest is obtained. FINDINGS: There is been interval placement of a right-sided PICC line, distal tip is overlying the r egion of the cavoatrial junction. No other interval change. IMPRESSION: No evident complication status post PICC line placement.
--- NOTE | 2021-10-01 15:18 | XR ---
EXAMINATION TYPE: XR chest 1V portable DATE OF EXAM: 10/01/2021 COMPARISON: Chest x-ray same dated earlier time HISTORY: Status post tracheostomy tube placement TECHNIQUE: Single frontal view of the chest is obtained. FINDINGS: Tracheostomy tube is approximately 1 cm from the level of the ger. Right-sided PICC marysol e shows the distal tip overlying superior vena cava. Bibasilar increased density is present obscuring the hemidiaphragms, there may be posterior layering of a right pleural effusion, increased opacity i s present on the right as compared to left. NG tube is in place. No evident pneumothorax. IMPRESSION: Tube as described in proximity to the ger, bilateral pleural effusions and associated atelectasis versus edema, correlate to exclude pneumonia.
--- NOTE | 2021-10-01 15:20 | IR ---
EXAMINATION TYPE: IR cvc insert >=5 years DATE OF EXAM: 10/01/2021 COMPARISON: NONE HISTORY: Pneumonia FINDINGS: Maximal barrier technique was utilized. Hand hygiene obtained with soap and water and alco hol-based hand rub. The skin overlying the right basilic vein was localized with ultrasound and noted to be compressible and patent by ultrasound. An ultrasound image was obtained and submitted on antonio ent's chart. Sterile technique utilized with the ultrasound machine. The skin overlying was prepped a nd draped and Lidocaine used for local anesthesia. A skin jordan was made with a scalpel. Access was gained to the vein under direct ultrasound guidance with a 21-gauge needle and a 0.018 inch wire was advanced. Access site was dilated with a peel-away sheath and the catheter tailored to length. Cath eter advanced centrally and a post procedure chest x-ray verified placement with tip at the superior vena cava. Catheter was fixed to the skin and a sterile dressing placed. Hemostasis achieved and th e catheter was aspirated and flushed with sterile saline. The patient remained in stable condition. IMPRESSION: STATUS POST ULTRASOUND GUIDED PICC LINE PLACEMENT, READY FOR USE. THIS PROCEDURE WAS PER FORMED BY THE UNDERSIGNED.
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
[2021-10-01] MEDS: LACTATED RINGERS 1,000 ML IV SCH (15:39)
[2021-10-01] MEDS: HYDROmorphone 1 MG/ML 1 ML SYRINGE IVP PRN (15:44)
[2021-10-01] MEDS: NORTRIPTYLINE 25 MG CAP PO SCH (20:40)
[2021-10-02 05:53] LABS: Glucose,Whole Blood 103 mg/dL (75-99)
[2021-10-02] MEDS: HYDROmorphone 1 MG/ML 1 ML SYRINGE IVP PRN (05:56)
[2021-10-02 06:03] LABS: ABG Base Excess -6.4 mmol/L; ABG HCO3 19 mmol/L (21-25); ABG Oxygen Saturation 98.2 % (94-97); ABG PCO2 32 mmHg (35-45); ABG PH 7.38 (7.35-7.45); ABG PO2 105 mmHg (83-108); ABG TCO2 20 mmol/L (19-24); Allen Test Performed? Yes
[2021-10-02 06:16] LABS: HCT 29.6 % (34.0-46.0); HGB 8.6 gm/dL (11.4-16.0); Hypochromasia Marked; MCH 27.8 pg (25.0-35.0); MCHC 29.1 g/dL (31.0-37.0); MCV 95.6 fL (80.0-100.0); Mean Platelet Volume 8.4; Platelet Count 438 k/uL (150-450); RDW 15.5 % (11.5-15.5); WBC 14.1 k/uL (3.8-10.6)
[2021-10-02 06:21] LABS: Calcium 8.1 mg/dL (8.4-10.2); Magnesium 2.3 mg/dL (1.6-2.3); Potassium 3.7 mmol/L (3.5-5.1)
[2021-10-02] MEDS: NOREPINEPHRINE 8 MG in SODIUM CHLORIDE 0.9% 250 ML IV SCH (06:28)
[2021-10-02] MEDS: SODIUM CHLORIDE 0.9% 1,000 ML IV SCH ×2 (06:30→10:38)
--- NOTE | 2021-10-02 06:42 | XR ---
EXAMINATION TYPE: XR chest 1V portable DATE OF EXAM: 10/02/2021 COMPARISON: 10/01/2021 HISTORY: Tube placement TECHNIQUE: Single frontal view of the chest is obtained. FINDINGS: Tracheostomy tube 11.7 cm above the ger. NG tube with stomach. There is a PICC line on the right terminating in the SVC/RA junction. There is hazy opacification of the lung bases most likely layering pleural fluid has been significant decrease compared to the prior study. The upper lung conti are clear. The pulmonary vasculature is not congested. The heart is normal in size. IMPRESSION: 1.Tracheostomy tube 11.7 cm unchanged in position. 2. Decreasing pleural effusions compared to the prior study
[2021-10-02] MEDS: IPRATROPIUM-ALBUTEROL 3 ML NEB INHALATION PRN ×3 (07:20→19:31)
[2021-10-02 08:26] LABS: Vancomycin,Random 28.4 ug/mL
--- NOTE | 2021-10-02 09:28 | P.PN ---
Subjective Progress Note Date: 10/02/21 Principal diagnosis: Respiratory failure Patient remains on the ventilator. Tracheostomy without evidence of bleeding or leak. Patient appears comfortable. Objective - Vital Signs Vital signs: Vital Signs Temp 98.2 F 10/02/21 04:00 Pulse 65 10/02/21 08:00 Resp 16 10/02/21 08:00 BP 97/56 10/01/21 12:00 Pulse Ox 99 10/02/21 08:00 Intake & Output 10/01/21 10/02/21 10/02/21 18:59 06:59 18:59 Intake Total 3065.241 1747.686 Output Total 545 1285 145 Balance 2520.241 462.686 -145 Weight 64.7 kg Intake: IV 503 1236 NS pressure bag 53 36 Sodium Chloride 0.9% 1, 1100 000 ml @ 100 mls/hr IV . Q10H [facility] Rx#:[id number] cefTAZidime 2 gm In 50 100 Sodium Chloride 0.9% 100 ml @ 25 mls/hr IVPB Q12HR [facility] Rx#:[id number] Intake, IV Titration 2432.241 411.686 Amount Magnesium Sulfate-D5w Pmx 200 1 gm In Dextrose/Water 1 100ml.bag @ 100 mls/hr IVPB Q1H [facility] Rx#: [id number] Norepinephrine 8 mg In 12.243 25.311 Sodium Chloride 0.9% 250 ml @ 0.05 MCG/KG/MIN 5. 437 mls/hr IV .Q24H [facility] Rx#:[id number] Sodium Chloride 0.9% 1, 1030 100 000 ml @ 100 mls/hr IV . Q10H [facility] Rx#:[id number] Sodium Chloride 0.9% 1, 1000 000 ml @ 999 mls/hr IV . Q1H1M [facility] Rx#:[id number] propofoL 1,000 mg In 189.998 286.375 Empty Bag 1 bag @ 5 MCG/ KG/MIN 1.941 mls/hr IV . Q24H [facility] Rx#:[id number] Tube Feeding 40 40 Other 90 60 Output: Urine 540 1285 145 Estimated Blood Loss 5 Other: Voiding Method Indwelling Catheter Indwelling Catheter ABP, PAP, CO, CI - Last Documented Arterial Blood Pressure 131/60 - Exam Trach site clean without any bleeding or hematoma formation - Labs CBC & Chem 7: 10/02/21 06:00 10/02/21 06:00 Labs: Abnormal Lab Results - Last 24 Hours (Table) 10/02/21 10/02/21 10/02/21 Range/Units 05:50 05:58 06:00 WBC 14.1 H (3.8-10.6) k/uL RBC 3.10 L (3.80-5.40) m/uL Hgb 8.6 L (11.4-16.0) gm/dL Hct 29.6 L (34.0-46.0) % MCHC 29.1 L (31.0-37.0) g/dL ABG pCO2 32 L (35-45) mmHg ABG HCO3 19 L (21-25) mmol/L ABG O2 Saturation 98.2 H (94-97) % Chloride (98-107) mmol/L Carbon Dioxide (22-30) mmol/L Creatinine (0.52-1.04) mg/dL POC Glucose (mg/dL) 103 H (75-99) mg/dL Calcium (8.4-10.2) mg/dL 10/02/21 Range/Units 06:00 WBC (3.8-10.6) k/uL RBC (3.80-5.40) m/uL Hgb (11.4-16.0) gm/dL Hct (34.0-46.0) % MCHC (31.0-37.0) g/dL ABG pCO2 (35-45) mmHg ABG HCO3 (21-25) mmol/L ABG O2 Saturation (94-97) % Chloride 120 H (98-107) mmol/L Carbon Dioxide 16 L (22-30) mmol/L Creatinine 1.49 H (0.52-1.04) mg/dL POC Glucose (mg/dL) (75-99) mg/dL Calcium 8.1 L (8.4-10.2) mg/dL Microbiology - Last 24 Hours (Table) 09/24/21 09:20 Fungal Culture - Preliminary Bronchial Washings - Random Yeast species Assessment and Plan (1) Respiratory failure with hypoxia Narrative/Plan: Continue ventilatory weaning per pulmonary. Monitor tracheostomy. May need to pull the tracheostomy back slightly. Tip is apparently 1-2 cm above the ger. Current Visit: No Status: Acute Code(s): J96.91 - RESPIRATORY FAILURE, UNSPECIFIED WITH HYPOXIA SNOMED Code(s): [id number]
[2021-10-02] MEDS: CHLORHEXIDINE GLUCONATE 15 ML CUP MUCOUS MEM SCH ×2 (10:35→20:41)
[2021-10-02] MEDS: ENOXAPARIN 40 MG/0.4 ML SYRINGE SQ SCH (10:35)
[2021-10-02] MEDS: BACLOFEN 10 MG TAB PO SCH ×2 (10:36→20:41)
[2021-10-02] MEDS: METOPROLOL TARTRATE 25 MG TAB PO SCH ×2 (10:36→23:06)
[2021-10-02] MEDS: PANTOPRAZOLE 40 MG/10 ML VIAL IVP SCH (10:36)
[2021-10-02] MEDS: polyethylene glycoL 3350 17 GM POWD.PACK PO SCH (10:36)
[2021-10-02] MEDS: ZYRTEC 10 MG PO SCH (10:37)
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
[2021-10-02] MEDS: FLUCONAZOLE IN NACL,ISO-OSM 200 MG in SALINE 1 100ML.BAG IVPB SCH (17:03)
[2021-10-02] MEDS: LACTATED RINGERS 1,000 ML IV SCH (17:03)
[2021-10-02] MEDS: NORTRIPTYLINE 25 MG CAP PO SCH (20:41)
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
[2021-10-03 04:10] LABS: HCT 28.7 % (34.0-46.0); HGB 8.7 gm/dL (11.4-16.0); Hypochromasia Marked; MCH 28.8 pg (25.0-35.0); MCHC 30.1 g/dL (31.0-37.0); MCV 95.5 fL (80.0-100.0); Mean Platelet Volume 9.2; Platelet Count 414 k/uL (150-450); RBC 3.01 m/uL (3.80-5.40); RDW 15.7 % (11.5-15.5); WBC 14.2 k/uL (3.8-10.6)
[2021-10-03 04:20] LABS: Calcium 7.7 mg/dL (8.4-10.2); Potassium 3.4 mmol/L (3.5-5.1)
[2021-10-03 04:25] LABS: Vancomycin,Random 23.7 ug/mL
[2021-10-03] MEDS: SODIUM CHLORIDE 0.9% 1,000 ML IV SCH ×2 (04:26→13:38)
[2021-10-03] MEDS: POTASSIUM BICARBONATE/CIT AC 20 MEQ TABLET.EFF NG-TUBE SCH ×2 (04:54→06:02)
[2021-10-03 05:51] LABS: ABG Base Excess -7.3 mmol/L; ABG HCO3 18 mmol/L (21-25); ABG Oxygen Saturation 98.8 % (94-97); ABG PCO2 31 mmHg (35-45); ABG PH 7.37 (7.35-7.45); ABG PO2 127 mmHg (83-108); ABG TCO2 19 mmol/L (19-24); Allen Test Performed? Yes
--- NOTE | 2021-10-03 06:54 | XR ---
EXAMINATION TYPE: XR chest 1V portable DATE OF EXAM: 10/03/2021 COMPARISON: 10/02/2021 HISTORY: Tube placement TECHNIQUE: Single frontal view of the chest is obtained. FINDINGS: There is a tracheostomy tube approximately 10.5 cm above the ger. There is an NG tube s tomach. There is a right sided PICC line which is in the SVC/R junction. Allowing for differences in technique, there is likely no interval change in the bilateral pleural e ffusions There is no pneumothorax. IMPRESSION: 1. No change in the acute cardiopulmonary disease as described. 2. Tracheostomy tube 10.5 cm above the ger.
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
[2021-10-03] MEDS ORDERED: LACTULOSE 20 GM/30 ML CUP PO ONE (08:43)
[2021-10-03] MEDS ORDERED: bisacodyL 10 MG SUPP RECTAL STA (08:43)
[2021-10-03] MEDS: BACLOFEN 10 MG TAB PO SCH ×2 (09:07→21:40)
[2021-10-03] MEDS: PANTOPRAZOLE 40 MG/10 ML VIAL IVP SCH (09:07)
[2021-10-03] MEDS: ENOXAPARIN 40 MG/0.4 ML SYRINGE SQ SCH (09:07)
[2021-10-03] MEDS: CHLORHEXIDINE GLUCONATE 15 ML CUP MUCOUS MEM SCH ×2 (09:07→21:40)
[2021-10-03] MEDS: polyethylene glycoL 3350 17 GM POWD.PACK PO SCH (09:08)
[2021-10-03] MEDS: ZYRTEC 10 MG PO SCH (09:08)
[2021-10-03] MEDS: METOPROLOL TARTRATE 25 MG TAB PO SCH ×2 (09:08→20:35)
[2021-10-03] MEDS: SODIUM BICARBONATE TAB 650 MG TAB PO SCH ×4 (09:13→21:40)
[2021-10-03] MEDS ORDERED: bisacodyL 10 MG SUPP RECTAL PRN (09:56)
--- NOTE | 2021-10-03 10:10 | P.PN ---
Subjective Progress Note Date: 10/03/21 Principal diagnosis: Respiratory failure Patient doing well today. Tolerating tube feeds at 10 mL per hour. No issues with the tracheostomy. Objective - Vital Signs Vital signs: Vital Signs Temp 95.0 F L 10/03/21 08:00 Pulse 75 10/03/21 09:00 Resp 16 10/03/21 09:00 BP 96/58 10/03/21 07:00 Pulse Ox 96 10/03/21 09:00 Intake & Output 10/02/21 10/03/21 10/03/21 18:59 06:59 18:59 Intake Total 398.954 9091.228 569.245 Output Total 535 985 400 Balance 364.945 591.228 169.245 Weight 72.8 kg Intake: IV 718 1336 409 NS pressure bag 18 36 9 Sodium Chloride 0.9% 1, 600 1200 300 000 ml @ 100 mls/hr IV . Q10H [facility] Rx#:[id number] cefTAZidime 2 gm In 100 100 100 Sodium Chloride 0.9% 100 ml @ 25 mls/hr IVPB Q12HR [facility] Rx#:[id number] Intake, IV Titration 181.945 80.228 100.245 Amount Norepinephrine 8 mg In 1.07 25.84 Sodium Chloride 0.9% 250 ml @ 0.05 MCG/KG/MIN 5. 437 mls/hr IV .Q24H [facility] Rx#:[id number] propofoL 1,000 mg In 180.875 80.228 74.405 Empty Bag 1 bag @ 5 MCG/ KG/MIN 1.941 mls/hr IV . Q24H [facility] Rx#:[id number] Tube Feeding 110 30 Other 50 30 Output: Urine 535 985 400 Other: Voiding Method Indwelling Catheter Indwelling Catheter Indwelling Catheter ABP, PAP, CO, CI - Last Documented Arterial Blood Pressure 181/89 - Exam Trach site clean - Labs CBC & Chem 7: 10/03/21 03:53 10/03/21 03:53 Labs: Abnormal Lab Results - Last 24 Hours (Table) 10/03/21 10/03/21 10/03/21 Range/Units 03:53 03:53 05:47 WBC 14.2 H (3.8-10.6) k/uL RBC 3.01 L (3.80-5.40) m/uL Hgb 8.7 L (11.4-16.0) gm/dL Hct 28.7 L (34.0-46.0) % MCHC 30.1 L (31.0-37.0) g/dL RDW 15.7 H (11.5-15.5) % ABG pCO2 31 L (35-45) mmHg ABG pO2 127 H (83-108) mmHg ABG HCO3 18 L (21-25) mmol/L ABG O2 Saturation 98.8 H (94-97) % Potassium 3.4 L (3.5-5.1) mmol/L Chloride 120 H (98-107) mmol/L Carbon Dioxide 17 L (22-30) mmol/L Creatinine 1.48 H (0.52-1.04) mg/dL Calcium 7.7 L (8.4-10.2) mg/dL Microbiology - Last 24 Hours (Table) 09/29/21 21:15 Gram Stain - Final Sputum Sputum Culture - Final Assessment and Plan (1) Respiratory failure with hypoxia Narrative/Plan: Patient doing well at this time. Scheduled for EGD with PEG tube placement tomorrow. Current Visit: No Status: Acute Code(s): J96.91 - RESPIRATORY FAILURE, UNSPECIFIED WITH HYPOXIA SNOMED Code(s): 52499384458681353
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
[2021-10-03] MEDS: NOREPINEPHRINE 8 MG in SODIUM CHLORIDE 0.9% 250 ML IV SCH (13:38)
[2021-10-03] MEDS: LACTATED RINGERS 1,000 ML IV SCH (13:38)
[2021-10-03] MEDS: FLUCONAZOLE IN NACL,ISO-OSM 200 MG in SALINE 1 100ML.BAG IVPB SCH (16:21)
[2021-10-03] MEDS: NORTRIPTYLINE 25 MG CAP PO SCH (21:40)
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
[2021-10-04] MEDS: NOREPINEPHRINE 8 MG in SODIUM CHLORIDE 0.9% 250 ML IV SCH (01:04)
[2021-10-04] MEDS: SODIUM CHLORIDE 0.9% 1,000 ML IV SCH ×2 (01:05→08:50)
[2021-10-04 05:15] LABS: Anisocytosis Slight; Basophils % (A) 0 %; Eosinophils # (A) 0.5 k/uL (0-0.7); Eosinophils % (A) 4 %; HCT 25.5 % (34.0-46.0); HGB 7.6 gm/dL (11.4-16.0); Hypochromasia Marked; Lymphocytes # (A) 0.9 k/uL (1.0-4.8); Lymphocytes % (A) 7 %; MCH 28.7 pg (25.0-35.0); MCHC 29.8 g/dL (31.0-37.0); MCV 96.3 fL (80.0-100.0); Mean Platelet Volume 9.1; Monocytes # (A) 0.6 k/uL (0-1.0); Monocytes % (A) 5 %; Neutrophils # (A) 10.9 k/uL (1.3-7.7); Neutrophils % (A) 83 %; Platelet Count 348 k/uL (150-450); RBC 2.65 m/uL (3.80-5.40); RDW 16.1 % (11.5-15.5); WBC 13.1 k/uL (3.8-10.6)
[2021-10-04 05:31] LABS: Calcium 7.4 mg/dL (8.4-10.2); Potassium 3.5 mmol/L (3.5-5.1)
[2021-10-04 06:01] LABS: ABG Base Excess -9.7 mmol/L; ABG HCO3 16 mmol/L (21-25); ABG PCO2 28 mmHg (35-45); ABG PH 7.36 (7.35-7.45); ABG PO2 127 mmHg (83-108); ABG TCO2 17 mmol/L (19-24); Allen Test Performed? Yes
[2021-10-04] MEDS: POTASSIUM CHLORIDE 20 MEQ in WATER FOR INJECTION 1 100ML.BAG IVPB SCH ×2 (06:26→08:17)
[2021-10-04] MEDS: IPRATROPIUM-ALBUTEROL 3 ML NEB INHALATION PRN (08:04)
[2021-10-04] MEDS: CHLORHEXIDINE GLUCONATE 15 ML CUP MUCOUS MEM SCH ×2 (08:16→20:33)
[2021-10-04] MEDS: ENOXAPARIN 40 MG/0.4 ML SYRINGE SQ SCH (08:17)
[2021-10-04] MEDS: BACLOFEN 10 MG TAB PO SCH ×2 (08:17→20:33)
[2021-10-04] MEDS: ZYRTEC 10 MG PO SCH (08:17)
[2021-10-04] MEDS: PANTOPRAZOLE 40 MG/10 ML VIAL IVP SCH (08:17)
[2021-10-04] MEDS: SODIUM BICARBONATE TAB 650 MG TAB PO SCH ×4 (08:17→20:33)
[2021-10-04] MEDS: polyethylene glycoL 3350 17 GM POWD.PACK PO SCH (08:17)
--- NOTE | 2021-10-04 08:41 | P.PN ---
Subjective Progress Note Date: 10/04/21 Pt had a hospital course complicated by worsening respiratory failure, septic shock secondary to polymicrobial growth including MRSA, Pseudomonas, Acinetobacter Xylosoxicans, and E coli; she is now s/p tracheostomy with plans for PEG tube today. Remains mechanically ventilated on low dose of pressors. Gen: asleep, ventilated Resp: vent, trach, peg CVS: good distal perfusion x 4, GI: soft, NTTP, ND : no SPT, no CVAT, rubin catheter is present MSK: no pitting edema, no clubbing Neuro: quadriplegia, at baseline Labs and imaging were reviewed as above Assessment/plan: Acute Hypoxic Respiratory Failure Septic Shock Healthcare Associated Pneumonia, polymicrobial Bilateral Pleural Effusions, parapneumonic -status post intubation mechanical ventilation, no s/p tracheostomy, pending PEG tube -multifactorial but mostly secondary to recurrent pneumonia secondary to MRSA and pseudomonas involving both lungs. -Also secondary to bilateral pleural effusions and recurrent collapse of her left lung requiring bronchoscopy and BAL. -Vancomycin and Fortaz per infectious disease -Fluconazole per ID - Pulmonary recs appreciated: pleural effusion b/l being monitored -started solu-cortef 50mg IV TID - s/p trach, pending PEG - ID recs appreciated - on propofol, levophed Acute kidney injury -Likely from Hypotensive Episode with the CPR for a few seconds approximately 15 seconds, as well as high vancomycin levels. -She is nonoliguric. -On IV fluids per nephrology -On Bicarb Quadriplegia C5, Autonomic dysreflexia - air mattress - turn q 2 - supportive care - may need BiPap/ vest for home - continue baclofen Hx of HTN - continuing metoprolol - follow BP Urinary Retention due to neurogenic bladder - rubin - hold ditropan and detrol Anemia, stable Thrombocytosis, resolved - follow CBC - Iron studies normal DVT prophylaxis: SCDs Anticipated discharge: undetermined Anticipated discharge place: Pts family's preference is home Objective - Vital Signs Vital signs: Vital Signs Temp 95.9 F L 10/04/21 08:00 Pulse 78 10/04/21 08:08 Resp 16 10/04/21 08:00 BP 96/58 10/04/21 07:00 Pulse Ox 100 10/04/21 08:00 Intake & Output 10/03/21 10/04/21 10/04/21 18:59 06:59 18:59 Intake Total 9105.313 3381.994 206 Output Total 1095 398 55 Balance 743.711 0031.994 151 Weight 72 kg Intake: IV 1439 1336 206 Fluconazole in NaCl,Iso- 100 Osm 200 mg In Saline 1 100ml.bag @ 100 mls/hr IVPB Q24H [facility] Rx#: [id number] NS pressure bag 39 36 6 Sodium Chloride 0.9% 1, 1200 1200 200 000 ml @ 100 mls/hr IV . Q10H [facility] Rx#:[id number] cefTAZidime 2 gm In 100 100 Sodium Chloride 0.9% 100 ml @ 25 mls/hr IVPB Q12HR [facility] Rx#:[id number] Intake, IV Titration 192.321 2.994 Amount Norepinephrine 8 mg In 26.948 2.994 Sodium Chloride 0.9% 250 ml @ 0.05 MCG/KG/MIN 5. 437 mls/hr IV .Q24H [facility] Rx#:[id number] propofoL 1,000 mg In 165.373 Empty Bag 1 bag @ 5 MCG/ KG/MIN 1.941 mls/hr IV . Q24H [facility] Rx#:[id number] Tube Feeding 120 60 Other 60 Output: Urine 1095 398 55 Other: Voiding Method Indwelling Catheter Indwelling Catheter # Bowel Movements 1 ABP, PAP, CO, CI - Last Documented Arterial Blood Pressure 110/40 - Labs CBC & Chem 7: 10/04/21 04:55 10/04/21 04:55 Labs: Abnormal Lab Results - Last 24 Hours (Table) 10/04/21 10/04/21 10/04/21 Range/Units 04:55 04:55 06:00 WBC 13.1 H (3.8-10.6) k/uL RBC 2.65 L (3.80-5.40) m/uL Hgb 7.6 L (11.4-16.0) gm/dL Hct 25.5 L (34.0-46.0) % MCHC 29.8 L (31.0-37.0) g/dL RDW 16.1 H (11.5-15.5) % Neutrophils # 10.9 H (1.3-7.7) k/uL Lymphocytes # 0.9 L (1.0-4.8) k/uL ABG pCO2 28 L (35-45) mmHg ABG pO2 127 H (83-108) mmHg ABG HCO3 16 L (21-25) mmol/L ABG Total CO2 17 L (19-24) mmol/L ABG O2 Saturation 99.0 H (94-97) % Chloride 123 H (98-107) mmol/L Carbon Dioxide 16 L (22-30) mmol/L Creatinine 1.58 H (0.52-1.04) mg/dL Calcium 7.4 L (8.4-10.2) mg/dL Microbiology - Last 24 Hours (Table) 09/24/21 09:20 Fungal Culture - Preliminary Bronchial Washings - Random Yakelin albicans
[2021-10-04] MEDS: METOPROLOL TARTRATE 25 MG TAB PO SCH ×2 (08:48→20:15)
[2021-10-04] MEDS: HYDROCORTISONE SUCCINATE 100 MG/2 ML VIAL IV SCH ×3 (08:50→23:35)
--- NOTE | 2021-10-04 09:41 | P.PN ---
Subjective Patient is seen in follow-up for acute kidney injury. Creatinine fairly stable at 1.58 today. Urine output 25-30 mL an hour. Receiving IV fluids. Scheduled to undergo PEG tube placement today. On 30% FiO2. On low-dose Levophed. Vital signs are stable. On low-dose Levophed. HEENT: NG tube and tracheostomy noted. LUNGS: Breath sounds decreased. HEART: Rate and Rhythm are regular. ABDOMEN: Soft, no distention. EXTREMITITES: No edema. Objective - Vital Signs Vital signs: Vital Signs Temp 95.9 F L 10/04/21 08:00 Pulse 81 10/04/21 09:00 Resp 16 10/04/21 09:00 BP 96/58 10/04/21 07:00 Pulse Ox 100 10/04/21 09:00 Intake & Output 10/03/21 10/04/21 10/04/21 18:59 06:59 18:59 Intake Total 4925.209 3938.994 379 Output Total 1095 398 75 Balance 203.638 0511.994 304 Weight 72 kg Intake: IV 1439 1336 379 Fluconazole in NaCl,Iso- 100 Osm 200 mg In Saline 1 100ml.bag @ 100 mls/hr IVPB Q24H [facility] Rx#: [id number] NS pressure bag 39 36 9 Sodium Chloride 0.9% 1, 1200 1200 270 000 ml @ 100 mls/hr IV . Q10H [facility] Rx#:[id number] cefTAZidime 2 gm In 100 100 100 Sodium Chloride 0.9% 100 ml @ 25 mls/hr IVPB Q12HR [facility] Rx#:[id number] Intake, IV Titration 192.321 2.994 Amount Norepinephrine 8 mg In 26.948 2.994 Sodium Chloride 0.9% 250 ml @ 0.05 MCG/KG/MIN 5. 437 mls/hr IV .Q24H [facility] Rx#:[id number] propofoL 1,000 mg In 165.373 Empty Bag 1 bag @ 5 MCG/ KG/MIN 1.941 mls/hr IV . Q24H [facility] Rx#:[id number] Tube Feeding 120 60 Other 60 Output: Urine 1095 398 75 Other: Voiding Method Indwelling Catheter Indwelling Catheter Indwelling Catheter # Bowel Movements 1 ABP, PAP, CO, CI - Last Documented Arterial Blood Pressure 101/35 - Labs CBC & Chem 7: 10/04/21 04:55 10/04/21 04:55 Labs: Abnormal Lab Results - Last 24 Hours (Table) 10/04/21 10/04/21 10/04/21 Range/Units 04:55 04:55 06:00 WBC 13.1 H (3.8-10.6) k/uL RBC 2.65 L (3.80-5.40) m/uL Hgb 7.6 L (11.4-16.0) gm/dL Hct 25.5 L (34.0-46.0) % MCHC 29.8 L (31.0-37.0) g/dL RDW 16.1 H (11.5-15.5) % Neutrophils # 10.9 H (1.3-7.7) k/uL Lymphocytes # 0.9 L (1.0-4.8) k/uL ABG pCO2 28 L (35-45) mmHg ABG pO2 127 H (83-108) mmHg ABG HCO3 16 L (21-25) mmol/L ABG Total CO2 17 L (19-24) mmol/L ABG O2 Saturation 99.0 H (94-97) % Chloride 123 H (98-107) mmol/L Carbon Dioxide 16 L (22-30) mmol/L Creatinine 1.58 H (0.52-1.04) mg/dL Calcium 7.4 L (8.4-10.2) mg/dL Microbiology - Last 24 Hours (Table) 09/24/21 09:20 Fungal Culture - Preliminary Bronchial Washings - Random Yakelin albicans Assessment and Plan Plan: Assessment: 1. Acute kidney injury secondary to ATN secondary to septic shock and cardiac arrest. Also component of vancomycin toxicity. Vancomycin level 44 on 09/30/2021. Creatinine 1.58 today. Urine output 20-30 mL an hour. 2. Metabolic acidosis secondary to acute kidney injury and IV fluids. On oral bicarbonate. 3. Status post brief cardiac arrest on 09/29/2021. 4. Septic shock secondary to pneumonia on antibiotics. Infectious disease following. 5. Hypokalemia from poor intake. Being replaced. 6. Acute hypoxia respiratory failure status post tracheostomy this admission. Plan: Change normal saline to bicarb drip at 75 mL an hour. Scheduled for PEG tube placement today. Wean FiO2 and vasopressors. Continue to monitor renal function and urine output. Avoid nephrotoxins. Potassium being replaced.
[2021-10-04] MEDS ORDERED: VANCOMYCIN 1,000 MG in SODIUM CHLORIDE 0.9% 250 ML IVPB ONE (10:00)
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
[2021-10-04] MEDS: DEXTROSE 5% IN WATER 1,000 ML with SODIUM BICARB (1 MEQ/ML) 150 ML IV SCH (10:33)
[2021-10-04] MEDS: IPRATROPIUM-ALBUTEROL 3 ML NEB INHALATION SCH ×4 (11:32→23:12)
[2021-10-04] MEDS: LACTATED RINGERS 1,000 ML IV SCH (12:34)
[2021-10-04] MEDS: FLUCONAZOLE IN NACL,ISO-OSM 200 MG in SALINE 1 100ML.BAG IVPB SCH (17:40)
[2021-10-04] MEDS: NORTRIPTYLINE 25 MG CAP PO SCH (20:34)
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
[2021-10-04] MEDS ORDERED: FUROSEMIDE 10 MG/ML 4 ML VIAL IV STA (23:07)
[2021-10-05] MEDS: DEXTROSE 5% IN WATER 1,000 ML with SODIUM BICARB (1 MEQ/ML) 150 ML IV SCH (02:03)
[2021-10-05] MEDS: IPRATROPIUM-ALBUTEROL 3 ML NEB INHALATION SCH ×5 (03:18→20:38)
[2021-10-05 05:49] LABS: ABG Base Excess -2.9 mmol/L; ABG HCO3 21 mmol/L (21-25); ABG Oxygen Saturation 96.5 % (94-97); ABG PCO2 30 mmHg (35-45); ABG PH 7.45 (7.35-7.45); ABG PO2 77 mmHg (83-108); ABG TCO2 22 mmol/L (19-24); Allen Test Performed? Yes
[2021-10-05 05:59] LABS: Anisocytosis Slight; Basophils % (A) 0 %; Eosinophils % (A) 0 %; HCT 28.8 % (34.0-46.0); HGB 8.5 gm/dL (11.4-16.0); Hypochromasia Marked; Lymphocytes # (A) 0.8 k/uL (1.0-4.8); Lymphocytes % (A) 6 %; MCH 27.8 pg (25.0-35.0); MCHC 29.5 g/dL (31.0-37.0); MCV 94.3 fL (80.0-100.0); Mean Platelet Volume 8.8; Monocytes # (A) 0.5 k/uL (0-1.0); Monocytes % (A) 3 %; Neutrophils # (A) 13.5 k/uL (1.3-7.7); Neutrophils % (A) 90 %; Platelet Count 389 k/uL (150-450); RBC 3.06 m/uL (3.80-5.40)
[2021-10-05 06:34] LABS: Potassium 3.9 mmol/L (3.5-5.1)
[2021-10-05 06:35] LABS: Calcium 7.4 mg/dL (8.4-10.2)
[2021-10-05] MEDS: NOREPINEPHRINE 8 MG in SODIUM CHLORIDE 0.9% 250 ML IV SCH (06:43)
[2021-10-05] MEDS ORDERED: POTASSIUM BICARBONATE/CIT AC 20 MEQ TABLET.EFF NG-TUBE SCH (07:00)
[2021-10-05] MEDS: HYDROCORTISONE SUCCINATE 100 MG/2 ML VIAL IV SCH ×2 (08:30→15:54)
[2021-10-05] MEDS: PANTOPRAZOLE 40 MG/10 ML VIAL IVP SCH (08:30)
[2021-10-05] MEDS: CHLORHEXIDINE GLUCONATE 15 ML CUP MUCOUS MEM SCH ×2 (08:31→21:35)
[2021-10-05] MEDS: ZYRTEC 10 MG PO SCH (08:31)
[2021-10-05] MEDS: METOPROLOL TARTRATE 25 MG TAB PO SCH ×2 (08:31→21:35)
[2021-10-05] MEDS: BACLOFEN 10 MG TAB PO SCH ×2 (08:31→21:35)
[2021-10-05] MEDS: SODIUM BICARBONATE TAB 650 MG TAB PO SCH ×4 (08:31→21:35)
[2021-10-05] MEDS: polyethylene glycoL 3350 17 GM POWD.PACK PO SCH (08:32)
--- NOTE | 2021-10-05 08:37 | XR ---
EXAMINATION TYPE: XR chest 1V portable DATE OF EXAM: 10/05/2021 COMPARISON: 10/04/2021 HISTORY: Tube placement TECHNIQUE: Single frontal view of the chest is obtained. FINDINGS: Tracheostomy tube stable. NG tube is been removed. Right-sided central line is stable. Pos tsurgical change overlying the cervical spine is bilateral lower lobe infiltrate and pleural effusion . No sizable pneumothorax. IMPRESSION: Bilateral lower lobe infiltrate and pleural effusion stable.
[2021-10-05] MEDS: MIDODRINE 5 MG TAB PO SCH ×3 (08:59→17:51)
[2021-10-05] MEDS: SODIUM CHLORIDE 0.9% 1,000 ML IV SCH (09:16)
--- NOTE | 2021-10-05 09:28 | P.PN ---
Subjective Patient is seen in follow-up for acute kidney injury. Creatinine fairly stable at 1.65 today. Urine output 25-30 mL an hour. She did make more urine after IV Lasix was given last night. On bicarb drip. PEG tube placed 10/04/2021. On 30% FiO2. Levophed discontinued this morning. Midodrine added. Vital signs are stable. HEENT: NG tube and tracheostomy noted. LUNGS: Breath sounds decreased. HEART: Rate and Rhythm are regular. ABDOMEN: Soft, no distention. EXTREMITITES: 1+ edema. Objective - Vital Signs Vital signs: Vital Signs Temp 97.5 F L 10/05/21 08:00 Pulse 96 10/05/21 09:00 Resp 16 10/05/21 09:00 BP 96/58 10/04/21 07:00 Pulse Ox 95 10/05/21 09:00 Intake & Output 10/04/21 10/05/21 10/05/21 18:59 06:59 18:59 Intake Total 1016.127 0012.325 309.527 Output Total 375 735 50 Balance 1158.888 382.325 259.527 Weight 72 kg 73.5 kg Intake: IV 1526 1014 206 Dextrose 5% in Water 1, 600 975 150 000 ml @ 75 mls/hr IV . [id number] VITOR with Sodium Bicarb (1 Meq/ml) 150 ml Rx#:[id number] Fluconazole in NaCl,Iso- 100 Osm 200 mg In Saline 1 100ml.bag @ 100 mls/hr IVPB Q24H [facility] Rx#: [id number] NS pressure bag 36 39 6 Potassium Chloride 20 meq 100 In Water For Injection 1 100ml.bag @ 50 mls/hr IVPB Q2H [facility] Rx#: [id number] Sodium Chloride 0.9% 1, 340 000 ml @ 100 mls/hr IV . Q10H [facility] Rx#:[id number] Vancomycin 1,000 mg In 250 Sodium Chloride 0.9% 250 ml @ 125 mls/hr IVPB ONCE ONE Rx#:[id number] cefTAZidime 2 gm In 100 50 Sodium Chloride 0.9% 100 ml @ 25 mls/hr IVPB Q12HR [facility] Rx#:[id number] Intake, IV Titration 7.888 103.325 103.527 Amount Norepinephrine 8 mg In 7.888 6.437 3.527 Sodium Chloride 0.9% 250 ml @ 0.05 MCG/KG/MIN 5. 437 mls/hr IV .Q24H [facility] Rx#:[id number] propofoL 1,000 mg In 96.888 100 Empty Bag 1 bag @ 5 MCG/ KG/MIN 1.941 mls/hr IV . Q24H [facility] Rx#:[id number] Output: Urine 375 735 50 Other: Voiding Method Indwelling Catheter Indwelling Catheter Indwelling Catheter # Bowel Movements 1 ABP, PAP, CO, CI - Last Documented Arterial Blood Pressure 124/52 - Labs CBC & Chem 7: 10/05/21 05:30 10/05/21 05:30 Labs: Abnormal Lab Results - Last 24 Hours (Table) 10/05/21 10/05/21 10/05/21 Range/Units 05:30 05:30 05:45 WBC 15.0 H (3.8-10.6) k/uL RBC 3.06 L (3.80-5.40) m/uL Hgb 8.5 L (11.4-16.0) gm/dL Hct 28.8 L (34.0-46.0) % MCHC 29.5 L (31.0-37.0) g/dL RDW 16.0 H (11.5-15.5) % Neutrophils # 13.5 H (1.3-7.7) k/uL Lymphocytes # 0.8 L (1.0-4.8) k/uL ABG pCO2 30 L (35-45) mmHg ABG pO2 77 L (83-108) mmHg Chloride 117 H (98-107) mmol/L Carbon Dioxide 19 L (22-30) mmol/L Creatinine 1.65 H (0.52-1.04) mg/dL Glucose 181 H (74-99) mg/dL Calcium 7.4 L (8.4-10.2) mg/dL Microbiology - Last 24 Hours (Table) 09/24/21 09:20 Acid Fast Bacilli Smear - Final Bronchial Washings - Random Acid Fast Bacilli Culture - Preliminary Assessment and Plan Plan: Assessment: 1. Acute kidney injury secondary to ATN secondary to septic shock and cardiac arrest. Also component of vancomycin toxicity. Vancomycin level 44 on 09/30/2021. Creatinine 1.65 today. Urine output 20-30 mL an hour. 2. Metabolic acidosis secondary to acute kidney injury and IV fluids. On bicarb drip. Better. 3. Status post brief cardiac arrest on 09/29/2021. 4. Septic shock secondary to pneumonia on antibiotics. Infectious disease following. 5. Hypokalemia from poor intake. Replace. Better. 6. Acute hypoxic respiratory failure status post tracheostomy this admission. PEG tube placed 10/04/2021. Plan: Stop bicarb drip. Start normal saline at 60 mL an hour. Continue to monitor renal function and urine output. Avoid nephrotoxins. Repeat IV Lasix this afternoon if no improvement urine output. Check urinalysis.
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
--- NOTE | 2021-10-05 10:15 | P.PN ---
Subjective Progress Note Date: 10/05/21 Pt had PEG tube placed yesterday, tube feeds on hold. On minimal sedation, with plans for weaning trial to trach collar today. Resting comfortably, not in distress. Midodrine started, levophed on hold. Pressures borderline, but MAPs adequate. Gen: asleep, ventilated Resp: vent, trach, CVS: good distal perfusion x 4, GI: soft, NTTP, ND, +PEG : no SPT, no CVAT, rubin catheter is present MSK: no pitting edema, no clubbing Neuro: quadriplegia, at baseline Labs and imaging were reviewed as above Assessment/plan: Acute Hypoxic Respiratory Failure Septic Shock [facility] Associated Pneumonia, polymicrobial Bilateral Pleural Effusions, parapneumonic -status post intubation mechanical ventilation, no s/p tracheostomy, pending PEG tube -multifactorial but mostly secondary to recurrent pneumonia secondary to MRSA and pseudomonas involving both lungs. -Also secondary to bilateral pleural effusions and recurrent collapse of her le ft lung requiring bronchoscopy and BAL. -Vancomycin and Fortaz per infectious disease -Fluconazole per ID - Pulmonary recs appreciated: pleural effusion b/l being monitored -started solu-cortef 50mg IV TID - s/p trach, s/p PEG - ID recs appreciated - on propofol, midodrine Acute kidney injury -Likely from Hypotensive Episode with the CPR for a few seconds approximately 15 seconds, as well as high vancomycin levels. -She is nonoliguric. -On IV fluids per nephrology -On Bicarb Quadriplegia C5, Autonomic dysreflexia - air mattress - turn q 2 - supportive care - may need BiPAP/ vest for home - continue baclofen Hx of HTN - continuing metoprolol - follow BP Urinary Retention due to neurogenic bladder - rubin - hold ditropan and detrol Anemia, stable Thrombocytosis, resolved - follow CBC - Iron studies normal DVT prophylaxis: SCDs Anticipated discharge: undetermined Anticipated discharge place: Pts family's preference is home Objective - Vital Signs Vital signs: Vital Signs Temp 97.5 F L 10/05/21 08:00 Pulse 96 10/05/21 09:00 Resp 16 10/05/21 09:00 BP 96/58 10/04/21 07:00 Pulse Ox 95 10/05/21 09:00 Intake & Output 10/04/21 10/05/21 10/05/21 18:59 06:59 18:59 Intake Total 7164.723 2866.325 309.527 Output Total 375 735 50 Balance 1158.888 382.325 259.527 Weight 72 kg 73.5 kg Intake: IV 1526 1014 206 Dextrose 5% in Water 1, 600 975 150 000 ml @ 75 mls/hr IV . [id number] VITOR with Sodium Bicarb (1 Meq/ml) 150 ml Rx#:[id number] Fluconazole in NaCl,Iso- 100 Osm 200 mg In Saline 1 100ml.bag @ 100 mls/hr IVPB Q24H [facility] Rx#: [id number] NS pressure bag 36 39 6 Potassium Chloride 20 meq 100 In Water For Injection 1 100ml.bag @ 50 mls/hr IVPB Q2H [facility] Rx#: [id number] Sodium Chloride 0.9% 1, 340 000 ml @ 100 mls/hr IV . Q10H [facility] Rx#:[id number] Vancomycin 1,000 mg In 250 Sodium Chloride 0.9% 250 ml @ 125 mls/hr IVPB ONCE ONE Rx#:[id number] cefTAZidime 2 gm In 100 50 Sodium Chloride 0.9% 100 ml @ 25 mls/hr IVPB Q12HR [facility] Rx#:[id number] Intake, IV Titration 7.888 103.325 103.527 Amount Norepinephrine 8 mg In 7.888 6.437 3.527 Sodium Chloride 0.9% 250 ml @ 0.05 MCG/KG/MIN 5. 437 mls/hr IV .Q24H [facility] Rx#:[id number] propofoL 1,000 mg In 96.888 100 Empty Bag 1 bag @ 5 MCG/ KG/MIN 1.941 mls/hr IV . Q24H [facility] Rx#:[id number] Output: Urine 375 735 50 Other: Voiding Method Indwelling Catheter Indwelling Catheter Indwelling Catheter # Bowel Movements 1 ABP, PAP, CO, CI - Last Documented Arterial Blood Pressure 124/52 - Labs CBC & Chem 7: 10/05/21 05:30 10/05/21 05:30 Labs: Abnormal Lab Results - Last 24 Hours (Table) 10/05/21 10/05/21 10/05/21 Range/Units 05:30 05:30 05:45 WBC 15.0 H (3.8-10.6) k/uL RBC 3.06 L (3.80-5.40) m/uL Hgb 8.5 L (11.4-16.0) gm/dL Hct 28.8 L (34.0-46.0) % MCHC 29.5 L (31.0-37.0) g/dL RDW 16.0 H (11.5-15.5) % Neutrophils # 13.5 H (1.3-7.7) k/uL Lymphocytes # 0.8 L (1.0-4.8) k/uL ABG pCO2 30 L (35-45) mmHg ABG pO2 77 L (83-108) mmHg Chloride 117 H (98-107) mmol/L Carbon Dioxide 19 L (22-30) mmol/L Creatinine 1.65 H (0.52-1.04) mg/dL Glucose 181 H (74-99) mg/dL Calcium 7.4 L (8.4-10.2) mg/dL Microbiology - Last 24 Hours (Table) 09/24/21 09:20 Acid Fast Bacilli Smear - Final Bronchial Washings - Random Acid Fast Bacilli Culture - Preliminary
[2021-10-05] MEDS: LACTATED RINGERS 1,000 ML IV SCH (11:37)
[2021-10-05] MEDS: ENOXAPARIN 40 MG/0.4 ML SYRINGE SQ SCH (12:15)
--- NOTE | 2021-10-05 12:49 | P.OP ---
Date of Procedure: 10/01/21 Preoperative Diagnosis: Respiratory failure Postoperative Diagnosis: Respiratory failure Procedure(s) Performed: Tracheostomy Anesthesia: ANNIE Surgeon: Isael Beverly Estimated Blood Loss (ml): 5 Pathology: none sent Condition: stable Disposition: PACU Description of Procedure: The patient's placed on the bed in the supine position. The patient received general anesthesia. The neck was prepped and draped in usual sterile fashion. A standard transverse skin incision was made approximately 2 cm above the sternal notch. Using electrocautery the subcutaneous tissues were divided. The platysma was divided. A Wheatlander retractor was placed in the wound. Next the strap muscles were divided in the midline. Another weatlander retractor was placed the wound. The pretracheal fat was then divided with left cautery. The trachea was exposed. At this point the DONOR PROCESSOR advance the and the tracheal tube into the right mainstem bronchus. The balloon was inflated. A tracheotomy was then performed between the second and third tracheal rings. The perivascular tissues a gracilis the trachea. The endotracheal tube was brought back under direct vision. And then the #8 Portex tracheostomy tube was placed into the trachea. End-tidal CO2 was confirmed. The patient had been connected to the ventilator. The patient was ventilated satisfactory. The skin incision site was then closed with 3-0 nylon after the retractors were withdrawn. An umbilical tie was used to secure the tracheostomy tube.
--- NOTE | 2021-10-05 12:53 | P.OP ---
Date of Procedure: 10/04/21 Preoperative Diagnosis: Malnutrition Postoperative Diagnosis: Malnutrition Procedure(s) Performed: EGD with PEG tube placement Anesthesia: ANNIE Surgeon: Isael Beverly Estimated Blood Loss (ml): 3 Pathology: none sent Condition: stable Disposition: PACU Description of Procedure: The patient received IV sedation. Next the gastroscope placed oropharynx passed in the esophagus and stomach. There is no evidence of any outlet obstruction. Stomach was insufflated with air. The light reflux seen the anterior abdominal wall. The abdomen was prepped and draped usual fashion. The skin was incised. And the needles placed and stomach under direct visualization. The needle was snared. And the wires placed through the needle and the wire was snared and brought the oropharynx. The PEG tube was placed over top the wire brought down to the stomach. The PEG tube was secured. At the 3 cm vladislav. The one-piece bolster was used. Patient tolerated procedure well.
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
[2021-10-05] MEDS ORDERED: FUROSEMIDE 10 MG/ML 4 ML VIAL IV STA (13:02)
--- NOTE | 2021-10-05 14:15 | XR ---
EXAMINATION TYPE: XR chest 1V portable DATE OF EXAM: 10/04/2021 COMPARISON: 10/04/2015 HISTORY: Tube placement TECHNIQUE: Single frontal view of the chest is obtained. FINDINGS: Tracheostomy tube stable. NG tube is been removed. Right-sided central line is stable. Pos tsurgical change overlying the cervical spine is bilateral lower lobe infiltrate and pleural effusion . No sizable pneumothorax. IMPRESSION: Stable bilateral lower lobe infiltrate and pleural effusion.
[2021-10-05] MEDS: FLUCONAZOLE IN NACL,ISO-OSM 200 MG in SALINE 1 100ML.BAG IVPB SCH (15:54)
[2021-10-05 17:26] LABS: Amorphous Sediment,Urine Rare /hpf; Appearance,Urine Cloudy (Clear); Bacteria,Urine Rare /hpf; Bilirubin,Urine Negative (Negative); Blood,Urine Negative (Negative); Color,Urine Light Yellow; Glucose,Urine (UA) Negative (Negative); Ketones,Urine Trace (Negative); Leukocyte Esterase,Urine Trace (Negative); Mucus,Urine Rare /hpf; Nitrite,Urine Negative (Negative); PH, Urine 5.5 (5.0-8.0); Protein,Urine 1+ (Negative); RBC,Urine 1 /hpf (0-5); Specific Gravity,Urine 1.012 (1.001-1.035); Squamous Epithelial Cell,Urine 1 /hpf (0-4); Urobilinogen,Urine <2.0 mg/dL (<2.0); WBC,Urine 4 /hpf (0-5)
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
[2021-10-05] MEDS: NORTRIPTYLINE 25 MG CAP PO SCH (21:35)
[2021-10-06] MEDS: IPRATROPIUM-ALBUTEROL 3 ML NEB INHALATION SCH ×7 (00:09→23:41)
[2021-10-06] MEDS: HYDROCORTISONE SUCCINATE 100 MG/2 ML VIAL IV SCH ×3 (00:30→16:23)
[2021-10-06] MEDS: SODIUM CHLORIDE 0.9% 1,000 ML IV SCH (01:00)
[2021-10-06 06:09] LABS: ABG HCO3 22 mmol/L (21-25); ABG PCO2 30 mmHg (35-45); ABG PH 7.47 (7.35-7.45); ABG PO2 85 mmHg (83-108); ABG TCO2 23 mmol/L (19-24); Allen Test Performed? Yes
[2021-10-06] MEDS: NOREPINEPHRINE 8 MG in SODIUM CHLORIDE 0.9% 250 ML IV SCH (08:25)
--- NOTE | 2021-10-06 08:37 | P.PN ---
Subjective Patient is seen in follow-up for acute kidney injury. Creatinine fairly stable at 1.65 yesterday. Urine output improves with IV Lasix but then tapered back down. Receiving normal saline. Tube feeds also started. On 30% FiO2. Off vasopressors. Vital signs are stable. HEENT: Tracheostomy noted. LUNGS: Breath sounds decreased. HEART: Rate and Rhythm are regular. ABDOMEN: Soft, no distention. EXTREMITITES: 1+ edema. Objective - Vital Signs Vital signs: Vital Signs Temp 97.7 F 10/06/21 04:00 Pulse 87 10/06/21 08:15 Resp 17 10/06/21 06:00 BP 113/81 10/06/21 01:00 Pulse Ox 96 10/06/21 06:00 Intake & Output 10/05/21 10/06/21 10/06/21 18:59 06:59 18:59 Intake Total 1025.867 993 73 Output Total 565 300 10 Balance 460.867 693 63 Weight 74 kg Intake: IV 886 793 63 Dextrose 5% in Water 1, 150 000 ml @ 75 mls/hr IV . [id number] [facility] with Sodium Bicarb (1 Meq/ml) 150 ml Rx#:[id number] NS pressure bag 36 33 3 Sodium Chloride 0.9% 1, 600 660 60 000 ml @ 60 mls/hr IV . [id number] [facility] Rx#:[id number] cefTAZidime 2 gm In 100 100 Sodium Chloride 0.9% 100 ml @ 25 mls/hr IVPB Q12HR [facility] Rx#:[id number] Intake, IV Titration 109.867 Amount Norepinephrine 8 mg In 3.527 Sodium Chloride 0.9% 250 ml @ 0.05 MCG/KG/MIN 5. 437 mls/hr IV .Q24H [facility] Rx#:[id number] propofoL 1,000 mg In 106.340 Empty Bag 1 bag @ 5 MCG/ KG/MIN 1.941 mls/hr IV . Q24H [facility] Rx#:[id number] Tube Feeding 30 110 10 Other 90 Output: Urine 565 300 10 Other: Voiding Method Indwelling Catheter Indwelling Catheter ABP, PAP, CO, CI - Last Documented Arterial Blood Pressure 123/55 - Labs CBC & Chem 7: 10/05/21 05:30 10/05/21 05:30 Labs: Abnormal Lab Results - Last 24 Hours (Table) 10/05/21 10/06/21 Range/Units 15:52 06:02 ABG pH 7.47 H (7.35-7.45) ABG pCO2 30 L (35-45) mmHg Urine Appearance Cloudy H (Clear) Urine Protein 1+ H (Negative) Urine Ketones Trace H (Negative) Ur Leukocyte Esterase Trace H (Negative) Amorphous Sediment Rare H (None) /hpf Urine Bacteria Rare H (None) /hpf Urine Mucus Rare H (None) /hpf Assessment and Plan Plan: Assessment: 1. Acute kidney injury secondary to ATN secondary to septic shock and cardiac arrest. Also component of vancomycin toxicity. Vancomycin level 44 on 09/30/2021. Creatinine 1.65 yesterday. Urine output improves with IV Lasix but then tapers down. 2. Metabolic acidosis secondary to acute kidney injury and IV fluids. s/p bicarb drip. Now on oral bicarb. 3. Status post brief cardiac arrest on 09/29/2021. 4. Septic shock secondary to pneumonia on antibiotics. Infectious disease following. 5. Hypokalemia from poor intake. Replaced. 6. Acute hypoxic respiratory failure status post tracheostomy this admission. PEG tube placed 10/04/2021. Plan: Hep-Lock IV fluids. Maintain tube feeds. Add IV Lasix 40 mg once daily. Continue to monitor renal function and urine output. Avoid nephrotoxins.
--- NOTE | 2021-10-06 08:44 | P.PN ---
Subjective Progress Note Date: 10/06/21 Pt had PEG tube placed yesterday, tube feeds started. Off sedation since yesterday, but no improvement in mentation, not following commands, does not wake to voice, does not track. On midodrine, off pressors, BPs stable. Labs today pending. Gen: asleep, ventilated Resp: vent, trach, CVS: good distal perfusion x 4, GI: soft, NTTP, ND, +PEG : no SPT, no CVAT, rubin catheter is present MSK: no pitting edema, no clubbing Neuro: quadriplegia, at baseline Assessment/plan: Acute Hypoxic Respiratory Failure Septic Shock [facility] Associated Pneumonia, polymicrobial Bilateral Pleural Effusions, parapneumonic -status post intubation mechanical ventilation, no s/p tracheostomy, pending PEG tube -multifactorial but mostly secondary to recurrent pneumonia secondary to MRSA and pseudomonas involving both lungs. -Also secondary to bilateral pleural effusions and recurrent collapse of her left lung requiring bronchoscopy and BAL. -Vancomycin and Fortaz per infectious disease -Fluconazole per ID - Pulmonary recs appreciated: pleural effusion b/l being monitored -started solu-cortef 50mg IV TID - s/p trach, s/p PEG - ID recs appreciated - on midodrine Acute kidney injury -Likely from Hypotensive Episode with the CPR for a few seconds approximately 15 seconds, as well as high vancomycin levels. -She is nonoliguric. -On IV fluids per nephrology -On Bicarb Quadriplegia C5, Autonomic dysreflexia - air mattress - turn q 2 - supportive care - may need BiPAP/ vest for home - continue baclofen Hx of HTN - continuing metoprolol - follow BP Urinary Retention due to neurogenic bladder - rubin - hold ditropan and detrol Anemia, stable Thrombocytosis, resolved - follow CBC - Iron studies normal DVT prophylaxis: SCDs Anticipated discharge: undetermined Anticipated discharge place: Pts family's preference is home Objective - Vital Signs Vital signs: Vital Signs Temp 97.7 F 10/06/21 04:00 Pulse 87 10/06/21 08:15 Resp 17 10/06/21 06:00 BP 113/81 10/06/21 01:00 Pulse Ox 96 10/06/21 06:00 Intake & Output 05/10/22 05/11/22 05/11/22 18:59 06:59 18:59 Intake Total 1025.867 993 73 Output Total 565 300 10 Balance 460.867 693 63 Weight 74 kg Intake: IV 886 793 63 Dextrose 5% in Water 1, 150 000 ml @ 75 mls/hr IV . [id number] [facility] with Sodium Bicarb (1 Meq/ml) 150 ml Rx#:[id number] NS pressure bag 36 33 3 Sodium Chloride 0.9% 1, 600 660 60 000 ml @ 60 mls/hr IV . [id number] [facility] Rx#:[id number] cefTAZidime 2 gm In 100 100 Sodium Chloride 0.9% 100 ml @ 25 mls/hr IVPB Q12HR [facility] Rx#:[id number] Intake, IV Titration 109.867 Amount Norepinephrine 8 mg In 3.527 Sodium Chloride 0.9% 250 ml @ 0.05 MCG/KG/MIN 5. 437 mls/hr IV .Q24H [facility] Rx#:[id number] propofoL 1,000 mg In 106.340 Empty Bag 1 bag @ 5 MCG/ KG/MIN 1.941 mls/hr IV . Q24H [facility] Rx#:[id number] Tube Feeding 30 110 10 Other 90 Output: Urine 565 300 10 Other: Voiding Method Indwelling Catheter Indwelling Catheter ABP, PAP, CO, CI - Last Documented Arterial Blood Pressure 123/55 - Labs CBC & Chem 7: 10/05/21 05:30 10/05/21 05:30 Labs: Abnormal Lab Results - Last 24 Hours (Table) 10/05/21 10/06/21 Range/Units 15:52 06:02 ABG pH 7.47 H (7.35-7.45) ABG pCO2 30 L (35-45) mmHg Urine Appearance Cloudy H (Clear) Urine Protein 1+ H (Negative) Urine Ketones Trace H (Negative) Ur Leukocyte Esterase Trace H (Negative) Amorphous Sediment Rare H (None) /hpf Urine Bacteria Rare H (None) /hpf Urine Mucus Rare H (None) /hpf
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
[2021-10-06 08:52] LABS: Calcium 7.6 mg/dL (8.4-10.2); Potassium 3.5 mmol/L (3.5-5.1)
[2021-10-06 09:07] LABS: Basophils % (A) 0 %; Eosinophils % (A) 0 %; HCT 28.1 % (34.0-46.0); HGB 8.5 gm/dL (11.4-16.0); Hypochromasia Marked; Lymphocytes % (A) 8 %; MCH 28.5 pg (25.0-35.0); MCHC 30.2 g/dL (31.0-37.0); MCV 94.1 fL (80.0-100.0); Mean Platelet Volume 9.2; Monocytes # (A) 0.7 k/uL (0-1.0); Monocytes % (A) 5 %; Neutrophils # (A) 10.4 k/uL (1.3-7.7); Neutrophils % (A) 84 %; Platelet Count 393 k/uL (150-450); RBC 2.99 m/uL (3.80-5.40); RDW 15.9 % (11.5-15.5); WBC 12.3 k/uL (3.8-10.6)
[2021-10-06] MEDS: polyethylene glycoL 3350 17 GM POWD.PACK PO SCH (09:40)
[2021-10-06] MEDS: MIDODRINE 5 MG TAB PO SCH ×3 (09:40→17:10)
[2021-10-06] MEDS: CHLORHEXIDINE GLUCONATE 15 ML CUP MUCOUS MEM SCH ×2 (09:40→22:43)
[2021-10-06] MEDS: ENOXAPARIN 40 MG/0.4 ML SYRINGE SQ SCH (09:40)
[2021-10-06] MEDS: METOPROLOL TARTRATE 25 MG TAB PO SCH ×2 (09:40→22:43)
[2021-10-06] MEDS: ZYRTEC 10 MG PO SCH (09:40)
[2021-10-06] MEDS: PANTOPRAZOLE 40 MG/10 ML VIAL IVP SCH (09:41)
[2021-10-06] MEDS: BACLOFEN 10 MG TAB PO SCH ×2 (09:41→22:43)
[2021-10-06] MEDS: FUROSEMIDE 10 MG/ML 4 ML VIAL IV SCH (09:41)
[2021-10-06] MEDS: SODIUM BICARBONATE TAB 650 MG TAB PO SCH ×4 (09:41→22:43)
[2021-10-06] MEDS ORDERED: POTASSIUM BICARBONATE/CIT AC 20 MEQ TABLET.EFF PO ONE (09:42)
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
[2021-10-06] MEDS: LACTATED RINGERS 1,000 ML IV SCH (13:21)
--- NOTE | 2021-10-06 13:38 | P.PN ---
Progress Note - Text Progress Note Date: 10/06/21 Advance Care Planning Note I spent 16 minutes of [id number] time discussing advance care planning with patient's DURABLE POWER OF GUIDE RAIL CLEANER, Scot, who was her uncle, in light of her serious medical conditions of: ventilator dependent respiratory failure, oliguric kidney failure, and toxic encephalopathy secondary to sepsis. Based on her discussion, Scot is in understanding that the patient is not doing very well at this time, and would likely have a very poor outcome if she were to be coded. Scot understands that this is outside of the goals of patient's care, and does not want her to suffer unnecessarily, and expresses wish to have patient become DO NOT RESUSCITATE status for now. We did discuss that should patient's clinical situation improved in the next 48 hours, it's entirely reasonable to reverse his CODE STATUS depending on her situation. However, vice versa, if her clinical status does not improve in the next 48-72 hours, it's reasonable to proceed with palliative care. She denied come to an understanding that we will discuss her case day by day, and make the appropriate medical decision to minimize patient suffering while maximizing opportunity for patient to recover to her baseline.
[2021-10-06] MEDS: METOCLOPRAMIDE 5 MG/ML 2 ML VIAL IVP SCH ×2 (14:22→17:10)
[2021-10-06] MEDS: FLUCONAZOLE IN NACL,ISO-OSM 200 MG in SALINE 1 100ML.BAG IVPB SCH (16:24)
[2021-10-06] MEDS: NORTRIPTYLINE 25 MG CAP PO SCH (22:52)
[2021-10-07] MEDS: HYDROCORTISONE SUCCINATE 100 MG/2 ML VIAL IV SCH ×3 (01:09→19:58)
[2021-10-07] MEDS: METOCLOPRAMIDE 5 MG/ML 2 ML VIAL IVP SCH ×4 (01:10→17:03)
[2021-10-07] MEDS: IPRATROPIUM-ALBUTEROL 3 ML NEB INHALATION SCH ×5 (03:22→20:59)
[2021-10-07 05:49] LABS: ABG Base Excess -3.1 mmol/L; ABG HCO3 21 mmol/L (21-25); ABG Oxygen Saturation 98.2 % (94-97); ABG PCO2 31 mmHg (35-45); ABG PH 7.44 (7.35-7.45); ABG PO2 112 mmHg (83-108); ABG TCO2 22 mmol/L (19-24); Allen Test Performed? Yes
[2021-10-07 06:16] LABS: Calcium 7.8 mg/dL (8.4-10.2); Potassium 3.3 mmol/L (3.5-5.1)
[2021-10-07 06:21] LABS: Vancomycin,Random 21.1 ug/mL
[2021-10-07] MEDS: MIDODRINE 5 MG TAB PO SCH ×3 (06:51→17:03)
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
[2021-10-07] MEDS: PANTOPRAZOLE 40 MG/10 ML VIAL IVP SCH (08:41)
[2021-10-07] MEDS: CHLORHEXIDINE GLUCONATE 15 ML CUP MUCOUS MEM SCH ×2 (08:42→19:59)
[2021-10-07] MEDS: METOPROLOL TARTRATE 25 MG TAB PO SCH ×2 (08:43→19:58)
[2021-10-07] MEDS: SODIUM BICARBONATE TAB 650 MG TAB PO SCH ×4 (08:43→19:57)
[2021-10-07] MEDS: BACLOFEN 10 MG TAB PO SCH ×2 (08:43→19:57)
[2021-10-07] MEDS: POTASSIUM BICARBONATE/CIT AC 20 MEQ TABLET.EFF NG-TUBE SCH ×2 (08:43→09:51)
[2021-10-07] MEDS: NOREPINEPHRINE 8 MG in SODIUM CHLORIDE 0.9% 250 ML IV SCH (08:44)
[2021-10-07] MEDS: ENOXAPARIN 40 MG/0.4 ML SYRINGE SQ SCH (08:44)
[2021-10-07] MEDS: polyethylene glycoL 3350 17 GM POWD.PACK PO SCH (08:55)
[2021-10-07] MEDS: ZYRTEC 10 MG PO SCH (08:55)
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
[2021-10-07] MEDS: FUROSEMIDE 10 MG/ML 4 ML VIAL IV SCH (09:51)
--- NOTE | 2021-10-07 10:02 | XR ---
EXAMINATION TYPE: XR abdomen 1V DATE OF EXAM: 10/07/2021 COMPARISON: NONE HISTORY: Possible ileus TECHNIQUE: One view abdominal series FINDINGS: The osseous structures are intact. The bowel gas pattern is nonspecific. Tube overlying the left upp er quadrant could relate to a jejunal tube or gastrostomy tube correlate clinically. There is bilater al infiltrate and pleural effusion greater on the right. Hypertrophic and degenerative change of the spine. Catheter overlying the pelvis with little to no air in the pelvis. Right femoral catheter note d. IMPRESSION: 1. Soft tissue density in the pelvis could represent a urine filled bladder. Other etiologies not exc luded including mass. 2. Air-filled bowel loops in nonspecific pattern. Ileus in the differential diagnosis. 3. Bilateral lower lobe infiltrate and pleural effusion
[2021-10-07 12:36] LABS: Anisocytosis Slight; Basophils % (A) 0 %; Eosinophils % (A) 0 %; HCT 29.6 % (34.0-46.0); HGB 8.9 gm/dL (11.4-16.0); Hypochromasia Marked; Lymphocytes # (A) 0.9 k/uL (1.0-4.8); Lymphocytes % (A) 7 %; MCH 28.5 pg (25.0-35.0); MCHC 30.2 g/dL (31.0-37.0); MCV 94.3 fL (80.0-100.0); Mean Platelet Volume 9.7; Monocytes # (A) 0.7 k/uL (0-1.0); Monocytes % (A) 5 %; Neutrophils # (A) 11.8 k/uL (1.3-7.7); Neutrophils % (A) 86 %; Platelet Count 385 k/uL (150-450); RBC 3.14 m/uL (3.80-5.40); RDW 16.1 % (11.5-15.5); WBC 13.6 k/uL (3.8-10.6)
--- NOTE | 2021-10-07 13:03 | P.PN ---
Subjective Progress Note Date: 10/07/21 Tube feedings on hold due to Ileus. Abd XR with distended bowel, urine filled bladder Gen: asleep, ventilated Resp: vent, trach, CVS: good distal perfusion x 4, GI: soft, NTTP, ND, +PEG : no SPT, no CVAT, rubin catheter is present MSK: no pitting edema, no clubbing Neuro: quadriplegia, at baseline Assessment/plan: Acute Hypoxic Respiratory Failure Septic Shock [facility] Associated Pneumonia, polymicrobial Bilateral Pleural Effusions, parapneumonic -status post intubation mechanical ventilation, no s/p tracheostomy, pending PEG tube -multifactorial but mostly secondary to recurrent pneumonia secondary to MRSA and pseudomonas involving both lungs. -Also secondary to bilateral pleural effusions and recurrent collapse of her l eft lung requiring bronchoscopy and BAL. -Vancomycin and Fortaz per infectious disease -Fluconazole per ID - Pulmonary recs appreciated: pleural effusion b/l being monitored -started solu-cortef 50mg IV TID - s/p trach, s/p PEG - ID recs appreciated - on midodrine Acute kidney injury -Likely from Hypotensive Episode with the CPR for a few seconds approximately 15 seconds, as well as high vancomycin levels. -She is nonoliguric. -On IV fluids per nephrology -On Bicarb Quadriplegia C5, Autonomic dysreflexia - air mattress - turn q 2 - supportive care - may need BiPAP/ vest for home - continue baclofen Hx of HTN - continuing metoprolol - follow BP Urinary Retention due to neurogenic bladder - rubin - hold ditropan and detrol Anemia, stable Thrombocytosis, resolved - follow CBC - Iron studies normal DVT prophylaxis: SCDs Anticipated discharge: undetermined Anticipated discharge place: Pts family's preference is home Objective - Vital Signs Vital signs: Vital Signs Temp 97.7 F 10/07/21 09:00 Pulse 85 10/07/21 12:00 Resp 20 10/07/21 12:00 BP 127/82 10/07/21 05:00 Pulse Ox 92 L 10/07/21 12:00 Intake & Output 10/06/21 10/07/21 10/07/21 18:59 06:59 18:59 Intake Total 596 216 133 Output Total 416 389 305 Balance -119 -9 -172 Weight 74 kg 75 kg Intake: IV 516 216 133 Fluconazole in NaCl,Iso- 100 100 Osm 200 mg In Saline 1 100ml.bag @ 100 mls/hr IVPB Q24H [facility] Rx#: [id number] NS pressure bag 36 36 18 Sodium Chloride 0.9% 1, 280 180 15 000 ml @ 60 mls/hr IV . [id number] [facility] Rx#:[id number] cefTAZidime 2 gm In 100 Sodium Chloride 0.9% 100 ml @ 25 mls/hr IVPB Q12HR [facility] Rx#:[id number] Tube Feeding 50 Other 30 Output: Urine 715 225 305 Other: Voiding Method Indwelling Catheter Indwelling Catheter Indwelling Catheter # Bowel Movements 1 ABP, PAP, CO, CI - Last Documented Arterial Blood Pressure 111/55 - Labs CBC & Chem 7: 10/07/21 12:26 10/07/21 11:53 Labs: Abnormal Lab Results - Last 24 Hours (Table) 10/07/21 10/07/21 10/07/21 Range/Units 05:44 05:45 12:26 WBC 13.6 H (3.8-10.6) k/uL RBC 3.14 L (3.80-5.40) m/uL Hgb 8.9 L (11.4-16.0) gm/dL Hct 29.6 L (34.0-46.0) % MCHC 30.2 L (31.0-37.0) g/dL RDW 16.1 H (11.5-15.5) % Neutrophils # 11.8 H (1.3-7.7) k/uL Lymphocytes # 0.9 L (1.0-4.8) k/uL ABG pCO2 31 L (35-45) mmHg ABG pO2 112 H (83-108) mmHg ABG O2 Saturation 98.2 H (94-97) % Potassium 3.3 L (3.5-5.1) mmol/L Chloride 115 H (98-107) mmol/L Carbon Dioxide 20 L (22-30) mmol/L BUN 26 H (7-17) mg/dL Creatinine 2.11 H (0.52-1.04) mg/dL Glucose 110 H (74-99) mg/dL Calcium 7.8 L (8.4-10.2) mg/dL
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
--- NOTE | 2021-10-07 14:03 | P.PN ---
Subjective Patient is seen for follow-up for acute kidney injury, ATN. She is currently maintained on IV Lasix. Serum creatinine staying at about 1.9-2 mg/dL. Urine output improves with IV Lasix and then tapers back down. Currently stable on the vent. Maintained on FiO2 at 40%. Off of vasopressors Urine output this morning about 100 mL for the last couple of hours Objective - Vital Signs Vital signs: Vital Signs Temp 96.1 F L 10/07/21 13:00 Pulse 82 10/07/21 13:00 Resp 18 10/07/21 13:00 BP 127/82 10/07/21 05:00 Pulse Ox 97 10/07/21 13:00 Intake & Output 10/06/21 10/07/21 10/07/21 18:59 06:59 18:59 Intake Total 596 216 136 Output Total 715 225 405 Balance -119 -9 -269 Weight 74 kg 75 kg Intake: IV 516 216 136 Fluconazole in NaCl,Iso- 100 100 Osm 200 mg In Saline 1 100ml.bag @ 100 mls/hr IVPB Q24H [facility] Rx#: [id number] NS pressure bag 36 36 21 Sodium Chloride 0.9% 1, 280 180 15 000 ml @ 60 mls/hr IV . [id number] [facility] Rx#:[id number] cefTAZidime 2 gm In 100 Sodium Chloride 0.9% 100 ml @ 25 mls/hr IVPB Q12HR [facility] Rx#:[id number] Tube Feeding 50 Other 30 Output: Urine 715 225 405 Other: Voiding Method Indwelling Catheter Indwelling Catheter Indwelling Catheter # Bowel Movements 1 ABP, PAP, CO, CI - Last Documented Arterial Blood Pressure 132/68 - Exam Patient is awake. She is on the vent Examination of the heart S1 and S2 Examination lungs bilateral breath sounds are heard Abdomen is soft Examination lower extremities shows 1+ edema. Significant vulvar edema noted - Labs CBC & Chem 7: 10/07/21 12:26 10/07/21 11:53 Labs: Abnormal Lab Results - Last 24 Hours (Table) 10/07/21 10/07/21 10/07/21 Range/Units 05:44 05:45 12:26 WBC 13.6 H (3.8-10.6) k/uL RBC 3.14 L (3.80-5.40) m/uL Hgb 8.9 L (11.4-16.0) gm/dL Hct 29.6 L (34.0-46.0) % MCHC 30.2 L (31.0-37.0) g/dL RDW 16.1 H (11.5-15.5) % Neutrophils # 11.8 H (1.3-7.7) k/uL Lymphocytes # 0.9 L (1.0-4.8) k/uL ABG pCO2 31 L (35-45) mmHg ABG pO2 112 H (83-108) mmHg ABG O2 Saturation 98.2 H (94-97) % Potassium 3.3 L (3.5-5.1) mmol/L Chloride 115 H (98-107) mmol/L Carbon Dioxide 20 L (22-30) mmol/L BUN 26 H (7-17) mg/dL Creatinine 2.11 H (0.52-1.04) mg/dL Glucose 110 H (74-99) mg/dL Calcium 7.8 L (8.4-10.2) mg/dL Assessment and Plan Assessment: 1. Acute kidney injury secondary to septic shock and cardiac arrest and component of vancomycin toxicity. Vancomycin level was 44 on 09/30/2021. Serum creatinine staying at about 1.9-2 mg/dL. Currently nonoliguric. Maintained on IV Lasix which helps with the urine output 2. Metabolic acidosis associated with acute kidney injury and IV fluids. Status post bicarb drip currently maintained on oral sodium bicarb 3. Status post cardiac arrest on 09/29/2021 4. Septic shock secondary to pneumonia maintained on antibiotics. Being followed by ID Hypokalemia from decrease intake, status post replacement 6. Acute hypoxic respiratory failure status post tracheostomy and PEG tube placement Plan: Continue with IV Lasix Repeat labs in a.m. Continue with tube feedings Avoid nephrotoxic agents.
[2021-10-07] MEDS: FLUCONAZOLE IN NACL,ISO-OSM 200 MG in SALINE 1 100ML.BAG IVPB SCH (16:45)
[2021-10-07] MEDS: LACTATED RINGERS 1,000 ML IV SCH (17:04)
[2021-10-07] MEDS: NORTRIPTYLINE 25 MG CAP PO SCH (20:36)
[2021-10-07] MEDS ORDERED: VANCOMYCIN 1,000 MG in SODIUM CHLORIDE 0.9% 250 ML IVPB ONE (21:00)
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
[2021-10-07] MEDS ORDERED: SODIUM CHLORIDE 0.9% IVPB SCH (23:00)
[2021-10-07] MEDS ORDERED: CEFTAROLINE FOSAMIL IVPB SCH (23:00)
[2021-10-08] MEDS ORDERED: METOCLOPRAMIDE 5 MG/ML 2 ML VIAL ONE
[2021-10-08] MEDS ORDERED: IPRATROPIUM-ALBUTEROL 3 ML NEB ONE
[2021-10-08] MEDS: IPRATROPIUM-ALBUTEROL 3 ML NEB INHALATION SCH ×6 (05:47→22:26)
[2021-10-08] MEDS: SODIUM CHLORIDE 0.9% IVPB SCH ×2 (06:15→17:07)
[2021-10-08] MEDS: CEFTAROLINE FOSAMIL IVPB SCH ×2 (06:15→17:07)
[2021-10-08] MEDS: NOREPINEPHRINE 8 MG in SODIUM CHLORIDE 0.9% 250 ML IV SCH (06:36)
[2021-10-08 06:56] LABS: HCT 27.7 % (34.0-46.0); HGB 8.2 gm/dL (11.4-16.0); Hypochromasia Marked; MCH 28.4 pg (25.0-35.0); MCHC 29.8 g/dL (31.0-37.0); MCV 95.2 fL (80.0-100.0); Mean Platelet Volume 9.5; Platelet Count 370 k/uL (150-450); RBC 2.91 m/uL (3.80-5.40); RDW 15.6 % (11.5-15.5)
[2021-10-08] MEDS: METOCLOPRAMIDE 5 MG/ML 2 ML VIAL IVP SCH ×4 (06:56→23:40)
[2021-10-08 07:13] LABS: Potassium 3.5 mmol/L (3.5-5.1)
[2021-10-08] MEDS ORDERED: Potassium Replacement Protocol 1 EACH MISC MISCELLANE PRN (07:14)
--- NOTE | 2021-10-08 07:48 | XR ---
EXAMINATION TYPE: XR chest 1V portable DATE OF EXAM: 10/08/2021 COMPARISON: 10/05/2021 HISTORY: Shortness of breath TECHNIQUE: Single frontal view of the chest is obtained. FINDINGS: Tracheostomy tube is seen to tip only 7 mm above the ger. Bilateral infiltrate and pleu ral effusion noted PICC line seen. Postsurgical change overlying the cervical spine. No pneumothorax. Scoliotic curvature of the spine. IMPRESSION: 1. Tracheostomy tube somewhat low in position on today's exam only 7 mm above the ger. Correlate c linically. 2. Stable bilateral pleural-parenchymal disease correlate for pneumonia versus CHF.
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
--- NOTE | 2021-10-08 10:13 | P.PN ---
Subjective Patient is seen for follow-up for acute kidney injury, ATN. She is currently maintained on IV Lasix. Serum creatinine staying at about 1.9-2 mg/dL. increased to 2.4 mg today Urine output improves with IV Lasix and then tapers back down. Currently stable on the vent. Maintained on FiO2 at 40%. Off of vasopressors Blood pressure was low yesterday with systolic at 95. Patient has been started on Cortef. Objective - Vital Signs Vital signs: Vital Signs Temp 97.8 F 10/08/21 08:00 Pulse 95 10/08/21 10:00 Resp 18 10/08/21 10:00 BP 108/69 10/08/21 10:00 Pulse Ox 98 10/08/21 10:00 Intake & Output 10/07/21 10/08/21 10/08/21 18:59 06:59 18:59 Intake Total 211 499 49 Output Total 545 380 100 Balance -334 119 -51 Weight 75 kg 75 kg Intake: IV 151 89 19 0.9 NACL 10 Fluconazole in NaCl,Iso- 100 Osm 200 mg In Saline 1 100ml.bag @ 100 mls/hr IVPB Q24H [facility] Rx#: [id number] NS pressure bag 36 39 9 Sodium Chloride 0.9% 1, 15 000 ml @ 60 mls/hr IV . [id number] [facility] Rx#:[id number] cefTAZidime 2 gm In 50 Sodium Chloride 0.9% 100 ml @ 25 mls/hr IVPB Q12HR [facility] Rx#:[id number] Intake, IV Titration 290 Amount Ceftaroline Fosamil 300 40 mg In Sodium Chloride 0.9 % 40 ml @ 50 mls/hr IVPB Q12H [facility] Rx#:[id number] Vancomycin 1,000 mg In 250 Sodium Chloride 0.9% 250 ml @ 125 mls/hr IVPB ONCE ONE Rx#:[id number] Oral 90 Tube Feeding 30 30 30 Other 30 Output: Urine 545 280 100 Oral Regurgitation 100 Other: Voiding Method Indwelling Catheter Indwelling Catheter # Bowel Movements 1 ABP, PAP, CO, CI - Last Documented Arterial Blood Pressure 130/61 - Exam Patient is awake. She is on the vent Examination of the heart S1 and S2 Examination lungs bilateral breath sounds are heard Abdomen is soft Examination lower extremities shows 1+ edema. Significant vulvar edema noted - Labs CBC & Chem 7: 10/08/21 06:20 10/08/21 06:20 Labs: Abnormal Lab Results - Last 24 Hours (Table) 10/07/21 10/08/21 10/08/21 Range/Units 12:26 06:20 06:20 WBC 13.6 H 13.0 H (3.8-10.6) k/uL RBC 3.14 L 2.91 L (3.80-5.40) m/uL Hgb 8.9 L 8.2 L (11.4-16.0) gm/dL Hct 29.6 L 27.7 L (34.0-46.0) % MCHC 30.2 L 29.8 L (31.0-37.0) g/dL RDW 16.1 H 15.6 H (11.5-15.5) % Neutrophils # 11.8 H (1.3-7.7) k/uL Lymphocytes # 0.9 L (1.0-4.8) k/uL Chloride 114 H (98-107) mmol/L Carbon Dioxide 18 L (22-30) mmol/L BUN 30 H (7-17) mg/dL Creatinine 2.40 H (0.52-1.04) mg/dL Glucose 116 H (74-99) mg/dL Calcium 8.0 L (8.4-10.2) mg/dL Assessment and Plan Assessment: 1. Acute kidney injury secondary to septic shock and cardiac arrest and component of vancomycin toxicity. Vancomycin level was 44 on 09/30/2021. Serum creatinine staying at about 1.9-2 mg/dL. increased to 2.4 mg/dL today. Currently nonoliguric. Maintained on IV Lasix which helps with the urine output 2. Metabolic acidosis associated with acute kidney injury and IV fluids. Status post bicarb drip currently maintained on oral sodium bicarb 3. Status post cardiac arrest on 09/29/2021 4. Septic shock secondary to pneumonia maintained on antibiotics. Being followed by ID 5. Hypokalemia from decrease intake, status post replacement 6. Acute hypoxic respiratory failure status post tracheostomy and PEG tube placement 7. Volume overload with significant vulvar edema, maintained on IV Lasix. Katz catheter was also changed to nonlatex. Plan: Continue with IV Lasix Repeat labs in a.m. Continue with tube feedings Avoid nephrotoxic agents.
[2021-10-08] MEDS: ENOXAPARIN 30 MG/0.3 ML SYRINGE SQ SCH (10:25)
[2021-10-08] MEDS: POTASSIUM BICARBONATE/CIT AC 20 MEQ TABLET.EFF NG-TUBE SCH ×2 (10:25→11:55)
[2021-10-08] MEDS: HYDROCORTISONE SUCCINATE 100 MG/2 ML VIAL IV SCH ×2 (10:25→20:26)
[2021-10-08] MEDS: CHLORHEXIDINE GLUCONATE 15 ML CUP MUCOUS MEM SCH ×2 (10:26→20:26)
[2021-10-08] MEDS: polyethylene glycoL 3350 17 GM POWD.PACK PO SCH (10:26)
[2021-10-08] MEDS: PANTOPRAZOLE 40 MG/10 ML VIAL IVP SCH (10:26)
[2021-10-08] MEDS: BACLOFEN 10 MG TAB PO SCH ×2 (10:27→20:26)
[2021-10-08] MEDS: MIDODRINE 5 MG TAB PO SCH ×3 (10:27→17:07)
[2021-10-08] MEDS: METOPROLOL TARTRATE 25 MG TAB PO SCH ×2 (10:27→20:26)
[2021-10-08] MEDS: SODIUM BICARBONATE TAB 650 MG TAB PO SCH ×4 (10:27→20:26)
[2021-10-08] MEDS: FUROSEMIDE 10 MG/ML 4 ML VIAL IV SCH (10:27)
[2021-10-08] MEDS: ZYRTEC 10 MG PO SCH (10:28)
[2021-10-08] MEDS: DEXTROSE 5% IN WATER 1,000 ML IV SCH (10:48)
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
--- NOTE | 2021-10-08 15:05 | P.PN ---
Subjective Progress Note Date: 10/08/21 Tube feeds as tolerated. Still does not follow commands. Gen: asleep, ventilated Resp: vent, trach, CVS: good distal perfusion x 4, GI: soft, NTTP, ND, +PEG : no SPT, no CVAT, rubin catheter is present MSK: no pitting edema, no clubbing Neuro: quadriplegia, at baseline Assessment/plan: Acute Hypoxic Respiratory Failure Septic Shock [facility] Associated Pneumonia, polymicrobial Bilateral Pleural Effusions, parapneumonic -status post intubation mechanical ventilation, no s/p tracheostomy, pending PEG tube -multifactorial but mostly secondary to recurrent pneumonia secondary to MRSA and pseudomonas involving both lungs. -Also secondary to bilateral pleural effusions and recurrent collapse of her left lung requiring bronchoscopy and BAL. -Vancomycin and Fortaz per infectious disease -Fluconazole per ID - Pulmonary recs appreciated: pleural effusion b/l being monitored -started solu-cortef 50mg IV TID - s/p trach, s/p PEG - ID recs appreciated - on midodrine Acute kidney injury -Likely from Hypotensive Episode with the CPR for a few seconds approximately 15 seconds, as well as high vancomycin levels. -She is nonoliguric. -On IV fluids per nephrology -On Bicarb Quadriplegia C5, Autonomic dysreflexia - air mattress - turn q 2 - supportive care - may need BiPAP/ vest for home - continue baclofen Hx of HTN - continuing metoprolol - follow BP Urinary Retention due to neurogenic bladder - rubin - hold ditropan and detrol Anemia, stable Thrombocytosis, resolved - follow CBC - Iron studies normal DVT prophylaxis: SCDs Anticipated discharge: undetermined Anticipated discharge place: Pts family's preference is home Objective - Vital Signs Vital signs: Vital Signs Temp 97.8 F 10/08/21 12:00 Pulse 85 10/08/21 14:00 Resp 20 10/08/21 14:00 BP 138/85 10/08/21 14:00 Pulse Ox 96 10/08/21 14:00 Intake & Output 10/07/21 10/08/21 10/08/21 18:59 06:59 18:59 Intake Total 211 499 241 Output Total 548 380 390 Balance -334 119 -149 Weight 75 kg 75 kg Intake: IV 151 89 171 0.9 NACL 50 D5W 100 Fluconazole in NaCl,Iso- 100 Osm 200 mg In Saline 1 100ml.bag @ 100 mls/hr IVPB Q24H [facility] Rx#: [id number] NS pressure bag 36 39 21 Sodium Chloride 0.9% 1, 15 000 ml @ 60 mls/hr IV . [id number] [facility] Rx#:[id number] cefTAZidime 2 gm In 50 Sodium Chloride 0.9% 100 ml @ 25 mls/hr IVPB Q12HR [facility] Rx#:[id number] Intake, IV Titration 290 Amount Ceftaroline Fosamil 300 40 mg In Sodium Chloride 0.9 % 40 ml @ 50 mls/hr IVPB Q12H [facility] Rx#:[id number] Vancomycin 1,000 mg In 250 Sodium Chloride 0.9% 250 ml @ 125 mls/hr IVPB ONCE ONE Rx#:[id number] Oral 90 Tube Feeding 30 30 70 Other 30 Output: Urine 545 280 390 Oral Regurgitation 100 Other: Voiding Method Indwelling Catheter Indwelling Catheter Indwelling Catheter # Bowel Movements 1 ABP, PAP, CO, CI - Last Documented Arterial Blood Pressure 125/58 - Labs CBC & Chem 7: 10/08/21 06:20 10/08/21 06:20 Labs: Abnormal Lab Results - Last 24 Hours (Table) 10/08/21 10/08/21 Range/Units 06:20 06:20 WBC 13.0 H (3.8-10.6) k/uL RBC 2.91 L (3.80-5.40) m/uL Hgb 8.2 L (11.4-16.0) gm/dL Hct 27.7 L (34.0-46.0) % MCHC 29.8 L (31.0-37.0) g/dL RDW 15.6 H (11.5-15.5) % Chloride 114 H (98-107) mmol/L Carbon Dioxide 18 L (22-30) mmol/L BUN 30 H (7-17) mg/dL Creatinine 2.40 H (0.52-1.04) mg/dL Glucose 116 H (74-99) mg/dL Calcium 8.0 L (8.4-10.2) mg/dL
[2021-10-08] MEDS: FLUCONAZOLE IN NACL,ISO-OSM 200 MG in SALINE 1 100ML.BAG IVPB SCH (17:24)
[2021-10-08] MEDS: NORTRIPTYLINE 25 MG CAP PO SCH (20:26)
[2021-10-09] MEDS: IPRATROPIUM-ALBUTEROL 3 ML NEB INHALATION SCH ×5 (03:45→19:10)
[2021-10-09] MEDS: NOREPINEPHRINE 8 MG in SODIUM CHLORIDE 0.9% 250 ML IV SCH (06:09)
[2021-10-09] MEDS: METOCLOPRAMIDE 5 MG/ML 2 ML VIAL IVP SCH ×4 (06:24→23:36)
[2021-10-09] MEDS: SODIUM CHLORIDE 0.9% IVPB SCH ×2 (06:31→17:34)
[2021-10-09] MEDS: CEFTAROLINE FOSAMIL IVPB SCH ×2 (06:31→17:34)
[2021-10-09] MEDS: MIDODRINE 5 MG TAB PO SCH ×3 (07:36→17:23)
[2021-10-09] MEDS: polyethylene glycoL 3350 17 GM POWD.PACK PO SCH (08:06)
[2021-10-09] MEDS: HYDROCORTISONE SUCCINATE 100 MG/2 ML VIAL IV SCH (08:06)
[2021-10-09] MEDS: PANTOPRAZOLE 40 MG/10 ML VIAL IVP SCH (08:06)
[2021-10-09] MEDS: FUROSEMIDE 10 MG/ML 4 ML VIAL IV SCH (08:06)
[2021-10-09] MEDS: CHLORHEXIDINE GLUCONATE 15 ML CUP MUCOUS MEM SCH ×2 (08:06→19:41)
[2021-10-09] MEDS: METOPROLOL TARTRATE 25 MG TAB PO SCH ×2 (08:07→19:41)
[2021-10-09] MEDS: ENOXAPARIN 30 MG/0.3 ML SYRINGE SQ SCH (08:07)
[2021-10-09] MEDS: BACLOFEN 10 MG TAB PO SCH ×2 (08:07→19:41)
[2021-10-09] MEDS: ZYRTEC 10 MG PO SCH (08:07)
[2021-10-09] MEDS: SODIUM BICARBONATE TAB 650 MG TAB PO SCH ×4 (08:07→19:41)
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
[2021-10-09 10:50] LABS: Calcium 8.2 mg/dL (8.4-10.2); Potassium 4.2 mmol/L (3.5-5.1)
--- NOTE | 2021-10-09 11:11 | P.PN ---
Subjective Patient is seen for follow-up for acute kidney injury, ATN. She is currently maintained on IV Lasix. Serum creatinine staying at about 1.9-2 mg/dL. increased to 2.4 mg , down to 2.3 today. Urine output improves with IV Lasix and then tapers back down. Currently stable, off of the vent and on trach collar is morning. Off of vasopressors Abdomen appears to be distended. Patient did have a soft bowel movement this morning.. Vancomycin level 25 Objective - Vital Signs Vital signs: Vital Signs Temp 97.6 F 10/09/21 08:00 Pulse 68 10/09/21 11:00 Resp 21 10/09/21 08:00 BP 128/84 10/09/21 08:00 Pulse Ox 98 10/09/21 08:00 Intake & Output 10/08/21 10/09/21 10/09/21 18:59 06:59 18:59 Intake Total 473 913 220 Output Total 560 270 150 Balance -87 643 70 Weight 75 kg 76 kg Intake: IV 323 523 140 0.9 NACL 90 120 40 D5W 200 300 100 Fluconazole in NaCl,Iso- 100 Osm 200 mg In Saline 1 100ml.bag @ 100 mls/hr IVPB Q24H [facility] Rx#: [id number] NS pressure bag 33 3 Tube Feeding 150 240 80 Other 150 Output: Urine 560 270 150 Other: Voiding Method Indwelling Catheter Indwelling Catheter Indwelling Catheter # Bowel Movements 1 ABP, PAP, CO, CI - Last Documented Arterial Blood Pressure 125/58 - Exam Patient is awake. She is on the vent Examination of the heart S1 and S2 Examination lungs bilateral breath sounds are heard Abdomen is soft Examination lower extremities shows 1+ edema. Significant vulvar edema noted - Labs CBC & Chem 7: 10/08/21 06:20 10/09/21 07:25 Labs: Abnormal Lab Results - Last 24 Hours (Table) 10/09/21 Range/Units 07:25 Chloride 113 H (98-107) mmol/L Carbon Dioxide 18 L (22-30) mmol/L BUN 40 H (7-17) mg/dL Creatinine 2.33 H (0.52-1.04) mg/dL Glucose 154 H (74-99) mg/dL Calcium 8.2 L (8.4-10.2) mg/dL Assessment and Plan Assessment: 1. Acute kidney injury secondary to septic shock and cardiac arrest and component of vancomycin toxicity. Vancomycin level was 44 on 09/30/2021. Serum creatinine staying at about 1.9-2 mg/dL. increased to 2.4 mg/dL, down to 2.3 today. Currently nonoliguric. Maintained on IV Lasix which helps with the ur ine output 2. Metabolic acidosis associated with acute kidney injury and IV fluids. Status post bicarb drip currently maintained on oral sodium bicarb 3. Status post cardiac arrest on 09/29/2021 4. Septic shock secondary to pneumonia maintained on antibiotics. Being followed by ID 5. Hypokalemia from decrease intake, status post replacement 6. Acute hypoxic respiratory failure status post tracheostomy and PEG tube placement 7. Volume overload with significant vulvar edema, maintained on IV Lasix. Katz catheter was also changed to nonlatex. 8. MRSA pneumonia maintained on vancomycin. Sputum culture also grew Pseudomonas. Plan: Continue with IV Lasix Repeat labs in a.m. Continue with tube feedings Avoid nephrotoxic agents.
[2021-10-09] MEDS: DEXTROSE 5% IN WATER 1,000 ML IV SCH (11:15)
--- NOTE | 2021-10-09 12:13 | P.PN ---
Progress Note - Text Progress Note Date: 10/09/21 The patient remained stable in the ICU. She is currently on trach mask. She is on 30 mL of tube feed. On exam abdomen soft nontender. Trach site is clean.. Patient will continue supportive care.
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
--- NOTE | 2021-10-09 13:47 | P.PN ---
Subjective Progress Note Date: 10/09/21 Tube feeds as tolerated. She is following commands now. Gen: asleep, trach shield Resp: vent, trach, CVS: good distal perfusion x 4, GI: soft, NTTP, ND, +PEG : no SPT, no CVAT, rubin catheter is present MSK: no pitting edema, no clubbing Neuro: quadriplegia, at baseline Assessment/plan: Acute Hypoxic Respiratory Failure Septic Shock Healthcare Associated Pneumonia, polymicrobial Bilateral Pleural Effusions, parapneumonic -status post intubation mechanical ventilation, no s/p tracheostomy, pending PEG tube -multifactorial but mostly secondary to recurrent pneumonia secondary to MRSA and pseudomonas involving both lungs. -Also secondary to bilateral pleural effusions and recurrent collapse of her left lung requiring bronchoscopy and BAL. -Vancomycin and Fortaz per infectious disease -Fluconazole per ID - Pulmonary recs appreciated: pleural effusion b/l being monitored -started solu-cortef 50mg IV TID - s/p trach, s/p PEG - ID recs appreciated - on midodrine Acute kidney injury -Likely from Hypotensive Episode with the CPR for a few seconds approximately 15 seconds, as well as high vancomycin levels. -She is nonoliguric. -On IV fluids per nephrology -On Bicarb Quadriplegia C5, Autonomic dysreflexia - air mattress - turn q 2 - supportive care - may need BiPAP/ vest for home - continue baclofen Hx of HTN - continuing metoprolol - follow BP Urinary Retention due to neurogenic bladder - rubin - hold ditropan and detrol Anemia, stable Thrombocytosis, resolved - follow CBC - Iron studies normal DVT prophylaxis: SCDs Anticipated discharge: undetermined Anticipated discharge place: Pts family's preference is home Objective - Vital Signs Vital signs: Vital Signs Temp 97.5 F L 10/09/21 12:00 Pulse 71 10/09/21 12:00 Resp 14 10/09/21 12:00 BP 133/87 10/09/21 12:00 Pulse Ox 93 L 10/09/21 12:00 Intake & Output 10/08/21 10/09/21 10/09/21 18:59 06:59 18:59 Intake Total 473 913 330 Output Total 560 270 225 Balance -87 643 105 Weight 75 kg 76 kg Intake: IV 323 523 210 0.9 NACL 90 120 60 D5W 200 300 150 Fluconazole in NaCl,Iso- 100 Osm 200 mg In Saline 1 100ml.bag @ 100 mls/hr IVPB Q24H [facility] Rx#: [id number] NS pressure bag 33 3 Tube Feeding 150 240 120 Other 150 Output: Urine 560 270 225 Other: Voiding Method Indwelling Catheter Indwelling Catheter Indwelling Catheter # Bowel Movements 1 ABP, PAP, CO, CI - Last Documented Arterial Blood Pressure 125/58 - Labs CBC & Chem 7: 10/08/21 06:20 10/09/21 07:25 Labs: Abnormal Lab Results - Last 24 Hours (Table) 10/09/21 Range/Units 07:25 Chloride 113 H (98-107) mmol/L Carbon Dioxide 18 L (22-30) mmol/L BUN 40 H (7-17) mg/dL Creatinine 2.33 H (0.52-1.04) mg/dL Glucose 154 H (74-99) mg/dL Calcium 8.2 L (8.4-10.2) mg/dL
[2021-10-09] MEDS: FLUCONAZOLE IN NACL,ISO-OSM 200 MG in SALINE 1 100ML.BAG IVPB SCH (17:24)
[2021-10-09] MEDS: NORTRIPTYLINE 25 MG CAP PO SCH (19:41)
[2021-10-09] MEDS ORDERED: FUROSEMIDE 10 MG/ML 4 ML VIAL IV STA (20:29)
[2021-10-10] MEDS: IPRATROPIUM-ALBUTEROL 3 ML NEB INHALATION SCH ×7 (00:03→23:04)
[2021-10-10] MEDS: SODIUM CHLORIDE 0.9% IVPB SCH ×2 (06:17→17:01)
[2021-10-10] MEDS: CEFTAROLINE FOSAMIL IVPB SCH ×2 (06:17→17:01)
[2021-10-10] MEDS: METOCLOPRAMIDE 5 MG/ML 2 ML VIAL IVP SCH ×3 (06:18→17:01)
[2021-10-10 07:37] LABS: HCT 24.8 % (34.0-46.0); HGB 7.5 gm/dL (11.4-16.0); Hypochromasia Marked; MCH 29.4 pg (25.0-35.0); MCHC 30.4 g/dL (31.0-37.0); MCV 96.6 fL (80.0-100.0); Mean Platelet Volume 8.9; Platelet Count 239 k/uL (150-450); RBC 2.56 m/uL (3.80-5.40); RDW 15.8 % (11.5-15.5); WBC 11.2 k/uL (3.8-10.6)
[2021-10-10 07:39] LABS: Calcium 8.1 mg/dL (8.4-10.2); Potassium 3.3 mmol/L (3.5-5.1)
--- NOTE | 2021-10-10 07:49 | XR ---
EXAMINATION TYPE: XR chest 1V portable DATE OF EXAM: 10/10/2021 Comparison: 10/08/2021 Clinical History: 51-year-old female pneumonia Findings: Inferior heart margin is obscured by adjacent pleural parenchymal opacity. This seems to be some unde rlying hyperinflation, cardiomegaly, and moderate bilateral pleural effusions, similar to prior. Righ t PICC tip at the mid SVC. The tip of the tracheostomy cannula is located 2.1 cm from the ger. Impression: 1. Improved positioning of the tracheostomy now 2.1 cm from the ger. It could be pulled back 2 add itional centimeters. 2. Continued moderate pleural effusions with adjacent atelectasis and/or consolidation.
[2021-10-10] MEDS: NOREPINEPHRINE 8 MG in SODIUM CHLORIDE 0.9% 250 ML IV SCH (08:12)
[2021-10-10] MEDS: PANTOPRAZOLE 40 MG/10 ML VIAL IVP SCH (08:24)
[2021-10-10] MEDS: CHLORHEXIDINE GLUCONATE 15 ML CUP MUCOUS MEM SCH ×2 (08:24→20:20)
[2021-10-10] MEDS: ENOXAPARIN 30 MG/0.3 ML SYRINGE SQ SCH (08:24)
[2021-10-10] MEDS: METOPROLOL TARTRATE 25 MG TAB PO SCH ×2 (08:25→20:20)
[2021-10-10] MEDS: MIDODRINE 5 MG TAB PO SCH ×3 (08:25→17:00)
[2021-10-10] MEDS: ZYRTEC 10 MG PO SCH (08:25)
[2021-10-10] MEDS: BACLOFEN 10 MG TAB PO SCH ×2 (08:25→20:20)
[2021-10-10] MEDS: SODIUM BICARBONATE TAB 650 MG TAB PO SCH ×4 (08:25→20:23)
[2021-10-10] MEDS: polyethylene glycoL 3350 17 GM POWD.PACK PO SCH (08:25)
[2021-10-10] MEDS: FUROSEMIDE 10 MG/ML 10 ML VIAL IV SCH (08:27)
[2021-10-10] MEDS ORDERED: POTASSIUM CHLORIDE ER 20 MEQ TAB.ER PO SCH (09:00)
--- NOTE | 2021-10-10 09:22 | P.PN ---
Subjective Patient is seen for follow-up for acute kidney injury, ATN. She is currently maintained on IV Lasix. Serum creatinine fluctuating between 2.3-2.6 mg/dL Urine output improves with IV Lasix and then tapers back down. Currently stable, off of the vent and on trach collar is morning. Off of vasopressors Maintained on vancomycin for MRSA pneumonia Hemoglobin 7.5 g/dL today. No evidence of active bleeding noted at this time Patient is tolerating tube feeds. Objective - Vital Signs Vital signs: Vital Signs Temp 97.9 F 10/10/21 04:00 Pulse 80 10/10/21 07:33 Resp 18 10/10/21 07:00 BP 114/74 10/10/21 07:00 Pulse Ox 93 L 10/10/21 07:00 Intake & Output 10/09/21 10/10/21 10/10/21 18:59 06:59 18:59 Intake Total 942 1047 138 Output Total 355 220 25 Balance 587 827 113 Weight 76.4 kg Intake: IV 520 455 70 0.9 NACL 120 130 20 D5W 300 325 50 Fluconazole in NaCl,Iso- 100 Osm 200 mg In Saline 1 100ml.bag @ 100 mls/hr IVPB Q24H [facility] Rx#: [id number] Intake, IV Titration 100 Amount Ceftaroline Fosamil 300 100 mg In Sodium Chloride 0.9 % 40 ml @ 50 mls/hr IVPB Q12H [facility] Rx#:[id number] Tube Feeding 322 442 68 Other 150 Output: Urine 355 220 25 Other: Voiding Method Indwelling Catheter Indwelling Catheter Indwelling Catheter # Bowel Movements 1 ABP, PAP, CO, CI - Last Documented Arterial Blood Pressure 125/58 - Exam Patient is awake. She is on the vent Examination of the heart S1 and S2 Examination lungs bilateral breath sounds are heard Abdomen is soft Examination lower extremities shows 1+ edema. Significant vulvar edema noted - Labs CBC & Chem 7: 10/10/21 07:01 10/10/21 07:01 Labs: Abnormal Lab Results - Last 24 Hours (Table) 10/09/21 10/10/21 10/10/21 Range/Units 07:25 07:01 07:01 WBC 11.2 H (3.8-10.6) k/uL RBC 2.56 L (3.80-5.40) m/uL Hgb 7.5 L (11.4-16.0) gm/dL Hct 24.8 L (34.0-46.0) % MCHC 30.4 L (31.0-37.0) g/dL RDW 15.8 H (11.5-15.5) % Potassium 3.3 L (3.5-5.1) mmol/L Chloride 113 H 111 H (98-107) mmol/L Carbon Dioxide 18 L 21 L (22-30) mmol/L BUN 40 H 45 H (7-17) mg/dL Creatinine 2.33 H 2.62 H (0.52-1.04) mg/dL Glucose 154 H 144 H (74-99) mg/dL Calcium 8.2 L 8.1 L (8.4-10.2) mg/dL Assessment and Plan Assessment: 1. Acute kidney injury secondary to septic shock and cardiac arrest and component of vancomycin toxicity. Vancomycin level was 44 on 09/30/2021. Serum creatinine ranging between 2.3-2.6 mg/dL.. Currently nonoliguric. Maintained on IV Lasix which helps with the urine output 2. Metabolic acidosis associated with acute kidney injury and IV fluids. Status post bicarb drip currently maintained on oral sodium bicarb 3. Status post cardiac arrest on 09/29/2021 4. Septic shock secondary to pneumonia maintained on antibiotics. Being followed by ID 5. Hypokalemia from decrease intake, status post replacement 6. Acute hypoxic respiratory failure status post tracheostomy and PEG tube placement. Currently on trach collar 7. Volume overload with significant vulvar edema, maintained on IV Lasix. Katz catheter was also changed to nonlatex. 8. MRSA pneumonia maintained on vancomycin. Sputum culture also grew Pseudomonas. Plan: Replace potassium If renal function continues to worsen patient will need to start renal replacement therapy. This will also benefit volume overload. Continue with the Lasix. Increase dose to 60 mg daily.
--- NOTE | 2021-10-10 09:52 | P.PN ---
Progress Note - Text Progress Note Date: 10/10/21 The patient is status post trach and PEG. Her ileus appears resolving. Her tube feeds are at 30 mL an hour. PEG tube site is clean. Patient continue supportive care.
[2021-10-10] MEDS: POTASSIUM BICARBONATE/CIT AC 20 MEQ TABLET.EFF PO SCH ×3 (10:00→11:50)
--- NOTE | 2021-10-10 10:30 | US ---
EXAMINATION TYPE: US chest DATE OF EXAM: 10/10/2021 COMPARISON: Radiograph 10/13/2021 CLINICAL HISTORY: 51-year-old female with bilateral pleural effusion. TECHNIQUE: Targeted ultrasound of the posterior lower bilateral hemithoraces FINDINGS: EXAM MEASUREMENTS: Right Pleural Effusion pocket size: 9.5 cm Right skin surface to fluid distance: 3.1 cm Left Pleural Effusion pocket size: 2.8 cm Left skin surface to fluid distance: 2.9 cm Right side marked for possible thoracentesis outside the dept. Left side NOT marked for possible thoracentesis outside the dept. Pulmonologists are able to review the images in the patient?s EMR. IMPRESSIONS: Moderate right and small left pleural effusions with underlying atelectasis.
[2021-10-10] MEDS: DEXTROSE 5% IN WATER 1,000 ML IV SCH (10:32)
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
--- NOTE | 2021-10-10 13:41 | P.PN ---
Subjective Progress Note Date: 10/10/21 Tube feeds as tolerated. She is not tracking or following commands today. Gen: asleep, trach shield Resp: vent, trach, CVS: good distal perfusion x 4, GI: soft, NTTP, ND, +PEG : no SPT, no CVAT, rubin catheter is present MSK: no pitting edema, no clubbing Neuro: quadriplegia, at baseline Assessment/plan: Acute Hypoxic Respiratory Failure Septic Shock [facility] Associated Pneumonia, polymicrobial Bilateral Pleural Effusions, parapneumonic -status post intubation mechanical ventilation, no s/p tracheostomy, pending PEG tube -multifactorial but mostly secondary to recurrent pneumonia secondary to MRSA and pseudomonas involving both lungs. -Also secondary to bilateral pleural effusions and recurrent collapse of her left lung requiring bronchoscopy and BAL. -Vancomycin and Fortaz per infectious disease -Fluconazole per ID - Pulmonary recs appreciated: pleural effusion b/l being monitored -started solu-cortef 50mg IV TID - s/p trach, s/p PEG - ID recs appreciated - on midodrine Acute kidney injury -Likely from Hypotensive Episode with the CPR for a few seconds approximately 15 seconds, as well as high vancomycin levels. -She is nonoliguric. -On IV fluids per nephrology -On Bicarb Quadriplegia C5, Autonomic dysreflexia - air mattress - turn q 2 - supportive care - may need BiPAP/ vest for home - continue baclofen Hx of HTN - continuing metoprolol - follow BP Urinary Retention due to neurogenic bladder - rubin - hold ditropan and detrol Anemia, stable Thrombocytosis, resolved - follow CBC - Iron studies normal DVT prophylaxis: SCDs Anticipated discharge: undetermined Anticipated discharge place: Pts family's preference is home Objective - Vital Signs Vital signs: Vital Signs Temp 97.4 F L 10/10/21 12:00 Pulse 71 10/10/21 12:00 Resp 13 10/10/21 12:00 BP 94/55 10/10/21 12:00 Pulse Ox 93 L 10/10/21 12:00 Intake & Output 10/09/21 10/10/21 10/10/21 18:59 06:59 18:59 Intake Total 942 1047 345 Output Total 355 220 100 Balance 587 827 245 Weight 76.4 kg Intake: IV 520 455 175 0.9 NACL 120 130 50 D5W 300 325 125 Fluconazole in NaCl,Iso- 100 Osm 200 mg In Saline 1 100ml.bag @ 100 mls/hr IVPB Q24H [facility] Rx#: [id number] Intake, IV Titration 100 Amount Ceftaroline Fosamil 300 100 mg In Sodium Chloride 0.9 % 40 ml @ 50 mls/hr IVPB Q12H [facility] Rx#:[id number] Tube Feeding 322 442 170 Other 150 Output: Urine 355 220 100 Other: Voiding Method Indwelling Catheter Indwelling Catheter Indwelling Catheter # Bowel Movements 1 ABP, PAP, CO, CI - Last Documented Arterial Blood Pressure 125/58 - Labs CBC & Chem 7: 10/10/21 07:01 10/10/21 07:01 Labs: Abnormal Lab Results - Last 24 Hours (Table) 10/10/21 10/10/21 Range/Units 07:01 07:01 WBC 11.2 H (3.8-10.6) k/uL RBC 2.56 L (3.80-5.40) m/uL Hgb 7.5 L (11.4-16.0) gm/dL Hct 24.8 L (34.0-46.0) % MCHC 30.4 L (31.0-37.0) g/dL RDW 15.8 H (11.5-15.5) % Potassium 3.3 L (3.5-5.1) mmol/L Chloride 111 H (98-107) mmol/L Carbon Dioxide 21 L (22-30) mmol/L BUN 45 H (7-17) mg/dL Creatinine 2.62 H (0.52-1.04) mg/dL Glucose 144 H (74-99) mg/dL Calcium 8.1 L (8.4-10.2) mg/dL
[2021-10-10] MEDS: FLUCONAZOLE IN NACL,ISO-OSM 200 MG in SALINE 1 100ML.BAG IVPB SCH (16:20)
[2021-10-10] MEDS: NORTRIPTYLINE 25 MG CAP PO SCH (20:20)
[2021-10-10] MEDS: MELATONIN 3 MG TABLET PO PRN (20:20)
[2021-10-10] MEDS ORDERED: IPRATROPIUM-ALBUTEROL 3 ML NEB INHALATION PRN (23:05)
[2021-10-11] MEDS: METOCLOPRAMIDE 5 MG/ML 2 ML VIAL IVP SCH ×5 (00:39→23:41)
[2021-10-11] MEDS: MIDODRINE 5 MG TAB PO SCH (06:22)
[2021-10-11 07:09] LABS: Basophils # (A) 0.1 k/uL (0-0.2); Basophils % (A) 1 %; Eosinophils # (A) 0.5 k/uL (0-0.7); Eosinophils % (A) 3 %; HCT 24.8 % (34.0-46.0); HGB 7.4 gm/dL (11.4-16.0); Hypochromasia Marked; Lymphocytes % (A) 7 %; MCH 28.5 pg (25.0-35.0); MCHC 29.9 g/dL (31.0-37.0); MCV 95.3 fL (80.0-100.0); Mean Platelet Volume 9.1; Monocytes # (A) 0.7 k/uL (0-1.0); Monocytes % (A) 5 %; Neutrophils # (A) 11.5 k/uL (1.3-7.7); Neutrophils % (A) 82 %; Platelet Count 252 k/uL (150-450); RDW 15.3 % (11.5-15.5)
[2021-10-11] MEDS: IPRATROPIUM-ALBUTEROL 3 ML NEB INHALATION SCH ×4 (07:17→19:50)
[2021-10-11 07:19] LABS: Potassium 4.8 mmol/L (3.5-5.1)
[2021-10-11] MEDS: ZYRTEC 10 MG PO SCH (08:11)
[2021-10-11] MEDS: CHLORHEXIDINE GLUCONATE 15 ML CUP MUCOUS MEM SCH ×2 (08:12→22:06)
[2021-10-11] MEDS: FUROSEMIDE 10 MG/ML 10 ML VIAL IV SCH (08:12)
[2021-10-11] MEDS: SODIUM BICARBONATE TAB 650 MG TAB PO SCH ×4 (08:12→22:06)
[2021-10-11] MEDS: PANTOPRAZOLE 40 MG/10 ML VIAL IVP SCH (08:12)
[2021-10-11] MEDS: BACLOFEN 10 MG TAB PO SCH ×2 (08:13→22:06)
[2021-10-11] MEDS: ENOXAPARIN 30 MG/0.3 ML SYRINGE SQ SCH (08:13)
[2021-10-11] MEDS: polyethylene glycoL 3350 17 GM POWD.PACK PO SCH (08:15)
--- NOTE | 2021-10-11 08:53 | XR ---
EXAMINATION TYPE: XR chest 1V portable DATE OF EXAM: 10/11/2021 COMPARISON: 10/10/2021 HISTORY: Cough TECHNIQUE: Single frontal view of the chest is obtained. FINDINGS: Postsurgical change overlying the cervical spine there is bilateral lower lobe and right s ided PICC line noted and there is a tracheostomy tube which is 1.2 cm above ger. Diffuse osteopeni a and arthropathy shoulders. No pneumothorax. IMPRESSION: Bilateral infiltrate and pleural effusion stable.
[2021-10-11] MEDS: METOPROLOL TARTRATE 25 MG TAB PO SCH ×2 (10:29→22:06)
--- NOTE | 2021-10-11 10:51 | P.PN ---
Subjective Patient is seen for follow-up for acute kidney injury, ATN. She is currently maintained on IV Lasix. Serum creatinine fluctuating between 2.3-2.6 mg/dL Urine output improves with IV Lasix and then tapers back down. Currently stable, off of the vent and on trach collar is morning. Off of vasopressors Maintained on vancomycin for MRSA pneumonia Hemoglobin 7.4 g/dL today. No evidence of active bleeding noted at this time Patient is tolerating tube feeds. Serum creatinine continues to rise and patient has significant edema with significant abdominal wall edema noted as well. Creatinine today is at 2.7 Objective - Vital Signs Vital signs: Vital Signs Temp 98.1 F 10/11/21 08:00 Pulse 80 10/11/21 09:00 Resp 18 10/11/21 09:00 BP 119/79 10/11/21 09:00 Pulse Ox 94 L 10/11/21 09:00 Intake & Output 10/10/21 10/11/21 10/11/21 18:59 06:59 18:59 Intake Total 828 981 206 Output Total 220 115 20 Balance 608 866 186 Weight 76.4 kg Intake: IV 420 385 70 0.9 NACL 120 110 20 D5W 300 275 50 Tube Feeding 408 446 86 Other 150 50 Output: Urine 220 115 20 Other: Voiding Method Indwelling Catheter Indwelling Catheter # Bowel Movements 1 ABP, PAP, CO, CI - Last Documented Arterial Blood Pressure 125/58 - Exam Patient is awake. She is on the vent Examination of the heart S1 and S2 Examination lungs bilateral breath sounds are heard Abdomen is soft Examination lower extremities shows 3+ edema. Significant vulvar edema noted - Labs CBC & Chem 7: 10/11/21 06:55 10/11/21 06:55 Labs: Abnormal Lab Results - Last 24 Hours (Table) 10/10/21 10/11/21 10/11/21 Range/Units 13:25 06:55 06:55 WBC 14.0 H (3.8-10.6) k/uL RBC 2.60 L (3.80-5.40) m/uL Hgb 7.4 L (11.4-16.0) gm/dL Hct 24.8 L (34.0-46.0) % MCHC 29.9 L (31.0-37.0) g/dL Neutrophils # 11.5 H (1.3-7.7) k/uL Potassium 5.3 H (3.5-5.1) mmol/L Chloride 109 H (98-107) mmol/L Carbon Dioxide 20 L (22-30) mmol/L BUN 54 H (7-17) mg/dL Creatinine 2.78 H (0.52-1.04) mg/dL Glucose 111 H (74-99) mg/dL Calcium 8.0 L (8.4-10.2) mg/dL Assessment and Plan Assessment: 1. Acute kidney injury secondary to septic shock and cardiac arrest and component of vancomycin toxicity. Vancomycin level was 44 on 09/30/2021. Serum creatinine ranging between 2.3-2.6 mg/dL.. Currently nonoliguric. Maintained on IV Lasix. Renal function slowly worsening with significant underlying volume overload. Given the significant volume overload and worsening renal function patient should be started on renal replacement therapy. 2. Metabolic acidosis associated with acute kidney injury and IV fluids. Status post bicarb drip currently maintained on oral sodium bicarb 3. Status post cardiac arrest on 09/29/2021 4. Septic shock secondary to pneumonia maintained on antibiotics. Being followed by ID 5. Hypokalemia from decrease intake, status post replacement 6. Acute hypoxic respiratory failure status post tracheostomy and PEG tube placement. Currently on trach collar 7. Volume overload with significant vulvar edema, maintained on IV Lasix. Katz catheter was also changed to nonlatex. 8. MRSA pneumonia maintained on vancomycin. Sputum culture also grew Pseudomonas. Plan: Proceed with vascular surgery consult for placement of dialysis catheter given the significant volume overload and progressive renal failure unless there are plans for hospice care Will plan for first treatment tomorrow unless code status changes Continue with IV Lasix
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
--- NOTE | 2021-10-11 11:11 | US ---
EXAMINATION TYPE: US kidneys/renal and bladder DATE OF EXAM: 10/11/2021 COMPARISON: NONE CLINICAL HISTORY: [facility]. ICU, paraplegic with LUQ feeding tube and a trach EXAM MEASUREMENTS: Right Kidney: 10.4 x 5.3 x 4.1 cm Left Kidney: unable to view Right Kidney: lateral cyst seen = 2.6 x 2.1 x 2.1cm Left Kidney: unable to view due to feeding tube sutured within LUQ and patient is unable to roll on h er right side Bladder: possible floey seen, ascites noted trace amount of free fluid in RUQ IMPRESSION: Indeterminate 2.6 cm right renal lesion. Suspect most likely related to cyst. Small amount of ascites noted. Left kidney not visualized. Bladder limited by Katz catheter
[2021-10-11] MEDS ORDERED: HEPARIN SODIUM 1,000 UN/ML (10ML VL) MISCELLANE ONE (11:22)
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
[2021-10-11] MEDS: DEXTROSE 5% IN WATER 1,000 ML IV SCH (13:37)
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
--- NOTE | 2021-10-11 13:52 | P.PN ---
Subjective Progress Note Date: 10/11/21 Tube feeds as tolerated. She is not tracking or following commands today. Pt to start dialysis Gen: asleep, trach shield Resp: vent, trach, CVS: good distal perfusion x 4, GI: soft, NTTP, ND, +PEG : no SPT, no CVAT, rubin catheter is present MSK: no pitting edema, no clubbing Neuro: quadriplegia, at baseline Assessment/plan: Acute Hypoxic Respiratory Failure Septic Shock [facility] Associated Pneumonia, polymicrobial Bilateral Pleural Effusions, parapneumonic -status post intubation mechanical ventilation, no s/p tracheostomy, pending PEG tube -multifactorial but mostly secondary to recurrent pneumonia secondary to MRSA and pseudomonas involving both lungs. -Also secondary to bilateral pleural effusions and recurrent collapse of her left lung requiring bronchoscopy and BAL. -Vancomycin and Fortaz per infectious disease -Fluconazole per ID - Pulmonary recs appreciated: pleural effusion b/l being monitored -started solu-cortef 50mg IV TID - s/p trach, s/p PEG - ID recs appreciated - on midodrine Acute kidney injury -Likely from Hypotensive Episode with the CPR for a few seconds approximately 15 seconds, as well as high vancomycin levels. -She is nonoliguric. -On IV fluids per nephrology -On Bicarb Quadriplegia C5, Autonomic dysreflexia - air mattress - turn q 2 - supportive care - may need BiPAP/ vest for home - continue baclofen Hx of HTN - continuing metoprolol - follow BP Urinary Retention due to neurogenic bladder - rubin - hold ditropan and detrol Anemia, stable Thrombocytosis, resolved - follow CBC - Iron studies normal DVT prophylaxis: SCDs Anticipated discharge: undetermined Anticipated discharge place: Pts family's preference is home Objective - Vital Signs Vital signs: Vital Signs Temp 98.1 F 10/11/21 08:00 Pulse 69 10/11/21 13:00 Resp 24 10/11/21 13:00 BP 105/70 10/11/21 13:00 Pulse Ox 97 10/11/21 13:00 Intake & Output 10/10/21 10/11/21 10/11/21 18:59 06:59 18:59 Intake Total 828 981 734 Output Total 220 115 130 Balance 608 866 604 Weight 77.8 kg Intake: IV 420 385 280 0.9 NACL 120 110 80 D5W 300 275 200 Tube Feeding 408 446 354 Other 150 100 Output: Urine 220 115 130 Other: Voiding Method Indwelling Catheter Indwelling Catheter # Bowel Movements 1 ABP, PAP, CO, CI - Last Documented Arterial Blood Pressure 125/58 - Labs CBC & Chem 7: 10/11/21 06:55 10/11/21 06:55 Labs: Abnormal Lab Results - Last 24 Hours (Table) 10/11/21 10/11/21 Range/Units 06:55 06:55 WBC 14.0 H (3.8-10.6) k/uL RBC 2.60 L (3.80-5.40) m/uL Hgb 7.4 L (11.4-16.0) gm/dL Hct 24.8 L (34.0-46.0) % MCHC 29.9 L (31.0-37.0) g/dL Neutrophils # 11.5 H (1.3-7.7) k/uL Chloride 109 H (98-107) mmol/L Carbon Dioxide 20 L (22-30) mmol/L BUN 54 H (7-17) mg/dL Creatinine 2.78 H (0.52-1.04) mg/dL Glucose 111 H (74-99) mg/dL Calcium 8.0 L (8.4-10.2) mg/dL Microbiology - Last 24 Hours (Table) 09/24/21 09:20 Acid Fast Bacilli Smear - Final Bronchial Washings - Random Acid Fast Bacilli Culture - Preliminary
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
[2021-10-11] MEDS: FLUCONAZOLE IN NACL,ISO-OSM 200 MG in SALINE 1 100ML.BAG IVPB SCH (16:08)
--- NOTE | 2021-10-11 18:00 | CT ---
EXAMINATION TYPE: CT brain wo con CT DLP: 1125.4 mGycm, Automated exposure control for dose reduction was used. DATE OF EXAM: 10/11/2021 5:42 PM COMPARISON: None. CLINICAL INDICATION:Female, 51 years old with history of AMS, TECHNIQUE: Brain: Multiple axial CT images of the brain were obtained without IV contrast. FINDINGS: Brain: Extra-axial spaces: No abnormal extra-axial fluid collections. 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 of a jovan rity of the right frontal, temporal and parietal lobes. There is dural/cortical laminar calcification s present along the right lateral aspect. No acute/subacute area of mata-white matter differentiation loss. No acute intraparenchymal hemorrhage or mass effect. The mata-white junction is well differen tiated. Cerebellum: Unremarkable. Mass effect: No evidence of midline shift. Intracranial vasculature: unremarkable Soft tissues: Normal. Calvarium/osseous structures: No depressed skull fracture. Paranasal sinuses and mastoid air cells: Clear Visualized orbits: Orbital contents are intact. IMPRESSION: 1. No acute intracranial process. 

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
[2021-10-11 20:55] LABS: Hepatitis B Surface AB- Quant 3.5 mIU/mL; Hepatitis B Surface Antibody Nonreactive (Nonreactive)
[2021-10-11 21:03] LABS: Hepatitis B Surface Antigen Nonreactive (Nonreactive)
[2021-10-11] MEDS: NORTRIPTYLINE 25 MG CAP PO SCH (22:06)
[2021-10-12] MEDS: METOCLOPRAMIDE 5 MG/ML 2 ML VIAL IVP SCH ×3 (05:13→18:03)
[2021-10-12] MEDS: IPRATROPIUM-ALBUTEROL 3 ML NEB INHALATION SCH ×4 (07:24→19:23)
[2021-10-12 08:31] LABS: HCT 22.7 % (34.0-46.0); Hypochromasia Marked; MCH 29.2 pg (25.0-35.0); MCHC 30.4 g/dL (31.0-37.0); MCV 96.3 fL (80.0-100.0); Mean Platelet Volume 9.8; Platelet Count 216 k/uL (150-450); RBC 2.36 m/uL (3.80-5.40); RDW 15.8 % (11.5-15.5); WBC 12.4 k/uL (3.8-10.6)
[2021-10-12 08:33] LABS: Calcium 7.8 mg/dL (8.4-10.2); Potassium 5.4 mmol/L (3.5-5.1)
[2021-10-12 08:34] LABS: HGB 6.9 gm/dL (11.4-16.0)
[2021-10-12] MEDS: BACLOFEN 10 MG TAB PO SCH ×2 (08:53→20:39)
[2021-10-12] MEDS: CHLORHEXIDINE GLUCONATE 15 ML CUP MUCOUS MEM SCH ×2 (08:53→20:39)
[2021-10-12] MEDS: ENOXAPARIN 30 MG/0.3 ML SYRINGE SQ SCH (08:53)
[2021-10-12] MEDS: SODIUM BICARBONATE TAB 650 MG TAB PO SCH ×4 (08:53→20:39)
[2021-10-12] MEDS: PANTOPRAZOLE 40 MG/10 ML VIAL IVP SCH (08:53)
[2021-10-12] MEDS: ZYRTEC 10 MG PO SCH (08:57)
[2021-10-12] MEDS: METOPROLOL TARTRATE 25 MG TAB PO SCH ×2 (09:31→20:39)
[2021-10-12] MEDS: polyethylene glycoL 3350 17 GM POWD.PACK PO SCH (09:32)
[2021-10-12] MEDS: FUROSEMIDE 10 MG/ML 10 ML VIAL IV SCH (10:48)
--- NOTE | 2021-10-12 11:57 | P.PN ---
Subjective Patient is seen for follow-up for acute kidney injury, ATN. Renal function has been progressively worsening with poor urine output. Patient also has significant volume overload. She has been on the vent now throughout the day. Hemodialysis catheter was placed yesterday and patient is receiving her first hemodialysis treatment today. Urine output remains about 10 mL an hour. No pressors Tolerating tube feeds Objective - Vital Signs Vital signs: Vital Signs Temp 97.7 F 10/12/21 08:00 Pulse 78 10/12/21 11:18 Resp 25 H 10/12/21 11:00 BP 95/57 10/12/21 11:00 Pulse Ox 96 10/12/21 11:00 Intake & Output 10/11/21 10/12/21 10/12/21 18:59 06:59 18:59 Intake Total 983 1332 445 Output Total 160 115 50 Balance 823 1217 395 Weight 77.8 kg 77 kg Intake: IV 385 490 175 0.9 NACL 110 140 50 D5W 275 350 125 Tube Feeding 498 672 240 Other 100 170 30 Output: Urine 160 115 50 Other: Voiding Method Indwelling Catheter Indwelling Catheter Indwelling Catheter # Bowel Movements 1 ABP, PAP, CO, CI - Last Documented Arterial Blood Pressure 125/58 - Exam Patient is awake. She is on the vent Examination of the heart S1 and S2 Examination lungs bilateral breath sounds are heard Abdomen is soft Examination lower extremities shows 3+ edema. Significant vulvar edema noted - Labs CBC & Chem 7: 10/12/21 07:38 10/12/21 07:38 Labs: Abnormal Lab Results - Last 24 Hours (Table) 10/12/21 10/12/21 Range/Units 07:38 07:38 WBC 12.4 H (3.8-10.6) k/uL RBC 2.36 L (3.80-5.40) m/uL Hgb 6.9 L* (11.4-16.0) gm/dL Hct 22.7 L (34.0-46.0) % MCHC 30.4 L (31.0-37.0) g/dL RDW 15.8 H (11.5-15.5) % Sodium 135 L (137-145) mmol/L Potassium 5.4 H (3.5-5.1) mmol/L Carbon Dioxide 21 L (22-30) mmol/L BUN 61 H (7-17) mg/dL Creatinine 3.07 H (0.52-1.04) mg/dL Glucose 128 H (74-99) mg/dL Calcium 7.8 L (8.4-10.2) mg/dL Microbiology - Last 24 Hours (Table) 09/24/21 09:20 Acid Fast Bacilli Smear - Final Bronchial Washings - Random Acid Fast Bacilli Culture - Preliminary Assessment and Plan Assessment: 1. Acute kidney injury secondary to septic shock and cardiac arrest and component of vancomycin toxicity. Vancomycin level was 44 on 09/30/2021. Serum creatinine ranging between 2.3-2.6 mg/dL.. Currently nonoliguric. Maintained on IV Lasix. Renal function slowly worsening with significant underlying volume overload. Given the significant volume overload and worsening renal function patient should be started on renal replacement therapy. Receiving first treatment today 10/12/2021 2. Metabolic acidosis associated with acute kidney injury and IV fluids. Status post bicarb drip currently maintained on oral sodium bicarb 3. Status post cardiac arrest on 09/29/2021 4. Septic shock secondary to pneumonia maintained on antibiotics. Being followed by ID 5. Hypokalemia from decrease intake, status post replacement 6. Acute hypoxic respiratory failure status post tracheostomy and PEG tube placement. Currently on trach collar 7. Volume overload with significant vulvar edema, maintained on IV Lasix. Katz catheter was also changed to nonlatex. 8. MRSA pneumonia maintained on vancomycin. Sputum culture also grew Pseudomonas. Plan: Repeat hemodialysis in a.m. DC sodium bicarb
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
[2021-10-12] MEDS: DEXTROSE 5% IN WATER 1,000 ML IV SCH (12:49)
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
[2021-10-12] MEDS: FLUCONAZOLE IN NACL,ISO-OSM 200 MG in SALINE 1 100ML.BAG IVPB SCH (16:51)
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
[2021-10-12] MEDS: NORTRIPTYLINE 25 MG CAP PO SCH (20:41)
[2021-10-13] MEDS: METOCLOPRAMIDE 5 MG/ML 2 ML VIAL IVP SCH ×5 (04:52→23:38)
[2021-10-13 07:15] LABS: Basophils # (A) 0.1 k/uL (0-0.2); Basophils % (A) 0 %; Eosinophils # (A) 0.4 k/uL (0-0.7); Eosinophils % (A) 3 %; HCT 25.9 % (34.0-46.0); Hypochromasia Marked; Lymphocytes # (A) 0.7 k/uL (1.0-4.8); Lymphocytes % (A) 5 %; MCH 29.7 pg (25.0-35.0); MCV 95.7 fL (80.0-100.0); Mean Platelet Volume 10.1; Monocytes % (A) 7 %; Neutrophils # (A) 12.1 k/uL (1.3-7.7); Neutrophils % (A) 84 %; Platelet Count 215 k/uL (150-450); Poikilocytosis Slight; RBC 2.71 m/uL (3.80-5.40); RDW 15.5 % (11.5-15.5); WBC 14.5 k/uL (3.8-10.6)
[2021-10-13] MEDS: IPRATROPIUM-ALBUTEROL 3 ML NEB INHALATION SCH ×4 (07:28→20:23)
--- NOTE | 2021-10-13 08:35 | XR ---
EXAMINATION TYPE: XR chest 1V portable DATE OF EXAM: 10/13/2021 COMPARISON: 10/11/2021 HISTORY: Cough TECHNIQUE: Single frontal view of the chest is obtained. FINDINGS: Postsurgical change overlying the cervical spine there is bilateral lower lobe and right s ided PICC line noted and there is a tracheostomy tube which is 2.2 cm above ger. Diffuse osteopeni a and arthropathy shoulders. No pneumothorax. IMPRESSION: Bilateral infiltrate and pleural effusion stable.
[2021-10-13] MEDS: ZYRTEC 10 MG PO SCH (09:11)
[2021-10-13] MEDS: PANTOPRAZOLE 40 MG/10 ML VIAL IVP SCH (09:11)
[2021-10-13] MEDS: CHLORHEXIDINE GLUCONATE 15 ML CUP MUCOUS MEM SCH ×2 (09:11→21:19)
[2021-10-13] MEDS: ENOXAPARIN 30 MG/0.3 ML SYRINGE SQ SCH (09:11)
[2021-10-13] MEDS: SODIUM BICARBONATE TAB 650 MG TAB PO SCH ×4 (09:11→21:19)
[2021-10-13] MEDS: BACLOFEN 10 MG TAB PO SCH ×2 (09:12→21:19)
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
--- NOTE | 2021-10-13 11:35 | P.PN ---
Subjective Patient is seen for follow-up for acute kidney injury, ATN. Renal function has been progressively worsening with poor urine output. Patient also has significant volume overload. She is currently on the vent. Hemodialysis catheter was placed and patient had her first treatment of dialysis on 10/12/2021 Patient is seen on hemodialysis again, she is tolerating her second treatment fairly well. Urine output remains about 10 mL an hour. No pressors Tolerating tube feeds Objective - Vital Signs Vital signs: Vital Signs Temp 98.0 F 10/13/21 08:00 Pulse 71 10/13/21 11:25 Resp 16 10/13/21 09:00 BP 115/68 10/13/21 09:00 Pulse Ox 96 10/13/21 09:00 Intake & Output 10/12/21 10/13/21 10/13/21 18:59 06:59 18:59 Intake Total 1563 1006 166 Output Total 1565 35 25 Balance -2 971 141 Intake: IV 345 420 70 0.9 NACL 120 120 20 D5W 225 300 50 Oral 10 Tube Feeding 576 576 96 Blood Product 282 Rc Pheresis 2 As3 Unit 282 [id number] Hemodialysis 300 Other 60 Output: Urine 65 35 25 Hemodialysis 1500 Other: Voiding Method Indwelling Catheter Indwelling Catheter # Bowel Movements 1 ABP, PAP, CO, CI - Last Documented Arterial Blood Pressure 125/58 - Exam Patient is sedated. She is on the vent Examination of the heart S1 and S2 Examination lungs bilateral breath sounds are heard Abdomen is soft Examination lower extremities shows 3+ edema. Significant vulvar edema noted - Labs CBC & Chem 7: 10/13/21 06:04 10/12/21 07:38 Labs: Abnormal Lab Results - Last 24 Hours (Table) 10/12/21 10/13/21 Range/Units 10:02 06:04 WBC 14.5 H (3.8-10.6) k/uL RBC 2.71 L (3.80-5.40) m/uL Hgb 8.0 L (11.4-16.0) gm/dL Hct 25.9 L (34.0-46.0) % Neutrophils # 12.1 H (1.3-7.7) k/uL Lymphocytes # 0.7 L (1.0-4.8) k/uL Crossmatch See Detail Assessment and Plan Assessment: 1. Acute kidney injury secondary to septic shock and cardiac arrest and component of vancomycin toxicity. Vancomycin level was 44 on 09/30/2021. Serum creatinine ranging between 2.3-2.6 mg/dL.. Currently nonoliguric. Maintained on IV Lasix. Renal function worsening with significant underlying volume overlo ad. Given the significant volume overload and worsening renal function patient should be started on renal replacement therapy. First treatment of hemodialysis on 10/12/2021 2. Metabolic acidosis associated with acute kidney injury and IV fluids. Status post bicarb drip currently maintained on oral sodium bicarb 3. Status post cardiac arrest on 09/29/2021 4. Septic shock secondary to pneumonia maintained on antibiotics. Being followed by ID 5. Hypokalemia from decrease intake, status post replacement 6. Acute hypoxic respiratory failure status post tracheostomy and PEG tube placement. Currently on trach collar 7. Volume overload with significant vulvar edema, maintained on IV Lasix. Katz catheter was also changed to nonlatex. 8. MRSA pneumonia maintained on vancomycin. Sputum culture also grew Pseudomonas. Plan: Daily dialysis for now Hold UF about 2 L. Can DC IV Lasix
[2021-10-13] MEDS: METOPROLOL TARTRATE 25 MG TAB PO SCH ×2 (11:52→21:19)
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
[2021-10-13] MEDS: polyethylene glycoL 3350 17 GM POWD.PACK PO SCH (12:00)
[2021-10-13] MEDS: DEXTROSE 5% IN WATER 1,000 ML IV SCH (12:35)
[2021-10-13] MEDS: FLUCONAZOLE IN NACL,ISO-OSM 200 MG in SALINE 1 100ML.BAG IVPB SCH (16:08)
[2021-10-13] MEDS: NORTRIPTYLINE 25 MG CAP PO SCH (21:19)
[2021-10-14 05:14] LABS: Basophils % (A) 0 %; Eosinophils # (A) 0.3 k/uL (0-0.7); Eosinophils % (A) 3 %; HCT 24.3 % (34.0-46.0); HGB 7.5 gm/dL (11.4-16.0); Hypochromasia Moderate; Lymphocytes # (A) 0.8 k/uL (1.0-4.8); Lymphocytes % (A) 8 %; MCH 29.2 pg (25.0-35.0); MCHC 30.7 g/dL (31.0-37.0); MCV 95.2 fL (80.0-100.0); Mean Platelet Volume 9.8; Monocytes # (A) 0.7 k/uL (0-1.0); Monocytes % (A) 7 %; Neutrophils # (A) 8.1 k/uL (1.3-7.7); Neutrophils % (A) 80 %; Platelet Count 203 k/uL (150-450); Poikilocytosis Slight; RBC 2.55 m/uL (3.80-5.40); RDW 15.5 % (11.5-15.5); WBC 10.2 k/uL (3.8-10.6)
[2021-10-14 05:29] LABS: Calcium 7.8 mg/dL (8.4-10.2)
[2021-10-14] MEDS: METOCLOPRAMIDE 5 MG/ML 2 ML VIAL IVP SCH ×3 (07:05→17:34)
[2021-10-14] MEDS: IPRATROPIUM-ALBUTEROL 3 ML NEB INHALATION SCH ×4 (07:15→20:19)
--- NOTE | 2021-10-14 08:48 | XR ---
EXAMINATION TYPE: XR chest 1V portable DATE OF EXAM: 10/14/2021 COMPARISON: 10/13/2021 HISTORY: Shortness of breath TECHNIQUE: Single frontal view of the chest is obtained. FINDINGS: Postsurgical change overlying the cervical spine there is bilateral lower lobe and right s ided PICC line noted and there is a tracheostomy tube which is 2.2 cm above ger. Diffuse osteopeni a and arthropathy shoulders. No pneumothorax. IMPRESSION: Stable bilateral infiltrate and pleural effusion correlate for diffuse pneumonia, ARDS, or pulmonary edema.
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
[2021-10-14] MEDS: BACLOFEN 10 MG TAB PO SCH ×2 (09:14→20:14)
[2021-10-14] MEDS: ENOXAPARIN 30 MG/0.3 ML SYRINGE SQ SCH (09:14)
[2021-10-14] MEDS: CHLORHEXIDINE GLUCONATE 15 ML CUP MUCOUS MEM SCH ×2 (09:14→20:14)
[2021-10-14] MEDS: SODIUM BICARBONATE TAB 650 MG TAB PO SCH (09:14)
[2021-10-14] MEDS: PANTOPRAZOLE 40 MG/10 ML VIAL IVP SCH (09:14)
[2021-10-14] MEDS: ZYRTEC 10 MG PO SCH (09:15)
[2021-10-14] MEDS: METOPROLOL TARTRATE 25 MG TAB PO SCH ×2 (11:16→20:14)
[2021-10-14] MEDS: polyethylene glycoL 3350 17 GM POWD.PACK PO SCH (11:27)
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
--- NOTE | 2021-10-14 11:38 | P.PN ---
Subjective Patient is seen for follow-up for acute kidney injury, ATN. Renal function had been progressively worsening with poor urine output. Patient also has significant volume overload. Hemodialysis catheter was placed and patient had her first treatment of dialysis on 10/12/2021 Patient is seen on hemodialysis again, she is tolerating her treatment fairly well. Urine output remains about 10 mL an hour. No pressors Tolerating tube feeds Awake today Objective - Vital Signs Vital signs: Vital Signs Temp 98.3 F 10/14/21 08:00 Pulse 66 10/14/21 11:00 Resp 13 10/14/21 11:00 BP 97/58 10/14/21 11:00 Pulse Ox 99 10/14/21 11:00 Intake & Output 10/13/21 10/14/21 10/14/21 18:59 06:59 18:59 Intake Total 1108 1098 445 Output Total 2049 55 Balance -942 1043 445 Weight 77 kg Intake: IV 520 420 175 0.9 NACL 120 120 50 D5W 300 300 125 Fluconazole in NaCl,Iso- 100 Osm 200 mg In Saline 1 100ml.bag @ 100 mls/hr IVPB Q24H [facility] Rx#: [id number] Tube Feeding 528 528 240 Other 60 150 30 Output: Urine 50 55 Hemodialysis 1999 Other: Voiding Method Indwelling Catheter Indwelling Catheter # Bowel Movements 1 ABP, PAP, CO, CI - Last Documented Arterial Blood Pressure 125/58 - Exam Patient is sedated. She is on the vent Examination of the heart S1 and S2 Examination lungs bilateral breath sounds are heard Abdomen is soft Examination lower extremities shows 3+ edema. Significant vulvar edema noted - Labs CBC & Chem 7: 10/14/21 04:42 10/14/21 04:42 Labs: Abnormal Lab Results - Last 24 Hours (Table) 10/14/21 10/14/21 Range/Units 04:42 04:42 RBC 2.55 L (3.80-5.40) m/uL Hgb 7.5 L (11.4-16.0) gm/dL Hct 24.3 L (34.0-46.0) % MCHC 30.7 L (31.0-37.0) g/dL Neutrophils # 8.1 H (1.3-7.7) k/uL Lymphocytes # 0.8 L (1.0-4.8) k/uL Carbon Dioxide 32 H (22-30) mmol/L BUN 36 H (7-17) mg/dL Creatinine 1.88 H (0.52-1.04) mg/dL Glucose 127 H (74-99) mg/dL Calcium 7.8 L (8.4-10.2) mg/dL Assessment and Plan Assessment: 1. Acute kidney injury secondary to septic shock and cardiac arrest and component of vancomycin toxicity. Vancomycin level was 44 on 09/30/2021. Serum creatinine ranging between 2.3-2.6 mg/dL.. Currently nonoliguric. Maintained o n IV Lasix. Renal function worsening with significant underlying volume overload. Given the significant volume overload and worsening renal function patient should be started on renal replacement therapy. First treatment of hemodialysis on 10/12/2021 2. Metabolic acidosis associated with acute kidney injury and IV fluids. Status post bicarb drip currently maintained on oral sodium bicarb 3. Status post cardiac arrest on 09/29/2021 4. Septic shock secondary to pneumonia maintained on antibiotics. Being followed by ID 5. Hypokalemia from decrease intake, status post replacement 6. Acute hypoxic respiratory failure status post tracheostomy and PEG tube placement. Currently on trach collar 7. Volume overload with significant vulvar edema, maintained on IV Lasix. Katz catheter was also changed to nonlatex. 8. MRSA pneumonia maintained on vancomycin. Sputum culture also grew Pseu domonas. Plan: Continue with daily treatments and UF 2-2.5 L as tolerated. DC sodium bicarb DC D5W
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
[2021-10-14] MEDS: FLUCONAZOLE IN NACL,ISO-OSM 200 MG in SALINE 1 100ML.BAG IVPB SCH (15:42)
[2021-10-14] MEDS: DEXTROSE 5% IN WATER 1,000 ML IV SCH (15:42)
[2021-10-14] MEDS: NORTRIPTYLINE 25 MG CAP PO SCH (20:14)
[2021-10-15] MEDS: IPRATROPIUM-ALBUTEROL 3 ML NEB INHALATION SCH ×4 (07:58→19:35)
--- NOTE | 2021-10-15 09:04 | XR ---
EXAMINATION TYPE: XR chest 1V portable DATE OF EXAM: 10/15/2021 COMPARISON: 10/14/2021 HISTORY: Shortness of breath TECHNIQUE: Single frontal view of the chest is obtained. FINDINGS: Postsurgical change overlying the cervical spine there is bilateral lower lobe and right s ided PICC line noted and there is a tracheostomy tube which is 2.2 cm above ger. Diffuse osteopeni a and arthropathy shoulders. No pneumothorax. IMPRESSION: Stable bilateral infiltrate and pleural effusion correlate for diffuse pneumonia, ARDS, or pulmonary edema.
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
--- NOTE | 2021-10-15 09:19 | US ---
EXAMINATION TYPE: US chest DATE OF EXAM: 10/15/2021 COMPARISON: US & Xray CLINICAL HISTORY: Markings for thoracentesis by pulmonary staff. Pleural effusion. TECHNIQUE: Targeted ultrasound of the posterior lower bilateral hemithoraces EXAM MEASUREMENTS: Right Pleural Effusion pocket size: 11.0 cm Right skin surface to fluid distance: 1.9 cm Left Pleural Effusion pocket size: 6.9 cm Left skin surface to fluid distance: 2.5 cm Right side marked for possible thoracentesis outside the dept. Left side marked for possible thoracentesis outside the dept. Pulmonologists are able to review the images in the patient?s EMR. IMPRESSIONS: Bilateral pleural effusion.
[2021-10-15] MEDS: BACLOFEN 10 MG TAB PO SCH ×2 (09:43→19:58)
[2021-10-15] MEDS: ENOXAPARIN 30 MG/0.3 ML SYRINGE SQ SCH (09:43)
[2021-10-15] MEDS: ZYRTEC 10 MG PO SCH (09:43)
[2021-10-15] MEDS: CHLORHEXIDINE GLUCONATE 15 ML CUP MUCOUS MEM SCH ×2 (09:43→19:57)
[2021-10-15] MEDS: METOPROLOL TARTRATE 25 MG TAB PO SCH ×2 (09:43→19:58)
[2021-10-15] MEDS: PANTOPRAZOLE 40 MG/10 ML VIAL IVP SCH (09:43)
[2021-10-15] MEDS: polyethylene glycoL 3350 17 GM POWD.PACK PO SCH (09:44)
[2021-10-15 10:10] LABS: ABG Base Excess 4.7 mmol/L; ABG HCO3 29 mmol/L (21-25); ABG Oxygen Saturation 98.1 % (94-97); ABG PCO2 45 mmHg (35-45); ABG PH 7.42 (7.35-7.45); ABG PO2 107 mmHg (83-108); ABG TCO2 31 mmol/L (19-24)
[2021-10-15 10:12] LABS: Allen Test Performed? yes
--- NOTE | 2021-10-15 10:20 | P.PN ---
Subjective Patient is seen for follow-up for acute kidney injury, ATN. Renal function had been progressively worsening with poor urine output. Patient also has significant volume overload. Hemodialysis catheter was placed and patient had her first treatment of dialysis on 10/12/2021 Patient is seen on hemodialysis again, she is tolerating her treatment fairly well. Urine output remains about 10 mL an hour. No pressors Tolerating tube feeds Awake today and able to communicate. Patient is seen on hemodialysis. Goal UF 2-3 L as tolerated Objective - Vital Signs Vital signs: Vital Signs Temp 97.9 F 10/15/21 08:00 Pulse 76 10/15/21 09:00 Resp 9 L 10/15/21 09:00 BP 133/86 10/15/21 09:00 Pulse Ox 98 10/15/21 09:00 Intake & Output 10/14/21 10/15/21 10/15/21 18:59 06:59 18:59 Intake Total 1306 110 30 Output Total 2050 30 30 Balance -744 80 0 Weight 75.8 kg Intake: IV 370 110 30 0.9 NACL 120 110 30 D5W 150 Fluconazole in NaCl,Iso- 100 Osm 200 mg In Saline 1 100ml.bag @ 100 mls/hr IVPB Q24H [facility] Rx#: [id number] Tube Feeding 576 Hemodialysis 300 Other 60 Output: Urine 50 30 30 Hemodialysis 2000 Other: Voiding Method Indwelling Catheter Indwelling Catheter Indwelling Catheter # Bowel Movements 1 ABP, PAP, CO, CI - Last Documented Arterial Blood Pressure 125/58 - Exam Patient is awake. She is on the vent Examination of the heart S1 and S2 Examination lungs bilateral breath sounds are heard Abdomen is soft Examination lower extremities shows 3+ edema. Significant vulvar edema noted - Labs CBC & Chem 7: 10/14/21 04:42 10/14/21 04:42 Labs: Abnormal Lab Results - Last 24 Hours (Table) 10/15/21 Range/Units 09:58 ABG HCO3 29 H (21-25) mmol/L ABG Total CO2 31 H (19-24) mmol/L ABG O2 Saturation 98.1 H (94-97) % Assessment and Plan Assessment: 1. Acute kidney injury secondary to septic shock and cardiac arrest and component of vancomycin toxicity. Vancomycin level was 44 on 09/30/2021. Serum creatinine ranging between 2.3-2.6 mg/dL.. Currently nonoliguric. Maintained on IV Lasix. Renal function worsening with significant underlying volume overload. Given the significant volume overload and worsening renal function patient should be started on renal replacement therapy. First treatment of hemodialysis on 10/12/2021 2. Metabolic acidosis associated with acute kidney injury and IV fluids. Status post bicarb drip currently maintained on oral sodium bicarb 3. Status post cardiac arrest on 09/29/2021 4. Septic shock secondary to pneumonia maintained on antibiotics. Being followed by ID 5. Hypokalemia from decrease intake, status post replacement 6. Acute hypoxic respiratory failure status post tracheostomy and PEG tube placement. Currently on trach collar 7. Volume overload with significant vulvar edema, maintained on IV Lasix. Katz catheter was also changed to nonlatex. 8. MRSA pneumonia maintained on vancomycin. Sputum culture also grew Pseudomonas. Plan: Repeat hemodialysis in a.m. with goal UF about 3 L as tolerated. We'll need to change catheter to an IJ permacath
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
[2021-10-15] MEDS: FLUCONAZOLE IN NACL,ISO-OSM 200 MG in SALINE 1 100ML.BAG IVPB SCH (16:54)
[2021-10-15] MEDS: NORTRIPTYLINE 25 MG CAP PO SCH (19:57)
--- NOTE | 2021-10-16 06:24 | XR ---
EXAMINATION TYPE: XR chest 1V portable DATE OF EXAM: 10/16/2021 CLINICAL HISTORY: Difficulty breathing progress study. TECHNIQUE: Single AP portable semiupright view of the chest is obtained. COMPARISON: Chest x-ray from one day earlier and older studies FINDINGS: Stable tracheostomy tube. Stable right-sided PICC line. Surgical change of the cervical spine is identified on current study. Cardiac silhouette size stable and within normal limits. Persistent central vascular congestion and bibasilar opacities. IMPRESSION: Persistent mild central vascular congestion with small to moderate size right greater shu n left pleural effusions and associated bibasilar opacities favoring compressive atelectasis. No sign ificant change from one day earlier.
[2021-10-16] MEDS: IPRATROPIUM-ALBUTEROL 3 ML NEB INHALATION SCH ×4 (07:16→19:25)
[2021-10-16 08:00] LABS: Anisocytosis Slight; Basophils % (A) 0 %; Eosinophils # (A) 0.3 k/uL (0-0.7); Eosinophils % (A) 3 %; HCT 23.4 % (34.0-46.0); HGB 7.1 gm/dL (11.4-16.0); Hypochromasia Marked; Lymphocytes # (A) 0.8 k/uL (1.0-4.8); Lymphocytes % (A) 8 %; MCH 29.3 pg (25.0-35.0); MCHC 30.2 g/dL (31.0-37.0); Macrocytosis Slight; Mean Platelet Volume 9.6; Monocytes # (A) 0.6 k/uL (0-1.0); Monocytes % (A) 6 %; Neutrophils # (A) 8.2 k/uL (1.3-7.7); Neutrophils % (A) 79 %; Platelet Count 244 k/uL (150-450); RBC 2.41 m/uL (3.80-5.40); WBC 10.4 k/uL (3.8-10.6)
[2021-10-16 08:15] LABS: Calcium 8.4 mg/dL (8.4-10.2); Potassium 4.9 mmol/L (3.5-5.1)
[2021-10-16] MEDS: ENOXAPARIN 30 MG/0.3 ML SYRINGE SQ SCH (08:51)
[2021-10-16] MEDS: PANTOPRAZOLE 40 MG/10 ML VIAL IVP SCH (08:51)
[2021-10-16] MEDS: BACLOFEN 10 MG TAB PO SCH ×2 (08:52→19:24)
[2021-10-16] MEDS: METOPROLOL TARTRATE 25 MG TAB PO SCH ×2 (08:52→19:24)
[2021-10-16] MEDS: polyethylene glycoL 3350 17 GM POWD.PACK PO SCH (09:01)
[2021-10-16] MEDS: ZYRTEC 10 MG PO SCH (09:02)
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
--- NOTE | 2021-10-16 14:28 | P.PN ---
Subjective Progress Note Date: 10/16/21 Follow-up for acute kidney injury on dialysis. Seen during dialysis, ultrafiltration goal reduced for low blood pressures. Objective - Vital Signs Vital signs: Vital Signs Temp 98.4 F 10/16/21 12:00 Pulse 71 10/16/21 13:00 Resp 16 10/16/21 13:00 BP 101/63 10/16/21 13:00 Pulse Ox 98 10/16/21 13:00 Intake & Output 10/15/21 10/16/21 10/16/21 18:59 06:59 18:59 Intake Total 220 738 466 Output Total 2570 50 0 Balance -2350 688 466 Weight 75.8 kg 76.2 kg Intake: IV 120 120 70 0.9 NACL 120 120 70 Intake, IV Titration 100 Amount Fluconazole in NaCl,Iso- 100 Osm 200 mg In Saline 1 100ml.bag @ 100 mls/hr IVPB Q24H [facility] Rx#: [id number] Tube Feeding 528 336 Other 90 60 Output: Urine 70 50 0 Hemodialysis 2500 Other: Voiding Method Indwelling Catheter Indwelling Catheter Indwelling Catheter ABP, PAP, CO, CI - Last Documented Arterial Blood Pressure 125/58 - Exam No acute distress S1-S2 heard Tracheostomy connected to vent Right groin Alfa Trace edema - Labs CBC & Chem 7: 10/16/21 07:39 10/16/21 07:39 Labs: Abnormal Lab Results - Last 24 Hours (Table) 10/16/21 10/16/21 Range/Units 07:39 07:39 RBC 2.41 L (3.80-5.40) m/uL Hgb 7.1 L (11.4-16.0) gm/dL Hct 23.4 L (34.0-46.0) % MCHC 30.2 L (31.0-37.0) g/dL RDW 16.0 H (11.5-15.5) % Neutrophils # 8.2 H (1.3-7.7) k/uL Lymphocytes # 0.8 L (1.0-4.8) k/uL Chloride 110 H (98-107) mmol/L BUN 33 H (7-17) mg/dL Creatinine 1.53 H (0.52-1.04) mg/dL Glucose 118 H (74-99) mg/dL Assessment and Plan Assessment: #1 Acute kidney injury secondary to hemodynamic and toxic ATN. On dialysis started on 10/12/2021. -Baseline creatinine 0.5-0.6 MG per DL. #2 acute respiratory failure on mechanical ventilator #3 septic shock. With low normal blood pressure off pressors. #4 status post cardiopulmonary arrest #5 vancomycin toxicity #6 low normal blood pressures Plan: #1 hemodialysis today. Plan again on Monday/Monday based on the volume status. #2 awaiting permacath #3 monitor for renal recovery
[2021-10-16] MEDS: FLUCONAZOLE IN NACL,ISO-OSM 200 MG in SALINE 1 100ML.BAG IVPB SCH (15:40)
[2021-10-16] MEDS: NORTRIPTYLINE 25 MG CAP PO SCH (19:24)
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
[2021-10-17 06:05] LABS: Basophils % (A) 0 %; Eosinophils # (A) 0.4 k/uL (0-0.7); Eosinophils % (A) 5 %; HCT 23.1 % (34.0-46.0); HGB 7.1 gm/dL (11.4-16.0); Hypochromasia Marked; Lymphocytes # (A) 0.9 k/uL (1.0-4.8); Lymphocytes % (A) 9 %; MCH 29.5 pg (25.0-35.0); MCHC 30.7 g/dL (31.0-37.0); MCV 96.2 fL (80.0-100.0); Mean Platelet Volume 9.6; Monocytes # (A) 0.8 k/uL (0-1.0); Monocytes % (A) 9 %; Neutrophils # (A) 6.9 k/uL (1.3-7.7); Neutrophils % (A) 73 %; Platelet Count 239 k/uL (150-450); WBC 9.4 k/uL (3.8-10.6)
[2021-10-17 06:21] LABS: Potassium 4.3 mmol/L (3.5-5.1)
[2021-10-17 06:22] LABS: Calcium 8.5 mg/dL (8.4-10.2)
--- NOTE | 2021-10-17 06:55 | XR ---
EXAMINATION TYPE: XR chest 1V portable DATE OF EXAM: 10/17/2021 CLINICAL HISTORY: Difficulty breathing progress study. TECHNIQUE: Single AP portable semiupright view of the chest is obtained. COMPARISON: Chest x-ray from one day earlier and older studies FINDINGS: Stable tracheostomy tube. Stable right-sided PICC line. Surgical change of the cervical spine is identified on current study. Cardiac silhouette size stable and mildly enlarged. Persistent central vascular congestion and bibasilar opacities. Osseous structur es are somewhat demineralized. IMPRESSION: Findings consistent with CHF exacerbation or fluid overload state remain present. Persist ent mild cardiomegaly and mild to moderate central vascular congestion with small to moderate size ri ght greater than left bilateral pleural effusions and associated bibasilar opacities favoring shila sive atelectasis. No significant change from one day earlier.
[2021-10-17] MEDS: IPRATROPIUM-ALBUTEROL 3 ML NEB INHALATION SCH ×4 (08:16→20:07)
[2021-10-17] MEDS: PANTOPRAZOLE 40 MG/10 ML VIAL IVP SCH (08:49)
[2021-10-17] MEDS: ENOXAPARIN 30 MG/0.3 ML SYRINGE SQ SCH (08:49)
[2021-10-17] MEDS: BACLOFEN 10 MG TAB PO SCH ×2 (08:50→19:57)
[2021-10-17] MEDS: polyethylene glycoL 3350 17 GM POWD.PACK PO SCH (08:50)
[2021-10-17] MEDS: METOPROLOL TARTRATE 25 MG TAB PO SCH ×2 (08:50→19:57)
[2021-10-17] MEDS: ZYRTEC 10 MG PO SCH (09:36)
[2021-10-17] MEDS ORDERED: SODIUM CHLORIDE 0.9% 500 ML 500 ML IV ONE ×2 (09:55)
[2021-10-17] MEDS ORDERED: fentaNYL (PF) 50 MCG/ML 2 ML AMP ONE (10:12)
[2021-10-17] MEDS ORDERED: MIDAZOLAM 2 MG/2 ML VIAL ONE (10:12)
[2021-10-17] MEDS ORDERED: LIDOCAINE 1% INJ 10MG/ML (30 ML VIAL-PF) SQ ONE (10:18)
--- NOTE | 2021-10-17 11:25 | IR ---
EXAMINATION TYPE: IR cvc insert central tunneled DATE OF EXAM: 10/17/2021 CLINICAL HISTORY: Failed dialysis. TECHNIQUE: Fluoroscopy. COMPARISON: None. FINDINGS: Fluoroscopic guidance was provided during right internal jugular dialysis catheter inserti on procedure performed by Dr. Ospina. A total of 132 seconds of fluoroscopic time was utilized duri ng the procedure and 26 spot images was acquired. Intraoperative images show placement of large bore right internal jugular central venous catheter. IMPRESSION: As Above.
--- NOTE | 2021-10-17 11:30 | PCN ---
PROCEDURE NOTE PREOPERATIVE DIAGNOSIS: Acute on chronic failure. PROCEDURE PERFORMED: 1. Placement of a 23 cm dialysis catheter right jugular approach. 2. Removal of the right femoral temporary dialysis catheter. 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 This patient has a tracheostomy. Under local IV sedation, 1% lidocaine infiltrated into the neck and chest area. Ultrasound-guided micropuncture introduced right jugular vein. Micropuncture guidewire was passed and 4- [place] dilator advanced on top of the guidewire. Then we passed a regular guidewire which was parked in the inferior vena cava. Then we created a tunnel. Through the tunnel we brought 23 cm pre curved dialysis catheter. Sheath was removed. The catheter was found to be at the junction of the superior vena cava atrial junction, flushed with heparin saline and hep-locked, secured with 3-0 nylon and dressing applied. Patient tolerated the procedure well. Then right groin was prepped. Stitches were removed. Right temporary dialysis catheter was removed. Pressure dressing was applied. The patient tolerated the procedure well. MMODL / IJN: [id number] /
--- NOTE | 2021-10-17 11:57 | XR ---
EXAMINATION TYPE: XR chest 1V portable DATE OF EXAM: 10/17/2021 CLINICAL HISTORY: Dialysis catheter placement. TECHNIQUE: Single AP portable upright view of the chest is obtained. COMPARISON: Chest x-ray from earlier today and older studies FINDINGS: New large bore right internal jugular dialysis catheter terminates in SVC. No pneumothorax seen after catheter insertion. Stable tracheostomy tube. Stable right-sided PICC line. Surgical change of the cervical spine is partially imaged on current study. Cardiac silhouette size s table and mildly enlarged. Persistent central vascular congestion and right greater than left bibasil ar opacities. Osseous structures remain demineralized particularly left humeral head level. IMPRESSION: No pneumothorax after right internal jugular dialysis catheter insertion. Persistent mild cardiomegaly and mild central vascular congestion with small to moderate size right greater than lef t bilateral pleural effusions and associated right greater than left bibasilar opacities favoring com pressive atelectasis.
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
--- NOTE | 2021-10-17 14:00 | P.PN ---
Subjective Progress Note Date: 10/17/21 Follow-up for acute kidney injury on dialysis. Permacath was placed today. Still oliguric. Objective - Vital Signs Vital signs: Vital Signs Temp 98.0 F 10/17/21 08:00 Pulse 65 10/17/21 13:00 Resp 16 10/17/21 13:00 BP 114/70 10/17/21 13:00 Pulse Ox 97 10/17/21 13:00 Intake & Output 10/16/21 10/17/21 10/17/21 18:59 06:59 18:59 Intake Total 876 786 490 Output Total 2520 40 40 Balance -9354 336 450 Weight 72 kg Intake: IV 210 120 250 0.9 NACL 110 120 50 Fluconazole in NaCl,Iso- 100 Osm 200 mg In Saline 1 100ml.bag @ 100 mls/hr IVPB Q24H [facility] Rx#: [id number] Tube Feeding 576 576 240 Other 90 90 Output: Urine 20 40 40 Hemodialysis 2500 Other: Voiding Method Indwelling Catheter Indwelling Catheter Indwelling Catheter # Voids 0 # Bowel Movements 1 ABP, PAP, CO, CI - Last Documented Arterial Blood Pressure 125/58 - Exam No acute distress S1-S2 heard Tracheostomy connected to vent Right groin Alfa Trace edema - Labs CBC & Chem 7: 10/17/21 05:42 10/17/21 05:42 Labs: Abnormal Lab Results - Last 24 Hours (Table) 10/17/21 10/17/21 Range/Units 05:42 05:42 RBC 2.40 L (3.80-5.40) m/uL Hgb 7.1 L (11.4-16.0) gm/dL Hct 23.1 L (34.0-46.0) % MCHC 30.7 L (31.0-37.0) g/dL RDW 16.0 H (11.5-15.5) % Lymphocytes # 0.9 L (1.0-4.8) k/uL Chloride 109 H (98-107) mmol/L BUN 27 H (7-17) mg/dL Creatinine 1.27 H (0.52-1.04) mg/dL Glucose 117 H (74-99) mg/dL Assessment and Plan Assessment: #1 Acute kidney injury secondary to hemodynamic and toxic ATN. On dialysis started on 10/12/2021. -Baseline creatinine 0.5-0.6 MG per DL. #2 acute respiratory failure on mechanical ventilator #3 septic shock. With low normal blood pressure off pressors. #4 status post cardiopulmonary arrest #5 vancomycin toxicity #6 low normal blood pressures Plan: #1 hemodialysis today. Plan again on Monday with 1.5 L UF. #2 permacath placed today. #3 monitor for renal recovery #4 outpatient dialysis placement.
[2021-10-17] MEDS: FLUCONAZOLE IN NACL,ISO-OSM 200 MG in SALINE 1 100ML.BAG IVPB SCH (15:50)
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
[2021-10-17] MEDS: NORTRIPTYLINE 25 MG CAP PO SCH (19:57)
[2021-10-18 05:02] LABS: Basophils % (A) 0 %; Eosinophils # (A) 0.4 k/uL (0-0.7); Eosinophils % (A) 4 %; HCT 24.5 % (34.0-46.0); HGB 7.3 gm/dL (11.4-16.0); Hypochromasia Slight; Lymphocytes # (A) 0.8 k/uL (1.0-4.8); Lymphocytes % (A) 7 %; MCH 28.7 pg (25.0-35.0); MCHC 29.8 g/dL (31.0-37.0); MCV 96.2 fL (80.0-100.0); Mean Platelet Volume 11.6; Monocytes % (A) 10 %; Neutrophils # (A) 8.2 k/uL (1.3-7.7); Neutrophils % (A) 77 %; Platelet Count 234 k/uL (150-450); RBC 2.55 m/uL (3.80-5.40); RDW 15.6 % (11.5-15.5); WBC 10.6 k/uL (3.8-10.6)
[2021-10-18 06:47] LABS: Calcium 8.7 mg/dL (8.4-10.2); Potassium 5.2 mmol/L (3.5-5.1)
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
--- NOTE | 2021-10-18 07:57 | XR ---
EXAMINATION TYPE: XR chest 1V portable DATE OF EXAM: 10/18/2021 COMPARISON: Chest x-ray dated 10/18/2021 at earlier time HISTORY: Hypoxia TECHNIQUE: Single frontal view of the chest is obtained. FINDINGS: There has been interval development of increased attenuation at the right upper hemithorax , apical cap is noted. Right-sided PICC line, central venous catheter, postop change to the cervical spine, tracheostomy tube are all again noted, there are overlying leads. The hemidiaphragms are secur ed as on prior. Cardiac mediastinal silhouette shows a similar appearance, patient is rotated. No niurka dent pneumothorax. IMPRESSION: Probable bilateral pleural effusions and associated atelectasis, correlate to exclude pn eumonia. Interval development of apical cap on the right is indeterminate.
--- NOTE | 2021-10-18 07:59 | XR ---
EXAMINATION TYPE: XR chest 1V portable DATE OF EXAM: 10/18/2021 COMPARISON: Chest x-ray 10/17/2021 HISTORY: Patient on ventilator, abnormal chest x-ray TECHNIQUE: Single frontal view of the chest is obtained. FINDINGS: No evident pneumothorax. Bibasilar increased attenuation is present, hemidiaphragms are ob scured. Right-sided PICC line shows the distal tip at the level the cavoatrial junction, right jugula r central venous dialysis catheter is present with the distal tip overlying superior vena cava. There is no evident pneumothorax. Cardiac mediastinal silhouette is stable. There are overlying artifacts. Tracheostomy tube is stable and overlying appropriate position, postop change noted to the cervical spine. There are overlying leads. IMPRESSION: Probable bilateral pleural effusions and associated atelectasis versus pneumonia, correl ate to exclude edema
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
[2021-10-18] MEDS ORDERED: FUROSEMIDE 10 MG/ML 10 ML VIAL IV STA (08:42)
--- NOTE | 2021-10-18 08:44 | P.PN ---
Subjective Patient is seen in follow-up for acute kidney injury, currently hemodialysis dependent. Started on hemodialysis 10/12/2021. Last dialysis was 10/16/2021 to 2.5 L at a hydration. Oliguric. This morning patient became more hypoxic and FiO2 had to be increased. She scheduled to undergo dialysis today. Blood pressure stable. Family present at bedside. Patient appears comfortable. Vital signs are stable. General: Awake. HEENT: Tracheostomy noted. LUNGS: Breath sounds decreased. HEART: Rate and Rhythm are regular. ABDOMEN: Soft, no distention. EXTREMITITES: 1+ edema. Objective - Vital Signs Vital signs: Vital Signs Temp 98.2 F 10/18/21 04:00 Pulse 81 10/18/21 07:00 Resp 21 10/18/21 07:00 BP 162/98 10/18/21 07:00 Pulse Ox 79 L 10/18/21 07:00 FiO2 50 10/18/21 07:43 Intake & Output 10/17/21 10/18/21 10/18/21 18:59 06:59 18:59 Intake Total 890 110 10 Output Total 60 65 10 Balance 830 45 0 Weight 72.2 kg Intake: IV 410 110 10 0.9 NACL 110 110 10 Fluconazole in NaCl,Iso- 100 Osm 200 mg In Saline 1 100ml.bag @ 100 mls/hr IVPB Q24H [facility] Rx#: [id number] Tube Feeding 480 Output: Urine 60 65 10 Other: Voiding Method Indwelling Catheter Indwelling Catheter ABP, PAP, CO, CI - Last Documented Arterial Blood Pressure 125/58 - Labs CBC & Chem 7: 10/18/21 03:30 10/18/21 05:26 Labs: Abnormal Lab Results - Last 24 Hours (Table) 10/18/21 10/18/21 Range/Units 03:30 05:26 RBC 2.55 L (3.80-5.40) m/uL Hgb 7.3 L (11.4-16.0) gm/dL Hct 24.5 L (34.0-46.0) % MCHC 29.8 L (31.0-37.0) g/dL RDW 15.6 H (11.5-15.5) % Neutrophils # 8.2 H (1.3-7.7) k/uL Lymphocytes # 0.8 L (1.0-4.8) k/uL Potassium 5.2 H (3.5-5.1) mmol/L Chloride 109 H (98-107) mmol/L BUN 46 H (7-17) mg/dL Creatinine 1.81 H (0.52-1.04) mg/dL Glucose 117 H (74-99) mg/dL Assessment and Plan Plan: Assessment: 1. Acute kidney injury secondary to ATN secondary to hemodynamic ATN and vancomycin toxicity. Vancomycin level 44 on 09/30/2021. Currently hemodialysis dependent. Has Pcath. Started on hemodialysis 10/12/2021. Oliguric. Baseline creatinine 0.6. No hydronephrosis noted on kidney ultrasound. Left kidney not visualized. 2. Pleural effusions status post thoracentesis this admission. 3. Status post brief cardiac arrest on 09/29/2021. 4. Septic shock secondary to pneumonia s/p antibiotics. Underwent bronchoscopy this admission with cultures positive for MRSA and Pseudomonas. Infectious disease following. 5. Hypokalemia from poor intake. Replaced. 6. Acute hypoxic respiratory failure status post tracheostomy this admission. PEG tube placed 10/04/2021. 7. Lung collapse due to mucous plugs status post bronchoscopy this admission. 8. Anemia. Rule out iron deficiency. Plan: Hemodialysis today. Will try for 3 L ultrafiltration. Plan for another treatment tomorrow. Possible bronchoscopy and thoracentesis. Maintain tube feeds. Lasix 80 mg IV once today. Continue to monitor renal function and urine output. Avoid nephrotoxins. Check iron studies.
[2021-10-18] MEDS: IPRATROPIUM-ALBUTEROL 3 ML NEB INHALATION SCH ×4 (08:51→19:53)
[2021-10-18] MEDS: PANTOPRAZOLE 40 MG/10 ML VIAL IVP SCH (09:12)
[2021-10-18] MEDS: ENOXAPARIN 30 MG/0.3 ML SYRINGE SQ SCH (09:12)
[2021-10-18] MEDS: METOPROLOL TARTRATE 25 MG TAB PO SCH ×2 (09:13→21:10)
[2021-10-18] MEDS: polyethylene glycoL 3350 17 GM POWD.PACK PO SCH (09:13)
[2021-10-18] MEDS: ZYRTEC 10 MG PO SCH (09:14)
[2021-10-18] MEDS: BACLOFEN 10 MG TAB PO SCH ×2 (09:14→21:11)
[2021-10-18] MEDS ORDERED: LORazepam 2 MG/ML INJ IV PRN (09:54)
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
[2021-10-18] MEDS: DEXMEDETOMIDINE/0.9% NACL(PMX) 400 MCG in EMPTY BAG 1 BAG IV SCH (12:31)
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
[2021-10-18] MEDS: MIDODRINE 5 MG TAB PO PRN (15:53)
[2021-10-18 17:59] LABS: % Iron Saturation 10.88 (12.00-45.00)
[2021-10-18] MEDS: NORTRIPTYLINE 25 MG CAP PO SCH (21:10)
[2021-10-19] MEDS: DEXMEDETOMIDINE/0.9% NACL(PMX) 400 MCG in EMPTY BAG 1 BAG IV SCH ×2 (03:54→19:03)
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
[2021-10-19 07:34] LABS: HCT 22.4 % (34.0-46.0); Hypochromasia Moderate; MCH 30.1 pg (25.0-35.0); MCHC 30.8 g/dL (31.0-37.0); MCV 97.5 fL (80.0-100.0); Mean Platelet Volume 9.5; Platelet Count 230 k/uL (150-450); RBC 2.29 m/uL (3.80-5.40); RDW 15.4 % (11.5-15.5); WBC 8.9 k/uL (3.8-10.6)
[2021-10-19 07:40] LABS: HGB 6.9 gm/dL (11.4-16.0)
[2021-10-19 07:54] LABS: Calcium 8.3 mg/dL (8.4-10.2); Potassium 4.3 mmol/L (3.5-5.1)
--- NOTE | 2021-10-19 08:10 | XR ---
EXAMINATION TYPE: XR chest 1V portable DATE OF EXAM: 10/19/2021 COMPARISON: Chest x-ray dated 10/18/2021 HISTORY: Pleural effusion TECHNIQUE: Single frontal view of the chest is obtained. FINDINGS: Apical cap on the right is again noted, show some increase in density. Cardiac mediastinal silhouette thought to be stable. Tracheostomy tube, right jugular central venous dialysis catheter, PICC line are stable. Postop changes are noted to the cervical spine. There is no evident pneumothora x. The right hemidiaphragm shows some interval improvement in partial visualization. IMPRESSION: Possible pleural effusions and associated atelectasis versus pneumonia. Apical pleural c ap on the right is indeterminate.
[2021-10-19] MEDS: IPRATROPIUM-ALBUTEROL 3 ML NEB INHALATION SCH ×4 (08:11→19:17)
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
[2021-10-19] MEDS: METOPROLOL TARTRATE 25 MG TAB PO SCH ×2 (09:30→19:48)
[2021-10-19] MEDS: PANTOPRAZOLE 40 MG/10 ML VIAL IVP SCH (10:00)
[2021-10-19] MEDS: ENOXAPARIN 40 MG/0.4 ML SYRINGE SQ SCH (10:00)
[2021-10-19] MEDS: BACLOFEN 10 MG TAB PO SCH ×2 (10:00→20:39)
[2021-10-19] MEDS: MIDODRINE 5 MG TAB PO PRN (10:03)
[2021-10-19] MEDS: polyethylene glycoL 3350 17 GM POWD.PACK PO SCH (10:03)
--- NOTE | 2021-10-19 10:22 | P.PN ---
Subjective Patient is seen in follow-up for acute kidney injury, currently hemodialysis dependent. Started on hemodialysis 10/12/2021. Oliguric despite Lasix. Resting in bed. Tolerating dialysis well. Blood pressure stable. Vital signs are stable. General: Awake. HEENT: Tracheostomy noted. LUNGS: Breath sounds decreased. HEART: Rate and Rhythm are regular. ABDOMEN: Soft, no distention. EXTREMITITES: 1+ edema. Objective - Vital Signs Vital signs: Vital Signs Temp 98.0 F 10/19/21 05:51 Pulse 80 10/19/21 08:25 Resp 18 10/19/21 05:51 BP 108/64 10/19/21 05:51 Pulse Ox 98 10/19/21 02:00 FiO2 50 10/19/21 07:12 Intake & Output 10/18/21 10/19/21 10/19/21 18:59 06:59 18:59 Intake Total 666.471 841.594 58 Output Total 2577 50 Balance -1910.529 791.594 58 Weight 72.2 kg 71.9 kg Intake: IV 120 120 10 0.9 NACL 120 120 10 Intake, IV Titration 18.471 55.594 Amount Dexmedetomidine/0.9% NaCl 18.471 55.594 (Pmx) 400 mcg In Empty Bag 1 bag @ 0.2 MCG/KG/HR 3.61 mls/hr IV .Q[facility]H [facility] Rx#:[id number] Tube Feeding 528 576 48 Other 90 Output: Urine 77 50 Hemodialysis 2500 Other: Voiding Method Indwelling Catheter Indwelling Catheter ABP, PAP, CO, CI - Last Documented Arterial Blood Pressure 125/58 - Labs CBC & Chem 7: 10/19/21 07:15 10/19/21 07:15 Labs: Abnormal Lab Results - Last 24 Hours (Table) 10/18/21 10/19/21 10/19/21 Range/Units 05:26 07:15 07:15 RBC 2.29 L (3.80-5.40) m/uL Hgb 6.9 L* (11.4-16.0) gm/dL Hct 22.4 L (34.0-46.0) % MCHC 30.8 L (31.0-37.0) g/dL BUN 32 H (7-17) mg/dL Creatinine 1.31 H (0.52-1.04) mg/dL Glucose 128 H (74-99) mg/dL Calcium 8.3 L (8.4-10.2) mg/dL Iron 27 L (50-170) ug/dL % Saturation 10.88 L (12.00-45.00) Transferrin 176.0 L (204.0-354.0) mg/dL Ferritin 349.0 H (10.0-291.0) ng/mL Microbiology - Last 24 Hours (Table) 09/24/21 09:20 Acid Fast Bacilli Smear - Final Bronchial Washings - Random Acid Fast Bacilli Culture - Preliminary Assessment and Plan Plan: Assessment: 1. Acute kidney injury secondary to ATN secondary to hemodynamic ATN and vancomycin toxicity. Vancomycin level 44 on 09/30/2021. Currently hemodialysis dependent. Has Pcath. Started on hemodialysis 10/12/2021. Oliguric. Baseline creatinine 0.6. No hydronephrosis noted on kidney ultrasound. Left kidney not visualized. 2. Pleural effusions status post thoracentesis this admission. 3. Status post brief cardiac arrest on 09/29/2021. 4. Septic shock secondary to pneumonia s/p antibiotics. Underwent bronchoscopy this admission with cultures positive for MRSA and Pseudomonas. Infectious disease following. 5. Hypokalemia from poor intake. Replaced. Resolved. 6. Acute hypoxic respiratory failure status post tracheostomy this admission. PEG tube placed 10/04/2021. 7. Lung collapse due to mucous plugs status post bronchoscopy this admission. Possibly another bronch tomorrow. 8. Anemia. Iron deficiency noted. Plan: Currently seen while undergoing hemodialysis. Another treatment tomorrow. Midodrine as needed for systolic blood pressure less than 100. Possible bronchoscopy tomorrow. Maintain tube feeds. Status post IV Lasix given 10/18/2021 - remains oliguric. Continue to monitor renal function and urine output. Avoid nephrotoxins. Add IV iron. Monitor hemoglobin. Consider transfusion if no improvement.
[2021-10-19] MEDS: SODIUM FERRIC GLUCONAT-SUCROSE 125 MG in SODIUM CHLORIDE 0.9% 100 ML IVPB SCH (11:08)
[2021-10-19] MEDS: ZYRTEC 10 MG PO SCH (11:09)
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
[2021-10-19] MEDS: NORTRIPTYLINE 25 MG CAP PO SCH (20:39)
[2021-10-20] MEDS: DEXMEDETOMIDINE/0.9% NACL(PMX) 400 MCG in EMPTY BAG 1 BAG IV SCH ×2 (04:11→14:01)
[2021-10-20 06:08] LABS: Basophils # (A) 0.1 k/uL (0-0.2); Basophils % (A) 1 %; Eosinophils # (A) 0.5 k/uL (0-0.7); Eosinophils % (A) 6 %; HCT 22.9 % (34.0-46.0); Hypochromasia Moderate; Lymphocytes # (A) 0.8 k/uL (1.0-4.8); Lymphocytes % (A) 10 %; MCH 29.4 pg (25.0-35.0); MCHC 30.3 g/dL (31.0-37.0); MCV 97.2 fL (80.0-100.0); Mean Platelet Volume 9.5; Monocytes # (A) 0.7 k/uL (0-1.0); Monocytes % (A) 8 %; Neutrophils # (A) 6.1 k/uL (1.3-7.7); Neutrophils % (A) 73 %; Platelet Count 248 k/uL (150-450); RBC 2.36 m/uL (3.80-5.40); RDW 15.2 % (11.5-15.5); WBC 8.3 k/uL (3.8-10.6)
[2021-10-20 06:23] LABS: Albumin 2.9 g/dL (3.5-5.0); Calcium 8.5 mg/dL (8.4-10.2); Phosphorus 3.6 mg/dL (2.5-4.5); Potassium 4.3 mmol/L (3.5-5.1); Total Bilirubin 0.2 mg/dL (0.2-1.3); Total Protein 5.5 g/dL (6.3-8.2)
[2021-10-20 06:35] LABS: HGB 6.9 gm/dL (11.4-16.0)
[2021-10-20] MEDS: IPRATROPIUM-ALBUTEROL 3 ML NEB INHALATION SCH ×4 (07:30→19:05)
--- NOTE | 2021-10-20 08:06 | XR ---
EXAMINATION TYPE: XR chest 1V portable DATE OF EXAM: 10/20/2021 COMPARISON: Chest x-ray 10/19/2021 HISTORY: Shortness of breath TECHNIQUE: Single frontal view of the chest is obtained. FINDINGS: Apical cap is no longer seen in the right. There is blunting of the right costophrenic ang le, obscured left hemidiaphragm greater than right. No evident pneumothorax. Central venous catheters are overlying appropriate positions, tracheostomy tube is in place. There are overlying artifacts. IMPRESSION: Improvement in apical cap on the right. Pleural effusions and associated atelectasis rosales eduardo pneumonia or edema.
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
[2021-10-20] MEDS: METOPROLOL TARTRATE 25 MG TAB PO SCH ×2 (09:07→19:51)
[2021-10-20] MEDS: BACLOFEN 10 MG TAB PO SCH ×2 (09:07→19:50)
[2021-10-20] MEDS: ZYRTEC 10 MG PO SCH (09:08)
[2021-10-20] MEDS: PANTOPRAZOLE 40 MG/10 ML VIAL IVP SCH (09:08)
[2021-10-20] MEDS: ENOXAPARIN 40 MG/0.4 ML SYRINGE SQ SCH (09:08)
[2021-10-20] MEDS: polyethylene glycoL 3350 17 GM POWD.PACK PO SCH (09:09)
[2021-10-20] MEDS: SODIUM FERRIC GLUCONAT-SUCROSE 125 MG in SODIUM CHLORIDE 0.9% 100 ML IVPB SCH (09:20)
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
--- NOTE | 2021-10-20 09:45 | P.PN ---
Subjective Patient is seen in follow-up for acute kidney injury, currently hemodialysis dependent. Started on hemodialysis 10/12/2021. Oliguric despite Lasix. Resting in bed. Tolerated 2.5 L ultrafiltration yesterday. Blood pressure stable. On 50% FiO2. Vital signs are stable. General: Awake. HEENT: Tracheostomy noted. LUNGS: Breath sounds decreased. HEART: Rate and Rhythm are regular. ABDOMEN: Soft, no distention. EXTREMITITES: 1+ edema. Objective - Vital Signs Vital signs: Vital Signs Temp 98.6 F 10/20/21 08:24 Pulse 73 10/20/21 09:01 Resp 16 10/20/21 09:01 BP 128/76 10/20/21 09:01 Pulse Ox 98 10/20/21 09:01 FiO2 50 10/20/21 09:01 Intake & Output 10/19/21 10/20/21 10/20/21 18:59 06:59 18:59 Intake Total 927.237 925.524 166 Output Total 2530 65 10 Balance -1602.763 860.524 156 Weight 71.8 kg Intake: IV 150 240 40 0.9 NACL 150 240 40 Intake, IV Titration 171.237 19.524 Amount Dexmedetomidine/0.9% NaCl 71.237 19.524 (Pmx) 400 mcg In Empty Bag 1 bag @ 0.2 MCG/KG/HR 3.61 mls/hr IV .Q24H [facility] Rx#:[id number] Sodium Ferric Gluconat- 100 Sucrose 125 mg In Sodium Chloride 0.9% 100 ml @ 100 mls/hr IVPB DAILY [facility] Rx#:[id number] Tube Feeding 576 576 96 Other 30 90 30 Output: Urine 30 65 10 Hemodialysis 2500 Other: Voiding Method Indwelling Catheter Indwelling Catheter ABP, PAP, CO, CI - Last Documented Arterial Blood Pressure 125/58 - Labs CBC & Chem 7: 10/20/21 05:28 10/20/21 05:28 Labs: Abnormal Lab Results - Last 24 Hours (Table) 10/20/21 10/20/21 Range/Units 05:28 05:28 RBC 2.36 L (3.80-5.40) m/uL Hgb 6.9 L* (11.4-16.0) gm/dL Hct 22.9 L (34.0-46.0) % MCHC 30.3 L (31.0-37.0) g/dL Lymphocytes # 0.8 L (1.0-4.8) k/uL BUN 31 H (7-17) mg/dL Creatinine 1.17 H (0.52-1.04) mg/dL Glucose 114 H (74-99) mg/dL AST 56 H (14-36) U/L ALT 119 H (4-34) U/L Alkaline Phosphatase 226 H (38-126) U/L Total Protein 5.5 L (6.3-8.2) g/dL Albumin 2.9 L (3.5-5.0) g/dL Assessment and Plan Plan: Assessment: 1. Acute kidney injury secondary to ATN secondary to hemodynamic ATN and vancomycin toxicity. Vancomycin level 44 on 09/30/2021. Currently hemodialysis dependent. Has Pcath. Started on hemodialysis 10/12/2021. Oliguric. Baseline creatinine 0.6. No hydronephrosis noted on kidney ultrasound. Left kidney not visualized. 2. Pleural effusions status post thoracentesis this admission. 3. Status post brief cardiac arrest on 09/29/2021. 4. Septic shock secondary to pneumonia s/p antibiotics. Underwent bronchoscopy this admission with cultures positive for MRSA and Pseudomonas. Infectious dise ase following. 5. Hypokalemia from poor intake. Replaced. Resolved. 6. Acute hypoxic respiratory failure status post tracheostomy this admission. PEG tube placed 10/04/2021. 7. Lung collapse due to mucous plugs status post bronchoscopy this admission. Possibly another bronch tomorrow. 8. Anemia. Iron deficiency noted. Plan: Hemodialysis today. Midodrine as needed for systolic blood pressure less than 100. Maintain tube feeds. Status post IV Lasix given 10/18/2021 - remains oliguric. Continue to monitor renal function and urine output. Avoid nephrotoxins. Maintain IV iron. Monitor hemoglobin. Consider transfusion if no improvement. Phosphorus 3.6 dated 08/20/2021.
[2021-10-20] MEDS: MIDODRINE 5 MG TAB PO PRN (10:55)
--- NOTE | 2021-10-20 12:17 | OP ---
OPERATIVE REPORT DATE OF PROCEDURE: 10/11/2021 PREOPERATIVE DIAGNOSIS: Acute on chronic renal failure. POSTOPERATIVE DIAGNOSIS: Acute on chronic renal failure. PROCEDURE PERFORMED: Ultrasound-guided 30 cm dialysis catheter placement, femoral approach. PROCEDURE DESCRIPTION: This patient was seen. Right groin was prepped and drapes were applied in usual sterile manner. Lidocaine 1% plain was infiltrated. Ultrasound-guided micropuncture was introduced into the right femoral vein. Micropuncture guidewire was passed, then a 4- Icelandic dilator was advanced on top of the guidewire. After that we passed a regular guidewire, then placed a dilator. Then we placed a dialysis catheter on the top of the guidewire. Guidewire was removed. Flushed with heparin saline and hep-locked, secured with 3-0 nylon. Dressing was applied. Patient tolerated the procedure well. ZAIRE / ROJELION: [id number] /
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
--- NOTE | 2021-10-20 14:25 | P.PN ---
Subjective Progress Note Date: 10/20/21 Much more awake and alert. Still on precedex. Still doing daily dialysis. Gen: asleep, trach shield Resp: vent, trach, CVS: good distal perfusion x 4, GI: soft, NTTP, ND, +PEG : no SPT, no CVAT, rubin catheter is present MSK: no pitting edema, no clubbing Neuro: quadriplegia, at baseline Assessment/plan: Acute Hypoxic Respiratory Failure Septic Shock [facility] Associated Pneumonia, polymicrobial Bilateral Pleural Effusions, parapneumonic -status post intubation mechanical ventilation, no s/p tracheostomy, pending PEG tube -multifactorial but mostly secondary to recurrent pneumonia secondary to MRSA and pseudomonas involving both lungs. -Also secondary to bilateral pleural effusions and recurrent collapse of her left lung requiring bronchoscopy and BAL. -Vancomycin and Fortaz per infectious disease -Fluconazole per ID - Pulmonary recs appreciated: pleural effusion b/l being monitored -started solu-cortef 50mg IV TID - s/p trach, s/p PEG - ID recs appreciated - on midodrine - on precedex. Acute kidney injury -Likely from Hypotensive Episode with the CPR for a few seconds approximately 15 seconds, as well as high vancomycin levels. -She is nonoliguric. -On IV fluids per nephrology -On Bicarb -Now on dialysis Quadriplegia C5, Autonomic dysreflexia - air mattress - turn q 2 - supportive care - may need BiPAP/ vest for home - continue baclofen, Hx of HTN - continuing metoprolol - follow BP Urinary Retention due to neurogenic bladder - rubin - hold ditropan and detrol Anemia, stable Thrombocytosis, resolved - follow CBC - Iron studies normal DVT prophylaxis: SCDs Anticipated discharge: TBD Anticipated discharge place: [facility] Objective - Vital Signs Vital signs: Vital Signs Temp 98.6 F 10/20/21 13:19 Pulse 64 10/20/21 14:00 Resp 16 10/20/21 14:00 BP 119/73 10/20/21 14:00 Pulse Ox 96 10/20/21 13:00 FiO2 40 10/20/21 14:00 Intake & Output 10/19/21 10/20/21 10/20/21 18:59 06:59 18:59 Intake Total 927.237 925.524 702.405 Output Total 2530 65 3050 Balance -1602.763 860.524 -2347.595 Weight 71.8 kg 71.8 kg Intake: IV 150 240 260 0.9 NACL 150 240 160 Sodium Ferric Gluconat- 100 Sucrose 125 mg In Sodium Chloride 0.9% 100 ml @ 100 mls/hr IVPB DAILY [facility] Rx#:[id number] Intake, IV Titration 171.237 19.524 94.405 Amount Dexmedetomidine/0.9% NaCl 71.237 19.524 94.405 (Pmx) 400 mcg In Empty Bag 1 bag @ 0.2 MCG/KG/HR 3.61 mls/hr IV .Q24H [facility] Rx#:[id number] Sodium Ferric Gluconat- 100 Sucrose 125 mg In Sodium Chloride 0.9% 100 ml @ 100 mls/hr IVPB DAILY [facility] Rx#:[id number] Tube Feeding 576 576 288 Other 30 90 60 Output: Urine 30 65 50 Hemodialysis 2500 3000 Other: Voiding Method Indwelling Catheter Indwelling Catheter Indwelling Catheter # Voids 0 ABP, PAP, CO, CI - Last Documented Arterial Blood Pressure 125/58 - Labs CBC & Chem 7: 10/20/21 05:28 05 05:28 Labs: Abnormal Lab Results - Last 24 Hours (Table) 10/20/21 10/20/21 Range/Units 05:28 05:28 RBC 2.36 L (3.80-5.40) m/uL Hgb 6.9 L* (11.4-16.0) gm/dL Hct 22.9 L (34.0-46.0) % MCHC 30.3 L (31.0-37.0) g/dL Lymphocytes # 0.8 L (1.0-4.8) k/uL BUN 31 H (7-17) mg/dL Creatinine 1.17 H (0.52-1.04) mg/dL Glucose 114 H (74-99) mg/dL AST 56 H (14-36) U/L ALT 119 H (4-34) U/L Alkaline Phosphatase 226 H (38-126) U/L Total Protein 5.5 L (6.3-8.2) g/dL Albumin 2.9 L (3.5-5.0) g/dL
[2021-10-20] MEDS: FUROSEMIDE 10 MG/ML 10 ML VIAL IV SCH (14:32)
[2021-10-20] MEDS: METOCLOPRAMIDE 5 MG/ML 2 ML VIAL IVP SCH (18:02)
[2021-10-20] MEDS: NORTRIPTYLINE 25 MG CAP PO SCH (19:50)
[2021-10-20] MEDS: ZOLPIDEM 10 MG TAB PO PRN (19:51)
[2021-10-21] MEDS: METOCLOPRAMIDE 5 MG/ML 2 ML VIAL IVP SCH ×5 (01:25→23:58)
[2021-10-21] MEDS: IPRATROPIUM-ALBUTEROL 3 ML NEB INHALATION SCH ×3 (07:14→19:11)
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
--- NOTE | 2021-10-21 08:11 | XR ---
EXAMINATION TYPE: XR chest 1V portable DATE OF EXAM: 10/21/2021 COMPARISON: Chest x-ray 10/20/2021 HISTORY: Shortness of breath TECHNIQUE: Single frontal view of the chest is obtained. FINDINGS: Tracheostomy tube, right jugular central venous permacath, right-sided PICC line are overl sue appropriate positions, stable. There is no evident pneumothorax. Bibasilar attenuation is increa sed similar to prior exam, cardiac mediastinal silhouette is stable. IMPRESSION: Similar findings, probable basilar effusions and associated atelectasis, correlate to ex clude pneumonia, edema
[2021-10-21 08:38] LABS: Basophils % (A) 0 %; Eosinophils # (A) 0.3 k/uL (0-0.7); Eosinophils % (A) 4 %; HCT 22.5 % (34.0-46.0); Hypochromasia Marked; Lymphocytes # (A) 0.9 k/uL (1.0-4.8); Lymphocytes % (A) 10 %; MCH 29.5 pg (25.0-35.0); MCV 98.5 fL (80.0-100.0); Macrocytosis Slight; Mean Platelet Volume 9.1; Monocytes # (A) 0.5 k/uL (0-1.0); Monocytes % (A) 6 %; Neutrophils # (A) 6.3 k/uL (1.3-7.7); Neutrophils % (A) 76 %; Platelet Count 267 k/uL (150-450); RBC 2.28 m/uL (3.80-5.40); RDW 15.6 % (11.5-15.5); WBC 8.4 k/uL (3.8-10.6)
[2021-10-21 08:43] LABS: HGB 6.7 gm/dL (11.4-16.0)
[2021-10-21] MEDS: SODIUM FERRIC GLUCONAT-SUCROSE 125 MG in SODIUM CHLORIDE 0.9% 100 ML IVPB SCH (08:47)
[2021-10-21 08:51] LABS: Albumin 2.9 g/dL (3.5-5.0); Calcium 8.5 mg/dL (8.4-10.2); Magnesium 2.3 mg/dL (1.6-2.3); Potassium 3.9 mmol/L (3.5-5.1); Total Bilirubin 0.2 mg/dL (0.2-1.3); Total Protein 5.6 g/dL (6.3-8.2)
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
[2021-10-21] MEDS: BACLOFEN 10 MG TAB PO SCH ×2 (09:04→20:11)
[2021-10-21] MEDS: ENOXAPARIN 40 MG/0.4 ML SYRINGE SQ SCH (09:05)
[2021-10-21] MEDS: ZYRTEC 10 MG PO SCH (09:07)
[2021-10-21] MEDS: METOPROLOL TARTRATE 25 MG TAB PO SCH ×2 (09:07→20:11)
[2021-10-21] MEDS: PANTOPRAZOLE 40 MG/10 ML VIAL IVP SCH (09:08)
[2021-10-21] MEDS: DEXMEDETOMIDINE/0.9% NACL(PMX) 400 MCG in EMPTY BAG 1 BAG IV SCH (09:08)
[2021-10-21] MEDS: polyethylene glycoL 3350 17 GM POWD.PACK PO SCH (09:10)
--- NOTE | 2021-10-21 09:47 | P.PN ---
Subjective Patient is seen in follow-up for acute kidney injury, currently hemodialysis dependent. Started on hemodialysis 10/12/2021. Oliguric despite Lasix. Resting in bed. Tolerated 3 L ultrafiltration yesterday. Blood pressure stable. On 40% FiO2. Receiving tube feeds. Vital signs are stable. General: Awake. HEENT: Tracheostomy noted. LUNGS: Breath sounds decreased. HEART: Rate and Rhythm are regular. ABDOMEN: Soft, no distention. EXTREMITITES: 1+ edema. Objective - Vital Signs Vital signs: Vital Signs Temp 97.9 F 10/21/21 04:00 Pulse 70 10/21/21 07:24 Resp 16 10/21/21 07:24 BP 140/84 10/21/21 07:00 Pulse Ox 99 10/21/21 07:00 FiO2 40 10/21/21 09:10 Intake & Output 10/20/21 10/21/21 10/21/21 18:59 06:59 18:59 Intake Total 1102.729 975.676 Output Total 3090 46 Balance -1986.271 929.676 Weight 71.8 kg 71.5 kg Intake: IV 360 240 0.9 NACL 260 240 Sodium Ferric Gluconat- 100 Sucrose 125 mg In Sodium Chloride 0.9% 100 ml @ 100 mls/hr IVPB DAILY [facility] Rx#:[id number] Intake, IV Titration 124.729 69.676 Amount Dexmedetomidine/0.9% NaCl 124.729 69.676 (Pmx) 400 mcg In Empty Bag 1 bag @ 0.2 MCG/KG/HR 3.61 mls/hr IV .Q24H [facility] Rx#:[id number] Tube Feeding 528 576 Other 90 90 Output: Urine 90 46 Hemodialysis 3000 Other: Voiding Method Indwelling Catheter # Voids 0 # Bowel Movements 1 ABP, PAP, CO, CI - Last Documented Arterial Blood Pressure 125/58 - Labs CBC & Chem 7: 10/21/21 08:06 10/21/21 08:06 Labs: Abnormal Lab Results - Last 24 Hours (Table) 10/21/21 10/21/21 Range/Units 08:06 08:06 RBC 2.28 L (3.80-5.40) m/uL Hgb 6.7 L* (11.4-16.0) gm/dL Hct 22.5 L (34.0-46.0) % MCHC 30.0 L (31.0-37.0) g/dL RDW 15.6 H (11.5-15.5) % Lymphocytes # 0.9 L (1.0-4.8) k/uL Chloride 110 H (98-107) mmol/L BUN 36 H (7-17) mg/dL Creatinine 1.18 H (0.52-1.04) mg/dL Glucose 124 H (74-99) mg/dL AST 52 H (14-36) U/L ALT 119 H (4-34) U/L Alkaline Phosphatase 222 H (38-126) U/L Total Protein 5.6 L (6.3-8.2) g/dL Albumin 2.9 L (3.5-5.0) g/dL Assessment and Plan Plan: Assessment: 1. Acute kidney injury secondary to ATN secondary to hemodynamic ATN and vancomycin toxicity. Vancomycin level 44 on 09/30/2021. Currently hemodialysis dependent. Has Pcath. Started on hemodialysis 10/12/2021. Oliguric. Baseline creatinine 0.6. No hydronephrosis noted on kidney ultrasound. Left kidney not visualized. 2. Pleural effusions status post thoracentesis this admission. 3. Status post brief cardiac arrest on 09/29/2021. 4. Septic shock secondary to pneumonia s/p antibiotics. Underwent bronchoscopy this admission with cultures positive for MRSA and Pseudomonas. Infectious d isease following. 5. Hypokalemia from poor intake. Replaced. Resolved. 6. Acute hypoxic respiratory failure status post tracheostomy this admission. PEG tube placed 10/04/2021. 7. Lung collapse due to mucous plugs status post bronchoscopy this admission. Possibly another bronch tomorrow. 8. Anemia. Iron deficiency noted. No active bleeding. Plan: Hemodialysis tomorrow. Midodrine as needed for systolic blood pressure less than 100. Maintain tube feeds. Status post IV Lasix given 10/18/2021 - remains oliguric. Continue to monitor renal function and urine output. Monitor for renal rec overy. Avoid nephrotoxins. Maintain IV iron. Add Aranesp. Monitor hemoglobin. Consider transfusion if no improvement. Phosphorus 3.6 dated 08/20/2021.
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
[2021-10-21] MEDS ORDERED: DARBEPOETIN ALFA 40 MCG/0.4 ML SYRINGE SQ SCH (12:00)
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
--- NOTE | 2021-10-21 16:16 | P.PN ---
Subjective Progress Note Date: 10/21/21 Much more awake and alert. Off of precedex. Now stable for iHD 3x/week. Anticipate dc tomorrow. Gen: asleep, trach shield Resp: vent, trach, CVS: good distal perfusion x 4, GI: soft, NTTP, ND, +PEG : no SPT, no CVAT, rubin catheter is present MSK: no pitting edema, no clubbing Neuro: quadriplegia, at baseline Assessment/plan: Acute Hypoxic Respiratory Failure Septic Shock Healthcare Associated Pneumonia, polymicrobial Bilateral Pleural Effusions, parapneumonic -status post intubation mechanical ventilation, no s/p tracheostomy, pending PEG tube -multifactorial but mostly secondary to recurrent pneumonia secondary to MRSA and pseudomonas involving both lungs. -Also secondary to bilateral pleural effusions and recurrent collapse of her left lung requiring bronchoscopy and BAL. -Vancomycin and Fortaz per infectious disease -Fluconazole per ID - Pulmonary recs appreciated: pleural effusion b/l being monitored -started solu-cortef 50mg IV TID - s/p trach, s/p PEG - ID recs appreciated - on midodrine Acute kidney injury -Likely from Hypotensive Episode with the CPR for a few seconds approximately 15 seconds, as well as high vancomycin levels. -She is nonoliguric. -On IV fluids per nephrology -On Bicarb -Now on dialysis Quadriplegia C5, Autonomic dysreflexia - air mattress - turn q 2 - supportive care - may need BiPAP/ vest for home - continue baclofen, Hx of HTN - continuing metoprolol - follow BP Urinary Retention due to neurogenic bladder - rubin - hold ditropan and detrol Anemia, stable Thrombocytosis, resolved - follow CBC - Iron studies normal DVT prophylaxis: SCDs Anticipated discharge: TBD [facility] Objective - Vital Signs Vital signs: Vital Signs Temp 98.5 F 10/21/21 08:00 Pulse 82 10/21/21 15:37 Resp 20 10/21/21 11:58 BP 107/66 10/21/21 09:00 Pulse Ox 100 10/21/21 09:00 FiO2 40 10/21/21 15:21 Intake & Output 10/20/21 10/21/21 10/21/21 18:59 06:59 18:59 Intake Total 1102.729 975.676 638 Output Total 3090 46 70 Balance -271 929.676 568 Weight 71.8 kg 71.5 kg Intake: IV 360 240 220 0.9 NACL 260 240 120 Sodium Ferric Gluconat- 100 100 Sucrose 125 mg In Sodium Chloride 0.9% 100 ml @ 100 mls/hr IVPB DAILY [facility] Rx#:[id number] Intake, IV Titration 124.729 69.676 Amount Dexmedetomidine/0.9% NaCl 124.729 69.676 (Pmx) 400 mcg In Empty Bag 1 bag @ 0.2 MCG/KG/HR 3.61 mls/hr IV .Q24H [facility] Rx#:[id number] Oral 100 Tube Feeding 528 576 288 Other 90 90 30 Output: Urine 90 46 70 Hemodialysis 3000 Other: Voiding Method Indwelling Catheter # Voids 0 # Bowel Movements 1 ABP, PAP, CO, CI - Last Documented Arterial Blood Pressure 125/58 - Labs CBC & Chem 7: 10/21/21 08:06 10/21/21 08:06 Labs: Abnormal Lab Results - Last 24 Hours (Table) 10/21/21 10/21/21 Range/Units 08:06 08:06 RBC 2.28 L (3.80-5.40) m/uL Hgb 6.7 L* (11.4-16.0) gm/dL Hct 22.5 L (34.0-46.0) % MCHC 30.0 L (31.0-37.0) g/dL RDW 15.6 H (11.5-15.5) % Lymphocytes # 0.9 L (1.0-4.8) k/uL Chloride 110 H (98-107) mmol/L BUN 36 H (7-17) mg/dL Creatinine 1.18 H (0.52-1.04) mg/dL Glucose 124 H (74-99) mg/dL AST 52 H (14-36) U/L ALT 119 H (4-34) U/L Alkaline Phosphatase 222 H (38-126) U/L Total Protein 5.6 L (6.3-8.2) g/dL Albumin 2.9 L (3.5-5.0) g/dL
[2021-10-21] MEDS: NORTRIPTYLINE 25 MG CAP PO SCH (20:11)
[2021-10-21] MEDS: ZOLPIDEM 10 MG TAB PO PRN (20:11)
[2021-10-22] MEDS: METOCLOPRAMIDE 5 MG/ML 2 ML VIAL IVP SCH ×2 (05:25→13:47)
--- NOTE | 2021-10-22 07:27 | XR ---
EXAMINATION TYPE: XR chest 1V portable DATE OF EXAM: 10/22/2021 COMPARISON: Chest x-ray 10/21/2020 HISTORY: Shortness of breath TECHNIQUE: Single frontal view of the chest is obtained. FINDINGS: Tracheostomy tube, right jugular dialysis catheter, PICC line are stable and overlying unc hanged positions. No evident pneumothorax. Bibasilar increased attenuation persists. Cardiac mediasti nal silhouette is stable. Lung bases not entirely included on exam. There are overlying artifacts. IMPRESSION: Correlate for effusions, possible associated edema versus pneumonia or atelectasis
[2021-10-22] MEDS: IPRATROPIUM-ALBUTEROL 3 ML NEB INHALATION SCH ×4 (07:31→19:52)
[2021-10-22 08:26] LABS: Basophils % (A) 1 %; Eosinophils # (A) 0.4 k/uL (0-0.7); Eosinophils % (A) 4 %; HCT 21.6 % (34.0-46.0); Hypochromasia Marked; Lymphocytes # (A) 1.1 k/uL (1.0-4.8); Lymphocytes % (A) 13 %; MCH 29.9 pg (25.0-35.0); MCHC 30.4 g/dL (31.0-37.0); MCV 98.2 fL (80.0-100.0); Mean Platelet Volume 9.6; Monocytes # (A) 0.5 k/uL (0-1.0); Monocytes % (A) 7 %; Neutrophils % (A) 73 %; Platelet Count 270 k/uL (150-450); RBC 2.19 m/uL (3.80-5.40); RDW 15.2 % (11.5-15.5); WBC 8.2 k/uL (3.8-10.6)
[2021-10-22 08:28] LABS: Albumin 2.8 g/dL (3.5-5.0); Calcium 8.7 mg/dL (8.4-10.2); Potassium 4.7 mmol/L (3.5-5.1); Total Bilirubin 0.2 mg/dL (0.2-1.3); Total Protein 5.4 g/dL (6.3-8.2)
[2021-10-22 08:36] LABS: HGB 6.6 gm/dL (11.4-16.0)
[2021-10-22] MEDS: PANTOPRAZOLE 40 MG/10 ML VIAL IVP SCH (08:59)
[2021-10-22] MEDS: ZYRTEC 10 MG PO SCH (08:59)
[2021-10-22] MEDS: METOPROLOL TARTRATE 25 MG TAB PO SCH (09:00)
[2021-10-22] MEDS: polyethylene glycoL 3350 17 GM POWD.PACK PO SCH (09:00)
[2021-10-22] MEDS: BACLOFEN 10 MG TAB PO SCH (09:00)
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
[2021-10-22] MEDS: SODIUM FERRIC GLUCONAT-SUCROSE 125 MG in SODIUM CHLORIDE 0.9% 100 ML IVPB SCH (09:28)
[2021-10-22] MEDS: DEXMEDETOMIDINE/0.9% NACL(PMX) 400 MCG in EMPTY BAG 1 BAG IV SCH (09:29)
[2021-10-22] MEDS: ENOXAPARIN 40 MG/0.4 ML SYRINGE SQ SCH (09:41)
--- NOTE | 2021-10-22 09:51 | P.PN ---
Subjective Patient is seen in follow-up for acute kidney injury, currently hemodialysis dependent. Started on hemodialysis 10/12/2021. Oliguric - urine output slightly improved. Now 10-15 mL an hour.. Resting in bed. Blood pressure stable. On 40% FiO2. Receiving tube feeds. Vital signs are stable. General: Awake. HEENT: Tracheostomy noted. LUNGS: Breath sounds decreased. HEART: Rate and Rhythm are regular. ABDOMEN: Soft, no distention. EXTREMITITES: 1+ edema. Objective - Vital Signs Vital signs: Vital Signs Temp 97.9 F 10/22/21 04:00 Pulse 85 10/22/21 07:58 Resp 20 10/22/21 07:58 BP 104/65 10/22/21 07:00 Pulse Ox 99 10/22/21 07:00 FiO2 40 10/22/21 07:00 Intake & Output 10/21/21 10/22/21 10/22/21 18:59 06:59 18:59 Intake Total 1076 720 166 Output Total 125 145 45 Balance 951 575 121 Weight 70.9 kg Intake: IV 340 240 40 0.9 NACL 240 240 40 Sodium Ferric Gluconat- 100 Sucrose 125 mg In Sodium Chloride 0.9% 100 ml @ 100 mls/hr IVPB DAILY [facility] Rx#:[id number] Oral 100 Tube Feeding 576 480 96 Other 60 30 Output: Urine 125 145 45 Other: Voiding Method Indwelling Catheter Indwelling Catheter ABP, PAP, CO, CI - Last Documented Arterial Blood Pressure 125/58 - Labs CBC & Chem 7: 10/22/21 08:19 10/22/21 07:15 Labs: Abnormal Lab Results - Last 24 Hours (Table) 10/21/21 10/22/21 10/22/21 Range/Units 17:31 07:15 08:19 RBC 2.19 L (3.80-5.40) m/uL Hgb 6.6 L* (11.4-16.0) gm/dL Hct 21.6 L (34.0-46.0) % MCHC 30.4 L (31.0-37.0) g/dL Chloride 108 H (98-107) mmol/L BUN 56 H (7-17) mg/dL Creatinine 1.72 H (0.52-1.04) mg/dL Glucose 110 H (74-99) mg/dL AST 65 H (14-36) U/L ALT 139 H (4-34) U/L Alkaline Phosphatase 225 H (38-126) U/L Total Protein 5.4 L (6.3-8.2) g/dL Albumin 2.8 L (3.5-5.0) g/dL Crossmatch See Detail Assessment and Plan Plan: Assessment: 1. Acute kidney injury secondary to ATN secondary to hemodynamic ATN and vanc omycin toxicity. Vancomycin level 44 on 09/30/2021. Currently hemodialysis dependent. Has Pcath. Started on hemodialysis 10/12/2021. Oliguric. Baseline creatinine 0.6. No hydronephrosis noted on kidney ultrasound. Left kidney not visualized. 2. Pleural effusions status post thoracentesis this admission. 3. Status post brief cardiac arrest on 09/29/2021. 4. Septic shock secondary to pneumonia s/p antibiotics. Underwent bronchoscopy this admission with cultures positive for MRSA and Pseudomonas. Infectious disease following. 5. Hypokalemia from poor intake. Replaced. Resolved. 6. Acute hypoxic respiratory failure status post tracheostomy this admission. PEG tube placed 10/04/2021. 7. Lung collapse due to mucous plugs status post bronchoscopy this admission. Possibly another bronch tomorrow. 8. Anemia. Iron deficiency noted. No active bleeding. On IV iron and Aranesp . Plan: Hemodialysis today. Midodrine as needed for systolic blood pressure less than 100. Maintain tube feeds. Add oral Lasix. Continue to monitor renal function and urine output. Monitor for renal recovery outpatient. Avoid nephrotoxins. 1 unit of blood with dialysis today. Phosphorus 3.6 dated 08/20/2021. Plan for discharge to [facility] specialty [place] today.
[2021-10-22] MEDS ORDERED: FUROSEMIDE 80 MG TAB PO SCH (10:00)
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
[2021-10-22 12:18] VITALS: BMI 27.6
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
[2021-10-22 13:16] VITALS: TEMP 98.7
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
[2021-10-22 16:17] VITALS: BP 138/84; PULSE 98; RESP 20
== END 2021-10-23 03:49 | DRG 4 ==
LOC: EC 14:22 → 6NMEDSUR 16:46 → OBSVTOIN 09-22 08:50 → 2SICU 09-23 08:49
PROVIDERS: ADMIT Internal Medicine; ATTEND Internal Medicine
PROC: 0W993ZX Drainage of Right Pleural Cavity, Percutaneous Approach, Diagnostic (ICD-10-PCS; 2021-09-22)
PROC: 0B9G8ZX Drainage of Left Upper Lung Lobe, Via Natural or Artificial Opening Endoscopic, Diagnostic (ICD-10-PCS; 2021-09-23)
PROC: 0BH18EZ Insertion of Endotracheal Airway into Trachea, Via Natural or Artificial Opening Endoscopic (ICD-10-PCS; 2021-09-23)
PROC: 0BC38ZZ Extirpation of Matter from Right Main Bronchus, Via Natural or Artificial Opening Endoscopic (ICD-10-PCS; 2021-09-23)
PROC: 0BC48ZZ Extirpation of Matter from Right Upper Lobe Bronchus, Via Natural or Artificial Opening Endoscopic (ICD-10-PCS; 2021-09-23)
PROC: 0BC68ZZ Extirpation of Matter from Right Lower Lobe Bronchus, Via Natural or Artificial Opening Endoscopic (ICD-10-PCS; 2021-09-23)
PROC: 0BC58ZZ Extirpation of Matter from Right Middle Lobe Bronchus, Via Natural or Artificial Opening Endoscopic (ICD-10-PCS; 2021-09-23)
PROC: 5A1945Z Respiratory Ventilation, 24-96 Consecutive Hours (ICD-10-PCS; 2021-09-23)
PROC: 0D9670Z Drainage of Stomach with Drainage Device, Via Natural or Artificial Opening (ICD-10-PCS; 2021-09-23)
PROC: 5A0935A Assistance with Respiratory Ventilation, Less than 24 Consecutive Hours, High Flow/Velocity Cannula (ICD-10-PCS; 2021-09-23)
PROC: 0BC78ZZ Extirpation of Matter from Left Main Bronchus, Via Natural or Artificial Opening Endoscopic (ICD-10-PCS; 2021-09-24)
PROC: 0BC38ZZ Extirpation of Matter from Right Main Bronchus, Via Natural or Artificial Opening Endoscopic (ICD-10-PCS; 2021-09-24)
PROC: 3E033XZ Introduction of Vasopressor into Peripheral Vein, Percutaneous Approach (ICD-10-PCS; 2021-09-24)
PROC: 0D9670Z Drainage of Stomach with Drainage Device, Via Natural or Artificial Opening (ICD-10-PCS; 2021-09-29)
PROC: 5A12012 Performance of Cardiac Output, Single, Manual (ICD-10-PCS; 2021-09-29)
PROC: 5A1955Z Respiratory Ventilation, Greater than 96 Consecutive Hours (ICD-10-PCS; 2021-09-30)
PROC: 0BH17EZ Insertion of Endotracheal Airway into Trachea, Via Natural or Artificial Opening (ICD-10-PCS; 2021-09-30)
PROC: 4A133B1 Monitoring of Arterial Pressure, Peripheral, Percutaneous Approach (ICD-10-PCS; 2021-09-30)
PROC: 4A133J1 Monitoring of Arterial Pulse, Peripheral, Percutaneous Approach (ICD-10-PCS; 2021-09-30)
PROC: 04HY32Z Insertion of Monitoring Device into Lower Artery, Percutaneous Approach (ICD-10-PCS; 2021-09-30)
PROC: 3E0G76Z Introduction of Nutritional Substance into Upper GI, Via Natural or Artificial Opening (ICD-10-PCS; 2021-09-30)
PROC: 02HV33Z Insertion of Infusion Device into Superior Vena Cava, Percutaneous Approach (ICD-10-PCS; 2021-10-01)
PROC: 0B110F4 Bypass Trachea to Cutaneous with Tracheostomy Device, Open Approach (ICD-10-PCS; principal; 2021-10-01 07:30)
PROC: 0DH63UZ Insertion of Feeding Device into Stomach, Percutaneous Approach (ICD-10-PCS; 2021-10-04)
PROC: 06HY33Z Insertion of Infusion Device into Lower Vein, Percutaneous Approach (ICD-10-PCS; 2021-10-11)
PROC: 5A1D70Z Performance of Urinary Filtration, Intermittent, Less than 6 Hours Per Day (ICD-10-PCS; 2021-10-12)
PROC: 30233N1 Transfusion of Nonautologous Red Blood Cells into Peripheral Vein, Percutaneous Approach (ICD-10-PCS; 2021-10-12)
PROC: 05HM33Z Insertion of Infusion Device into Right Internal Jugular Vein, Percutaneous Approach (ICD-10-PCS; 2021-10-17)
PROC: 0JH63XZ Insertion of Tunneled Vascular Access Device into Chest Subcutaneous Tissue and Fascia, Percutaneous Approach (ICD-10-PCS; 2021-10-17)
DX: J15.1 Pneumonia due to Pseudomonas (principal); N17.0 Acute kidney failure with tubular necrosis; R65.21 Severe sepsis with septic shock; G82.50 Quadriplegia, unspecified; G92.8 Other toxic encephalopathy; A41.9 Sepsis, unspecified organism; E43 Unspecified severe protein-calorie malnutrition; J96.01 Acute respiratory failure with hypoxia; I46.9 Cardiac arrest, cause unspecified; G62.81 Critical illness polyneuropathy; B37.89 Other sites of candidiasis; B37.0 Candidal stomatitis; K56.7 Ileus, unspecified; J90 Pleural effusion, not elsewhere classified; E87.4 Mixed disorder of acid-base balance; R45.851 Suicidal ideations; Z99.11 Dependence on respirator [ventilator] status; D62 Acute posthemorrhagic anemia; E27.49 Other adrenocortical insufficiency; J98.11 Atelectasis; J15.212 Pneumonia due to Methicillin resistant Staphylococcus aureus; L89.529 Pressure ulcer of left ankle, unspecified stage; Z66 Do not resuscitate; Z51.5 Encounter for palliative care; Z20.822 Contact with and (suspected) exposure to COVID-19; G90.4 Autonomic dysreflexia; J98.6 Disorders of diaphragm; D63.8 Anemia in other chronic diseases classified elsewhere; T17.998A Other foreign object in respiratory tract, part unspecified causing other injury, initial encounter; I11.9 Hypertensive heart disease without heart failure; D75.839 Thrombocytosis, unspecified; B37.3 Candidiasis of vulva and vagina; Y95 Nosocomial condition; E61.1 Iron deficiency; F32.A Depression, unspecified; N20.0 Calculus of kidney; E83.42 Hypomagnesemia; G47.00 Insomnia, unspecified; E87.70 Fluid overload, unspecified; R33.8 Other retention of urine; E87.6 Hypokalemia; T36.8X5A Adverse effect of other systemic antibiotics, initial encounter; N31.9 Neuromuscular dysfunction of bladder, unspecified; M62.49 Contracture of muscle, multiple sites; Z68.23 Body mass index [BMI] 23.0-23.9, adult; F17.290 Nicotine dependence, other tobacco product, uncomplicated; Z79.899 Other long term (current) drug therapy; Z87.39 Personal history of other diseases of the musculoskeletal system and connective tissue; Z87.81 Personal history of (healed) traumatic fracture; Z86.14 Personal history of Methicillin resistant Staphylococcus aureus infection; Z87.442 Personal history of urinary calculi; Z87.820 Personal history of traumatic brain injury; Z87.01 Personal history of pneumonia (recurrent); Z86.73 Personal history of transient ischemic attack (TIA), and cerebral infarction without residual deficits; Z98.890 Other specified postprocedural states; Z71.3 Dietary counseling and surveillance; Z91.048 Other nonmedicinal substance allergy status
CPT/HCPCS: 31624; 31645; 36415; 36558; 36573; 36600; 43246; 70450; 71045; 71046; 71250; 74018; 76604; 76770; 76937; 77001; 80048; 80053; 80202; 81001; 82465; 82533; 82728; 82747; 82805; 82945; 83540; 83550; 83605; 83615; 83735; 83880; 84100; 84132; 84145; 84484; 85025; 85027; 85610; 85730; 86704; 86706; 86850; 86900; 86901; 86920; 87040; 87070; 87075; 87077; 87102; 87116; 87186; 87205; 87206; 87252; 87340; 87496; 87498; 87502; 87529; 87634; 87635; 87798; 88108; 88305; 88341; 88342; 89050; 90935; 93005; 94002; 94003; 94640; 94660; 94667; 94668; 95816; 99285